=== PATIENT | male | born 1980 | race American Indian/Alaskan Native ===

== ENCOUNTER 2018-11-01 04:54 | Inpatient (IN) | payer OTHER ==
[2018-11-01] MEDS ORDERED: ZOFRAN IV ONE ×2 (05:09→06:48)
[2018-11-01] MEDS ORDERED: MORPHINE IV ONE (05:09)
[2018-11-01] MEDS ORDERED: APRESOLINE IV ONE (05:09)
--- NOTE | 2018-11-01 05:15 | Emergency Department Report ---
Blank Doc - Documentation Documentation: 38 yo M w/ hx HTN, off BP meds x 2 months since moving to [place], presents to ED with 3 day history of diffuse headache, blurred vision, substernal chest pain that is nonradiating and feels like gas, and hematuria. Pt reports all symptoms have been intermittent. Denies abdominal pain. Reports vomiting. Pt states he was taking lisinopril and amlodipine. Reports tobacco use, denies drug use. BP currently 250/189. Pressures are essentially the same in both arms. No neuro deficits noted on exam, speech is clear, no facial droop, strength in equal and normal bilaterally. Abdomen is soft and nontender. Will give hydralazine for the blood pressure, morphine for pain. Pt was taken to CT on arrival with EMS. CT Head has been done, results are pending. No obvious hemorrhage noted. Will place further orders for work-up for oncoming ER physician.
--- NOTE | 2018-11-01 05:17 | Cat Scan Report ---
CT head without contrast INDICATION : hypertension with blurry vision. TECHNIQUE: Axial imaging performed from the skull apex through the skull base without the use of con trast. All CT scans at this location are performed using CT dose reduction for ALARA by means of aut omated exposure control. COMPARISON: None FINDINGS: Parenchyma: No acute intracranial hemorrhage or parenchymal abnormality. Ventricles: Ventricles are normal in size and appear symmetric. Soft tissues: Soft tissues including the orbits appear normal. Bones: No acute osseous abnormality. Sinuses: Sinuses and mastoid air cells are clear. IMPRESSION: No acute abnormality. Signer Name: Kun Watson MD Signed: 11/01/2018 5:12 AM Workstation Name: [id number]
[2018-11-01] MEDS ORDERED: NITROSTAT SL PRN (05:33)
[2018-11-01 05:42] LABS: Basophils # (Auto) 0.1 K/mm3 (0.0-0.1); Eosinophils # (Auto) 0.3 K/mm3 (0.0-0.4); Eosinophils % (Auto) 3.3 % (0.0-4.3); Hematocrit 35.7 % (35.5-45.6); Hemoglobin 12.3 gm/dl (11.8-15.2); Lymphocytes # (Auto) 0.9 K/mm3 (1.2-5.4); Lymphocytes % (Auto) 10.1 % (13.4-35.0); Mean Corpuscular HGB Conc 35 % (32-34); Mean Corpuscular Volume 86 fl (84-94); Monocytes # (Auto) 0.9 K/mm3 (0.0-0.8); Monocytes % (Auto) 9.6 % (0.0-7.3); Platelet Count 148 K/mm3 (140-440); Red Blood Count 4.15 M/mm3 (3.65-5.03); Red Cell Distribution Width 17.9 % (13.2-15.2)
--- NOTE | 2018-11-01 05:44 | XRay Report ---
CHEST 1 VIEW INDICATION: chest pain. Middle to left-sided chest pain for 3 days with shortness of breath COMPARISON: None FINDINGS: Support devices: None. Heart: Within normal limits. Lungs/Pleura: No acute air space or interstitial disease. Additional findings: None. IMPRESSION: 1. No acute findings. Signer Name: Kun Watson MD Signed: 11/01/2018 5:40 AM Workstation Name: [id number]
[2018-11-01 05:55] LABS: INR 1.09 (0.87-1.13); Partial Thromboplastin Time 30.8 Sec. (24.2-36.6)
[2018-11-01 06:09] LABS: Albumin 3.8 g/dL (3.9-5); Calcium 9.3 mg/dL (8.4-10.2)
[2018-11-01] MEDS ORDERED: NORMODYNE IV ONE (06:15)
[2018-11-01] MEDS ORDERED: K-DUR PO ONE (06:23)
[2018-11-01 06:37] LABS: Chol/HDL Ratio 4.57 %
[2018-11-01] MEDS: CARDENE 50 MG in NACL 0.9% 250ML 230 ML IV SCH ×2 (06:44→20:49)
--- NOTE | 2018-11-01 06:50 | Emergency Department Report ---
ED General Adult HPI - General Chief complaint: High BP Stated complaint: CP, HIGH BP Time Seen by Provider: 11/01/18 06:12 Source: EMS Mode of arrival: Ambulatory Limitations: No Limitations - History of Present Illness Initial comments: This is a 38-year-old male gives various rationalization as for his noncompliance with his blood pressure medication. Quite remarkably he tells me that his father recently had to be placed on dialysis secondary to hypertension. He states the last 3-4 days he's been having chest pain which is in the left pectoral area and does not radiate is nonpleuritic. He has also had some headaches. He was previously treated by the previous emergency physician for pain and is relatively comfortable thereof. He still has some persistent nausea. CT of the head and chest x-ray prior to my arrival showed no acute process. -: Gradual, days(s) Location: head, chest Radiation: non-radiation Severity scale (0 -10): 0 Quality: aching (/pressure) Consistency: now resolved Improves with: none Worsens with: none Associated Symptoms: denies other symptoms Treatments Prior to Arrival: none - Related Data Allergies Allergy/AdvReac Type Severity Reaction Status Date / Time No Known Allergies Allergy Unverified 11/01/18 04:56 ED Review of Systems ROS: Stated complaint: CP, HIGH BP Other details as noted in HPI Constitutional: denies: chills, fever Eyes: denies: eye pain, eye discharge, vision change ENT: denies: ear pain, throat pain Respiratory: denies: cough, shortness of breath, wheezing Cardiovascular: chest pain. denies: palpitations Endocrine: no symptoms reported Gastrointestinal: nausea, vomiting. denies: abdominal pain, diarrhea Genitourinary: denies: urgency, dysuria Musculoskeletal: denies: back pain, joint swelling, arthralgia Skin: denies: rash, lesions Neurological: headache. denies: weakness, paresthesias Psychiatric: denies: anxiety, depression Hematological/Lymphatic: denies: easy bleeding, easy bruising ED Past Medical Hx - Past Medical History Previous Medical History?: Yes - Family History Family history: renal disease - Social History Smoking Status: Never Smoker ED Physical Exam - General Limitations: No Limitations General appearance: alert, in no apparent distress - Head Head exam: Present: atraumatic, normocephalic - Eye Eye exam: Present: normal appearance. Absent: scleral icterus - ENT ENT exam: Present: mucous membranes moist - Neck Neck exam: Present: normal inspection - Respiratory Respiratory exam: Present: normal lung sounds bilaterally. Absent: respiratory distress - Cardiovascular Cardiovascular Exam: Present: regular rate, normal rhythm. Absent: systolic murmur, diastolic murmur, rubs, gallop - GI/Abdominal GI/Abdominal exam: Present: soft, normal bowel sounds. Absent: distended, t enderness, guarding, rebound, rigid - Rectal Rectal exam: Present: deferred - Extremities Exam Extremities exam: Present: normal inspection - Back Exam Back exam: Present: normal inspection - Neurological Exam Neurological exam: Present: alert, oriented X3, CN II-XII intact. Absent: motor sensory deficit - Psychiatric Psychiatric exam: Present: normal affect, normal mood - Skin Skin exam: Present: warm, dry, intact, normal color. Absent: rash ED Course Vital Signs 11/01/18 11/01/18 11/01/18 05:02 05:15 05:30 Temperature 97.9 F Pulse Rate 104 H 93 H 92 H Respiratory 18 10 L 29 H Rate Blood Pressure 252/189 241/180 235/163 O2 Sat by Pulse 99 96 Oximetry 11/01/18 11/01/18 11/01/18 05:45 06:01 06:15 Temperature Pulse Rate 90 90 69 Respiratory 28 H 26 H 27 H Rate Blood Pressure 223/155 223/155 223/155 O2 Sat by Pulse 96 98 99 Oximetry 11/01/18 11/01/18 11/01/18 06:30 06:45 07:00 Temperature Pulse Rate 92 H 78 Respiratory 19 22 Rate Blood Pressure 208/151 215/149 192/136 O2 Sat by Pulse 96 93 98 Oximetry 11/01/18 11/01/18 11/01/18 07:15 07:30 07:45 Temperature Pulse Rate 83 74 71 Respiratory 16 17 21 Rate Blood Pressure 192/136 139/93 128/83 O2 Sat by Pulse 100 96 98 Oximetry 11/01/18 11/01/18 11/01/18 08:00 08:12 08:15 Temperature Pulse Rate 78 80 Respiratory 25 H 25 H Rate Blood Pressure 171/115 164/110 O2 Sat by Pulse 96 98 97 Oximetry - Reevaluation(s) Reevaluation #1: I took a blood pressure on my arrival. It was extremely elevated. The patient was ordered labetalol IV and nicardipine drip. His potassium was also found to be 2.5. Supplemental potassium was ordered. He will be admitted to the int ensive care unit for his hypertensive crisis. Additional blood work is pending. 11/01/18 06:49 Reevaluation #2: The patient was hypotensive unresponsive to Cardene per the nurse. She stopped the drip which was appropriate. We discussed the need for close ongoing monitor ing. She stated that she would check the blood pressure 5 minutes. I spoke to the hospitalist staff. The patient will be admitted. He does have a d-dimer of 1700. I will discuss this with the production operator regarding the choice of imaging protocol with this creatinine and how to proceed. 11/01/18 07:50 Reevaluation #3: I spoke with Dr. Restrepo. We discussed the case in detail artery the need for imaging to rule out dissection particularly. I do not think this patient has a pulmonary embolism. His chest x-ray shows normal mediastinum so that certainly leads away from the diagnosis of aortic dissection. However this is still a concern. He has a d-dimer of over 1700. I think ultimately this may be explainable by endorgan injury. Dr. Restrepo suggested that the best course may be to do a ANAMARIA. I will speak with cardiology regarding this. Dr. Maria Teresa hurt. 11/01/18 08:15 Reevaluation #4: Patient produced a urine specimen. It was consistent with gross hematuria. 11/01/18 08:20 Reevaluation #5: Discussed with Dr. Collins. He did not recommend a ANAMARIA at this time. He agreed with me ordering a transthoracic echo. Further recommendations per consultants. Patient admitted to the hospitalist staff. 11/01/18 08:53 ED Medical Decision Making - Lab Data Result diagrams: 11/01/18 05:26 11/01/18 05:26 Laboratory Results - last 24 hr 11/01/18 11/01/18 11/01/18 05:26 05:26 05:26 WBC 9.0 RBC 4.15 Hgb 12.3 Hct 35.7 MCV 86 MCH 30 MCHC 35 H RDW 17.9 H Plt Count 148 Lymph % (Auto) 10.1 L [place] % (Auto) 9.6 H Eos % (Auto) 3.3 Baso % (Auto) 1.0 Lymph # 0.9 L [place] # 0.9 H Eos # 0.3 Baso # 0.1 Seg Neutrophils % 76.0 H Seg Neutrophils # 6.9 PT 13.8 INR 1.09 APTT 30.8 Sodium Potassium Chloride Carbon Dioxide Anion Gap BUN Creatinine Estimated GFR BUN/Creatinine Ratio Glucose Calcium Total Bilirubin AST ALT Alkaline Phosphatase Troponin T 0.168 H* Total Protein Albumin Albumin/Globulin Ratio Triglycerides 158 H Cholesterol 206 H LDL Cholesterol Direct 158 H HDL Cholesterol 45 Cholesterol/HDL Ratio 4.57 11/01/18 05:26 WBC RBC Hgb Hct MCV MCH MCHC RDW Plt Count Lymph % (Auto) [place] % (Auto) Eos % (Auto) Baso % (Auto) Lymph # [place] # Eos # Baso # Seg Neutrophils % Seg Neutrophils # PT INR APTT Sodium 137 Potassium 2.5 L* Chloride 91.1 L Carbon Dioxide 29 Anion Gap 19 BUN 53 H Creatinine 7.0 H Estimated GFR 11 BUN/Creatinine Ratio 8 Glucose 131 H Calcium 9.3 Total Bilirubin 0.80 AST 25 ALT 11 Alkaline Phosphatase 70 Troponin T Total Protein 6.4 Albumin 3.8 L Albumin/Globulin Ratio 1.5 Triglycerides Cholesterol LDL Cholesterol Direct HDL Cholesterol Cholesterol/HDL Ratio - EKG Data -: EKG Interpreted by Me EKG shows normal: sinus rhythm - EKG Data Interpretation: LVH (quite consistent with LVH and associated repolarization abnormalities) - Radiology Data Radiology results: report reviewed, image reviewed interpreted by me: Chest x-ray a CT of the head showed no acute findings Critical Care Time: Yes Critical care time in (mins) excluding proc time.: 90 Critical care attestation.: If time is entered above; I have spent that time in minutes in the direct care of this critically ill patient, excluding procedure time. ED Disposition Clinical Impression: Hypertensive crisis, Acute kidney injury, Hypokalemia Chest pain Qualifiers: Chest pain type: unspecified Qualified Code(s): R07.9 - Chest pain, unspecified Headache Qualifiers: Headache type: unspecified Headache chronicity pattern: acute headache Intractability: not intractable Qualified Code(s): R51 - Headache Disposition: OP ADMIT IP TO THIS HOSP Is pt being admited?: Yes Does the pt Need Aspirin: Yes Condition: Stable Instructions: Chest Pain (ED), Hypertension (ED) Referrals: [facility] MD HUGO [Primary Care Provider] - 3-5 Days Time of Disposition: 06:52
[2018-11-01] MEDS ORDERED: BABY ASPIRIN PO ONE (06:53)
[2018-11-01 06:58] LABS: Creatine Kinase MB 4.2 ng/mL (0.0-4.0); INR 1.08 (0.87-1.13)
[2018-11-01 06:59] LABS: Partial Thromboplastin Time 30.3 Sec. (24.2-36.6)
[2018-11-01 07:01] LABS: Alanine Aminotransferase 11 units/L (7-56); Albumin 3.7 g/dL (3.9-5)
[2018-11-01 07:22] LABS: Bilirubin,Direct < 0.2 mg/dL (0-0.2)
[2018-11-01 08:38] LABS: Bilirubin,Urine NEG (Negative); Blood,Urine LG (Negative); Color,Urine Red (Yellow); Mucus,Urine FEW /HPF; Urobilinogen,Urine < 2.0 mg/dL (<2.0)
[2018-11-01 08:49] LABS: Protein,Urine >500 mg/dL (Negative)
[2018-11-01 08:50] LABS: RBC,Urine > 182.0 /HPF (0.0-6.0)
[2018-11-01 08:55] LABS: Amphetamine Screen,Urine PRESUMPTIVE NEGATIVE; Benzodiazepines Screen,Urine PRESUMPTIVE NEGATIVE; Cocaine Screen,Urine PRESUMPTIVE NEGATIVE; Methadone Screen,Urine PRESUMPTIVE NEGATIVE; Opiate Screen,Urine PRESUMPTIVE NEGATIVE
[2018-11-01 09:09] LABS: Cannabinoid Screen,Urine PRESUMPTIVE POSITIVE
--- NOTE | 2018-11-01 09:40 | History and Physical Report ---
History of Present Illness Date of examination: 11/01/18 Date of admission: 11/01/18 Chief complaint: CP, History of present illness: 38 yo M w/ hx HTN, off BP meds x 2 months since moving to [place], presents to ED with 3 day history of diffuse headache, blurred vision, substernal chest pain that is nonradiating and hematuria. Pt reports all symptoms have been in termittent. Denies abdominal pain. Reports vomiting. Pt states he was taking lisinopril and amlodipine. Reports tobacco use, denies drug use. On arrival to the emergency room the patient's BP was 250/189. The patient denies any fever or chills. No cough or cold symptoms. Past History Past Medical History: hypertension Past Surgical History: No surgical history Social history: no significant social history Family history: hypertension Medications and Allergies Allergies Allergy/AdvReac Type Severity Reaction Status Date / Time No Known Allergies Allergy Unverified 11/01/18 04:56 Active Meds: Active Medications Nicardipine HCl 50 mg/ Sodium (Chloride) 250 mls @ 25 mls/hr IV TITR ZUNILDA; Protocol Last Titration: 11/01/18 09:02 Dose: 2.5 mg/hr, 12.5 mls/hr Documented by: Nitroglycerin (Nitrostat) 0.4 mg SL .Q5MIN PRN PRN Reason: Chest Pain Last Admin: 11/01/18 06:20 Dose: 0.4 mg Documented by: Review of Systems All systems: negative Exam - Constitutional Vitals: Temp Pulse Resp BP Pulse Ox 97.9 F 81 9 L 142/88 83 L 11/01/18 05:02 11/01/18 09:00 11/01/18 09:00 11/01/18 09:00 11/01/18 09:00 General appearance: Present: no acute distress, well-nourished - EENT Eyes: Present: PERRL ENT: hearing intact, clear oral mucosa - Neck Neck: Present: supple, normal ROM - Respiratory Respiratory effort: normal Respiratory: bilateral: CTA - Cardiovascular Heart Sounds: Present: S1 & S2. Absent: rub, click - Extremities Extremities: pulses symmetrical, No edema Peripheral Pulses: within normal limits - Abdominal General gastrointestinal: Present: soft, non-tender, non-distended, normal bowel sounds Male genitourinary: Present: normal - Integumentary Integumentary: Present: clear, warm, dry - Musculoskeletal Musculoskeletal: gait normal, strength equal bilaterally - Psychiatric Psychiatric: appropriate mood/affect, intact judgment & insight - Neurologic Neurologic: CNII-XII intact, moves all extremities Results - Labs CBC & Chem 7: 11/01/18 05:26 11/01/18 05:26 Labs: Laboratory Last Values WBC 9.0 K/mm3 (4.5-11.0) 11/01/18 05:26 RBC 4.15 M/mm3 (3.65-5.03) 11/01/18 05:26 Hgb 12.3 gm/dl (11.8-15.2) 11/01/18 05:26 Hct 35.7 % (35.5-45.6) 11/01/18 05:26 MCV 86 fl (84-94) 11/01/18 05:26 MCH 30 pg (28-32) 11/01/18 05:26 MCHC 35 % (32-34) H 11/01/18 05:26 RDW 17.9 % (13.2-15.2) H 11/01/18 05:26 Plt Count 148 K/mm3 (140-440) 11/01/18 05:26 Lymph % (Auto) 10.1 % (13.4-35.0) L 11/01/18 05:26 [place] % (Auto) 9.6 % (0.0-7.3) H 11/01/18 05:26 Eos % (Auto) 3.3 % (0.0-4.3) 11/01/18 05:26 Baso % (Auto) 1.0 % (0.0-1.8) 11/01/18 05:26 Lymph # 0.9 K/mm3 (1.2-5.4) L 11/01/18 05:26 [place] # 0.9 K/mm3 (0.0-0.8) H 11/01/18 05:26 Eos # 0.3 K/mm3 (0.0-0.4) 11/01/18 05:26 Baso # 0.1 K/mm3 (0.0-0.1) 11/01/18 05:26 Seg Neutrophils % 76.0 % (40.0-70.0) H 11/01/18 05:26 Seg Neutrophils # 6.9 K/mm3 (1.8-7.7) 11/01/18 05:26 PT 13.7 Sec. (12.2-14.9) 11/01/18 06:29 INR 1.08 (0.87-1.13) 11/01/18 06:29 APTT 30.3 Sec. (24.2-36.6) 11/01/18 06:29 1703.12 ng/mlDDU (0-234) H 11/01/18 06:29 Sodium 137 mmol/L (137-145) 11/01/18 05:26 Potassium 2.5 mmol/L (3.6-5.0) L* 11/01/18 05:26 Chloride 91.1 mmol/L (98-107) L 11/01/18 05:26 Carbon Dioxide 29 mmol/L (22-30) 11/01/18 05:26 19 mmol/L 11/01/18 05:26 BUN 53 mg/dL (9-20) H 11/01/18 05:26 7.0 mg/dL (0.8-1.5) H 11/01/18 05:26 Estimated GFR 11 ml/min 11/01/18 05:26 8 % 11/01/18 05:26 Glucose 131 mg/dL (75-100) H 11/01/18 05:26 Calcium 9.3 mg/dL (8.4-10.2) 11/01/18 05:26 Magnesium 2.30 mg/dL (1.7-2.3) 11/01/18 06:29 0.80 mg/dL (0.1-1.2) 11/01/18 06:29 < 0.2 mg/dL (0-0.2) 11/01/18 06:29 0.6 mg/dL 11/01/18 06:29 AST 26 units/L (5-40) 11/01/18 06:29 ALT 11 units/L (7-56) 11/01/18 06:29 70 units/L (35-129) 11/01/18 06:29 133 units/L (55-170) 11/01/18 06:29 CK-MB (CK-2) 4.2 ng/mL (0.0-4.0) H 11/01/18 06:29 CK-MB (CK-2) Rel Index 3.1 (0-4) 11/01/18 06:29 0.173 ng/mL (0.00-0.029) H* 11/01/18 06:29 NT-Pro-B Natriuret Pep 81758 pg/mL (0-450) H 11/01/18 06:29 7.4 g/dL (6.3-8.2) 11/01/18 06:29 3.7 g/dL (3.9-5) L 11/01/18 06:29 1.0 % 11/01/18 06:29 Triglycerides 158 mg/dL (2-149) H 11/01/18 05:26 Cholesterol 206 mg/dL (50-199) H 11/01/18 05:26 158 mg/dL (50-130) H 11/01/18 05:26 45 mg/dL (40-59) 11/01/18 05:26 4.57 % 11/01/18 05:26 Red (Yellow) 11/01/18 08:11 Slightly-cloudy (Clear) 11/01/18 08:11 6.0 (5.0-7.0) 11/01/18 08:11 Ur Specific [place] 1.013 (1.003-1.030) 11/01/18 08:11 >500 mg/dL (Negative) 11/01/18 08:11 150 mg/dL (Negative) 11/01/18 08:11 Neg mg/dL (Negative) 11/01/18 08:11 Lg (Negative) 11/01/18 08:11 Neg (Negative) 11/01/18 08:11 Neg (Negative) 11/01/18 08:11 < 2.0 mg/dL (<2.0) 11/01/18 08:11 Ur Leukocyte Esterase Neg (Negative) 11/01/18 08:11 3.0 /HPF (0.0-6.0) 11/01/18 08:11 > 182.0 /HPF (0.0-6.0) 11/01/18 08:11 U Epithel Cells (Auto) < 1.0 /HPF (0-13.0) 11/01/18 08:11 Few /HPF 11/01/18 08:11 Presumptive negative 11/01/18 08:11 Presumptive negative 11/01/18 08:11 Ur Barbiturates Screen Presumptive negative 11/01/18 08:11 Ur Phencyclidine Scrn Presumptive negative 11/01/18 08:11 Ur Amphetamines Screen Presumptive negative 11/01/18 08:11 U Benzodiazepines Scrn Presumptive negative 11/01/18 08:11 Presumptive negative 11/01/18 08:11 U Marijuana (THC) Screen Presumptive positive 11/01/18 08:11 Disclamer 11/01/18 08:11 Assessment and Plan Assessment and plan: Acute on CKD. We do not have a baseline creatinine to compare. However patient likely has pronounced kidney disease secondary to hypertension. GFR is 11. Nephrology consult. ER physician has discussed with vascular for Vas-Cath placement. Follow-up urinalysis. Accelerated hypertension/malignant. Continue IV antihypertensive medications. Patient will be transitioned to by mouth medications once blood pressure has stabilized. Elevated troponin. Etiology likely secondary to renal insufficiency. Chest pain. Patient will have ischemic evaluation likely when renal issues have been stabilized. CTA of the chest to rule out dissection. Hypokalemia. Replete potassium. Hyperlipidemia.
--- NOTE | 2018-11-01 10:14 | Consultation ---
History of Present Illness Consult date: 11/01/18 Consult reason: hypertension History of present illness: 38 year old -[place] male with a history of hypertension and noncompli ance of medication presenting with elevated blood pressure shortness of breath and chest pain chest CT scan showed no acute cardiopulmonary process. I did time of my evaluation patient is chest pain-free. On arrival to the emergency room patient's blood pressure was 250/189 Past History Past Medical History: hypertension Past Surgical History: No surgical history Social history: no significant social history Family history: hypertension Medications and Allergies Allergies Allergy/AdvReac Type Severity Reaction Status Date / Time No Known Allergies Allergy Unverified 11/01/18 04:56 Active Meds: Active Medications Nicardipine HCl 50 mg/ Sodium (Chloride) 250 mls @ 25 mls/hr IV TITR ZUNILDA; Protocol Last Titration: 11/01/18 09:02 Dose: 2.5 mg/hr, 12.5 mls/hr Documented by: Nitroglycerin (Nitrostat) 0.4 mg SL .Q5MIN PRN PRN Reason: Chest Pain Last Admin: 11/01/18 06:20 Dose: 0.4 mg Documented by: Review of Systems All systems: negative Cardiovascular: chest pain, shortness of breath Physical Examination Vital Signs Temp Pulse Resp BP Pulse Ox 97.9 F 104 H 18 252/189 99 11/01/18 05:02 11/01/18 05:02 11/01/18 05:02 11/01/18 05:02 11/01/18 05:02 General appearance: no acute distress, well-nourished HEENT: Positive: PERRL, Mucus Membranes Moist Neck: Positive: neck supple, trachea midline Cardiac: Positive: Reg Rate and Rhythm, S1/S2. Negative: Audible Murmur Lungs: Positive: clear to auscultation, Normal Breath Sounds Neuro: Positive: Grossly Intact Abdomen: Positive: Soft, Active Bowel Sounds. Negative: Tender, Distended Male genitourinary: Positive: normal Skin: Positive: Clear Incision: Cardiac Cath Site Musculoskeletal: No Pain, Normal Range of Motion Extremities: Present: normal. Absent: edema Results 11/01/18 05:26 11/01/18 05:26 Cardiac Enzymes 11/01/18 11/01/18 11/01/18 Range/Units 05:26 06:29 06:29 AST 25 26 (5-40) units/L CK-MB (CK-2) 4.2 H (0.0-4.0) ng/mL Coagulation 11/01/18 11/01/18 Range/Units 05:26 06:29 PT 13.8 13.7 (12.2-14.9) Sec. INR 1.09 1.08 (0.87-1.13) APTT 30.8 30.3 (24.2-36.6) Sec. Lipids 11/01/18 Range/Units 05:26 Triglycerides 158 H (2-149) mg/dL Cholesterol 206 H (50-199) mg/dL HDL Cholesterol 45 (40-59) mg/dL Cholesterol/HDL Ratio 4.57 % CBC 11/01/18 Range/Units 05:26 WBC 9.0 (4.5-11.0) K/mm3 RBC 4.15 (3.65-5.03) M/mm3 Hgb 12.3 (11.8-15.2) gm/dl Hct 35.7 (35.5-45.6) % Plt Count 148 (140-440) K/mm3 Lymph # 0.9 L (1.2-5.4) K/mm3 Bent # 0.9 H (0.0-0.8) K/mm3 Eos # 0.3 (0.0-0.4) K/mm3 Baso # 0.1 (0.0-0.1) K/mm3 Comprehensive Metabolic Panel 11/01/18 11/01/18 Range/Units 05:26 06:29 Sodium 137 (137-145) mmol/L Potassium 2.5 L* (3.6-5.0) mmol/L Chloride 91.1 L (98-107) mmol/L Carbon Dioxide 29 (22-30) mmol/L BUN 53 H (9-20) mg/dL Creatinine 7.0 H (0.8-1.5) mg/dL Glucose 131 H (75-100) mg/dL Calcium 9.3 (8.4-10.2) mg/dL Direct Bilirubin < 0.2 (0-0.2) mg/dL Indirect Bilirubin 0.6 mg/dL AST 25 26 (5-40) units/L ALT 11 11 (7-56) units/L Alkaline Phosphatase 70 70 (35-129) units/L Total Protein 6.4 7.4 (6.3-8.2) g/dL Albumin 3.8 L 3.7 L (3.9-5) g/dL EKG interpretations - Telemetry EKG Rhythm: Sinus Rhythm Assessment and Plan 1. Hypertensive emergency 2. Severe acuteRenal failure 3. Hypokalemia 4. Hyperlipidemia 5. Equivocal troponin elevation secondary to renal failure Plan Patient is to be started on dialysis this will control on correct electrolyte abnormalities she will have a CTA of the aorta and chest. Echocardiogram to assess global and regional function
--- NOTE | 2018-11-01 10:52 | Consultation ---
History of Present Illness - Reason for Consult Consult date: 11/01/18 acute renal failure - History of Present Illness Patient with a history of hypertension and noncompliance presents with chest pain and a serum creatinine of 7.0. Past History Past Medical History: hypertension Past Surgical History: No surgical history Social history: no significant social history Family history: hypertension Medications and Allergies Allergies Allergy/AdvReac Type Severity Reaction Status Date / Time No Known Allergies Allergy Unverified 11/01/18 04:56 Active Meds: Active Medications Nicardipine HCl 50 mg/ Sodium (Chloride) 250 mls @ 25 mls/hr IV TITR ZUNILDA; Protocol Last Titration: 11/01/18 09:02 Dose: 2.5 mg/hr, 12.5 mls/hr Documented by: Nitroglycerin (Nitrostat) 0.4 mg SL .Q5MIN PRN PRN Reason: Chest Pain Last Admin: 11/01/18 06:20 Dose: 0.4 mg Documented by: Review of Systems All systems: negative Exam - Constitutional Vitals: Temp Pulse Resp BP Pulse Ox 97.9 F 87 24 160/103 94 11/01/18 05:02 11/01/18 10:45 11/01/18 10:45 11/01/18 10:45 11/01/18 09:15 General appearance: Present: no acute distress - EENT Eyes: Present: PERRL, EOM intact ENT: hearing intact - Neck Neck: Present: supple, normal ROM - Respiratory Respiratory effort: normal - Cardiovascular Rhythm: regular - Extremities Extremities: no ischemia, No edema, Full ROM - Abdominal General gastrointestinal: Present: deferred Male genitourinary: Present: deferred - Rectal Rectal Exam: deferred - Musculoskeletal Musculoskeletal: strength equal bilaterally - Psychiatric Psychiatric: appropriate mood/affect, cooperative - Neurologic Neurologic: no focal deficits Results - Labs CBC & Chem 7: 11/01/18 05:26 11/01/18 05:26 Labs: Abnormal lab results 11/01/18 11/01/18 11/01/18 Range/Units 05:26 05:26 05:26 MCHC 35 H (32-34) % RDW 17.9 H (13.2-15.2) % Lymph % (Auto) 10.1 L (13.4-35.0) % [place] % (Auto) 9.6 H (0.0-7.3) % Lymph # 0.9 L (1.2-5.4) K/mm3 [place] # 0.9 H (0.0-0.8) K/mm3 Seg Neutrophils % 76.0 H (40.0-70.0) % D-Dimer (0-234) ng/mlDDU Potassium 2.5 L* (3.6-5.0) mmol/L Chloride 91.1 L (98-107) mmol/L BUN 53 H (9-20) mg/dL Creatinine 7.0 H (0.8-1.5) mg/dL Glucose 131 H (75-100) mg/dL CK-MB (CK-2) (0.0-4.0) ng/mL Troponin T 0.168 H* (0.00-0.029) ng/mL NT-Pro-B Natriuret Pep (0-450) pg/mL Albumin 3.8 L (3.9-5) g/dL Triglycerides 158 H (2-149) mg/dL Cholesterol 206 H (50-199) mg/dL LDL Cholesterol Direct 158 H (50-130) mg/dL 11/01/18 11/01/18 11/01/18 Range/Units 06:29 06:29 06:29 MCHC (32-34) % RDW (13.2-15.2) % Lymph % (Auto) (13.4-35.0) % [place] % (Auto) (0.0-7.3) % Lymph # (1.2-5.4) K/mm3 [place] # (0.0-0.8) K/mm3 Seg Neutrophils % (40.0-70.0) % D-Dimer 1703.12 H (0-234) ng/mlDDU Potassium (3.6-5.0) mmol/L Chloride (98-107) mmol/L BUN (9-20) mg/dL Creatinine (0.8-1.5) mg/dL Glucose (75-100) mg/dL CK-MB (CK-2) 4.2 H (0.0-4.0) ng/mL Troponin T 0.173 H* (0.00-0.029) ng/mL NT-Pro-B Natriuret Pep 66261 H (0-450) pg/mL Albumin 3.7 L (3.9-5) g/dL Triglycerides (2-149) mg/dL Cholesterol (50-199) mg/dL LDL Cholesterol Direct (50-130) mg/dL Assessment and Plan Patient with a history of acute renal failure. A Vas-cath will be placed in the ER.
--- NOTE | 2018-11-01 10:59 | Operative Report ---
Operative Report Operative Report: Exam: Ultrasound guided placement of Vas-cath Clinical indication: Patient with acute renal failure requiring access Date: 11/01/2018 Procedure: Following an explanation of the risks, benefits and alternatives; written informed consent was obtained. The procedure was performed at bedside in the ER. Initial ultrasound guided evaluation of the patient's right neck demonstrated a patent right internal jugular vein. The patient's right neck and chest wall were prepped and draped in the usual sterile fashion. 1% lidocaine was used for anesthesia. Under ultrasound guidance, the right internal jugular vein was cannulated with a 7 cm 18-gauge needle. A 0.035 guidewire was advanced centrally. The needle was removed and following serial dilation over the guidewire, a 15 cm dialysis catheter was advanced up the guidewire centrally. The guidewire was removed. Nonpulsatile blood returned from all 3 ports. The catheter was securely flushed and locked with sterile saline. The catheter was fastened at the skin surface using 2-0 nylon suture and a sterile dressing applied. A post procedure chest x-ray was ordered. The patient tolerated the procedure well. There were no immediate postprocedure complications. Impression: Ultrasonic guided placement of Vascath via the right internal jugular vein.
--- NOTE | 2018-11-01 11:19 | XRay Report ---
CHEST 1 VIEW 11/01/2018 10:51 AM INDICATION / CLINICAL INFORMATION: Right IJ Trialysis Vas-Cath placement. COMPARISON: 5:12 AM FINDINGS: SUPPORT DEVICES: Interval placement of right jugular Vas-Cath the tip projecting over the superior ve na cava in expected position. HEART / MEDIASTINUM: Enlarged but stable. LUNGS / PLEURA: No significant pulmonary or pleural abnormality. No pneumothorax. ADDITIONAL FINDINGS: No significant additional findings. IMPRESSION: 1. Right Vas-Cath in expected position. Signer Name: Yo Flores MD Signed: 11/01/2018 11:15 AM Workstation Name: [id number]
--- NOTE | 2018-11-01 11:27 | Cat Scan Report ---
CTA CHEST, ABDOMEN, AND PELVIS WITH CONTRAST INDICATION / CLINICAL INFORMATION: chest pain and elevated d-dimer, htn r/o AD. TECHNIQUE: Axial CT images were obtained through the chest, abdomen, and pelvis after IV contrast. 3 plane MIP a nd/or 3D reconstructions were produced. All CT scans at this location are performed using CT dose red uction for ALARA by means of automated exposure control. COMPARISON: None available. FINDINGS: HEART: Heart is enlarged. No pericardial effusion. THORACIC AORTA: No acute abnormality. Specifically no aortic dissection. No aneurysmal dilation. GREAT VESSELS: No significant abnormality. PULMONARY ARTERIES: No significant abnormality. ADDITIONAL CHEST FINDINGS: No acute air space or interstitial disease. No pleural effusion. ABDOMINAL AORTA: No acute abnormality. Specifically no aortic dissection or aneurysmal dilation. RENAL ARTERIES: No significant abnormality. CELIAC ARTERY: No significant abnormality. SUPERIOR MESENTERIC ARTERY: No significant abnormality. INFERIOR MESENTERIC ARTERY: No significant abnormality. RIGHT ILIAC ARTERIES: No significant abnormality.. LEFT ILIAC ARTERIES: No significant abnormality.. ADDITIONAL ABDOMINOPELVIC FINDINGS: No inflammatory process or bowel obstruction. Kidneys have a hete rogeneous appearance. SKELETAL STRUCTURES: No significant abnormality. IMPRESSION: 1. No acute abnormality of the thoracoabdominal aorta. No aortic dissection or other acute abnormalit y. 2. No acute findings in the chest, abdomen, or pelvis. 3. Heterogeneous appearance of the kidneys. Correlation with renal function labs is recommended. Signer Name: Yo Flores MD Signed: 11/01/2018 11:22 AM Workstation Name: [id number]
--- NOTE | 2018-11-01 11:45 | Consultation ---
History of Present Illness - History of Present Illness Thank you for the consultation ! Patient was evaluated today My assessment and plan are as follows; Renal failure patient is 38-year-old being admitted here with uncontrolled hyper tension, patient was without medication for 2 months, history of long-standing hypertension, was told to have renal failure given in [place] Likely may have some degree of chronic kidney disease? End-stage renal disease presenting with uncontrolled hypertension he is an immediate need of renal replacement therapy due to severity of renal failure as well as exposure to radiocontrast We'll look for reversible causes for renal failure but given the patient has uncontrolled hypertension, has received radiocontrast and has severe renal failure will start him on hemodialysis treatment today and tomorrow Hypokalemia with uncontrolled hypertension very likely he may have secondary hypertension we'll check for renal artery stenosis check aldosterone and plasma renin as well as plasma metanephrine Goal systolic blood pressure between 140-160 today's Patient has been adequately counseled regarding all his renal related issues All questions have been answered he is not opposed to hemodialysis Abnormal troponin with significantly elevated proBNP/needs cardiology evaluation due to renal failure as well as abnormal troponin Proteinuria more than 500 mg a random specimen with many red blood cells need to rule out a possibility of vasculitis and lupus etc. we'll order further workup Recommend replacing potassium initiating renal replacement therapy using Vas- Cath case has also been discussed with emergency room physician Renal prognosis guarded to poor dialysis for now continue to follow, depending on the results of renal ultrasonogram we may consider a kidney biopsy Patient was adequately counseled and educated regarding multiple renal related issues. Renal prognosis remains guarded at this time All renal related questions were answered and simple Indonesian pertinent lab studies as well as imaging results were also discussed with patient We will continue to follow and make recommendations from renal standpoint. Thank you for the consultation Author: Andrew Restrepo M.D. [facility] (Former[facility]) Nephrology, [address] [place] [address] Tel; [phone] Source of information: From patient History of present illness Patient is a 38 ,-year-old -[place] male with #30 with uncontrolled hypertension hyperkalemia and renal failure. Patient does have long-standing history of hypertension for last several years but has not been followed by physician. He was told to have advancing renal failure even when he was in [place], he came to ER after he started having some blood in the urine and was noted to have some clots. Patient does not remember having any bloody nose any cough cold congestion, he does use [id number] nonsteroidal drugs off and on. He does use weed on occasions but does not use any form of IV drug or substance. No history of any toxin ingestion any form confirmed with the patient he seems to be a reliable historian. Due to uncontrolled hypertension and chest pain issue patient had to undergo a CAT scan in the ER, to rule out any possibility of dissection after he was explained about the consequences in cluding renal failure contrast-induced nephropathy by ER physician, a Vas-Cath was placed, Patient is currently not taking his blood pressure medication for last 2 months off and on and has been complaining of headache, he'll also experiencing some chest pain and heartburn-like symptoms, in the outpatient setting he was taking lisinopril and amlodipine renal consultation was placed for management of renal failure uncontrolled hypertension and hypokalemia. CT scan obtained in the ER showed no evidence of any dissection, heterogenous appearance of the kidney Past medical history significant for hypertension long-standing duration poorly controlled Current allergies: Reviewed Social history: Reviewed from the current chart Family history: Reviewed from the current chart Review of system: Positive for blood in the urine, long-standing history of hypertension, chest pain Has been told to have chronic kidney disease even in [place] Taking nonsteroidal drugs off and on All other review of systems negative Physical examination Vitals: Reviewed General: No acute distress HEENT: Oral mucosa moist no pallor or icterus Neck: Supple without any JVD thyromegaly or nodular mass Chest: Clear to auscultation Heart: Regular rate and rhythm S1-S2 heard no S3-S4 Abdomen: Soft nontender, bowel sounds present no renal bruit no suprapubic masses no CVA tenderness noted Extremity: Minimal edema dry skin no peripheral cyanosis Endocrine: Thyroid not enlarged Psychiatric: No agitation and aggression noted Musculoskeletal: No joint effusion noted Labs and x-rays: Reviewed from this admission Past History Past Medical History: hypertension Past Surgical History: No surgical history Social history: no significant social history Family history: hypertension Medications and Allergies Allergies Allergy/AdvReac Type Severity Reaction Status Date / Time No Known Allergies Allergy Unverified 11/01/18 04:56 Home Medications Medication Instructions Recorded Confirmed Last Taken Type Clonidine HCl 0.1 mg PO DAILY 11/01/18 11/01/18 3 Months Ago History ~05/11/19 amLODIPine 5 mg PO BID 11/01/18 11/01/18 3 Months Ago History ~08/01/18 Active Meds: Active Medications Nicardipine HCl 50 mg/ Sodium (Chloride) 250 mls @ 25 mls/hr IV TITR ZUNILDA; Protocol Last Titration: 11/01/18 09:02 Dose: 2.5 mg/hr, 12.5 mls/hr Documented by: Nitroglycerin (Nitrostat) 0.4 mg SL .Q5MIN PRN PRN Reason: Chest Pain Last Admin: 11/01/18 06:20 Dose: 0.4 mg Documented by: Exam - Vital Signs Vital signs: Vital Signs Temp Pulse Resp BP Pulse Ox 97.9 F 104 H 18 252/189 99 11/01/18 05:02 11/01/18 05:02 11/01/18 05:02 11/01/18 05:02 11/01/18 05:02 Results - Lab Results 11/01/18 05:26 11/01/18 05:26 Most recent lab results Calcium 9.3 mg/dL (8.4-10.2) 11/01/18 05:26 Magnesium 2.30 mg/dL (1.7-2.3) 11/01/18 06:29
[2018-11-01] MEDS ORDERED: NACL 0.9% 100 ML IV PRN (11:47)
[2018-11-01 13:10] LABS: Hepatitis B Surface Antigen Non-Reactive (Negative); Hepatitis C Virus Antibody Non-Reactive (NonReactive)
[2018-11-01 15:43] LABS: Creatinine,Urine 119.6 mg/dL (0.1-20.0)
[2018-11-01] MEDS: MORPHINE IV PRN (22:13)
[2018-11-01] MEDS ORDERED: NACL 0.9 (PRIMING MACHINE ONLY DIALYSIS) MC ONE (22:44)
[2018-11-02] MEDS: CARDENE 50 MG in NACL 0.9% 250ML 230 ML IV SCH (06:38)
--- NOTE | 2018-11-02 12:01 | Progress Note ---
Assessment and Plan Assessment and plan: Acute on CKD. We do not have a baseline creatinine to compare. However patient likely has pronounced kidney disease secondary to hypertension. GFR is 11. Nephrology following. ER physician has discussed with vascular for Vas-Cath placement. Patient has significant proteinuria and many RBCs. Nephrology to workup vasculitis/lupus. Accelerated hypertension/malignant. Attempt to wean Cardene drip off. Start labetalol and Norvasc Elevated troponin. Etiology likely secondary to renal insufficiency. Chest pain. Patient will have ischemic evaluation likely when renal issues have been stabilized. CTA revealed no evidence of aortic dissection. Cardiology following Hypokalemia. Replete potassium as needed. Hyperlipidemia. History Interval history: He states he feels much better today. Hospitalist Physical - Constitutional Vitals: Temp Pulse Resp BP Pulse Ox 98.2 F 97 H 25 H 160/97 96 11/02/18 08:00 11/02/18 10:30 11/02/18 10:30 11/02/18 10:30 11/02/18 10:30 General appearance: Present: no acute distress, well-nourished - EENT Eyes: Present: PERRL, EOM intact ENT: hearing intact, clear oral mucosa, dentition normal - Neck Neck: Present: supple, normal ROM - Respiratory Respiratory effort: normal Respiratory: bilateral: CTA - Cardiovascular Rhythm: regular Heart Sounds: Present: S1 & S2. Absent: gallop, rub - Extremities Extremities: no ischemia, No edema, Full ROM - Abdominal General gastrointestinal: soft, non-tender, non-distended, normal bowel sounds - Integumentary Integumentary: Present: clear, warm, dry - Neurologic Neurologic: CNII-XII intact, moves all extremities Results - Labs CBC & Chem 7: 11/01/18 05:26 11/01/18 05:26 Labs: Laboratory Last Values WBC 9.0 K/mm3 (4.5-11.0) 11/01/18 05:26 RBC 4.15 M/mm3 (3.65-5.03) 11/01/18 05:26 Hgb 12.3 gm/dl (11.8-15.2) 11/01/18 05:26 Hct 35.7 % (35.5-45.6) 11/01/18 05:26 MCV 86 fl (84-94) 11/01/18 05:26 MCH 30 pg (28-32) 11/01/18 05:26 MCHC 35 % (32-34) H 11/01/18 05:26 RDW 17.9 % (13.2-15.2) H 11/01/18 05:26 Plt Count 148 K/mm3 (140-440) 11/01/18 05:26 Lymph % (Auto) 10.1 % (13.4-35.0) L 11/01/18 05:26 Iron % (Auto) 9.6 % (0.0-7.3) H 11/01/18 05:26 Eos % (Auto) 3.3 % (0.0-4.3) 11/01/18 05:26 Baso % (Auto) 1.0 % (0.0-1.8) 11/01/18 05:26 Lymph # 0.9 K/mm3 (1.2-5.4) L 11/01/18 05:26 Iron # 0.9 K/mm3 (0.0-0.8) H 11/01/18 05:26 Eos # 0.3 K/mm3 (0.0-0.4) 11/01/18 05:26 Baso # 0.1 K/mm3 (0.0-0.1) 11/01/18 05:26 Seg Neutrophils % 76.0 % (40.0-70.0) H 11/01/18 05:26 Seg Neutrophils # 6.9 K/mm3 (1.8-7.7) 11/01/18 05:26 PT 13.7 Sec. (12.2-14.9) 11/01/18 06:29 INR 1.08 (0.87-1.13) 11/01/18 06:29 APTT 30.3 Sec. (24.2-36.6) 11/01/18 06:29 1703.12 ng/mlDDU (0-234) H 11/01/18 06:29 Sodium 137 mmol/L (137-145) 11/01/18 05:26 Potassium 2.5 mmol/L (3.6-5.0) L* 11/01/18 05:26 Chloride 91.1 mmol/L (98-107) L 11/01/18 05:26 Carbon Dioxide 29 mmol/L (22-30) 11/01/18 05:26 19 mmol/L 11/01/18 05:26 BUN 53 mg/dL (9-20) H 11/01/18 05:26 7.0 mg/dL (0.8-1.5) H 11/01/18 05:26 Estimated GFR 11 ml/min 11/01/18 05:26 8 % 11/01/18 05:26 Glucose 131 mg/dL (75-100) H 11/01/18 05:26 Calcium 9.3 mg/dL (8.4-10.2) 11/01/18 05:26 Magnesium 2.30 mg/dL (1.7-2.3) 11/01/18 06:29 0.80 mg/dL (0.1-1.2) 11/01/18 06:29 < 0.2 mg/dL (0-0.2) 11/01/18 06:29 0.6 mg/dL 11/01/18 06:29 AST 26 units/L (5-40) 11/01/18 06:29 ALT 11 units/L (7-56) 11/01/18 06:29 70 units/L (35-129) 11/01/18 06:29 133 units/L (55-170) 11/01/18 06:29 CK-MB (CK-2) 4.2 ng/mL (0.0-4.0) H 11/01/18 06:29 CK-MB (CK-2) Rel Index 3.1 (0-4) 11/01/18 06:29 0.173 ng/mL (0.00-0.029) H* 11/01/18 06:29 NT-Pro-B Natriuret Pep 44439 pg/mL (0-450) H 11/01/18 06:29 7.4 g/dL (6.3-8.2) 11/01/18 06:29 3.7 g/dL (3.9-5) L 11/01/18 06:29 1.0 % 11/01/18 06:29 Triglycerides 158 mg/dL (2-149) H 11/01/18 05:26 Cholesterol 206 mg/dL (50-199) H 11/01/18 05:26 158 mg/dL (50-130) H 11/01/18 05:26 45 mg/dL (40-59) 11/01/18 05:26 4.57 % 11/01/18 05:26 Red (Yellow) 11/01/18 08:11 Slightly-cloudy (Clear) 11/01/18 08:11 6.0 (5.0-7.0) 11/01/18 08:11 Ur Specific [place] 1.013 (1.003-1.030) 11/01/18 08:11 >500 mg/dL (Negative) 11/01/18 08:11 150 mg/dL (Negative) 11/01/18 08:11 Neg mg/dL (Negative) 11/01/18 08:11 Lg (Negative) 11/01/18 08:11 Neg (Negative) 11/01/18 08:11 Neg (Negative) 11/01/18 08:11 < 2.0 mg/dL (<2.0) 11/01/18 08:11 Ur Leukocyte Esterase Neg (Negative) 11/01/18 08:11 3.0 /HPF (0.0-6.0) 11/01/18 08:11 > 182.0 /HPF (0.0-6.0) 11/01/18 08:11 U Epithel Cells (Auto) < 1.0 /HPF (0-13.0) 11/01/18 08:11 Few /HPF 11/01/18 08:11 119.6 mg/dL (0.1-20.0) H 11/01/18 11:45 53 mmol/L 11/01/18 11:45 105 mg/dL (5-11.8) H 11/01/18 11:45 Presumptive negative 11/01/18 08:11 Presumptive negative 11/01/18 08:11 Ur Barbiturates Screen Presumptive negative 11/01/18 08:11 Ur Phencyclidine Scrn Presumptive negative 11/01/18 08:11 Ur Amphetamines Screen Presumptive negative 11/01/18 08:11 U Benzodiazepines Scrn Presumptive negative 11/01/18 08:11 Presumptive negative 11/01/18 08:11 U Marijuana (THC) Screen Presumptive positive 11/01/18 08:11 Disclamer 11/01/18 08:11 Hepatitis A IgM Ab Non-reactive (NonReactive) 11/01/18 Unknown Hep Bs Antigen Non-reactive (Negative) 11/01/18 Unknown Hep B Core IgM Ab Non-reactive (NonReactive) 11/01/18 Unknown Non-reactive (NonReactive) 11/01/18 Unknown Active Medications - Current Medications Current Medications: Generic Name Dose Route Start Last Admin Trade Name Freq PRN Reason Stop Dose Admin Nicardipine HCl 50 mg/ Sodium 250 mls @ 25 mls/hr 11/01/18 07:00 11/02/18 06:38 Chloride IV 3.5 mg/hr TITR ZUNILDA 17.5 mls/hr Administration Protocol 5 MG/HR Sodium Chloride 100 mls @ 999 mls/hr 11/01/18 11:47 Nacl 0.9% IV JOSÉ MANUEL PRN Hypotension Morphine Sulfate 2 mg 11/01/18 21:51 11/01/18 22:13 Morphine IV 2 mg Q4H PRN Administration Pain, Moderate (4-6) Nitroglycerin 0.4 mg 11/01/18 05:33 11/01/18 06:20 Nitrostat SL 0.4 mg .Q5MIN PRN Administration Chest Pain
[2018-11-02 13:27] LABS: Calcium 9.2 mg/dL (8.4-10.2)
[2018-11-02] MEDS: NORMODYNE PO SCH ×2 (14:18→20:58)
[2018-11-02] MEDS: ALDACTONE PO SCH (14:19)
[2018-11-02] MEDS ORDERED: NACL 0.9% 100 ML IV PRN (14:56)
--- NOTE | 2018-11-02 15:25 | Progress Note ---
Assessment and Plan Hypertensive emergency Chronic renal failure with progression to dialysis Hypokalemia Hyperlipidemia Equivocal troponin elevation secondary to renal failure We will obtain an echocardiogram for LVEF assessment. Subjective Date of service: 11/02/18 Interval history: Patient has no cardiac complaints. Objective Vital Signs Temp Pulse Pulse Resp BP Pulse Ox 11/02/18 14:19 104 H 161/86 11/02/18 14:18 107 H 161/86 11/02/18 13:00 96 H 16 148/91 98 11/02/18 12:50 100 H 20 149/92 98 11/02/18 12:40 94 H 22 149/92 98 11/02/18 12:30 93 H 25 H 149/92 99 11/02/18 12:20 94 H 22 149/92 98 11/02/18 12:10 92 H 25 H 149/92 98 11/02/18 12:00 97.1 F L 96 H 91 H 18 149/92 99 11/02/18 11:50 98 H 13 148/91 98 11/02/18 11:40 91 H 21 148/91 97 11/02/18 11:30 94 H 26 H 148/91 96 11/02/18 11:20 88 25 H 148/91 94 11/02/18 11:10 101 H 27 H 148/91 97 11/02/18 11:00 93 H 19 148/91 97 11/02/18 10:50 94 H 22 160/97 97 11/02/18 10:40 94 H 21 160/97 97 11/02/18 10:30 97 H 25 H 160/97 96 11/02/18 10:20 96 H 22 160/97 96 11/02/18 10:10 94 H 22 160/97 97 11/02/18 10:00 95 H 23 160/97 97 11/02/18 09:50 99 H 23 157/97 97 11/02/18 09:40 96 H 26 H 157/97 99 11/02/18 09:30 93 H 26 H 157/97 97 11/02/18 09:20 91 H 25 H 157/97 99 11/02/18 09:10 92 H 24 157/97 97 11/02/18 09:00 91 H 21 157/97 99 11/02/18 08:50 91 H 18 174/118 99 11/02/18 08:40 103 H 17 174/118 98 08/12/19 08:30 99 H 18 174/118 97 11/02/18 08:20 93 H 24 174/118 99 11/02/18 08:10 92 H 16 174/118 98 11/02/18 08:00 98.2 F 92 H 92 H 17 174/118 97 11/02/18 07:50 163/104 97 11/02/18 07:40 163/104 97 11/02/18 07:30 163/104 98 11/02/18 07:20 163/104 97 11/02/18 07:10 93 H 14 163/104 98 11/02/18 07:00 95 H 23 163/104 96 11/02/18 06:50 97 H 14 153/98 98 11/02/18 06:40 95 H 24 153/98 98 11/02/18 06:30 99 H 17 153/98 97 11/02/18 06:20 91 H 19 153/98 97 11/02/18 06:10 90 21 153/98 97 11/02/18 06:00 90 15 153/98 96 11/02/18 05:50 90 21 159/99 98 11/02/18 05:40 97 H 23 159/99 97 11/02/18 05:30 93 H 21 159/99 96 11/02/18 05:20 92 H 20 159/99 97 11/02/18 05:10 91 H 21 159/99 97 11/02/18 05:00 94 H 8 L 159/99 11/02/18 04:50 90 8 L 159/108 96 11/02/18 04:40 90 15 159/108 97 11/02/18 04:30 90 17 159/108 96 11/02/18 04:20 88 14 159/108 96 11/02/18 04:10 89 21 159/108 96 11/02/18 04:00 98.5 F 94 H 89 21 159/108 96 11/02/18 03:50 90 21 135/89 97 11/02/18 03:40 89 23 135/89 98 11/02/18 03:30 99 H 22 135/89 99 11/02/18 03:20 89 18 135/89 96 11/02/18 03:10 88 17 135/89 95 11/02/18 03:00 88 15 135/89 96 11/02/18 02:50 89 21 155/105 96 11/02/18 02:40 88 19 155/105 97 11/02/18 02:30 90 22 155/105 98 11/02/18 02:20 91 H 21 155/105 97 11/02/18 02:10 91 H 21 155/105 97 11/02/18 02:00 90 16 155/105 11/02/18 01:50 91 H 21 163/103 97 11/02/18 01:40 100 H 22 163/103 98 11/02/18 01:30 89 21 163/103 97 11/02/18 01:20 90 35 H 163/103 97 11/02/18 01:10 94 H 17 163/103 98 11/02/18 01:00 98 H 13 163/103 96 11/02/18 00:50 99 H 19 151/96 98 11/02/18 00:40 92 H 12 151/96 98 11/02/18 00:30 93 H 22 151/96 97 11/02/18 00:20 99 H 20 151/96 98 11/02/18 00:10 99 H 19 151/96 97 11/02/18 00:00 97.8 F 94 H 71 17 151/96 95 11/01/18 23:50 90 9 L 155/98 98 11/01/18 23:40 96 H 23 155/98 99 11/01/18 23:30 91 H 21 155/98 97 11/01/18 23:20 90 23 155/98 98 11/01/18 23:10 89 23 155/98 98 11/01/18 23:00 89 22 155/98 98 11/01/18 22:50 88 20 148/86 96 11/01/18 22:40 87 18 148/86 96 11/01/18 22:30 89 20 148/86 96 11/01/18 22:24 86 20 148/86 99 11/01/18 22:20 94 H 24 148/86 98 11/01/18 22:13 24 11/01/18 22:10 90 24 162/106 98 11/01/18 22:00 88 21 162/106 98 11/01/18 21:50 88 22 162/106 98 11/01/18 21:40 88 23 162/106 98 11/01/18 21:30 87 25 H 162/106 98 11/01/18 21:20 97 H 22 159/100 98 11/01/18 21:15 97.7 F 95 H 18 150/100 11/01/18 21:10 89 19 163/102 98 11/01/18 21:00 93 H 22 163/102 11/01/18 20:50 87 21 171/120 100 11/01/18 20:45 87 171/120 11/01/18 20:40 86 19 168/116 100 11/01/18 20:30 86 19 168/116 11/01/18 20:20 81 19 164/110 99 11/01/18 20:15 82 164/110 11/01/18 20:10 82 20 152/98 100 11/01/18 20:00 97.7 F 89 84 24 152/98 99 11/01/18 19:50 88 21 157/93 98 11/01/18 19:45 89 157/93 11/01/18 19:40 96 H 26 H 152/97 95 11/01/18 19:30 93 H 25 H 152/97 95 11/01/18 19:20 92 H 27 H 158/92 100 11/01/18 19:15 86 158/92 11/01/18 19:10 96 H 23 157/93 98 11/01/18 19:00 95 H 20 158/106 94 11/01/18 18:50 89 18 153/91 99 11/01/18 18:45 85 153/91 11/01/18 18:40 96 H 25 H 149/91 97 11/01/18 18:30 97.8 F 93 H 19 149/91 11/01/18 18:20 89 24 155/92 97 11/01/18 18:10 90 27 H 151/93 95 11/01/18 18:00 97 H 14 150/90 98 11/01/18 17:50 90 20 149/95 97 11/01/18 17:40 101 H 22 149/95 97 11/01/18 17:30 87 25 H 149/95 93 11/01/18 17:20 89 23 151/94 96 11/01/18 17:10 91 H 23 151/94 95 11/01/18 17:00 89 22 151/94 11/01/18 16:50 89 21 151/92 96 11/01/18 16:40 88 21 151/92 96 11/01/18 16:30 88 22 151/92 94 11/01/18 16:20 87 21 162/100 97 11/01/18 16:10 87 21 162/100 97 11/01/18 16:00 95 H 19 162/100 96 11/01/18 15:50 92 H 23 155/94 97 11/01/18 15:40 90 23 155/94 97 11/01/18 15:30 87 26 H 155/94 94 - Physical Examination General: No Apparent Distress HEENT: Positive: PERRL Neck: Positive: trachea midline Cardiac: Positive: Reg Rate and Rhythm Lungs: Positive: Decreased Breath Sounds Neuro: Positive: Grossly Intact Abdomen: Positive: Soft, Active Bowel Sounds Extremities: Absent: edema - Labs and Meds Comprehensive Metabolic Panel 11/02/18 Range/Units 12:59 Sodium 134 L (137-145) mmol/L Potassium 3.1 L D (3.6-5.0) mmol/L Chloride 92.9 L (98-107) mmol/L Carbon Dioxide 27 (22-30) mmol/L BUN 28 H (9-20) mg/dL Creatinine 5.1 H (0.8-1.5) mg/dL Glucose 124 H (75-100) mg/dL Calcium 9.2 (8.4-10.2) mg/dL
[2018-11-02] MEDS: MORPHINE IV PRN (16:44)
[2018-11-02] MEDS ORDERED: NORMODYNE PO SCH ×2 (22:00)
--- NOTE | 2018-11-02 23:13 | Progress Note ---
Subjective Interval history: Patient was seen today for follow-up of multiple renal related issues, around 11:00 in the morning Has had one dialysis treatment he is feeling better No complaints of any headache nausea vomiting No complaints of any chest pain pressure or shortness of breath blood pressure is better controlled on Cardene drip Labs currently pending has been ordered Interdisciplinary notes that also reviewed Events of 24 hours vitals labs intake output medications were reviewed Past medical history: Reviewed Family history: Reviewed Social history: Reviewed Allergies: Reviewed Physical examination: Vitals: Reviewed HEENT: No pallor or icterus oral mucosa moist Neck: Supple no JVD no thyromegaly Chest: Bilateral clear to auscultation anteriorly Heart: Regular rate and rhythm S1-S2 heard no S3-S4 Abdomen: Soft nontender no voluntary guarding rigidity rebound Extremity: Dry skin less than 1+ peripheral edema Psychiatric: No evidence of agitation and aggression noted Dermatology: No petechial rashes Labs and x-rays: Reviewed from today Assessment and plan severe renal failure patient who has history of long-standing hypertension and chronic kidney disease that he was diagnosed in [place], Patient was not taking his medication for nearly 2 months and has been admitted with uncontrolled hypertension and hypokalemia High suspicion of hyperaldosteronism, we'll start the patient on empiric Aldactone Pending labs today depending on that B may consider adjusting his dialysis potassium bath Follow up on the pending serologies I will order for renal ultrasonogram, follow-up on aldosterone, plasma creatinine, plasma metanephrine it is post CT contrast, rule out aortic dissection Needs potassium replacement, follow-up on electrolytes status post cardiology evaluation Patient was adequately counseled and educated regarding all the renal related issues Laboratory studies, pertinent for discussed with patient All questions were answered and simple [place] We'll continue to follow and make recommendation for renal standpoint Objective - Vital Signs Vital signs: Vital Signs - 12hr 11/02/18 11/02/18 11/02/18 11:20 11:30 11:40 Temperature Pulse Rate 88 94 H 91 H Pulse Rate [ From Monitor] Respiratory 25 H 26 H 21 Rate Blood Pressure 148/91 148/91 148/91 O2 Sat by Pulse 94 96 97 Oximetry 11/02/18 11/02/18 11/02/18 11:50 12:00 12:10 Temperature 97.1 F L Pulse Rate 98 H 96 H 92 H Pulse Rate [ 91 H From Monitor] Respiratory 13 18 25 H Rate Blood Pressure 148/91 149/92 149/92 O2 Sat by Pulse 98 99 98 Oximetry 11/02/18 11/02/18 11/02/18 12:20 12:30 12:40 Temperature Pulse Rate 94 H 93 H 94 H Pulse Rate [ From Monitor] Respiratory 22 25 H 22 Rate Blood Pressure 149/92 149/92 149/92 O2 Sat by Pulse 98 99 98 Oximetry 11/02/18 11/02/18 11/02/18 12:50 13:00 13:10 Temperature Pulse Rate 100 H 96 H 100 H Pulse Rate [ From Monitor] Respiratory 20 16 20 Rate Blood Pressure 149/92 148/91 148/91 O2 Sat by Pulse 98 98 98 Oximetry 11/02/18 11/02/18 11/02/18 13:20 13:30 13:40 Temperature Pulse Rate 96 H 97 H 97 H Pulse Rate [ From Monitor] Respiratory 17 15 26 H Rate Blood Pressure 148/91 148/91 148/91 O2 Sat by Pulse 98 98 97 Oximetry 11/02/18 11/02/18 11/02/18 13:50 14:00 14:10 Temperature Pulse Rate 100 H 98 H 101 H Pulse Rate [ From Monitor] Respiratory 25 H 26 H 21 Rate Blood Pressure 148/91 161/86 161/86 O2 Sat by Pulse 98 99 98 Oximetry 11/02/18 11/02/18 11/02/18 14:18 14:19 14:20 Temperature Pulse Rate 107 H 104 H Pulse Rate [ From Monitor] Respiratory Rate Blood Pressure 161/86 161/86 161/86 O2 Sat by Pulse 98 Oximetry 11/02/18 11/02/18 11/02/18 14:30 14:40 14:50 Temperature Pulse Rate 106 H Pulse Rate [ From Monitor] Respiratory 19 Rate Blood Pressure 161/86 161/86 O2 Sat by Pulse 97 98 97 Oximetry 11/02/18 11/02/18 11/02/18 15:00 15:10 15:20 Temperature Pulse Rate 93 H 88 85 Pulse Rate [ From Monitor] Respiratory 26 H 22 20 Rate Blood Pressure 153/63 153/63 153/63 O2 Sat by Pulse 96 98 98 Oximetry 11/02/18 11/02/18 11/02/18 15:30 15:40 15:50 Temperature Pulse Rate 82 80 79 Pulse Rate [ From Monitor] Respiratory 18 22 26 H Rate Blood Pressure 153/63 153/63 153/63 O2 Sat by Pulse 97 97 97 Oximetry 11/02/18 11/02/18 11/02/18 16:00 16:10 16:20 Temperature 97.6 F Pulse Rate 81 81 76 Pulse Rate [ 81 From Monitor] Respiratory 28 H 18 21 Rate Blood Pressure 125/47 130/79 130/79 O2 Sat by Pulse 96 94 97 Oximetry 11/02/18 11/02/18 11/02/18 16:30 16:40 16:50 Temperature Pulse Rate 75 77 74 Pulse Rate [ From Monitor] Respiratory 20 25 H 23 Rate Blood Pressure 130/79 139/94 139/94 O2 Sat by Pulse 98 95 96 Oximetry 11/02/18 11/02/18 11/02/18 17:00 17:10 17:20 Temperature Pulse Rate 74 76 76 Pulse Rate [ From Monitor] Respiratory 22 21 21 Rate Blood Pressure 141/97 141/97 141/97 O2 Sat by Pulse 96 98 97 Oximetry 11/02/18 11/02/18 11/02/18 17:30 17:35 17:40 Temperature 97.6 F Pulse Rate 75 73 80 Pulse Rate [ From Monitor] Respiratory 25 H 21 Rate Blood Pressure 141/97 141/97 141/97 O2 Sat by Pulse 98 95 Oximetry 11/02/18 11/02/18 11/02/18 17:45 17:50 18:00 Temperature Pulse Rate 69 72 69 Pulse Rate [ From Monitor] Respiratory 17 20 Rate Blood Pressure 150/107 141/97 150/107 O2 Sat by Pulse 99 100 Oximetry 11/02/18 11/02/18 11/02/18 18:10 18:15 18:20 Temperature Pulse Rate 74 74 73 Pulse Rate [ From Monitor] Respiratory 20 22 Rate Blood Pressure 147/107 156/104 156/104 O2 Sat by Pulse 100 100 Oximetry 11/02/18 11/02/18 11/02/18 18:30 18:40 18:45 Temperature Pulse Rate 76 79 78 Pulse Rate [ From Monitor] Respiratory 16 20 Rate Blood Pressure 156/104 160/104 143/98 O2 Sat by Pulse 100 100 Oximetry 11/02/18 11/02/18 11/02/18 18:50 19:00 19:10 Temperature Pulse Rate 77 83 86 Pulse Rate [ From Monitor] Respiratory 18 17 13 Rate Blood Pressure 143/98 136/87 151/103 O2 Sat by Pulse 100 100 100 Oximetry 11/02/18 11/02/18 11/02/18 19:15 19:20 19:30 Temperature Pulse Rate 86 84 86 Pulse Rate [ From Monitor] Respiratory 15 Rate Blood Pressure 151/103 143/98 143/98 O2 Sat by Pulse 100 Oximetry 11/02/18 11/02/18 20:00 20:58 Temperature 97.7 F Pulse Rate 81 Pulse Rate [ From Monitor] Respiratory Rate Blood Pressure 164/113 O2 Sat by Pulse Oximetry - Lab 11/01/18 05:26 11/02/18 12:59 Most recent lab results Calcium 9.2 mg/dL (8.4-10.2) 11/02/18 12:59 Magnesium 1.90 mg/dL (1.7-2.3) 11/02/18 12:59 119.6 mg/dL (0.1-20.0) H 11/01/18 11:45 53 mmol/L 11/01/18 11:45 105 mg/dL (5-11.8) H 11/01/18 11:45 Medications & Allergies - Medications Allergies/Adverse Reactions: Allergies No Known Allergies Allergy (Unverified 11/01/18 04:56) Home Medications: Home Medications Medication Instructions Recorded Confirmed Last Taken Type Clonidine HCl 0.1 mg PO DAILY 11/01/18 11/01/18 3 Months Ago History ~08/01/18 amLODIPine 5 mg PO BID 11/01/18 11/01/18 3 Months Ago History ~08/01/18 Active Medications: Generic Name Dose Route Start Last Admin Trade Name Derekq PRN Reason Stop Dose Admin Nicardipine HCl 50 mg/ Sodium 250 mls @ 25 mls/hr 11/01/18 07:00 11/02/18 16:03 Chloride IV 0 mg/hr TITR ZUNILDA 0 mls/hr Titration Protocol 5 MG/HR Sodium Chloride 100 mls @ 999 mls/hr 11/01/18 11:47 Nacl 0.9% IV JOSÉ MANUEL PRN Hypotension Labetalol HCl 400 mg 11/02/18 14:00 11/02/18 20:58 Normodyne PO 400 mg TID ZUNILDA Administration Morphine Sulfate 2 mg 11/01/18 21:51 11/02/18 16:44 Morphine IV 2 mg Q4H PRN Administration Pain, Moderate (4-6) Nitroglycerin 0.4 mg 11/01/18 05:33 11/01/18 06:20 Nitrostat SL 0.4 mg .Q5MIN PRN Administration Chest Pain Spironolactone 50 mg 11/02/18 13:00 11/02/18 14:19 Aldactone PO 50 mg QDAY ZUNILDA Administration
[2018-11-02] MEDS ORDERED: NORVASC PO SCH (23:20)
[2018-11-03] MEDS: LONITEN PO SCH ×2 (00:11→09:28)
[2018-11-03] MEDS: MORPHINE IV PRN ×3 (00:12→22:08)
[2018-11-03] MEDS: PROCARDIA XL PO SCH ×2 (04:02→10:28)
[2018-11-03] MEDS: APRESOLINE IV PRN (06:07)
[2018-11-03] MEDS: NORMODYNE PO SCH ×3 (08:04→22:21)
[2018-11-03] MEDS ORDERED: NACL 0.9% 100 ML IV PRN (09:00)
--- NOTE | 2018-11-03 09:01 | Progress Note ---
Assessment and Plan Assesment: * Acute kidney injury vs end stage renal disease --Hemodialysis initiation Nov 01 2018 * Accelerated hypertension * Hypokalemia * Dyspnea --CXR: unremarkable --CTA chest: no PE Plan: * Patient is s/p hemodialysis on Fri and Fri * Continue TTS schedule * Adjust K bath with dialysis - currently 4K bath * Await pending serologies * Continue current antiHTN medications * Secondary HTN work up pending - Tunde:Renin, metanephrine * Dose medications for renal function * Avoid potential nephrotoxic agents Subjective Date of service: 11/03/18 Interval history: Patient has no complaints today Objective - Vital Signs Vital signs: Vital Signs - 12hr 11/02/18 11/02/18 11/02/18 20:58 21:00 21:10 Temperature Pulse Rate 81 87 80 Pulse Rate [ From Monitor] Pulse Rate [ None] Respiratory 19 14 Rate Blood Pressure 164/113 168/115 166/120 O2 Sat by Pulse 97 99 Oximetry 11/02/18 11/03/18 11/03/18 22:00 00:00 00:12 Temperature 97.5 F L Pulse Rate 82 Pulse Rate [ 85 From Monitor] Pulse Rate [ None] Respiratory 13 17 Rate Blood Pressure O2 Sat by Pulse 99 Oximetry 11/03/18 11/03/18 11/03/18 04:00 06:07 06:14 Temperature 97.9 F Pulse Rate 79 Pulse Rate [ 79 From Monitor] Pulse Rate [ None] Respiratory 13 20 Rate Blood Pressure 181/120 O2 Sat by Pulse 100 Oximetry 11/03/18 11/03/18 08:00 08:04 Temperature 97.4 F L Pulse Rate 88 Pulse Rate [ 88 From Monitor] Pulse Rate [ 88 None] Respiratory 16 Rate Blood Pressure 150/89 150/89 O2 Sat by Pulse 95 Oximetry - General Appearance General appearance: well-developed, well-nourished EENT: ATNC Respiratory: Present: Clear to Ascultation Cardiology: regular, S1S2 Gastrointestinal: normal, no tenderness, no distended Integumentary: no rash, warm and dry Musculoskeletal: other (no edema) Psychiatric: cooperative - Lab 11/04/18 04:40 11/04/18 04:40 Most recent lab results Calcium 9.2 mg/dL (8.4-10.2) 11/02/18 12:59 Magnesium 1.90 mg/dL (1.7-2.3) 11/02/18 12:59 119.6 mg/dL (0.1-20.0) H 11/01/18 11:45 53 mmol/L 11/01/18 11:45 105 mg/dL (5-11.8) H 11/01/18 11:45 Medications & Allergies - Medications Allergies/Adverse Reactions: Allergies No Known Allergies Allergy (Unverified 11/01/18 04:56) Home Medications: Home Medications Medication Instructions Recorded Confirmed Last Taken Type Clonidine HCl 0.1 mg PO DAILY 11/01/18 11/01/18 3 Months Ago History ~08/01/18 amLODIPine 5 mg PO BID 11/01/18 11/01/18 3 Months Ago History ~08/01/18 Active Medications: Generic Name Dose Route Start Last Admin Trade Name Freq PRN Reason Stop Dose Admin Hydralazine HCl 10 mg 11/03/18 02:54 11/03/18 06:07 Apresoline IV 10 mg Q6H PRN Administration Blood Pressure Sodium Chloride 100 mls @ 999 mls/hr 11/01/18 11:47 Nacl 0.9% IV JOSÉ MANUEL PRN Hypotension Labetalol HCl 400 mg 11/02/18 14:00 11/03/18 08:04 Normodyne PO 400 mg TID ZUNILDA Administration Minoxidil 2.5 mg 11/02/18 23:45 11/03/18 00:11 Loniten PO 2.5 mg BID ZUNILDA Administration Morphine Sulfate 2 mg 11/01/18 21:51 11/03/18 06:14 Morphine IV 2 mg Q4H PRN Administration Pain, Moderate (4-6) Nifedipine 60 mg 11/03/18 04:00 11/03/18 04:02 Procardia Xl PO 60 mg QDAY ZUNILDA Administration Nitroglycerin 0.4 mg 11/01/18 05:33 11/01/18 06:20 Nitrostat SL 0.4 mg .Q5MIN PRN Administration Chest Pain Spironolactone 50 mg 11/02/18 13:00 11/02/18 14:19 Aldactone PO 50 mg QDAY ZUNILDA Administration
[2018-11-03] MEDS ORDERED: PROCARDIA XL PO ONE (09:20)
[2018-11-03] MEDS: ALDACTONE PO SCH (09:28)
[2018-11-03] MEDS ORDERED: NORVASC PO SCH (10:00)
[2018-11-03] MEDS ORDERED: PROCARDIA XL PO SCH (10:00)
--- NOTE | 2018-11-03 12:39 | Progress Note ---
Assessment and Plan Assessment and plan: Acute on CKD. We do not have a baseline creatinine to compare. However patient likely has pronounced kidney disease secondary to hypertension, and enal US shows chronic kidney disease. Nephrology following.y to workup vasculitis/lupus. Accelerated hypertension/malignant. On labetalol, Cozaar, Doxazosin scheduled and Hydralaizine prn. Elevated troponin. Etiology likely secondary to renal insufficiency. Chest pain. Patient will have ischemic evaluation likely when renal issues have been stabilized. CTA revealed no evidence of aortic dissection. Cardiology following Hypokalemia. Replete potassium as needed. Hyperlipidemia. Full code status. History Interval history: headache Hospitalist Physical - Physical exam Narrative exam: Gen: Not in acute distress, lying in bed HEENT: Normocephalic, atraumatic Neck: supple, no JVD Heart: S1 and S2 reg, no murmurs, rubs or gallop Lungs: Clear, no crackles, no rhonchi Abd: soft, non tender, non distended, normal BS, Ext: No edema, no clubbing, no cyanosis Neuro: Awake,alert, Oriented X 3. No focal neuro signs Psych: normal mood - Constitutional Vitals: Temp Pulse Resp BP Pulse Ox 98 F 77 16 127/74 95 11/03/18 12:00 11/03/18 12:00 11/03/18 12:00 11/03/18 12:00 11/03/18 12:00 General appearance: Present: no acute distress Results - Labs CBC & Chem 7: 11/01/18 05:26 11/02/18 12:59 Labs: Laboratory Last Values WBC 9.0 K/mm3 (4.5-11.0) 11/01/18 05:26 RBC 4.15 M/mm3 (3.65-5.03) 11/01/18 05:26 Hgb 12.3 gm/dl (11.8-15.2) 11/01/18 05:26 Hct 35.7 % (35.5-45.6) 11/01/18 05:26 MCV 86 fl (84-94) 11/01/18 05:26 MCH 30 pg (28-32) 11/01/18 05:26 MCHC 35 % (32-34) H 11/01/18 05:26 RDW 17.9 % (13.2-15.2) H 11/01/18 05:26 Plt Count 148 K/mm3 (140-440) 11/01/18 05:26 Lymph % (Auto) 10.1 % (13.4-35.0) L 11/01/18 05:26 Fisher % (Auto) 9.6 % (0.0-7.3) H 11/01/18 05:26 Eos % (Auto) 3.3 % (0.0-4.3) 11/01/18 05:26 Baso % (Auto) 1.0 % (0.0-1.8) 11/01/18 05:26 Lymph # 0.9 K/mm3 (1.2-5.4) L 11/01/18 05:26 Fisher # 0.9 K/mm3 (0.0-0.8) H 11/01/18 05:26 Eos # 0.3 K/mm3 (0.0-0.4) 11/01/18 05:26 Baso # 0.1 K/mm3 (0.0-0.1) 11/01/18 05:26 Seg Neutrophils % 76.0 % (40.0-70.0) H 11/01/18 05:26 Seg Neutrophils # 6.9 K/mm3 (1.8-7.7) 11/01/18 05:26 PT 13.7 Sec. (12.2-14.9) 11/01/18 06:29 INR 1.08 (0.87-1.13) 11/01/18 06:29 APTT 30.3 Sec. (24.2-36.6) 11/01/18 06:29 1703.12 ng/mlDDU (0-234) H 11/01/18 06:29 Sodium 134 mmol/L (137-145) L 11/02/18 12:59 Potassium 3.1 mmol/L (3.6-5.0) L D 11/02/18 12:59 Chloride 92.9 mmol/L (98-107) L 11/02/18 12:59 Carbon Dioxide 27 mmol/L (22-30) 11/02/18 12:59 17 mmol/L 11/02/18 12:59 BUN 28 mg/dL (9-20) H 11/02/18 12:59 5.1 mg/dL (0.8-1.5) H 11/02/18 12:59 Estimated GFR 16 ml/min 11/02/18 12:59 5 % 11/02/18 12:59 Glucose 124 mg/dL (75-100) H 11/02/18 12:59 Calcium 9.2 mg/dL (8.4-10.2) 11/02/18 12:59 Magnesium 1.90 mg/dL (1.7-2.3) 11/02/18 12:59 0.80 mg/dL (0.1-1.2) 11/01/18 06:29 < 0.2 mg/dL (0-0.2) 11/01/18 06:29 0.6 mg/dL 11/01/18 06:29 AST 26 units/L (5-40) 11/01/18 06:29 ALT 11 units/L (7-56) 11/01/18 06:29 70 units/L (35-129) 11/01/18 06:29 133 units/L (55-170) 11/01/18 06:29 CK-MB (CK-2) 4.2 ng/mL (0.0-4.0) H 11/01/18 06:29 CK-MB (CK-2) Rel Index 3.1 (0-4) 11/01/18 06:29 0.173 ng/mL (0.00-0.029) H* 11/01/18 06:29 NT-Pro-B Natriuret Pep 28785 pg/mL (0-450) H 11/01/18 06:29 7.4 g/dL (6.3-8.2) 11/01/18 06:29 3.7 g/dL (3.9-5) L 11/01/18 06:29 1.0 % 11/01/18 06:29 Triglycerides 158 mg/dL (2-149) H 11/01/18 05:26 Cholesterol 206 mg/dL (50-199) H 11/01/18 05:26 158 mg/dL (50-130) H 11/01/18 05:26 45 mg/dL (40-59) 11/01/18 05:26 4.57 % 11/01/18 05:26 Red (Yellow) 11/01/18 08:11 Slightly-cloudy (Clear) 11/01/18 08:11 6.0 (5.0-7.0) 11/01/18 08:11 Ur Specific [place] 1.013 (1.003-1.030) 11/01/18 08:11 >500 mg/dL (Negative) 11/01/18 08:11 150 mg/dL (Negative) 11/01/18 08:11 Neg mg/dL (Negative) 11/01/18 08:11 Lg (Negative) 11/01/18 08:11 Neg (Negative) 11/01/18 08:11 Neg (Negative) 11/01/18 08:11 < 2.0 mg/dL (<2.0) 11/01/18 08:11 Ur Leukocyte Esterase Neg (Negative) 11/01/18 08:11 3.0 /HPF (0.0-6.0) 11/01/18 08:11 > 182.0 /HPF (0.0-6.0) 11/01/18 08:11 U Epithel Cells (Auto) < 1.0 /HPF (0-13.0) 11/01/18 08:11 Few /HPF 11/01/18 08:11 119.6 mg/dL (0.1-20.0) H 11/01/18 11:45 53 mmol/L 11/01/18 11:45 105 mg/dL (5-11.8) H 11/01/18 11:45 Presumptive negative 11/01/18 08:11 Presumptive negative 11/01/18 08:11 Ur Barbiturates Screen Presumptive negative 11/01/18 08:11 Ur Phencyclidine Scrn Presumptive negative 11/01/18 08:11 Ur Amphetamines Screen Presumptive negative 11/01/18 08:11 U Benzodiazepines Scrn Presumptive negative 11/01/18 08:11 Presumptive negative 11/01/18 08:11 U Marijuana (THC) Screen Presumptive positive 11/01/18 08:11 Disclamer 11/01/18 08:11 Hepatitis A IgM Ab Non-reactive (NonReactive) 11/01/18 Unknown Hep Bs Antigen Non-reactive (Negative) 11/01/18 Unknown Hep B Core IgM Ab Non-reactive (NonReactive) 11/01/18 Unknown Non-reactive (NonReactive) 11/01/18 Unknown Active Medications - Current Medications Current Medications: Generic Name Dose Route Start Last Admin Trade Name Freq PRN Reason Stop Dose Admin Hydralazine HCl 10 mg 11/03/18 02:54 11/03/18 06:07 Apresoline IV 10 mg Q6H PRN Administration Blood Pressure Sodium Chloride 100 mls @ 999 mls/hr 11/03/18 09:00 Nacl 0.9% IV JOSÉ MANUEL PRN Hypotension Labetalol HCl 400 mg 11/02/18 14:00 11/03/18 08:04 Normodyne PO 400 mg TID ZUNILDA Administration Minoxidil 2.5 mg 11/02/18 23:45 11/03/18 09:28 Loniten PO 2.5 mg BID ZUNILDA Administration Morphine Sulfate 2 mg 11/01/18 21:51 11/03/18 06:14 Morphine IV 2 mg Q4H PRN Administration Pain, Moderate (4-6) Nifedipine 60 mg 11/03/18 04:00 11/03/18 10:28 Procardia Xl PO Not Given QDAY [facility] Nitroglycerin 0.4 mg 11/01/18 05:33 11/01/18 06:20 Nitrostat SL 0.4 mg .Q5MIN PRN Administration Chest Pain Spironolactone 50 mg 11/02/18 13:00 11/03/18 09:28 Aldactone PO 50 mg QDAY ZUNILDA Administration
--- NOTE | 2018-11-03 14:27 | Progress Note ---
Assessment and Plan Hypertensive emergency, now controlled secondary to noncompliance with medications Chronic renal failure with progression to dialysis Hypokalemia Hyperlipidemia Equivocal troponin elevation secondary to renal failure An echocardiogram will be done for LVEF assessment. Further cardiac evaluation will depend on clinical course. Subjective Date of service: 11/03/18 Interval history: Patient has no cardiac complaints. Blood pressure is better. Objective Vital Signs Temp Pulse Pulse Pulse Resp BP Pulse Ox 11/03/18 12:00 98 F 77 77 16 127/74 95 11/03/18 09:28 74 124/83 11/03/18 08:04 88 150/89 11/03/18 08:00 97.4 F L 88 88 16 150/89 95 11/03/18 06:14 20 11/03/18 06:07 79 181/120 11/03/18 04:00 97.9 F 79 13 100 11/03/18 00:12 17 11/03/18 00:00 97.5 F L 85 13 99 11/02/18 22:00 82 11/02/18 21:10 80 14 166/120 99 11/02/18 21:00 87 19 168/115 97 11/02/18 20:58 81 164/113 11/02/18 20:50 76 20 159/114 99 11/02/18 20:40 81 20 167/114 99 11/02/18 20:30 83 28 H 160/112 96 11/02/18 20:20 82 18 152/104 100 11/02/18 20:15 97.6 F 84 22 149/97 11/02/18 20:10 82 23 153/103 100 11/02/18 20:00 97.7 F 80 82 24 145/98 100 11/02/18 19:50 87 22 141/94 100 11/02/18 19:45 85 142/99 11/02/18 19:40 86 22 141/92 100 11/02/18 19:30 87 19 153/103 100 11/02/18 19:24 86 13 143/98 100 11/02/18 19:20 84 15 143/98 100 11/02/18 19:15 86 151/103 11/02/18 19:10 86 13 151/103 100 11/02/18 19:00 83 17 136/87 100 11/02/18 18:50 77 18 143/98 100 11/02/18 18:45 78 143/98 11/02/18 18:40 79 20 160/104 100 11/02/18 18:30 76 16 156/104 100 11/02/18 18:20 73 22 156/104 100 11/02/18 18:15 74 156/104 11/02/18 18:10 74 20 147/107 100 11/02/18 18:00 69 20 150/107 100 11/02/18 17:50 72 17 141/97 99 11/02/18 17:45 69 150/107 11/02/18 17:40 80 21 141/97 95 11/02/18 17:35 73 141/97 11/02/18 17:30 97.6 F 75 25 H 141/97 98 11/02/18 17:20 76 21 141/97 97 11/02/18 17:10 76 21 141/97 98 11/02/18 17:00 74 22 141/97 96 11/02/18 16:50 74 23 139/94 96 11/02/18 16:40 77 25 H 139/94 95 11/02/18 16:30 75 20 130/79 98 11/02/18 16:20 76 21 130/79 97 11/02/18 16:10 81 18 130/79 94 11/02/18 16:00 97.6 F 81 81 28 H 125/47 96 11/02/18 15:50 79 26 H 153/63 97 11/02/18 15:40 80 22 153/63 97 11/02/18 15:30 82 18 153/63 97 11/02/18 15:20 85 20 153/63 98 11/02/18 15:10 88 22 153/63 98 11/02/18 15:00 93 H 26 H 153/63 96 11/02/18 14:50 97 11/02/18 14:40 161/86 98 11/02/18 14:30 106 H 19 161/86 97 - Physical Examination General: No Apparent Distress HEENT: Positive: PERRL Neck: Positive: trachea midline Cardiac: Positive: Reg Rate and Rhythm Lungs: Positive: Decreased Breath Sounds Neuro: Positive: Grossly Intact Abdomen: Positive: Soft Extremities: Absent: edema
[2018-11-03] MEDS: COZAAR PO SCH (17:57)
--- NOTE | 2018-11-03 18:00 | Ultrasound Report ---
Renal ultrasound. 11/03/2018. HISTORY: Renal failure. FINDINGS: Right kidney measures 10.5 cm. Left kidney measures 10.4 cm. Cortical thickness is normal b ilaterally. There is prominent increased cortical echogenicity. A nonobstructing right renal stone me asures 5 mm. The bladder is decompressed. IMPRESSION: 1. Increased cortical echogenicity bilaterally compatible with chronic medical renal disease. 2. Nonobstructing right renal stone. Signer Name: Devon Vickers MD Signed: 11/03/2018 5:56 PM Workstation Name: [id number]
[2018-11-03] MEDS ORDERED: NACL 0.9 (PRIMING MACHINE ONLY DIALYSIS) MC ONE (19:10)
[2018-11-03] MEDS: CARDURA PO SCH (22:09)
[2018-11-03] MEDS ORDERED: ZOFRAN IV PRN (23:07)
[2018-11-04 05:09] LABS: Hematocrit 32.2 % (35.5-45.6); Hemoglobin 10.7 gm/dl (11.8-15.2); Mean Corpuscular HGB Conc 33 % (32-34); Mean Corpuscular Volume 89 fl (84-94); Platelet Count 190 K/mm3 (140-440); Red Blood Count 3.63 M/mm3 (3.65-5.03); Red Cell Distribution Width 18.2 % (13.2-15.2)
[2018-11-04 05:21] LABS: Calcium 9.1 mg/dL (8.4-10.2)
[2018-11-04] MEDS ORDERED: CARDURA PO SCH (10:00)
--- NOTE | 2018-11-04 10:01 | Progress Note ---
Assessment and Plan Assessment and plan: Acute on CKD. We do not have a baseline creatinine to compare. However patient likely has pronounced kidney disease secondary to hypertension, and enal US shows chronic kidney disease. Cr 3.6, improving Nephrology following. Accelerated hypertension/malignant. On labetalol, Cozaar, Doxazosin scheduled and Hydralaizine prn. Elevated troponin. Etiology likely secondary to renal insufficiency. Chest pain. Patient will have ischemic evaluation likely when renal issues have been stabilized. CTA revealed no evidence of aortic dissection. Cardiology following Hypokalemia. Replaced. Hyperlipidemia. Full code status. History Interval history: Feels better, No chest pain No SOB Hospitalist Physical - Physical exam Narrative exam: Gen: Not in acute distress, lying in bed HEENT: Normocephalic, atraumatic Neck: supple, no JVD Heart: S1 and S2 reg, no murmurs, rubs or gallop Lungs: Clear, no crackles, no rhonchi Abd: soft, non tender, non distended, normal BS, Ext: No edema, no clubbing, no cyanosis Neuro: Awake,alert, Oriented X 3. No focal neuro signs Psych: normal mood - Constitutional Vitals: Temp Pulse Resp BP Pulse Ox 97.7 F 77 19 122/77 100 11/04/18 08:00 11/04/18 06:41 11/04/18 06:41 11/04/18 07:11 11/04/18 07:11 General appearance: Present: no acute distress Results - Labs CBC & Chem 7: 11/04/18 04:40 11/04/18 04:40 Labs: Laboratory Last Values WBC 6.2 K/mm3 (4.5-11.0) 11/04/18 04:40 RBC 3.63 M/mm3 (3.65-5.03) L 11/04/18 04:40 Hgb 10.7 gm/dl (11.8-15.2) L 11/04/18 04:40 Hct 32.2 % (35.5-45.6) L 11/04/18 04:40 MCV 89 fl (84-94) 11/04/18 04:40 MCH 30 pg (28-32) 11/04/18 04:40 MCHC 33 % (32-34) 11/04/18 04:40 RDW 18.2 % (13.2-15.2) H 11/04/18 04:40 Plt Count 190 K/mm3 (140-440) 11/04/18 04:40 Lymph % (Auto) 10.1 % (13.4-35.0) L 11/01/18 05:26 [place] % (Auto) 9.6 % (0.0-7.3) H 11/01/18 05:26 Eos % (Auto) 3.3 % (0.0-4.3) 11/01/18 05:26 Baso % (Auto) 1.0 % (0.0-1.8) 11/01/18 05:26 Lymph # 0.9 K/mm3 (1.2-5.4) L 11/01/18 05:26 [place] # 0.9 K/mm3 (0.0-0.8) H 11/01/18 05:26 Eos # 0.3 K/mm3 (0.0-0.4) 11/01/18 05:26 Baso # 0.1 K/mm3 (0.0-0.1) 11/01/18 05:26 Seg Neutrophils % 76.0 % (40.0-70.0) H 11/01/18 05:26 Seg Neutrophils # 6.9 K/mm3 (1.8-7.7) 11/01/18 05:26 PT 13.7 Sec. (12.2-14.9) 11/01/18 06:29 INR 1.08 (0.87-1.13) 11/01/18 06:29 APTT 30.3 Sec. (24.2-36.6) 11/01/18 06:29 1703.12 ng/mlDDU (0-234) H 11/01/18 06:29 Sodium 140 mmol/L (137-145) 11/04/18 04:40 Potassium 3.6 mmol/L (3.6-5.0) 11/04/18 04:40 Chloride 98.6 mmol/L (98-107) 11/04/18 04:40 Carbon Dioxide 30 mmol/L (22-30) 11/04/18 04:40 15 mmol/L 11/04/18 04:40 BUN 12 mg/dL (9-20) 11/04/18 04:40 3.6 mg/dL (0.8-1.5) H 11/04/18 04:40 Estimated GFR 23 ml/min 11/04/18 04:40 3 % 11/04/18 04:40 Glucose 141 mg/dL (75-100) H 11/04/18 04:40 Calcium 9.1 mg/dL (8.4-10.2) 11/04/18 04:40 Magnesium 1.90 mg/dL (1.7-2.3) 11/02/18 12:59 0.80 mg/dL (0.1-1.2) 11/01/18 06:29 < 0.2 mg/dL (0-0.2) 11/01/18 06:29 0.6 mg/dL 11/01/18 06:29 AST 26 units/L (5-40) 11/01/18 06:29 ALT 11 units/L (7-56) 11/01/18 06:29 70 units/L (35-129) 11/01/18 06:29 133 units/L (55-170) 11/01/18 06:29 CK-MB (CK-2) 4.2 ng/mL (0.0-4.0) H 11/01/18 06:29 CK-MB (CK-2) Rel Index 3.1 (0-4) 11/01/18 06:29 0.173 ng/mL (0.00-0.029) H* 11/01/18 06:29 NT-Pro-B Natriuret Pep 30173 pg/mL (0-450) H 11/01/18 06:29 7.4 g/dL (6.3-8.2) 11/01/18 06:29 3.7 g/dL (3.9-5) L 11/01/18 06:29 1.0 % 11/01/18 06:29 Triglycerides 158 mg/dL (2-149) H 11/01/18 05:26 Cholesterol 206 mg/dL (50-199) H 11/01/18 05:26 158 mg/dL (50-130) H 11/01/18 05:26 45 mg/dL (40-59) 11/01/18 05:26 4.57 % 11/01/18 05:26 Red (Yellow) 08/11/19 08:11 Slightly-cloudy (Clear) 11/01/18 08:11 6.0 (5.0-7.0) 11/01/18 08:11 Ur Specific [place] 1.013 (1.003-1.030) 11/01/18 08:11 >500 mg/dL (Negative) 11/01/18 08:11 150 mg/dL (Negative) 11/01/18 08:11 Neg mg/dL (Negative) 11/01/18 08:11 Lg (Negative) 11/01/18 08:11 Neg (Negative) 11/01/18 08:11 Neg (Negative) 11/01/18 08:11 < 2.0 mg/dL (<2.0) 11/01/18 08:11 Ur Leukocyte Esterase Neg (Negative) 11/01/18 08:11 3.0 /HPF (0.0-6.0) 11/01/18 08:11 > 182.0 /HPF (0.0-6.0) 11/01/18 08:11 U Epithel Cells (Auto) < 1.0 /HPF (0-13.0) 11/01/18 08:11 Few /HPF 11/01/18 08:11 119.6 mg/dL (0.1-20.0) H 11/01/18 11:45 53 mmol/L 11/01/18 11:45 105 mg/dL (5-11.8) H 11/01/18 11:45 Presumptive negative 11/01/18 08:11 Presumptive negative 11/01/18 08:11 Ur Barbiturates Screen Presumptive negative 11/01/18 08:11 Ur Phencyclidine Scrn Presumptive negative 11/01/18 08:11 Ur Amphetamines Screen Presumptive negative 11/01/18 08:11 U Benzodiazepines Scrn Presumptive negative 11/01/18 08:11 Presumptive negative 11/01/18 08:11 U Marijuana (THC) Screen Presumptive positive 11/01/18 08:11 Disclamer 11/01/18 08:11 Hepatitis A IgM Ab Non-reactive (NonReactive) 11/01/18 Unknown Hep Bs Antigen Non-reactive (Negative) 11/01/18 Unknown Hep B Core IgM Ab Non-reactive (NonReactive) 11/01/18 Unknown Non-reactive (NonReactive) 11/01/18 Unknown Active Medications - Current Medications Current Medications: Generic Name Dose Route Start Last Admin Trade Name Freq PRN Reason Stop Dose Admin Doxazosin Mesylate 2 mg 11/03/18 22:00 11/03/18 22:09 Cardura PO Not Given QHS [facility] Hydralazine HCl 10 mg 11/03/18 02:54 11/03/18 06:07 Apresoline IV 10 mg Q6H PRN Administration Blood Pressure Sodium Chloride 100 mls @ 999 mls/hr 11/03/18 09:00 Nacl 0.9% IV JOSÉ MANUEL PRN Hypotension Labetalol HCl 300 mg 11/03/18 22:00 11/03/18 22:21 Normodyne PO 300 mg BID ZUNILDA Administration Losartan Potassium 50 mg 11/03/18 18:00 11/03/18 17:57 Cozaar PO 50 mg QDAY [facility] Administration Morphine Sulfate 2 mg 11/01/18 21:51 11/03/18 22:08 Morphine IV 2 mg Q4H PRN Administration Pain, Moderate (4-6) Nifedipine 60 mg 11/03/18 04:00 11/03/18 10:28 Procardia Xl PO Not Given QDAY [facility] Nitroglycerin 0.4 mg 11/01/18 05:33 11/01/18 06:20 Nitrostat SL 0.4 mg .Q5MIN PRN Administration Chest Pain Ondansetron HCl 4 mg 11/03/18 23:07 11/03/18 23:48 Zofran IV 4 mg Q6H PRN Administration Nausea And Vomiting Spironolactone 50 mg 11/02/18 13:00 11/03/18 09:28 Aldactone PO 50 mg QDAY ZUNILDA Administration
[2018-11-04] MEDS: PROCARDIA XL PO SCH (10:47)
[2018-11-04] MEDS: ALDACTONE PO SCH (10:47)
[2018-11-04] MEDS: COZAAR PO SCH (10:47)
[2018-11-04] MEDS: NORMODYNE PO SCH ×2 (10:48→22:33)
--- NOTE | 2018-11-04 11:36 | Progress Note ---
<BE REYES - Last Filed: 11/04/18 11:37> Assessment and Plan Hypertensive emergency, now controlled secondary to noncompliance with medications Chronic renal failure with progression to dialysis Hypokalemia Hyperlipidemia Equivocal troponin elevation secondary to renal failure An echocardiogram done reveals severe LVH with an LVEF 45-50%. Recommend: A stress thallium test before discharge. Continue optimal medical management of hypertension. Subjective Date of service: 11/04/18 Interval history: Patient has no cardiac complaints. Blood pressure is stable. Objective Vital Signs Temp Pulse Pulse Pulse Resp BP Pulse Ox 11/04/18 11:21 76 15 119/75 97 11/04/18 11:11 74 19 133/79 100 11/04/18 11:00 81 21 133/79 97 11/04/18 10:51 83 16 139/81 11/04/18 10:48 92 H 139/81 11/04/18 10:47 139/81 11/04/18 10:41 132/86 97 11/04/18 10:30 132/86 96 11/04/18 10:21 144/90 95 11/04/18 10:11 136/88 94 11/04/18 10:00 136/88 11/04/18 09:45 128/80 11/04/18 09:30 131/84 11/04/18 09:21 81 15 130/81 11/04/18 09:11 77 12 139/87 11/04/18 09:00 87 10 L 139/87 11/04/18 08:50 142/93 90 11/04/18 08:41 141/93 89 11/04/18 08:30 141/93 99 11/04/18 08:21 140/86 99 11/04/18 08:11 133/83 97 11/04/18 08:00 97.7 F 92 H 18 133/83 94 11/04/18 07:51 132/81 97 11/04/18 07:41 140/72 97 11/04/18 07:30 140/72 93 11/04/18 07:21 150/89 100 11/04/18 07:11 122/77 100 11/04/18 07:00 122/77 97 11/04/18 06:51 143/95 99 11/04/18 06:41 77 19 136/86 100 11/04/18 06:30 67 20 136/86 96 11/04/18 06:21 74 20 138/91 96 11/04/18 06:11 78 14 144/106 97 11/04/18 06:00 77 10 L 144/106 99 11/04/18 05:51 144/94 99 11/04/18 05:41 130/84 100 11/04/18 05:30 130/84 95 11/04/18 05:21 141/87 99 11/04/18 05:11 130/93 98 11/04/18 05:00 130/93 96 11/04/18 04:51 135/89 98 11/04/18 04:41 114/64 99 11/04/18 04:30 114/64 97 11/04/18 04:21 133/81 99 11/04/18 04:11 83 17 138/82 99 11/04/18 04:01 78 19 138/82 100 11/04/18 04:00 97.7 F 86 16 98 11/04/18 03:51 77 12 123/75 98 11/04/18 03:45 123/75 92 11/04/18 03:30 129/78 11/04/18 03:15 123/70 11/04/18 03:00 114/67 11/04/18 02:45 128/75 11/04/18 02:30 130/84 11/04/18 02:15 129/82 11/04/18 02:00 127/80 11/04/18 01:45 127/80 11/04/18 01:30 134/83 11/04/18 00:51 77 12 142/89 11/04/18 00:41 76 22 139/90 11/04/18 00:30 75 12 139/90 11/04/18 00:21 76 25 H 11/04/18 00:10 82 15 147/100 11/04/18 00:00 97 F L 83 86 12 147/100 96 11/03/18 23:50 84 18 147/100 11/03/18 23:40 81 25 H 148/102 11/03/18 23:30 80 24 148/102 11/03/18 23:20 82 22 145/108 11/03/18 23:10 87 21 142/96 11/03/18 23:00 100.9 F H 74 23 124/78 08/13/19 22:50 76 25 H 124/78 11/03/18 22:40 75 22 123/80 11/03/18 22:30 73 21 123/80 11/03/18 22:21 78 153/96 11/03/18 22:20 85 30 H 151/93 11/03/18 22:10 76 22 152/96 11/03/18 22:09 70 152/96 11/03/18 22:00 75 22 152/96 11/03/18 21:50 78 15 152/111 11/03/18 21:40 78 20 135/84 11/03/18 21:30 73 20 135/84 11/03/18 21:20 84 15 144/97 100 11/03/18 21:10 77 22 144/97 99 11/03/18 21:00 81 27 H 128/81 98 11/03/18 20:50 89 15 128/81 11/03/18 20:40 79 23 136/86 97 11/03/18 20:30 19 136/86 98 11/03/18 20:20 86 16 130/57 11/03/18 20:10 83 26 H 134/92 11/03/18 20:00 98.3 F 81 90 90 22 132/90 95 11/03/18 19:50 80 23 132/90 11/03/18 19:40 81 22 131/88 11/03/18 19:30 79 22 131/88 11/03/18 19:20 82 21 140/103 11/03/18 19:10 81 24 131/86 11/03/18 19:00 98.3 F 76 22 131/86 11/03/18 18:50 79 23 132/83 11/03/18 18:40 78 26 H 121/84 11/03/18 18:30 79 14 121/84 11/03/18 18:20 78 27 H 115/65 11/03/18 18:10 81 19 119/67 11/03/18 18:00 81 18 119/67 11/03/18 17:57 83 117/76 11/03/18 17:50 79 23 117/76 98 11/03/18 17:40 78 22 121/80 97 11/03/18 17:30 77 21 141/78 98 11/03/18 17:20 83 24 141/78 96 11/03/18 17:10 78 26 H 141/74 96 11/03/18 16:31 88 145/100 11/03/18 16:25 98.2 F 86 18 145/100 11/03/18 16:15 86 150/96 11/03/18 16:00 98.2 F 84 83 83 16 152/100 97 11/03/18 15:45 84 153/90 11/03/18 15:30 84 147/93 11/03/18 15:15 80 147/93 11/03/18 15:00 84 143/93 11/03/18 14:45 85 152/92 11/03/18 14:30 80 148/93 11/03/18 14:15 82 148/99 11/03/18 14:00 82 134/88 11/03/18 13:45 82 134/87 11/03/18 13:30 80 137/89 11/03/18 13:15 98.0 F 81 18 146/100 11/03/18 12:00 98 F 77 77 16 127/74 95 - Physical Examination General: No Apparent Distress HEENT: Positive: PERRL Neck: Positive: trachea midline Cardiac: Positive: Reg Rate and Rhythm Lungs: Positive: Decreased Breath Sounds Neuro: Positive: Grossly Intact Abdomen: Positive: Soft Extremities: Absent: edema - Labs and Meds CBC 11/04/18 Range/Units 04:40 WBC 6.2 (4.5-11.0) K/mm3 RBC 3.63 L (3.65-5.03) M/mm3 Hgb 10.7 L (11.8-15.2) gm/dl Hct 32.2 L (35.5-45.6) % Plt Count 190 (140-440) K/mm3 Comprehensive Metabolic Panel 11/04/18 Range/Units 04:40 Sodium 140 (137-145) mmol/L Potassium 3.6 (3.6-5.0) mmol/L Chloride 98.6 (98-107) mmol/L Carbon Dioxide 30 (22-30) mmol/L BUN 12 (9-20) mg/dL Creatinine 3.6 H (0.8-1.5) mg/dL Glucose 141 H (75-100) mg/dL Calcium 9.1 (8.4-10.2) mg/dL <JASS,DARLING - Last Filed: 11/04/18 20:21> Assessment and Plan I have seen and evaluated the patient and agree with the assessment and plan. Continue current medical therapy and maximize medications for blood pressure. Plan for stress test prior to discharge. Objective Vital Signs Temp Pulse Pulse Resp BP Pulse Ox 11/04/18 16:00 98.0 F 81 81 22 109/63 97 11/04/18 15:51 85 15 113/63 11/04/18 15:41 76 21 110/67 11/04/18 15:30 76 19 110/67 11/04/18 15:21 74 22 132/83 11/04/18 15:11 83 13 132/99 11/04/18 15:01 77 20 132/99 11/04/18 14:51 74 20 120/85 11/04/18 14:41 76 14 96/69 11/04/18 14:31 82 24 96/69 11/04/18 14:21 73 16 106/70 98 11/04/18 14:11 71 17 114/83 11/04/18 14:00 74 19 114/83 11/04/18 13:51 78 21 86/63 96 11/04/18 13:41 76 20 86/63 98 11/04/18 13:31 70 10 L 86/63 95 11/04/18 13:21 74 12 86/63 95 11/04/18 13:11 82 17 118/70 11/04/18 13:00 71 16 118/70 96 11/04/18 12:51 71 13 121/70 96 11/04/18 12:41 73 22 119/71 96 11/04/18 12:30 81 21 119/71 93 11/04/18 12:21 77 25 H 127/79 96 11/04/18 12:11 77 20 126/72 97 11/04/18 12:00 97.7 F 75 75 12 126/72 95 11/04/18 11:51 74 16 111/61 98 11/04/18 11:41 72 20 128/71 98 11/04/18 11:30 76 22 128/71 98 11/04/18 11:21 76 15 119/75 97 11/04/18 11:11 74 19 133/79 100 11/04/18 11:00 81 21 133/79 97 11/04/18 10:51 83 16 139/81 11/04/18 10:48 92 H 139/81 11/04/18 10:47 139/81 11/04/18 10:41 132/86 97 11/04/18 10:30 132/86 96 11/04/18 10:21 144/90 95 11/04/18 10:11 136/88 94 11/04/18 10:00 136/88 11/04/18 09:45 128/80 11/04/18 09:30 131/84 11/04/18 09:21 81 15 130/81 11/04/18 09:11 77 12 139/87 11/04/18 09:00 87 10 L 139/87 11/04/18 08:50 142/93 90 11/04/18 08:41 141/93 89 11/04/18 08:30 141/93 99 11/04/18 08:21 140/86 99 11/04/18 08:11 133/83 97 11/04/18 08:00 97.7 F 70 92 H 18 133/83 94 11/04/18 07:51 132/81 97 11/04/18 07:41 140/72 97 11/04/18 07:30 140/72 93 11/04/18 07:21 150/89 100 11/04/18 07:11 122/77 100 11/04/18 07:00 122/77 97 11/04/18 06:51 143/95 99 11/04/18 06:41 77 19 136/86 100 11/04/18 06:30 67 20 136/86 96 11/04/18 06:21 74 20 138/91 96 11/04/18 06:11 78 14 144/106 97 11/04/18 06:00 77 10 L 144/106 99 11/04/18 05:51 144/94 99 11/04/18 05:41 130/84 100 11/04/18 05:30 130/84 95 11/04/18 05:21 141/87 99 11/04/18 05:11 130/93 98 11/04/18 05:00 130/93 96 11/04/18 04:51 135/89 98 11/04/18 04:41 114/64 99 08/14/19 04:30 114/64 97 08/14/19 04:21 133/81 99 11/04/18 04:11 83 17 138/82 99 11/04/18 04:01 78 19 138/82 100 11/04/18 04:00 97.7 F 86 16 98 11/04/18 03:51 77 12 123/75 98 11/04/18 03:45 123/75 92 11/04/18 03:30 129/78 11/04/18 03:15 123/70 11/04/18 03:00 114/67 11/04/18 02:45 128/75 11/04/18 02:30 130/84 11/04/18 02:15 129/82 11/04/18 02:00 127/80 11/04/18 01:45 127/80 11/04/18 01:30 134/83 11/04/18 00:51 77 12 142/89 11/04/18 00:41 76 22 139/90 11/04/18 00:30 75 12 139/90 11/04/18 00:21 76 25 H 11/04/18 00:10 82 15 147/100 11/04/18 00:00 97 F L 83 86 12 147/100 96 11/03/18 23:50 84 18 147/100 11/03/18 23:40 81 25 H 148/102 11/03/18 23:30 80 24 148/102 11/03/18 23:20 82 22 145/108 11/03/18 23:10 87 21 142/96 11/03/18 23:00 100.9 F H 74 23 124/78 11/03/18 22:50 76 25 H 124/78 11/03/18 22:40 75 22 123/80 11/03/18 22:30 73 21 123/80 11/03/18 22:21 78 153/96 11/03/18 22:20 85 30 H 151/93 11/03/18 22:10 76 22 152/96 11/03/18 22:09 70 152/96 11/03/18 22:00 75 22 152/96 11/03/18 21:50 78 15 152/111 11/03/18 21:40 78 20 135/84 11/03/18 21:30 73 20 135/84 08/13/19 21:20 84 15 144/97 100 11/03/18 21:10 77 22 144/97 99 11/03/18 21:00 81 27 H 128/81 98 11/03/18 20:50 89 15 128/81 11/03/18 20:40 79 23 136/86 97 11/03/18 20:30 19 136/86 98 - Labs and Meds CBC 11/04/18 Range/Units 04:40 WBC 6.2 (4.5-11.0) K/mm3 RBC 3.63 L (3.65-5.03) M/mm3 Hgb 10.7 L (11.8-15.2) gm/dl Hct 32.2 L (35.5-45.6) % Plt Count 190 (140-440) K/mm3 Comprehensive Metabolic Panel 11/04/18 Range/Units 04:40 Sodium 140 (137-145) mmol/L Potassium 3.6 (3.6-5.0) mmol/L Chloride 98.6 (98-107) mmol/L Carbon Dioxide 30 (22-30) mmol/L BUN 12 (9-20) mg/dL Creatinine 3.6 H (0.8-1.5) mg/dL Glucose 141 H (75-100) mg/dL Calcium 9.1 (8.4-10.2) mg/dL
--- NOTE | 2018-11-04 15:18 | Progress Note ---
Assessment and Plan Assesment: * Acute kidney injury secondary to unclear etiology vs underlying chronic kidney disease --Hemodialysis initiation Nov 01 2018 * Accelerated hypertension * Hypokalemia * Dyspnea --CXR: unremarkable --CTA chest: no PE Plan: * Continue TTS schedule * Adjust K bath with dialysis - currently 4K bath * Case discussed with Dr. Alicea, will need permcath * Awaiting OSH records to determine chronicity of disease; consider renal biopsy if unable to obtain records * Await pending serologies * Continue current antiHTN medications * Secondary HTN work up pending - Tunde:Renin, metanephrine * Dose medications for renal function * Avoid potential nephrotoxic agents Subjective Date of service: 11/04/18 Interval history: Patient has no complaints. Objective - Vital Signs Vital signs: Vital Signs - 12hr 11/04/18 11/04/18 11/04/18 03:30 03:45 03:51 Temperature Pulse Rate 77 Pulse Rate [ From Monitor] Respiratory 12 Rate Blood Pressure 129/78 123/75 123/75 O2 Sat by Pulse 92 98 Oximetry 11/04/18 11/04/18 11/04/18 04:00 04:01 04:11 Temperature 97.7 F Pulse Rate 78 83 Pulse Rate [ 86 From Monitor] Respiratory 16 19 17 Rate Blood Pressure 138/82 138/82 O2 Sat by Pulse 98 100 99 Oximetry 11/04/18 11/04/18 11/04/18 04:21 04:30 04:41 Temperature Pulse Rate Pulse Rate [ From Monitor] Respiratory Rate Blood Pressure 133/81 114/64 114/64 O2 Sat by Pulse 99 97 99 Oximetry 11/04/18 11/04/18 11/04/18 04:51 05:00 05:11 Temperature Pulse Rate Pulse Rate [ From Monitor] Respiratory Rate Blood Pressure 135/89 130/93 130/93 O2 Sat by Pulse 98 96 98 Oximetry 11/04/18 11/04/18 11/04/18 05:21 05:30 05:41 Temperature Pulse Rate Pulse Rate [ From Monitor] Respiratory Rate Blood Pressure 141/87 130/84 130/84 O2 Sat by Pulse 99 95 100 Oximetry 11/04/18 11/04/18 11/04/18 05:51 06:00 06:11 Temperature Pulse Rate 77 78 Pulse Rate [ From Monitor] Respiratory 10 L 14 Rate Blood Pressure 144/94 144/106 144/106 O2 Sat by Pulse 99 99 97 Oximetry 11/04/18 11/04/18 11/04/18 06:21 06:30 06:41 Temperature Pulse Rate 74 67 77 Pulse Rate [ From Monitor] Respiratory 20 20 19 Rate Blood Pressure 138/91 136/86 136/86 O2 Sat by Pulse 96 96 100 Oximetry 11/04/18 11/04/18 11/04/18 06:51 07:00 07:11 Temperature Pulse Rate Pulse Rate [ From Monitor] Respiratory Rate Blood Pressure 143/95 122/77 122/77 O2 Sat by Pulse 99 97 100 Oximetry 11/04/18 11/04/18 11/04/18 07:21 07:30 07:41 Temperature Pulse Rate Pulse Rate [ From Monitor] Respiratory Rate Blood Pressure 150/89 140/72 140/72 O2 Sat by Pulse 100 93 97 Oximetry 11/04/18 11/04/18 11/04/18 07:51 08:00 08:11 Temperature 97.7 F Pulse Rate 70 Pulse Rate [ 92 H From Monitor] Respiratory 18 Rate Blood Pressure 132/81 133/83 133/83 O2 Sat by Pulse 97 94 97 Oximetry 11/04/18 11/04/18 11/04/18 08:21 08:30 08:41 Temperature Pulse Rate Pulse Rate [ From Monitor] Respiratory Rate Blood Pressure 140/86 141/93 141/93 O2 Sat by Pulse 99 99 89 Oximetry 11/04/18 11/04/18 11/04/18 08:50 09:00 09:11 Temperature Pulse Rate 87 77 Pulse Rate [ From Monitor] Respiratory 10 L 12 Rate Blood Pressure 142/93 139/87 139/87 O2 Sat by Pulse 90 Oximetry 11/04/18 11/04/18 11/04/18 09:21 09:30 09:45 Temperature Pulse Rate 81 Pulse Rate [ From Monitor] Respiratory 15 Rate Blood Pressure 130/81 131/84 128/80 O2 Sat by Pulse Oximetry 11/04/18 11/04/18 11/04/18 10:00 10:11 10:21 Temperature Pulse Rate Pulse Rate [ From Monitor] Respiratory Rate Blood Pressure 136/88 136/88 144/90 O2 Sat by Pulse 94 95 Oximetry 11/04/18 11/04/18 11/04/18 10:30 10:41 10:47 Temperature Pulse Rate Pulse Rate [ From Monitor] Respiratory Rate Blood Pressure 132/86 132/86 139/81 O2 Sat by Pulse 96 97 Oximetry 11/04/18 11/04/18 11/04/18 10:48 10:51 11:00 Temperature Pulse Rate 92 H 83 81 Pulse Rate [ From Monitor] Respiratory 16 21 Rate Blood Pressure 139/81 139/81 133/79 O2 Sat by Pulse 97 Oximetry 11/04/18 11/04/18 11/04/18 11:11 11:21 11:30 Temperature Pulse Rate 74 76 76 Pulse Rate [ From Monitor] Respiratory 19 15 22 Rate Blood Pressure 133/79 119/75 128/71 O2 Sat by Pulse 100 97 98 Oximetry 11/04/18 11/04/18 11/04/18 11:41 11:51 12:00 Temperature 97.7 F Pulse Rate 72 74 75 Pulse Rate [ 75 From Monitor] Respiratory 20 16 12 Rate Blood Pressure 128/71 111/61 126/72 O2 Sat by Pulse 98 98 95 Oximetry 11/04/18 11/04/18 11/04/18 12:11 12:21 12:30 Temperature Pulse Rate 77 77 81 Pulse Rate [ From Monitor] Respiratory 20 25 H 21 Rate Blood Pressure 126/72 127/79 119/71 O2 Sat by Pulse 97 96 93 Oximetry - General Appearance General appearance: well-developed, well-nourished EENT: ATNC Respiratory: Present: Clear to Ascultation Cardiology: regular, S1S2 Gastrointestinal: normal, no tenderness, no distended Integumentary: no rash, warm and dry Neurologic: no focal deficit, alert and oriented x3 Psychiatric: cooperative - Lab 11/04/18 04:40 11/04/18 04:40 Most recent lab results Calcium 9.1 mg/dL (8.4-10.2) 11/04/18 04:40 Magnesium 1.90 mg/dL (1.7-2.3) 11/02/18 12:59 119.6 mg/dL (0.1-20.0) H 11/01/18 11:45 53 mmol/L 11/01/18 11:45 105 mg/dL (5-11.8) H 11/01/18 11:45 Medications & Allergies - Medications Allergies/Adverse Reactions: Allergies No Known Allergies Allergy (Unverified 11/01/18 04:56) Home Medications: Home Medications Medication Instructions Recorded Confirmed Last Taken Type Clonidine HCl 0.1 mg PO DAILY 11/01/18 11/01/18 3 Months Ago History ~08/01/18 amLODIPine 5 mg PO BID 11/01/18 11/01/18 3 Months Ago History ~08/01/18 Active Medications: Generic Name Dose Route Start Last Admin Trade Name Freq PRN Reason Stop Dose Admin Doxazosin Mesylate 2 mg 11/03/18 22:00 11/03/18 22:09 Cardura PO Not Given QHS [facility] Hydralazine HCl 10 mg 11/03/18 02:54 11/03/18 06:07 Apresoline IV 10 mg Q6H PRN Administration Blood Pressure Sodium Chloride 100 mls @ 999 mls/hr 11/03/18 09:00 Nacl 0.9% IV JOSÉ MANUEL PRN Hypotension Labetalol HCl 300 mg 11/03/18 22:00 11/04/18 10:48 Normodyne PO 300 mg BID ZUNILDA Administration Losartan Potassium 50 mg 11/03/18 18:00 11/04/18 10:47 Cozaar PO 50 mg QDAY [facility] Administration Morphine Sulfate 2 mg 11/01/18 21:51 11/03/18 22:08 Morphine IV 2 mg Q4H PRN Administration Pain, Moderate (4-6) Nifedipine 60 mg 11/03/18 04:00 11/04/18 10:47 Procardia Xl PO 60 mg QDAY ZUNILDA Administration Nitroglycerin 0.4 mg 11/01/18 05:33 11/01/18 06:20 Nitrostat SL 0.4 mg .Q5MIN PRN Administration Chest Pain Ondansetron HCl 4 mg 11/03/18 23:07 11/03/18 23:48 Zofran IV 4 mg Q6H PRN Administration Nausea And Vomiting Spironolactone 50 mg 11/02/18 13:00 11/04/18 10:47 Aldactone PO 50 mg QDAY ZUNILDA Administration
[2018-11-04] MEDS: CARDURA PO SCH (22:36)
[2018-11-05] MEDS: APRESOLINE IV PRN ×2 (00:18→17:55)
[2018-11-05 05:03] LABS: Hematocrit 30.9 % (35.5-45.6); Hemoglobin 10.5 gm/dl (11.8-15.2); Mean Corpuscular HGB Conc 34 % (32-34); Mean Corpuscular Volume 88 fl (84-94); Platelet Count 214 K/mm3 (140-440); Red Cell Distribution Width 17.9 % (13.2-15.2)
[2018-11-05 05:23] LABS: Calcium 9.1 mg/dL (8.4-10.2)
--- NOTE | 2018-11-05 08:54 | Progress Note ---
Assessment and Plan Assessment and plan: Acute on CKD. We do not have a baseline creatinine to compare. However patient likely has pronounced kidney disease secondary to hypertension, and enal US Kidneys shows chronic kidney disease. Nephrology following. Accelerated hypertension/malignant. On labetalol, Cozaar, Doxazosin scheduled and Hydralaizine prn. Elevated troponin. Etiology likely secondary to renal insufficiency. Chest pain. Patient will have ischemic evaluation likely when renal issues have been stabilized. CTA revealed no evidence of aortic dissection. Cardiology following. For stress test today Hypokalemia. Replaced. Hyperlipidemia. Full code status. Will transfer out of [facility] if stress test neg History Interval history: Feels better, No chest pain No SOB Hospitalist Physical - Physical exam Narrative exam: Gen: Not in acute distress, lying in bed HEENT: Normocephalic, atraumatic Neck: supple, no JVD Heart: S1 and S2 reg, no murmurs, rubs or gallop Lungs: Clear, no crackles, no rhonchi Abd: soft, non tender, non distended, normal BS, Ext: No edema, no clubbing, no cyanosis Neuro: Awake,alert, Oriented X 3. No focal neuro signs Psych: normal mood - Constitutional Vitals: Temp Pulse Resp BP Pulse Ox 98.4 F 80 16 151/105 97 11/05/18 08:00 11/05/18 08:00 11/05/18 08:00 11/05/18 06:00 11/05/18 08:00 General appearance: Present: no acute distress Results - Labs CBC & Chem 7: 11/05/18 04:31 11/05/18 04:31 Labs: Laboratory Last Values WBC 6.8 K/mm3 (4.5-11.0) 11/05/18 04:31 RBC 3.50 M/mm3 (3.65-5.03) L 11/05/18 04:31 Hgb 10.5 gm/dl (11.8-15.2) L 11/05/18 04:31 Hct 30.9 % (35.5-45.6) L 11/05/18 04:31 MCV 88 fl (84-94) 11/05/18 04:31 MCH 30 pg (28-32) 11/05/18 04:31 MCHC 34 % (32-34) 11/05/18 04:31 RDW 17.9 % (13.2-15.2) H 11/05/18 04:31 Plt Count 214 K/mm3 (140-440) 11/05/18 04:31 Lymph % (Auto) 10.1 % (13.4-35.0) L 11/01/18 05:26 [place] % (Auto) 9.6 % (0.0-7.3) H 11/01/18 05:26 Eos % (Auto) 3.3 % (0.0-4.3) 11/01/18 05:26 Baso % (Auto) 1.0 % (0.0-1.8) 11/01/18 05:26 Lymph # 0.9 K/mm3 (1.2-5.4) L 11/01/18 05:26 [place] # 0.9 K/mm3 (0.0-0.8) H 11/01/18 05:26 Eos # 0.3 K/mm3 (0.0-0.4) 11/01/18 05:26 Baso # 0.1 K/mm3 (0.0-0.1) 11/01/18 05:26 Seg Neutrophils % 76.0 % (40.0-70.0) H 11/01/18 05:26 Seg Neutrophils # 6.9 K/mm3 (1.8-7.7) 11/01/18 05:26 PT 13.7 Sec. (12.2-14.9) 11/01/18 06:29 INR 1.08 (0.87-1.13) 11/01/18 06:29 APTT 30.3 Sec. (24.2-36.6) 11/01/18 06:29 1703.12 ng/mlDDU (0-234) H 11/01/18 06:29 Sodium 137 mmol/L (137-145) 11/05/18 04:31 Potassium 3.8 mmol/L (3.6-5.0) 11/05/18 04:31 Chloride 98.9 mmol/L (98-107) 11/05/18 04:31 Carbon Dioxide 29 mmol/L (22-30) 11/05/18 04:31 13 mmol/L 11/05/18 04:31 BUN 23 mg/dL (9-20) H 11/05/18 04:31 4.9 mg/dL (0.8-1.5) H 11/05/18 04:31 Estimated GFR 16 ml/min 11/05/18 04:31 5 % 11/05/18 04:31 Glucose 111 mg/dL (75-100) H 11/05/18 04:31 Calcium 9.1 mg/dL (8.4-10.2) 11/05/18 04:31 Magnesium 1.90 mg/dL (1.7-2.3) 11/02/18 12:59 0.80 mg/dL (0.1-1.2) 11/01/18 06:29 < 0.2 mg/dL (0-0.2) 11/01/18 06:29 0.6 mg/dL 11/01/18 06:29 AST 26 units/L (5-40) 11/01/18 06:29 ALT 11 units/L (7-56) 11/01/18 06:29 70 units/L (35-129) 11/01/18 06:29 133 units/L (55-170) 11/01/18 06:29 CK-MB (CK-2) 4.2 ng/mL (0.0-4.0) H 11/01/18 06:29 CK-MB (CK-2) Rel Index 3.1 (0-4) 11/01/18 06:29 0.173 ng/mL (0.00-0.029) H* 11/01/18 06:29 NT-Pro-B Natriuret Pep 26649 pg/mL (0-450) H 11/01/18 06:29 7.4 g/dL (6.3-8.2) 11/01/18 06:29 3.7 g/dL (3.9-5) L 11/01/18 06:29 1.0 % 11/01/18 06:29 Triglycerides 158 mg/dL (2-149) H 11/01/18 05:26 Cholesterol 206 mg/dL (50-199) H 11/01/18 05:26 158 mg/dL (50-130) H 11/01/18 05:26 45 mg/dL (40-59) 11/01/18 05:26 4.57 % 11/01/18 05:26 Red (Yellow) 11/01/18 08:11 Slightly-cloudy (Clear) 11/01/18 08:11 6.0 (5.0-7.0) 11/01/18 08:11 Ur Specific [place] 1.013 (1.003-1.030) 11/01/18 08:11 >500 mg/dL (Negative) 11/01/18 08:11 150 mg/dL (Negative) 11/01/18 08:11 Neg mg/dL (Negative) 11/01/18 08:11 Lg (Negative) 11/01/18 08:11 Neg (Negative) 11/01/18 08:11 Neg (Negative) 11/01/18 08:11 < 2.0 mg/dL (<2.0) 11/01/18 08:11 Ur Leukocyte Esterase Neg (Negative) 11/01/18 08:11 3.0 /HPF (0.0-6.0) 11/01/18 08:11 > 182.0 /HPF (0.0-6.0) 11/01/18 08:11 U Epithel Cells (Auto) < 1.0 /HPF (0-13.0) 11/01/18 08:11 Few /HPF 11/01/18 08:11 119.6 mg/dL (0.1-20.0) H 11/01/18 11:45 53 mmol/L 11/01/18 11:45 105 mg/dL (5-11.8) H 11/01/18 11:45 Presumptive negative 11/01/18 08:11 Presumptive negative 11/01/18 08:11 Ur Barbiturates Screen Presumptive negative 11/01/18 08:11 Ur Phencyclidine Scrn Presumptive negative 11/01/18 08:11 Ur Amphetamines Screen Presumptive negative 11/01/18 08:11 U Benzodiazepines Scrn Presumptive negative 11/01/18 08:11 Presumptive negative 11/01/18 08:11 U Marijuana (THC) Screen Presumptive positive 11/01/18 08:11 Disclamer 11/01/18 08:11 Hepatitis A IgM Ab Non-reactive (NonReactive) 11/01/18 Unknown Hep Bs Antigen Non-reactive (Negative) 11/01/18 Unknown Hep B Core IgM Ab Non-reactive (NonReactive) 11/01/18 Unknown Non-reactive (NonReactive) 11/01/18 Unknown Active Medications - Current Medications Current Medications: Generic Name Dose Route Start Last Admin Trade Name Freq PRN Reason Stop Dose Admin Doxazosin Mesylate 2 mg 11/03/18 22:00 11/04/18 22:36 Cardura PO 2 mg QHS ZUNILDA Administration Hydralazine HCl 10 mg 11/03/18 02:54 11/05/18 00:18 Apresoline IV 10 mg Q6H PRN Administration Blood Pressure Sodium Chloride 100 mls @ 999 mls/hr 11/03/18 09:00 Nacl 0.9% IV JOSÉ MANUEL PRN Hypotension Labetalol HCl 300 mg 11/03/18 22:00 11/04/18 22:33 Normodyne PO 300 mg BID ZUNILDA Administration Losartan Potassium 50 mg 11/03/18 18:00 11/04/18 10:47 Cozaar PO 50 mg QDAY ZUNILDA Administration Morphine Sulfate 2 mg 11/01/18 21:51 11/03/18 22:08 Morphine IV 2 mg Q4H PRN Administration Pain, Moderate (4-6) Nifedipine 60 mg 11/03/18 04:00 11/04/18 10:47 Procardia Xl PO 60 mg QDAY ZUNILDA Administration Nitroglycerin 0.4 mg 11/01/18 05:33 11/01/18 06:20 Nitrostat SL 0.4 mg .Q5MIN PRN Administration Chest Pain Ondansetron HCl 4 mg 11/03/18 23:07 11/03/18 23:48 Zofran IV 4 mg Q6H PRN Administration Nausea And Vomiting Spironolactone 50 mg 11/02/18 13:00 11/04/18 10:47 Aldactone PO 50 mg QDAY ZUNILDA Administration
--- NOTE | 2018-11-05 09:20 | Progress Note ---
Assessment and Plan Assesment: * Acute kidney injury secondary to unclear etiology vs underlying chronic kidney disease --Hemodialysis initiation Nov 01 2018 * Accelerated hypertension * Hypokalemia * Dyspnea --CXR: unremarkable --CTA chest: no PE Plan: * Continue TTS schedule - will need permcath * Adjust K bath with dialysis - currently 4K bath * Awaiting OSH records to determine chronicity of disease; consider renal biopsy if unable to obtain records * Note plans for stress test today * Await pending serologies * Continue current antiHTN medications * Secondary HTN work up pending - Tunde:Renin, metanephrine * Dose medications for renal function * Avoid potential nephrotoxic agents Subjective Date of service: 11/05/18 Objective - Vital Signs Vital signs: Vital Signs - 12hr 11/04/18 11/04/18 11/04/18 21:21 21:30 21:41 Temperature Pulse Rate 78 89 76 Pulse Rate [ From Monitor] Respiratory 13 20 25 H Rate Blood Pressure 144/96 147/103 147/103 O2 Sat by Pulse 98 92 98 Oximetry 11/04/18 11/04/18 11/04/18 21:51 22:00 22:11 Temperature Pulse Rate 78 79 73 Pulse Rate [ From Monitor] Respiratory 18 24 16 Rate Blood Pressure 148/96 153/93 153/93 O2 Sat by Pulse 97 96 98 Oximetry 11/04/18 11/04/18 11/04/18 22:21 22:30 22:33 Temperature Pulse Rate 79 82 95 H Pulse Rate [ From Monitor] Respiratory 20 12 Rate Blood Pressure 125/76 139/95 139/95 O2 Sat by Pulse 99 96 Oximetry 11/04/18 11/04/18 11/04/18 22:36 22:41 22:51 Temperature Pulse Rate 95 H 85 83 Pulse Rate [ From Monitor] Respiratory 28 H 17 Rate Blood Pressure 139/95 139/95 169/112 O2 Sat by Pulse 99 97 Oximetry 11/04/18 11/04/18 11/04/18 23:00 23:11 23:21 Temperature Pulse Rate 83 82 79 Pulse Rate [ From Monitor] Respiratory 22 17 17 Rate Blood Pressure 171/113 171/113 161/109 O2 Sat by Pulse 99 97 Oximetry 11/04/18 11/04/18 11/04/18 23:30 23:41 23:44 Temperature 98.7 F Pulse Rate 82 83 Pulse Rate [ From Monitor] Respiratory 17 23 Rate Blood Pressure 162/109 162/109 O2 Sat by Pulse 98 98 Oximetry 11/04/18 11/05/18 11/05/18 23:51 00:00 00:11 Temperature 98.7 F Pulse Rate 99 H 80 83 Pulse Rate [ 84 From Monitor] Respiratory 23 22 13 Rate Blood Pressure 161/100 161/100 163/115 O2 Sat by Pulse 92 100 99 Oximetry 11/05/18 11/05/18 11/05/18 00:18 00:21 00:30 Temperature Pulse Rate 83 79 89 Pulse Rate [ From Monitor] Respiratory 16 20 Rate Blood Pressure 169/119 169/119 162/118 O2 Sat by Pulse 100 95 Oximetry 11/05/18 11/05/18 11/05/18 00:41 00:51 01:00 Temperature Pulse Rate 95 H 89 77 Pulse Rate [ From Monitor] Respiratory 26 H 15 16 Rate Blood Pressure 162/118 129/78 137/83 O2 Sat by Pulse 99 98 96 Oximetry 11/05/18 11/05/18 11/05/18 01:11 01:21 01:30 Temperature Pulse Rate 82 78 77 Pulse Rate [ From Monitor] Respiratory 22 15 16 Rate Blood Pressure 137/83 140/84 147/90 O2 Sat by Pulse 99 98 91 Oximetry 11/05/18 11/05/18 11/05/18 01:41 01:51 02:01 Temperature Pulse Rate 74 72 70 Pulse Rate [ From Monitor] Respiratory 19 22 17 Rate Blood Pressure 147/90 134/88 147/93 O2 Sat by Pulse 98 99 96 Oximetry 11/05/18 11/05/18 11/05/18 02:11 02:21 02:30 Temperature Pulse Rate 80 78 76 Pulse Rate [ From Monitor] Respiratory 21 19 23 Rate Blood Pressure 147/93 147/97 147/97 O2 Sat by Pulse 98 98 94 Oximetry 11/05/18 11/05/18 11/05/18 02:41 02:51 03:00 Temperature Pulse Rate 79 78 79 Pulse Rate [ From Monitor] Respiratory 21 10 L 19 Rate Blood Pressure 147/97 160/105 170/116 O2 Sat by Pulse 98 98 92 Oximetry 11/05/18 11/05/18 11/05/18 03:11 03:21 03:30 Temperature Pulse Rate 84 81 81 Pulse Rate [ From Monitor] Respiratory 17 18 19 Rate Blood Pressure 170/116 153/110 157/106 O2 Sat by Pulse 97 96 92 Oximetry 11/05/18 11/05/18 11/05/18 03:41 03:51 04:00 Temperature 98.2 F Pulse Rate 84 84 84 Pulse Rate [ 81 From Monitor] Respiratory 20 19 19 Rate Blood Pressure 157/106 147/102 155/107 O2 Sat by Pulse 96 96 92 Oximetry 11/05/18 11/05/18 11/05/18 04:11 04:21 04:31 Temperature Pulse Rate 80 79 83 Pulse Rate [ From Monitor] Respiratory 20 14 Rate Blood Pressure 155/107 149/102 156/98 O2 Sat by Pulse 97 97 96 Oximetry 11/05/18 11/05/18 11/05/18 04:41 04:51 05:00 Temperature 98.2 F Pulse Rate 79 78 76 Pulse Rate [ From Monitor] Respiratory 16 20 24 Rate Blood Pressure 156/98 149/102 154/99 O2 Sat by Pulse 97 96 94 Oximetry 11/05/18 11/05/18 11/05/18 05:11 05:21 05:30 Temperature Pulse Rate 77 78 84 Pulse Rate [ From Monitor] Respiratory 17 Rate Blood Pressure 154/99 151/103 165/124 O2 Sat by Pulse 97 98 96 Oximetry 11/05/18 11/05/18 11/05/18 05:41 05:51 06:00 Temperature Pulse Rate 76 79 80 Pulse Rate [ From Monitor] Respiratory 19 Rate Blood Pressure 165/124 154/98 151/105 O2 Sat by Pulse 98 98 94 Oximetry 11/05/18 08:00 Temperature 98.4 F Pulse Rate Pulse Rate [ 80 From Monitor] Respiratory 16 Rate Blood Pressure O2 Sat by Pulse 97 Oximetry - Lab 11/05/18 04:31 11/05/18 04:31 Most recent lab results Calcium 9.1 mg/dL (8.4-10.2) 11/05/18 04:31 Magnesium 1.90 mg/dL (1.7-2.3) 11/02/18 12:59 119.6 mg/dL (0.1-20.0) H 11/01/18 11:45 53 mmol/L 11/01/18 11:45 105 mg/dL (5-11.8) H 11/01/18 11:45 Medications & Allergies - Medications Allergies/Adverse Reactions: Allergies No Known Allergies Allergy (Unverified 11/01/18 04:56) Home Medications: Home Medications Medication Instructions Recorded Confirmed Last Taken Type Clonidine HCl 0.1 mg PO DAILY 11/01/18 11/01/18 3 Months Ago History ~08/01/18 amLODIPine 5 mg PO BID 11/01/18 11/01/18 3 Months Ago History ~08/01/18 Active Medications: Generic Name Dose Route Start Last Admin Trade Name [place] PRN Reason Stop Dose Admin Doxazosin Mesylate 2 mg 11/03/18 22:00 11/04/18 22:36 Cardura PO 2 mg QHS ZUNILDA Administration Hydralazine HCl 10 mg 11/03/18 02:54 11/05/18 00:18 Apresoline IV 10 mg Q6H PRN Administration Blood Pressure Sodium Chloride 100 mls @ 999 mls/hr 11/03/18 09:00 Nacl 0.9% IV JOSÉ MANUEL PRN Hypotension Labetalol HCl 300 mg 11/03/18 22:00 11/04/18 22:33 Normodyne PO 300 mg BID ZUNILDA Administration Losartan Potassium 50 mg 11/03/18 18:00 11/04/18 10:47 Cozaar PO 50 mg QDAY [facility] Administration Morphine Sulfate 2 mg 11/01/18 21:51 11/03/18 22:08 Morphine IV 2 mg Q4H PRN Administration Pain, Moderate (4-6) Nifedipine 60 mg 11/05/18 10:00 Procardia Xl PO Q12HR [facility] Nitroglycerin 0.4 mg 11/01/18 05:33 11/01/18 06:20 Nitrostat SL 0.4 mg .Q5MIN PRN Administration Chest Pain Ondansetron HCl 4 mg 11/03/18 23:07 11/03/18 23:48 Zofran IV 4 mg Q6H PRN Administration Nausea And Vomiting Spironolactone 50 mg 11/02/18 13:00 11/04/18 10:47 Aldactone PO 50 mg QDAY ZUNILDA Administration
[2018-11-05] MEDS: NORMODYNE PO SCH ×2 (09:24→21:52)
[2018-11-05] MEDS: COZAAR PO SCH (09:25)
[2018-11-05] MEDS: ALDACTONE PO SCH (09:26)
[2018-11-05] MEDS: PROCARDIA XL PO SCH ×2 (09:54→21:54)
--- NOTE | 2018-11-05 14:06 | Progress Note ---
Assessment and Plan Hypertensive emergency, now controlled secondary to noncompliance with medications Chronic renal failure with progression to dialysis Hypokalemia Hyperlipidemia Equivocal troponin elevation secondary to renal failure An echocardiogram done reveals severe LVH with an LVEF 45-50%. Recommend: Continue optimal medical management of hypertension. Subjective Date of service: 11/05/18 Interval history: Patient has no cardiac complaints. Objective Vital Signs Temp Pulse Pulse Resp BP Pulse Ox 11/05/18 12:11 87 22 133/85 11/05/18 12:00 97.9 F 84 79 20 133/85 94 11/05/18 11:51 82 24 150/104 97 11/05/18 11:41 82 20 150/104 97 11/05/18 11:31 77 20 150/104 98 11/05/18 11:21 78 21 150/104 98 11/05/18 11:11 76 21 150/104 98 11/05/18 11:01 77 22 150/104 98 11/05/18 10:51 74 19 150/104 98 11/05/18 10:41 77 9 L 150/104 99 11/05/18 10:31 79 13 150/104 99 11/05/18 10:21 165/111 96 11/05/18 10:11 165/111 99 11/05/18 10:00 78 165/111 98 11/05/18 09:51 74 12 172/108 97 11/05/18 09:41 79 16 172/108 99 11/05/18 09:30 77 17 172/108 98 11/05/18 09:26 76 178/123 11/05/18 09:25 76 178/123 11/05/18 09:24 76 178/123 11/05/18 09:21 90 20 178/123 99 11/05/18 09:11 82 25 H 156/103 98 11/05/18 09:00 82 20 156/103 97 11/05/18 08:51 82 16 171/119 100 11/05/18 08:41 80 18 173/110 99 11/05/18 08:30 73 14 173/110 97 11/05/18 08:21 74 19 169/113 100 11/05/18 08:11 74 12 175/117 98 11/05/18 08:00 98.4 F 80 16 157/106 99 11/05/18 07:41 157/106 86 11/05/18 07:31 157/106 11/05/18 07:21 82 22 157/106 98 11/05/18 07:11 79 23 161/100 97 11/05/18 07:00 78 19 161/100 94 11/05/18 06:51 82 19 158/101 97 11/05/18 06:41 85 20 160/102 97 11/05/18 06:30 79 21 160/102 94 11/05/18 06:21 80 20 150/103 98 11/05/18 06:11 79 21 151/105 97 11/05/18 06:00 80 19 151/105 94 11/05/18 05:51 79 19 154/98 98 11/05/18 05:41 76 19 165/124 98 11/05/18 05:30 84 19 165/124 96 11/05/18 05:21 78 20 151/103 98 11/05/18 05:11 77 17 154/99 97 11/05/18 05:00 98.2 F 76 24 154/99 94 11/05/18 04:51 78 20 149/102 96 11/05/18 04:41 79 16 156/98 97 11/05/18 04:31 83 14 156/98 96 11/05/18 04:21 79 21 149/102 97 11/05/18 04:11 80 20 155/107 97 11/05/18 04:00 98.2 F 84 81 19 155/107 92 11/05/18 03:51 84 19 147/102 96 11/05/18 03:41 84 20 157/106 96 11/05/18 03:30 81 19 157/106 92 11/05/18 03:21 81 18 153/110 96 11/05/18 03:11 84 17 170/116 97 11/05/18 03:00 79 19 170/116 92 11/05/18 02:51 78 10 L 160/105 98 11/05/18 02:41 79 21 147/97 98 11/05/18 02:30 76 23 147/97 94 11/05/18 02:21 78 19 147/97 98 11/05/18 02:11 80 21 147/93 98 11/05/18 02:01 70 17 147/93 96 11/05/18 01:51 72 22 134/88 99 11/05/18 01:41 74 19 147/90 98 11/05/18 01:30 77 16 147/90 91 11/05/18 01:21 78 15 140/84 98 11/05/18 01:11 82 22 137/83 99 11/05/18 01:00 77 16 137/83 96 11/05/18 00:51 89 15 129/78 98 11/05/18 00:41 95 H 26 H 162/118 99 11/05/18 00:30 89 20 162/118 95 11/05/18 00:21 79 16 169/119 100 11/05/18 00:18 83 169/119 11/05/18 00:11 83 13 163/115 99 11/05/18 00:00 98.7 F 80 84 22 161/100 100 11/04/18 23:51 99 H 23 161/100 92 11/04/18 23:44 98.7 F 11/04/18 23:41 83 23 162/109 98 11/04/18 23:30 82 17 162/109 98 11/04/18 23:21 79 17 161/109 97 11/04/18 23:11 82 17 171/113 99 11/04/18 23:00 83 22 171/113 11/04/18 22:51 83 17 169/112 97 11/04/18 22:41 85 28 H 139/95 99 11/04/18 22:36 95 H 139/95 11/04/18 22:33 95 H 139/95 11/04/18 22:30 82 12 139/95 96 11/04/18 22:21 79 20 125/76 99 11/04/18 22:11 73 16 153/93 98 11/04/18 22:00 79 24 153/93 96 11/04/18 21:51 78 18 148/96 97 11/04/18 21:41 76 25 H 147/103 98 11/04/18 21:30 89 20 147/103 92 11/04/18 21:21 78 13 144/96 98 11/04/18 21:11 79 17 141/95 96 11/04/18 21:07 76 22 141/95 97 11/04/18 21:00 73 19 141/95 89 11/04/18 20:51 79 22 142/99 98 11/04/18 20:41 82 11 L 145/103 98 08/14/19 20:30 79 15 145/103 97 11/04/18 20:21 80 27 H 141/94 99 11/04/18 20:11 79 27 H 135/88 99 11/04/18 20:01 80 135/88 11/04/18 20:00 98.2 F 79 22 96 11/04/18 19:51 81 12 143/94 11/04/18 19:41 80 18 150/100 11/04/18 19:30 80 13 150/100 11/04/18 19:21 86 15 144/96 11/04/18 19:11 83 12 134/87 11/04/18 19:00 79 12 134/87 11/04/18 18:51 86 12 145/86 11/04/18 18:41 81 15 145/94 11/04/18 18:30 80 16 145/94 11/04/18 18:21 83 14 149/90 11/04/18 18:11 77 24 141/95 11/04/18 18:00 80 14 141/95 11/04/18 17:51 78 14 139/92 11/04/18 17:41 85 17 155/102 11/04/18 17:31 77 23 155/102 11/04/18 17:21 71 21 132/78 11/04/18 17:11 78 15 119/64 11/04/18 17:00 73 20 119/64 11/04/18 16:51 75 22 109/66 11/04/18 16:41 75 16 133/78 11/04/18 16:31 81 14 133/78 11/04/18 16:21 76 19 104/57 11/04/18 16:11 78 22 109/63 11/04/18 16:00 98.0 F 81 81 22 109/63 97 11/04/18 15:51 85 15 113/63 11/04/18 15:41 76 21 110/67 11/04/18 15:30 76 19 110/67 11/04/18 15:21 74 22 132/83 11/04/18 15:11 83 13 132/99 11/04/18 15:01 77 20 132/99 11/04/18 14:51 74 20 120/85 11/04/18 14:41 76 14 96/69 11/04/18 14:31 82 24 11/04/18 14:21 73 16 106/70 98 11/04/18 14:11 71 17 114/83 - Physical Examination General: No Apparent Distress HEENT: Positive: PERRL Neck: Positive: trachea midline Cardiac: Positive: Reg Rate and Rhythm Lungs: Positive: Decreased Breath Sounds Neuro: Positive: Grossly Intact Abdomen: Positive: Soft Extremities: Absent: edema - Labs and Meds CBC 11/05/18 Range/Units 04:31 WBC 6.8 (4.5-11.0) K/mm3 RBC 3.50 L (3.65-5.03) M/mm3 Hgb 10.5 L (11.8-15.2) gm/dl Hct 30.9 L (35.5-45.6) % Plt Count 214 (140-440) K/mm3 Comprehensive Metabolic Panel 11/05/18 Range/Units 04:31 Sodium 137 (137-145) mmol/L Potassium 3.8 (3.6-5.0) mmol/L Chloride 98.9 (98-107) mmol/L Carbon Dioxide 29 (22-30) mmol/L BUN 23 H (9-20) mg/dL Creatinine 4.9 H (0.8-1.5) mg/dL Glucose 111 H (75-100) mg/dL Calcium 9.1 (8.4-10.2) mg/dL
[2018-11-05] MEDS: CARDURA PO SCH (21:54)
[2018-11-06] MEDS: TYLENOL PO PRN (02:40)
--- NOTE | 2018-11-06 09:21 | Progress Note ---
Assessment and Plan Assessment and plan: Acute on CKD. We do not have a baseline creatinine to compare. However patient likely has pronounced kidney disease secondary to hypertension, and enal US Kidneys shows chronic kidney disease. Nephrology following. Will need outpatient hemodialysis Accelerated hypertension/malignant. On labetalol, Cozaar, Doxazosin scheduled and Hydralaizine prn. Elevated Troponin. Etiology likely secondary to renal insufficiency. Chest pain. CTA revealed no evidence of aortic dissection. Cardiology following. Stress test cancelled yesteradya Hypokalemia. Replaced. Hyperlipidemia. Full code status. History Interval history: Feels better, No chest pain No SOB Hospitalist Physical - Physical exam Narrative exam: Gen: Not in acute distress, lying in bed HEENT: Normocephalic, atraumatic Neck: supple, no JVD Heart: S1 and S2 reg, no murmurs, rubs or gallop Lungs: Clear, no crackles, no rhonchi Abd: soft, non tender, non distended, normal BS, Ext: No edema, no clubbing, no cyanosis Neuro: Awake,alert, Oriented X 3. No focal neuro signs Psych: normal mood - Constitutional Vitals: Temp Pulse Resp BP Pulse Ox 98.4 F 80 17 164/110 99 11/06/18 08:10 11/06/18 08:10 11/06/18 08:14 11/06/18 08:10 11/06/18 08:14 General appearance: Present: no acute distress Results - Labs CBC & Chem 7: 11/05/18 04:31 11/06/18 05:46 Labs: Laboratory Last Values WBC 6.8 K/mm3 (4.5-11.0) 11/05/18 04:31 RBC 3.50 M/mm3 (3.65-5.03) L 11/05/18 04:31 Hgb 10.5 gm/dl (11.8-15.2) L 11/05/18 04:31 Hct 30.9 % (35.5-45.6) L 11/05/18 04:31 MCV 88 fl (84-94) 11/05/18 04:31 MCH 30 pg (28-32) 11/05/18 04:31 MCHC 34 % (32-34) 11/05/18 04:31 RDW 17.9 % (13.2-15.2) H 11/05/18 04:31 Plt Count 214 K/mm3 (140-440) 11/05/18 04:31 Lymph % (Auto) 10.1 % (13.4-35.0) L 11/01/18 05:26 Benson % (Auto) 9.6 % (0.0-7.3) H 11/01/18 05:26 Eos % (Auto) 3.3 % (0.0-4.3) 11/01/18 05:26 Baso % (Auto) 1.0 % (0.0-1.8) 11/01/18 05:26 Lymph # 0.9 K/mm3 (1.2-5.4) L 11/01/18 05:26 Benson # 0.9 K/mm3 (0.0-0.8) H 11/01/18 05:26 Eos # 0.3 K/mm3 (0.0-0.4) 11/01/18 05:26 Baso # 0.1 K/mm3 (0.0-0.1) 11/01/18 05:26 Seg Neutrophils % 76.0 % (40.0-70.0) H 11/01/18 05:26 Seg Neutrophils # 6.9 K/mm3 (1.8-7.7) 11/01/18 05:26 PT 13.7 Sec. (12.2-14.9) 11/01/18 06:29 INR 1.08 (0.87-1.13) 11/01/18 06:29 APTT 30.3 Sec. (24.2-36.6) 11/01/18 06:29 1703.12 ng/mlDDU (0-234) H 11/01/18 06:29 Sodium 134 mmol/L (137-145) L 11/06/18 05:46 Potassium 4.0 mmol/L (3.6-5.0) 11/06/18 05:46 Chloride 96.0 mmol/L (98-107) L 11/06/18 05:46 Carbon Dioxide 28 mmol/L (22-30) 11/06/18 05:46 14 mmol/L 11/06/18 05:46 BUN 15 mg/dL (9-20) 11/06/18 05:46 3.8 mg/dL (0.8-1.5) H 11/06/18 05:46 Estimated GFR 22 ml/min 11/06/18 05:46 4 % 11/06/18 05:46 Glucose 114 mg/dL (75-100) H 11/06/18 05:46 Calcium 9.0 mg/dL (8.4-10.2) 11/06/18 05:46 Magnesium 1.90 mg/dL (1.7-2.3) 11/02/18 12:59 0.80 mg/dL (0.1-1.2) 11/01/18 06:29 < 0.2 mg/dL (0-0.2) 11/01/18 06:29 0.6 mg/dL 11/01/18 06:29 AST 26 units/L (5-40) 11/01/18 06:29 ALT 11 units/L (7-56) 11/01/18 06:29 70 units/L (35-129) 11/01/18 06:29 133 units/L (55-170) 11/01/18 06:29 CK-MB (CK-2) 4.2 ng/mL (0.0-4.0) H 11/01/18 06:29 CK-MB (CK-2) Rel Index 3.1 (0-4) 11/01/18 06:29 0.173 ng/mL (0.00-0.029) H* 11/01/18 06:29 NT-Pro-B Natriuret Pep 78167 pg/mL (0-450) H 11/01/18 06:29 7.4 g/dL (6.3-8.2) 11/01/18 06:29 3.7 g/dL (3.9-5) L 11/01/18 06:29 1.0 % 11/01/18 06:29 Triglycerides 158 mg/dL (2-149) H 11/01/18 05:26 Cholesterol 206 mg/dL (50-199) H 11/01/18 05:26 158 mg/dL (50-130) H 11/01/18 05:26 45 mg/dL (40-59) 11/01/18 05:26 4.57 % 11/01/18 05:26 Red (Yellow) 11/01/18 08:11 Slightly-cloudy (Clear) 11/01/18 08:11 6.0 (5.0-7.0) 11/01/18 08:11 Ur Specific [place] 1.013 (1.003-1.030) 11/01/18 08:11 >500 mg/dL (Negative) 11/01/18 08:11 150 mg/dL (Negative) 11/01/18 08:11 Neg mg/dL (Negative) 11/01/18 08:11 Lg (Negative) 11/01/18 08:11 Neg (Negative) 11/01/18 08:11 Neg (Negative) 11/01/18 08:11 < 2.0 mg/dL (<2.0) 11/01/18 08:11 Ur Leukocyte Esterase Neg (Negative) 11/01/18 08:11 3.0 /HPF (0.0-6.0) 11/01/18 08:11 > 182.0 /HPF (0.0-6.0) 11/01/18 08:11 U Epithel Cells (Auto) < 1.0 /HPF (0-13.0) 11/01/18 08:11 Few /HPF 11/01/18 08:11 119.6 mg/dL (0.1-20.0) H 11/01/18 11:45 53 mmol/L 11/01/18 11:45 105 mg/dL (5-11.8) H 11/01/18 11:45 Presumptive negative 11/01/18 08:11 Presumptive negative 11/01/18 08:11 Ur Barbiturates Screen Presumptive negative 11/01/18 08:11 Ur Phencyclidine Scrn Presumptive negative 11/01/18 08:11 Ur Amphetamines Screen Presumptive negative 11/01/18 08:11 U Benzodiazepines Scrn Presumptive negative 11/01/18 08:11 Presumptive negative 11/01/18 08:11 U Marijuana (THC) Screen Presumptive positive 11/01/18 08:11 Disclamer 11/01/18 08:11 Hepatitis A IgM Ab Non-reactive (NonReactive) 11/01/18 Unknown Hep Bs Antigen Non-reactive (Negative) 11/01/18 Unknown Hep B Core IgM Ab Non-reactive (NonReactive) 11/01/18 Unknown Non-reactive (NonReactive) 11/01/18 Unknown Flexitest 1 H 08/12/19 12:19 Active Medications - Current Medications Current Medications: Generic Name Dose Route Start Last Admin Trade Name Freq PRN Reason Stop Dose Admin Acetaminophen 650 mg 11/06/18 02:32 11/06/18 02:40 Tylenol PO 650 mg Q4H PRN Administration Pain, Mild (1-3) Doxazosin Mesylate 2 mg 11/05/18 22:00 11/05/18 21:54 Cardura PO 2 mg BID ZUNILDA Administration Hydralazine HCl 10 mg 11/03/18 02:54 11/05/18 17:55 Apresoline IV 10 mg Q6H PRN Administration Blood Pressure Sodium Chloride 100 mls @ 999 mls/hr 11/03/18 09:00 Nacl 0.9% IV JOSÉ MANUEL PRN Hypotension Labetalol HCl 300 mg 11/03/18 22:00 11/05/18 21:52 Normodyne PO 300 mg BID ZUNILDA Administration Losartan Potassium 100 mg 11/05/18 17:42 Cozaar PO QDAY ZUNILDA Morphine Sulfate 2 mg 11/01/18 21:51 11/03/18 22:08 Morphine IV 2 mg Q4H PRN Administration Pain, Moderate (4-6) Nifedipine 60 mg 11/05/18 10:00 11/05/18 21:54 Procardia Xl PO 60 mg Q12HR ZUNILDA Administration Nitroglycerin 0.4 mg 11/01/18 05:33 11/01/18 06:20 Nitrostat SL 0.4 mg .Q5MIN PRN Administration Chest Pain Ondansetron HCl 4 mg 11/03/18 23:07 11/03/18 23:48 Zofran IV 4 mg Q6H PRN Administration Nausea And Vomiting Spironolactone 50 mg 11/02/18 13:00 11/05/18 09:26 Aldactone PO 50 mg QDAY ZUNILDA Administration
[2018-11-06] MEDS: CARDURA PO SCH ×2 (09:30→21:25)
[2018-11-06] MEDS: COZAAR PO SCH (09:30)
[2018-11-06] MEDS: NORMODYNE PO SCH ×2 (09:31→21:25)
[2018-11-06] MEDS: ALDACTONE PO SCH (09:32)
[2018-11-06] MEDS: PROCARDIA XL PO SCH ×2 (09:32→21:25)
--- NOTE | 2018-11-06 09:59 | Progress Note ---
Assessment and Plan Hypertensive emergency, now controlled secondary to noncompliance with medications Chronic renal failure with progression to dialysis Hypokalemia Hyperlipidemia Equivocal troponin elevation secondary to renal failure An echocardiogram done reveals severe LVH with an LVEF 45-50%. Recommend: Continue optimal medical management of hypertension. Subjective Date of service: 11/06/18 Principal diagnosis: HTN Interval history: Patient denies chest pain or shortness of breath No events on tele Objective Vital Signs Temp Pulse Pulse Resp BP BP Pulse Ox 11/06/18 09:32 80 164/110 11/06/18 09:31 80 164/110 11/06/18 09:30 80 164/110 11/06/18 08:14 17 99 11/06/18 08:10 98.4 F 80 18 164/110 99 11/06/18 04:28 98.1 F 80 16 142/90 94 11/06/18 03:40 18 11/06/18 02:40 18 11/05/18 23:59 97.8 F 83 16 148/95 98 11/05/18 23:37 99.0 F 83 16 148/95 98 11/05/18 21:54 77 139/78 11/05/18 21:52 77 139/78 11/05/18 20:26 16 99 11/05/18 19:43 97.5 F L 79 16 138/73 97 11/05/18 19:35 79 11/05/18 19:05 139/78 98 11/05/18 18:51 97.5 F L 18 123/77 11/05/18 18:32 139/78 11/05/18 18:25 83 12 150/102 11/05/18 18:00 72 22 150/102 11/05/18 17:55 77 167/113 11/05/18 17:51 81 15 167/113 11/05/18 17:40 78 15 168/112 11/05/18 17:33 97.8 F 79 16 165/119 11/05/18 17:30 79 14 165/119 99 11/05/18 17:21 74 12 163/108 100 11/05/18 17:11 71 21 161/108 100 11/05/18 17:00 69 19 161/108 100 11/05/18 16:51 70 22 161/109 100 11/05/18 16:49 70 161/109 11/05/18 16:41 80 13 165/119 100 11/05/18 16:30 76 16 165/119 99 11/05/18 16:15 77 12 154/97 100 11/05/18 16:00 97.8 F 79 82 17 154/97 100 11/05/18 15:45 78 16 144/106 100 11/05/18 15:30 65 17 145/99 100 11/05/18 15:15 73 20 144/99 100 11/05/18 15:00 74 23 137/93 100 11/05/18 14:45 83 15 146/101 99 11/05/18 14:30 83 13 145/107 99 11/05/18 14:15 79 14 129/76 100 11/05/18 14:01 81 13 129/76 100 11/05/18 14:00 97.9 F 79 13 133/85 11/05/18 13:53 79 10 L 133/85 98 11/05/18 13:40 79 22 133/85 11/05/18 13:31 82 21 133/85 11/05/18 13:21 92 H 23 133/85 11/05/18 13:11 81 20 133/85 11/05/18 13:01 80 20 133/85 11/05/18 12:51 78 22 133/85 11/05/18 12:41 79 24 133/85 11/05/18 12:31 80 21 133/85 11/05/18 12:21 78 14 133/85 11/05/18 12:11 87 22 133/85 11/05/18 12:00 97.9 F 84 79 20 133/85 94 11/05/18 11:51 82 24 150/104 97 11/05/18 11:41 82 20 150/104 97 11/05/18 11:31 77 20 150/104 98 11/05/18 11:21 78 21 150/104 98 11/05/18 11:11 76 21 150/104 98 11/05/18 11:01 77 22 150/104 98 11/05/18 10:51 74 19 150/104 98 11/05/18 10:41 77 9 L 150/104 99 11/05/18 10:31 79 13 150/104 99 11/05/18 10:21 165/111 96 11/05/18 10:11 165/111 99 11/05/18 10:00 78 165/111 98 Pulse Ox 11/06/18 09:32 11/06/18 09:31 11/06/18 09:30 11/06/18 08:14 11/06/18 08:10 11/06/18 04:28 11/06/18 03:40 11/06/18 02:40 11/05/18 23:59 11/05/18 23:37 11/05/18 21:54 11/05/18 21:52 11/05/18 20:26 11/05/18 19:43 11/05/18 19:35 11/05/18 19:05 11/05/18 18:51 11/05/18 18:32 11/05/18 18:25 11/05/18 18:00 11/05/18 17:55 11/05/18 17:51 11/05/18 17:40 11/05/18 17:33 99 11/05/18 17:30 11/05/18 17:21 11/05/18 17:11 11/05/18 17:00 11/05/18 16:51 11/05/18 16:49 11/05/18 16:41 11/05/18 16:30 11/05/18 16:15 11/05/18 16:00 11/05/18 15:45 11/05/18 15:30 11/05/18 15:15 11/05/18 15:00 11/05/18 14:45 11/05/18 14:30 11/05/18 14:15 11/05/18 14:01 11/05/18 14:00 100 11/05/18 13:53 11/05/18 13:40 11/05/18 13:31 11/05/18 13:21 11/05/18 13:11 11/05/18 13:01 11/05/18 12:51 11/05/18 12:41 11/05/18 12:31 11/05/18 12:21 11/05/18 12:11 11/05/18 12:00 11/05/18 11:51 11/05/18 11:41 11/05/18 11:31 11/05/18 11:21 11/05/18 11:11 11/05/18 11:01 11/05/18 10:51 11/05/18 10:41 11/05/18 10:31 11/05/18 10:21 11/05/18 10:11 11/05/18 10:00 - Physical Examination General: No Apparent Distress HEENT: Positive: PERRL Neck: Positive: trachea midline Cardiac: Positive: Reg Rate and Rhythm Lungs: Positive: Normal Exam Neuro: Positive: Grossly Intact Abdomen: Positive: Soft Skin: Positive: Clear Incision: Cardiac Cath Site Musculoskeletal: No Pain, Normal Range of Motion Extremities: Absent: edema - Labs and Meds Comprehensive Metabolic Panel 11/06/18 Range/Units 05:46 Sodium 134 L (137-145) mmol/L Potassium 4.0 (3.6-5.0) mmol/L Chloride 96.0 L (98-107) mmol/L Carbon Dioxide 28 (22-30) mmol/L BUN 15 (9-20) mg/dL Creatinine 3.8 H (0.8-1.5) mg/dL Glucose 114 H (75-100) mg/dL Calcium 9.0 (8.4-10.2) mg/dL
--- NOTE | 2018-11-06 10:15 | Progress Note ---
Assessment and Plan Patient will be scheduled for conversion of Vas-Cath the PermCath on Friday. Subjective Date of service: 11/06/18 Principal diagnosis: HTN Interval history: A patient with a history of chronic renal failure secondary to uncontrolled hypertension status post Vas-Cath placed in his right internal cerebral vein. Patient has tolerated dialysis well. Objective - Constitutional Vitals: Vital Signs - 12hr 11/05/18 11/05/18 11/06/18 23:37 23:59 02:40 Temperature 99.0 F 97.8 F Pulse Rate 83 83 Respiratory 16 16 18 Rate Blood Pressure 148/95 Blood Pressure 148/95 [Right] O2 Sat by Pulse 98 98 Oximetry 11/06/18 11/06/18 11/06/18 03:40 04:28 08:10 Temperature 98.1 F 98.4 F Pulse Rate 80 80 Respiratory 18 16 18 Rate Blood Pressure 142/90 164/110 Blood Pressure [Right] O2 Sat by Pulse 94 99 Oximetry 11/06/18 11/06/18 11/06/18 08:14 09:30 09:31 Temperature Pulse Rate 80 80 Respiratory 17 Rate Blood Pressure 164/110 164/110 Blood Pressure [Right] O2 Sat by Pulse 99 Oximetry 11/06/18 09:32 Temperature Pulse Rate 80 Respiratory Rate Blood Pressure 164/110 Blood Pressure [Right] O2 Sat by Pulse Oximetry General appearance: Present: no acute distress - EENT Eyes: PERRL, EOM intact ENT: hearing intact - Neck Neck: supple, normal ROM - Respiratory Respiratory effort: normal - Breasts Breasts: deferred Extremities: no ischemia - Gastrointestinal General gastrointestinal: Present: deferred Rectal Exam: deferred - Genitourinary Male genitourinary: deferred - Psychiatric Psychiatric: appropriate mood/affect, cooperative - Labs CBC & Chem 7: 11/05/18 04:31 11/06/18 05:46 Labs: Abnormal lab results 11/06/18 Range/Units 05:46 Sodium 134 L (137-145) mmol/L Chloride 96.0 L (98-107) mmol/L Creatinine 3.8 H (0.8-1.5) mg/dL Glucose 114 H (75-100) mg/dL Medications & Allergies - Medications Allergies/Adverse Reactions: Allergies No Known Allergies Allergy (Unverified 11/01/18 04:56) Home Medications: Home Medications Medication Instructions Recorded Confirmed Last Taken Type Clonidine HCl 0.1 mg PO DAILY 11/01/18 11/01/18 3 Months Ago History ~08/01/18 amLODIPine 5 mg PO BID 11/01/18 11/01/18 3 Months Ago History ~08/01/18 Active Medications: Generic Name Dose Route Start Last Admin Trade Name Freq PRN Reason Stop Dose Admin Acetaminophen 650 mg 11/06/18 02:32 11/06/18 02:40 Tylenol PO 650 mg Q4H PRN Administration Pain, Mild (1-3) Doxazosin Mesylate 2 mg 11/05/18 22:00 11/06/18 09:30 Cardura PO 2 mg BID ZUNILDA Administration Hydralazine HCl 10 mg 11/03/18 02:54 11/05/18 17:55 Apresoline IV 10 mg Q6H PRN Administration Blood Pressure Sodium Chloride 100 mls @ 999 mls/hr 11/03/18 09:00 Nacl 0.9% IV JOSÉ MANUEL PRN Hypotension Labetalol HCl 300 mg 11/03/18 22:00 11/06/18 09:31 Normodyne PO 300 mg BID ZUNILDA Administration Losartan Potassium 100 mg 11/05/18 17:42 11/06/18 09:30 Cozaar PO 100 mg QDAY ZUNILDA Administration Morphine Sulfate 2 mg 11/01/18 21:51 11/03/18 22:08 Morphine IV 2 mg Q4H PRN Administration Pain, Moderate (4-6) Nifedipine 60 mg 11/05/18 10:00 11/06/18 09:32 Procardia Xl PO 60 mg Q12HR ZUNILDA Administration Nitroglycerin 0.4 mg 11/01/18 05:33 11/01/18 06:20 Nitrostat SL 0.4 mg .Q5MIN PRN Administration Chest Pain Ondansetron HCl 4 mg 11/03/18 23:07 11/03/18 23:48 Zofran IV 4 mg Q6H PRN Administration Nausea And Vomiting Spironolactone 50 mg 11/02/18 13:00 11/06/18 09:32 Aldactone PO 50 mg QDAY ZUNILDA Administration
--- NOTE | 2018-11-06 14:06 | Progress Note ---
Assessment and Plan Assesment: * Acute kidney injury secondary to unclear etiology vs underlying chronic kidney disease --Hemodialysis initiation Nov 01 2018 * Accelerated hypertension * Hypokalemia * Dyspnea --CXR: unremarkable --CTA chest: no PE Plan: * Continue TTS schedule - will need permcath * Adjust K bath with dialysis - currently 4K bath * Awaiting OSH records to determine chronicity of disease; consider renal biopsy to establish chronicity/dx if unable to obtain records; discussed with patient * Cardiology recommendations reviewed * Await pending serologies * Continue current antiHTN medications * Dose medications for renal function * Avoid potential nephrotoxic agents * CM for outpatient hemodialysis placement Subjective Date of service: 11/06/18 Principal diagnosis: HTN Interval history: Patient has no complaints today Objective - Vital Signs Vital signs: Vital Signs - 12hr 11/06/18 11/06/18 11/06/18 02:40 03:40 04:28 Temperature 98.1 F Pulse Rate 80 Respiratory 18 18 16 Rate Blood Pressure 142/90 O2 Sat by Pulse 94 Oximetry 11/06/18 11/06/18 11/06/18 08:10 08:14 09:30 Temperature 98.4 F Pulse Rate 80 80 Respiratory 18 17 Rate Blood Pressure 164/110 164/110 O2 Sat by Pulse 99 99 Oximetry 11/06/18 11/06/18 11/06/18 09:31 09:32 10:00 Temperature Pulse Rate 80 80 90 Respiratory Rate Blood Pressure 164/110 164/110 O2 Sat by Pulse Oximetry 11/06/18 11:41 Temperature 98.0 F Pulse Rate 85 Respiratory 18 Rate Blood Pressure 140/87 O2 Sat by Pulse 96 Oximetry - General Appearance General appearance: well-developed, well-nourished EENT: ATNC Respiratory: Present: Clear to Ascultation Cardiology: regular, S1S2 Gastrointestinal: normal, no tenderness, no distended Integumentary: no rash, warm and dry Neurologic: no focal deficit, alert and oriented x3 Psychiatric: cooperative - Lab 11/05/18 04:31 11/07/18 05:02 Most recent lab results Calcium 9.0 mg/dL (8.4-10.2) 11/06/18 05:46 Magnesium 1.90 mg/dL (1.7-2.3) 11/02/18 12:59 119.6 mg/dL (0.1-20.0) H 11/01/18 11:45 53 mmol/L 11/01/18 11:45 105 mg/dL (5-11.8) H 11/01/18 11:45 Medications & Allergies - Medications Allergies/Adverse Reactions: Allergies No Known Allergies Allergy (Unverified 11/01/18 04:56) Home Medications: Home Medications Medication Instructions Recorded Confirmed Last Taken Type Clonidine HCl 0.1 mg PO DAILY 11/01/18 11/01/18 3 Months Ago History ~08/01/18 amLODIPine 5 mg PO BID 11/01/18 11/01/18 3 Months Ago History ~08/01/18 Active Medications: Generic Name Dose Route Start Last Admin Trade Name Freq PRN Reason Stop Dose Admin Acetaminophen 650 mg 11/06/18 02:32 11/06/18 02:40 Tylenol PO 650 mg Q4H PRN Administration Pain, Mild (1-3) Doxazosin Mesylate 2 mg 11/05/18 22:00 11/06/18 09:30 Cardura PO 2 mg BID ZUNILDA Administration Hydralazine HCl 10 mg 11/03/18 02:54 11/05/18 17:55 Apresoline IV 10 mg Q6H PRN Administration Blood Pressure Sodium Chloride 100 mls @ 999 mls/hr 11/03/18 09:00 Nacl 0.9% IV JOSÉ MANUEL PRN Hypotension Labetalol HCl 300 mg 11/03/18 22:00 11/06/18 09:31 Normodyne PO 300 mg BID ZUNILDA Administration Losartan Potassium 100 mg 11/05/18 17:42 11/06/18 09:30 Cozaar PO 100 mg QDAY ZUNILDA Administration Morphine Sulfate 2 mg 11/01/18 21:51 11/03/18 22:08 Morphine IV 2 mg Q4H PRN Administration Pain, Moderate (4-6) Nifedipine 60 mg 11/05/18 10:00 11/06/18 09:32 Procardia Xl PO 60 mg Q12HR ZUNILDA Administration Nitroglycerin 0.4 mg 11/01/18 05:33 11/01/18 06:20 Nitrostat SL 0.4 mg .Q5MIN PRN Administration Chest Pain Ondansetron HCl 4 mg 11/03/18 23:07 11/03/18 23:48 Zofran IV 4 mg Q6H PRN Administration Nausea And Vomiting Spironolactone 50 mg 11/02/18 13:00 11/06/18 09:32 Aldactone PO 50 mg QDAY ZUNILDA Administration
[2018-11-06] MEDS: HEPARIN SUB-Q SCH (21:24)
[2018-11-07 00:59] LABS: Myeloperoxidase Antibody <1.0 AI (<1.0)
--- NOTE | 2018-11-07 09:54 | Progress Note ---
Assessment and Plan Assessment and plan: Acute on CKD. We do not have a baseline creatinine to compare. However patient likely has pronounced kidney disease secondary to hypertension, and enal US Kidneys shows chronic kidney disease. Nephrology following. Will need outpatient hemodialysis. discussed with vocational case manager few days ago Accelerated hypertension/malignant. On labetalol, Cozaar, Doxazosin scheduled and Hydralaizine prn. Elevated Troponin. Etiology likely secondary to renal insufficiency. Chest pain. CTA revealed no evidence of aortic dissection. Cardiology following. Stress test cancelled Hypokalemia. Replaced. Hyperlipidemia. Full code status. History Interval history: Feels better, No chest pain No SOB Hospitalist Physical - Physical exam Narrative exam: Gen: Not in acute distress, lying in bed HEENT: Normocephalic, atraumatic Neck: supple, no JVD Heart: S1 and S2 reg, no murmurs, rubs or gallop Lungs: Clear, no crackles, no rhonchi Abd: soft, non tender, non distended, normal BS, Ext: No edema, no clubbing, no cyanosis Neuro: Awake,alert, Oriented X 3. No focal neurological signs Psych: normal mood - Constitutional Vitals: Temp Pulse Resp BP Pulse Ox 98.4 F 84 18 174/110 98 11/07/18 08:38 11/07/18 08:47 11/07/18 08:38 11/07/18 08:38 11/07/18 08:38 General appearance: Present: no acute distress Results - Labs CBC & Chem 7: 11/05/18 04:31 11/08/18 07:39 Labs: Laboratory Last Values WBC 6.8 K/mm3 (4.5-11.0) 11/05/18 04:31 RBC 3.50 M/mm3 (3.65-5.03) L 11/05/18 04:31 Hgb 10.5 gm/dl (11.8-15.2) L 11/05/18 04:31 Hct 30.9 % (35.5-45.6) L 11/05/18 04:31 MCV 88 fl (84-94) 11/05/18 04:31 MCH 30 pg (28-32) 11/05/18 04:31 MCHC 34 % (32-34) 11/05/18 04:31 RDW 17.9 % (13.2-15.2) H 11/05/18 04:31 Plt Count 214 K/mm3 (140-440) 11/05/18 04:31 Lymph % (Auto) 10.1 % (13.4-35.0) L 11/01/18 05:26 [place] % (Auto) 9.6 % (0.0-7.3) H 11/01/18 05:26 Eos % (Auto) 3.3 % (0.0-4.3) 11/01/18 05:26 Baso % (Auto) 1.0 % (0.0-1.8) 11/01/18 05:26 Lymph # 0.9 K/mm3 (1.2-5.4) L 11/01/18 05:26 [place] # 0.9 K/mm3 (0.0-0.8) H 11/01/18 05:26 Eos # 0.3 K/mm3 (0.0-0.4) 11/01/18 05:26 Baso # 0.1 K/mm3 (0.0-0.1) 11/01/18 05:26 Seg Neutrophils % 76.0 % (40.0-70.0) H 11/01/18 05:26 Seg Neutrophils # 6.9 K/mm3 (1.8-7.7) 11/01/18 05:26 PT 13.7 Sec. (12.2-14.9) 11/01/18 06:29 INR 1.08 (0.87-1.13) 11/01/18 06:29 APTT 30.3 Sec. (24.2-36.6) 11/01/18 06:29 1703.12 ng/mlDDU (0-234) H 11/01/18 06:29 Sodium 138 mmol/L (137-145) 11/07/18 05:02 Potassium 3.6 mmol/L (3.6-5.0) 11/07/18 05:02 Chloride 99.8 mmol/L (98-107) 11/07/18 05:02 Carbon Dioxide 26 mmol/L (22-30) 11/07/18 05:02 16 mmol/L 11/07/18 05:02 BUN 21 mg/dL (9-20) H 11/07/18 05:02 4.7 mg/dL (0.8-1.5) H 11/07/18 05:02 Estimated GFR 17 ml/min 11/07/18 05:02 4 % 11/07/18 05:02 Glucose 95 mg/dL (75-100) 11/07/18 05:02 Calcium 9.0 mg/dL (8.4-10.2) 11/07/18 05:02 Magnesium 1.90 mg/dL (1.7-2.3) 11/02/18 12:59 0.80 mg/dL (0.1-1.2) 11/01/18 06:29 < 0.2 mg/dL (0-0.2) 11/01/18 06:29 0.6 mg/dL 11/01/18 06:29 AST 26 units/L (5-40) 11/01/18 06:29 ALT 11 units/L (7-56) 11/01/18 06:29 70 units/L (35-129) 11/01/18 06:29 133 units/L (55-170) 11/01/18 06:29 CK-MB (CK-2) 4.2 ng/mL (0.0-4.0) H 11/01/18 06:29 CK-MB (CK-2) Rel Index 3.1 (0-4) 11/01/18 06:29 0.173 ng/mL (0.00-0.029) H* 11/01/18 06:29 NT-Pro-B Natriuret Pep 20821 pg/mL (0-450) H 11/01/18 06:29 7.4 g/dL (6.3-8.2) 11/01/18 06:29 3.7 g/dL (3.9-5) L 11/01/18 06:29 1.0 % 11/01/18 06:29 Triglycerides 158 mg/dL (2-149) H 11/01/18 05:26 Cholesterol 206 mg/dL (50-199) H 11/01/18 05:26 158 mg/dL (50-130) H 11/01/18 05:26 45 mg/dL (40-59) 11/01/18 05:26 4.57 % 11/01/18 05:26 Red (Yellow) 11/01/18 08:11 Slightly-cloudy (Clear) 11/01/18 08:11 6.0 (5.0-7.0) 11/01/18 08:11 Ur Specific [place] 1.013 (1.003-1.030) 11/01/18 08:11 >500 mg/dL (Negative) 11/01/18 08:11 150 mg/dL (Negative) 11/01/18 08:11 Neg mg/dL (Negative) 11/01/18 08:11 Lg (Negative) 11/01/18 08:11 Neg (Negative) 11/01/18 08:11 Neg (Negative) 11/01/18 08:11 < 2.0 mg/dL (<2.0) 11/01/18 08:11 Ur Leukocyte Esterase Neg (Negative) 11/01/18 08:11 3.0 /HPF (0.0-6.0) 11/01/18 08:11 > 182.0 /HPF (0.0-6.0) 11/01/18 08:11 U Epithel Cells (Auto) < 1.0 /HPF (0-13.0) 11/01/18 08:11 Few /HPF 11/01/18 08:11 119.6 mg/dL (0.1-20.0) H 11/01/18 11:45 53 mmol/L 11/01/18 11:45 105 mg/dL (5-11.8) H 11/01/18 11:45 Presumptive negative 11/01/18 08:11 Presumptive negative 11/01/18 08:11 Ur Barbiturates Screen Presumptive negative 11/01/18 08:11 Ur Phencyclidine Scrn Presumptive negative 11/01/18 08:11 Ur Amphetamines Screen Presumptive negative 11/01/18 08:11 U Benzodiazepines Scrn Presumptive negative 11/01/18 08:11 Presumptive negative 11/01/18 08:11 U Marijuana (THC) Screen Presumptive positive 11/01/18 08:11 Disclamer 11/01/18 08:11 Immunofix Electrophor see below 11/01/18 13:47 Proteinase 3 (PR3) Ab <1.0 AI (<1.0) 11/01/18 13:47 Myeloperoxidase Ab <1.0 AI (<1.0) 11/01/18 13:47 Hepatitis A IgM Ab Non-reactive (NonReactive) 11/01/18 Unknown Hep Bs Antigen Non-reactive (Negative) 11/01/18 Unknown Hep B Core IgM Ab Non-reactive (NonReactive) 11/01/18 Unknown Non-reactive (NonReactive) 11/01/18 Unknown Flexitest 1 H 11/02/18 12:19 Active Medications - Current Medications Current Medications: Generic Name Dose Route Start Last Admin Trade Name Freq PRN Reason Stop Dose Admin Acetaminophen 650 mg 11/06/18 02:32 11/06/18 02:40 Tylenol PO 650 mg Q4H PRN Administration Pain, Mild (1-3) Doxazosin Mesylate 2 mg 11/05/18 22:00 11/06/18 21:25 Cardura PO 2 mg BID ZUNILDA Administration Heparin Sodium (Porcine) 5,000 unit 11/06/18 22:00 11/06/18 21:24 Heparin SUB-Q 5,000 unit Q12HR ZUNILDA Administration Hydralazine HCl 10 mg 11/03/18 02:54 11/05/18 17:55 Apresoline IV 10 mg Q6H PRN Administration Blood Pressure Sodium Chloride 100 mls @ 999 mls/hr 11/03/18 09:00 Nacl 0.9% IV JOSÉ MANUEL PRN Hypotension Labetalol HCl 300 mg 11/03/18 22:00 11/06/18 21:25 Normodyne PO 300 mg BID ZUNILDA Administration Losartan Potassium 100 mg 11/05/18 17:42 11/06/18 09:30 Cozaar PO 100 mg QDAY ZUNILDA Administration Morphine Sulfate 2 mg 11/01/18 21:51 11/03/18 22:08 Morphine IV 2 mg Q4H PRN Administration Pain, Moderate (4-6) Nifedipine 60 mg 11/05/18 10:00 11/06/18 21:25 Procardia Xl PO 60 mg Q12HR ZUNILDA Administration Nitroglycerin 0.4 mg 11/01/18 05:33 11/01/18 06:20 Nitrostat SL 0.4 mg .Q5MIN PRN Administration Chest Pain Ondansetron HCl 4 mg 11/03/18 23:07 11/03/18 23:48 Zofran IV 4 mg Q6H PRN Administration Nausea And Vomiting Spironolactone 50 mg 11/02/18 13:11/06/18 09:32 Aldactone PO 50 mg QDAY ZUNILDA Administration
[2018-11-07] MEDS ORDERED: NACL 0.9 (PRIMING MACHINE ONLY DIALYSIS) MC ONE (12:21)
[2018-11-07 13:08] LABS: ANA Screen, IFA Negative (Negative)
--- NOTE | 2018-11-07 13:54 | Progress Note ---
Assessment and Plan Assesment: * Acute kidney injury secondary to unclear etiology vs underlying chronic kidney disease --Hemodialysis initiation Nov 01 2018 * Accelerated hypertension * Hypokalemia * Dyspnea --CXR: unremarkable --CTA chest: no PE Plan: * Continue TTS schedule - will need permcath * Adjust K bath with dialysis - currently 4K bath * Cardiology recommendations reviewed * Await pending serologies * Continue current antiHTN medications * Dose medications for renal function * Avoid potential nephrotoxic agents * CM for outpatient hemodialysis placement * Awaiting OSH records to determine chronicity of disease; consider renal biopsy to establish chronicity/dx if unable to obtain records; discussed with patient Subjective Date of service: 11/07/18 Principal diagnosis: HTN Interval history: Patient reports decline in vision - chronic, worsening. Otherwise, he has no complaints Objective - Vital Signs Vital signs: Vital Signs - 12hr 11/07/18 11/07/18 11/07/18 04:56 08:38 08:47 Temperature 98.4 F 98.4 F Pulse Rate 84 84 Respiratory 18 18 Rate Blood Pressure 141/89 174/110 O2 Sat by Pulse 98 Oximetry 11/07/18 11/07/18 11/07/18 09:55 10:09 10:15 Temperature 98.6 F Pulse Rate 83 82 80 Respiratory 18 Rate Blood Pressure 172/110 169/107 163/105 O2 Sat by Pulse Oximetry 11/07/18 11/07/18 11/07/18 10:30 10:45 11:00 Temperature Pulse Rate 81 83 84 Respiratory Rate Blood Pressure 173/107 170/114 174/113 O2 Sat by Pulse Oximetry 11/07/18 11/07/18 11:15 11:30 Temperature Pulse Rate 84 84 Respiratory Rate Blood Pressure 178/119 170/113 O2 Sat by Pulse Oximetry - General Appearance General appearance: well-developed, well-nourished EENT: ATNC Respiratory: Present: Clear to Ascultation Cardiology: regular, S1S2 Gastrointestinal: normal, no tenderness, no distended Integumentary: no rash, warm and dry Musculoskeletal: other (no edema) Psychiatric: mood/affect appropriate, cooperative - Lab 11/05/18 04:31 11/07/18 05:02 Most recent lab results Calcium 9.0 mg/dL (8.4-10.2) 11/07/18 05:02 Magnesium 1.90 mg/dL (1.7-2.3) 11/02/18 12:59 119.6 mg/dL (0.1-20.0) H 11/01/18 11:45 53 mmol/L 11/01/18 11:45 105 mg/dL (5-11.8) H 11/01/18 11:45 Medications & Allergies - Medications Allergies/Adverse Reactions: Allergies No Known Allergies Allergy (Unverified 11/01/18 04:56) Home Medications: Home Medications Medication Instructions Recorded Confirmed Last Taken Type Clonidine HCl 0.1 mg PO DAILY 11/01/18 11/01/18 3 Months Ago History ~08/01/18 amLODIPine 5 mg PO BID 11/01/18 11/01/18 3 Months Ago History ~08/01/18 Active Medications: Generic Name Dose Route Start Last Admin Trade Name Freq PRN Reason Stop Dose Admin Acetaminophen 650 mg 11/06/18 02:32 11/06/18 02:40 Tylenol PO 650 mg Q4H PRN Administration Pain, Mild (1-3) Doxazosin Mesylate 2 mg 11/05/18 22:00 11/06/18 21:25 Cardura PO 2 mg BID ZUNILDA Administration Heparin Sodium (Porcine) 5,000 unit 11/06/18 22:00 11/06/18 21:24 Heparin SUB-Q 5,000 unit Q12HR ZUNILDA Administration Hydralazine HCl 10 mg 11/03/18 02:54 11/05/18 17:55 Apresoline IV 10 mg Q6H PRN Administration Blood Pressure Sodium Chloride 100 mls @ 999 mls/hr 11/03/18 09:00 Nacl 0.9% IV JOSÉ MANUEL PRN Hypotension Labetalol HCl 300 mg 11/03/18 22:00 11/06/18 21:25 Normodyne PO 300 mg BID ZNUILDA Administration Losartan Potassium 100 mg 11/05/18 17:42 11/06/18 09:30 Cozaar PO 100 mg QDAY ZUNILDA Administration Morphine Sulfate 2 mg 11/01/18 21:51 11/03/18 22:08 Morphine IV 2 mg Q4H PRN Administration Pain, Moderate (4-6) Nifedipine 60 mg 11/05/18 10:00 11/06/18 21:25 Procardia Xl PO 60 mg Q12HR ZUNILDA Administration Nitroglycerin 0.4 mg 11/01/18 05:33 11/01/18 06:20 Nitrostat SL 0.4 mg .Q5MIN PRN Administration Chest Pain Ondansetron HCl 4 mg 11/03/18 23:07 11/03/18 23:48 Zofran IV 4 mg Q6H PRN Administration Nausea And Vomiting Spironolactone 50 mg 11/02/18 13:00 11/06/18 09:32 Aldactone PO 50 mg QDAY ZUNILDA Administration
[2018-11-07] MEDS: NORMODYNE PO SCH ×2 (14:48→21:29)
[2018-11-07] MEDS: CARDURA PO SCH ×2 (14:50→21:29)
[2018-11-07] MEDS: ALDACTONE PO SCH (14:50)
[2018-11-07] MEDS: COZAAR PO SCH (14:51)
[2018-11-07] MEDS: HEPARIN SUB-Q SCH ×2 (14:51→21:29)
[2018-11-07] MEDS: PROCARDIA XL PO SCH ×2 (14:51→21:30)
[2018-11-08 08:51] LABS: Calcium 8.9 mg/dL (8.4-10.2)
[2018-11-08] MEDS: NORMODYNE PO SCH ×2 (09:55→21:50)
[2018-11-08] MEDS: CARDURA PO SCH ×2 (09:55→21:50)
[2018-11-08] MEDS: ALDACTONE PO SCH (09:55)
[2018-11-08] MEDS: COZAAR PO SCH (09:55)
[2018-11-08] MEDS: PROCARDIA XL PO SCH ×2 (09:55→21:48)
[2018-11-08] MEDS: HEPARIN SUB-Q SCH ×3 (09:56→21:52)
--- NOTE | 2018-11-08 14:42 | Progress Note ---
Assessment and Plan Assesment: * Acute kidney injury secondary to unclear etiology vs underlying chronic kidney disease --Hemodialysis initiation Nov 01 2018 * Accelerated hypertension * Hypokalemia * Dyspnea --CXR: unremarkable --CTA chest: no PE Plan: * Continue TTS schedule - will need permcath * Adjust K bath with dialysis - currently 4K bath * Cardiology recommendations reviewed * Await pending serologies * Start hydralazine 50mg TID * Dose medications for renal function * Avoid potential nephrotoxic agents * for outpatient hemodialysis placement * Awaiting OSH records to determine chronicity of disease; consider renal biopsy to establish chronicity/dx if unable to obtain records; discussed with patient Subjective Date of service: 11/08/18 Principal diagnosis: HTN Interval history: Patient has no complaints today. Objective - Exam Narrative Exam: Deferred - patient remained on telephone during visit. - Vital Signs Vital signs: Vital Signs - 12hr 11/08/18 11/08/18 11/08/18 04:19 08:18 10:00 Temperature 99.1 F 98.4 F Pulse Rate 83 87 Pulse Rate [ 82 From Monitor] Respiratory 16 18 18 Rate Blood Pressure 138/89 158/114 O2 Sat by Pulse 98 Oximetry - Lab 11/05/18 04:31 11/08/18 07:39 Most recent lab results Calcium 8.9 mg/dL (8.4-10.2) 11/08/18 07:39 Magnesium 1.90 mg/dL (1.7-2.3) 11/02/18 12:59 119.6 mg/dL (0.1-20.0) H 11/01/18 11:45 53 mmol/L 11/01/18 11:45 105 mg/dL (5-11.8) H 11/01/18 11:45 Medications & Allergies - Medications Allergies/Adverse Reactions: Allergies No Known Allergies Allergy (Unverified 11/01/18 04:56) Home Medications: Home Medications Medication Instructions Recorded Confirmed Last Taken Type Clonidine HCl 0.1 mg PO DAILY 11/01/18 11/01/18 3 Months Ago History ~08/01/18 amLODIPine 5 mg PO BID 11/01/18 11/01/18 3 Months Ago History ~08/01/18 Active Medications: Generic Name Dose Route Start Last Admin Trade Name Freq PRN Reason Stop Dose Admin Acetaminophen 650 mg 11/06/18 02:32 11/06/18 02:40 Tylenol PO 650 mg Q4H PRN Administration Pain, Mild (1-3) Doxazosin Mesylate 2 mg 11/05/18 22:00 11/08/18 09:55 Cardura PO 2 mg BID ZUNILDA Administration Heparin Sodium (Porcine) 5,000 unit 11/06/18 22:00 11/08/18 09:56 Heparin SUB-Q 5,000 unit Q12HR ZUNILDA Administration Hydralazine HCl 10 mg 11/03/18 02:54 11/05/18 17:55 Apresoline IV 10 mg Q6H PRN Administration Blood Pressure Hydralazine HCl 50 mg 11/08/18 15:00 Apresoline PO Q8HR [facility] Sodium Chloride 100 mls @ 999 mls/hr 11/03/18 09:00 Nacl 0.9% IV JOSÉ MANUEL PRN Hypotension Labetalol HCl 300 mg 11/03/18 22:00 11/08/18 09:55 Normodyne PO 300 mg BID [facility] Administration Losartan Potassium 100 mg 11/05/18 17:42 11/08/18 09:55 Cozaar PO 100 mg QDAY [facility] Administration Morphine Sulfate 2 mg 11/01/18 21:51 11/03/18 22:08 Morphine IV 2 mg Q4H PRN Administration Pain, Moderate (4-6) Nifedipine 60 mg 11/05/18 10:00 11/08/18 09:55 Procardia Xl PO 60 mg Q12HR ZUNILDA Administration Nitroglycerin 0.4 mg 11/01/18 05:33 11/01/18 06:20 Nitrostat SL 0.4 mg .Q5MIN PRN Administration Chest Pain Ondansetron HCl 4 mg 11/03/18 23:07 11/03/18 23:48 Zofran IV 4 mg Q6H PRN Administration Nausea And Vomiting Spironolactone 50 mg 11/02/18 13:00 11/08/18 09:55 Aldactone PO 50 mg QDAY [facility] Administration
[2018-11-08] MEDS: APRESOLINE PO SCH ×2 (15:45→21:48)
--- NOTE | 2018-11-08 17:46 | Progress Note ---
Assessment and Plan Assessment and plan: Acute on CKD. We do not have a baseline creatinine to compare. However patient likely has pronounced kidney disease secondary to hypertension, and enal US Kidneys shows chronic kidney disease. Nephrology following. Will need outpatient hemodialysis. discussed with leather case finisher few days ago Accelerated hypertension/malignant. On labetalol, Cozaar, Doxazosin scheduled and Hydralaizine prn. Elevated Troponin. Etiology likely secondary to renal insufficiency. Chest pain. CTA revealed no evidence of aortic dissection. Cardiology following. Stress test cancelled Hypokalemia. Replaced. Hyperlipidemia. Full code status. medically stable to sc home when dialysis arranged. History Interval history: No new complaints, No chest pain Hospitalist Physical - Physical exam Narrative exam: Gen: Not in acute distress, lying in bed HEENT: Normocephalic, atraumatic Neck: supple, no JVD Heart: S1 and S2 reg, no murmurs, rubs or gallop Lungs: Clear, no crackles, no rhonchi Abd: soft, non tender, non distended, normal BS, Ext: No edema, no clubbing, no cyanosis Neuro: Awake,alert, Oriented X 3. No focal neurological signs Psych: normal mood - Constitutional Vitals: Temp Pulse Resp BP Pulse Ox 98.4 F 82 18 142/93 98 11/08/18 16:41 11/08/18 10:00 11/08/18 16:41 11/08/18 16:41 11/08/18 04:19 General appearance: Present: no acute distress Results - Labs CBC & Chem 7: 11/05/18 04:31 11/08/18 07:39 Labs: Laboratory Last Values WBC 6.8 K/mm3 (4.5-11.0) 11/05/18 04:31 RBC 3.50 M/mm3 (3.65-5.03) L 11/05/18 04:31 Hgb 10.5 gm/dl (11.8-15.2) L 11/05/18 04:31 Hct 30.9 % (35.5-45.6) L 11/05/18 04:31 MCV 88 fl (84-94) 11/05/18 04:31 MCH 30 pg (28-32) 11/05/18 04:31 MCHC 34 % (32-34) 11/05/18 04:31 RDW 17.9 % (13.2-15.2) H 11/05/18 04:31 Plt Count 214 K/mm3 (140-440) 11/05/18 04:31 Lymph % (Auto) 10.1 % (13.4-35.0) L 11/01/18 05:26 [place] % (Auto) 9.6 % (0.0-7.3) H 11/01/18 05:26 Eos % (Auto) 3.3 % (0.0-4.3) 11/01/18 05:26 Baso % (Auto) 1.0 % (0.0-1.8) 11/01/18 05:26 Lymph # 0.9 K/mm3 (1.2-5.4) L 11/01/18 05:26 [place] # 0.9 K/mm3 (0.0-0.8) H 11/01/18 05:26 Eos # 0.3 K/mm3 (0.0-0.4) 11/01/18 05:26 Baso # 0.1 K/mm3 (0.0-0.1) 11/01/18 05:26 Seg Neutrophils % 76.0 % (40.0-70.0) H 11/01/18 05:26 Seg Neutrophils # 6.9 K/mm3 (1.8-7.7) 11/01/18 05:26 PT 13.7 Sec. (12.2-14.9) 11/01/18 06:29 INR 1.08 (0.87-1.13) 11/01/18 06:29 APTT 30.3 Sec. (24.2-36.6) 11/01/18 06:29 1703.12 ng/mlDDU (0-234) H 11/01/18 06:29 Sodium 138 mmol/L (137-145) 11/08/18 07:39 Potassium 4.0 mmol/L (3.6-5.0) 11/08/18 07:39 Chloride 99.0 mmol/L (98-107) 11/08/18 07:39 Carbon Dioxide 29 mmol/L (22-30) 11/08/18 07:39 14 mmol/L 11/08/18 07:39 BUN 16 mg/dL (9-20) 11/08/18 07:39 3.8 mg/dL (0.8-1.5) H 11/08/18 07:39 Estimated GFR 22 ml/min 11/08/18 07:39 4 % 11/08/18 07:39 Glucose 95 mg/dL (75-100) 11/08/18 07:39 Calcium 8.9 mg/dL (8.4-10.2) 11/08/18 07:39 Magnesium 1.90 mg/dL (1.7-2.3) 11/02/18 12:59 0.80 mg/dL (0.1-1.2) 11/01/18 06:29 < 0.2 mg/dL (0-0.2) 11/01/18 06:29 0.6 mg/dL 11/01/18 06:29 AST 26 units/L (5-40) 11/01/18 06:29 ALT 11 units/L (7-56) 11/01/18 06:29 70 units/L (35-129) 11/01/18 06:29 133 units/L (55-170) 11/01/18 06:29 CK-MB (CK-2) 4.2 ng/mL (0.0-4.0) H 11/01/18 06:29 CK-MB (CK-2) Rel Index 3.1 (0-4) 11/01/18 06:29 0.173 ng/mL (0.00-0.029) H* 11/01/18 06:29 NT-Pro-B Natriuret Pep 90806 pg/mL (0-450) H 11/01/18 06:29 7.4 g/dL (6.3-8.2) 11/01/18 06:29 3.7 g/dL (3.9-5) L 11/01/18 06:29 1.0 % 11/01/18 06:29 Triglycerides 158 mg/dL (2-149) H 11/01/18 05:26 Cholesterol 206 mg/dL (50-199) H 11/01/18 05:26 158 mg/dL (50-130) H 11/01/18 05:26 45 mg/dL (40-59) 11/01/18 05:26 4.57 % 11/01/18 05:26 Red (Yellow) 11/01/18 08:11 Slightly-cloudy (Clear) 11/01/18 08:11 6.0 (5.0-7.0) 11/01/18 08:11 Ur Specific [place] 1.013 (1.003-1.030) 11/01/18 08:11 >500 mg/dL (Negative) 11/01/18 08:11 150 mg/dL (Negative) 11/01/18 08:11 Neg mg/dL (Negative) 11/01/18 08:11 Lg (Negative) 11/01/18 08:11 Neg (Negative) 11/01/18 08:11 Neg (Negative) 11/01/18 08:11 < 2.0 mg/dL (<2.0) 11/01/18 08:11 Ur Leukocyte Esterase Neg (Negative) 11/01/18 08:11 3.0 /HPF (0.0-6.0) 11/01/18 08:11 > 182.0 /HPF (0.0-6.0) 11/01/18 08:11 U Epithel Cells (Auto) < 1.0 /HPF (0-13.0) 11/01/18 08:11 Few /HPF 11/01/18 08:11 119.6 mg/dL (0.1-20.0) H 11/01/18 11:45 53 mmol/L 11/01/18 11:45 105 mg/dL (5-11.8) H 11/01/18 11:45 Presumptive negative 11/01/18 08:11 Presumptive negative 11/01/18 08:11 Ur Barbiturates Screen Presumptive negative 11/01/18 08:11 Ur Phencyclidine Scrn Presumptive negative 11/01/18 08:11 Ur Amphetamines Screen Presumptive negative 11/01/18 08:11 U Benzodiazepines Scrn Presumptive negative 11/01/18 08:11 Presumptive negative 11/01/18 08:11 U Marijuana (THC) Screen Presumptive positive 11/01/18 08:11 Disclamer 11/01/18 08:11 Immunofix Electrophor see below 11/01/18 13:47 JORDYN Screen Negative (Negative) 11/01/18 13:47 Proteinase 3 (PR3) Ab <1.0 AI (<1.0) 11/01/18 13:47 Myeloperoxidase Ab <1.0 AI (<1.0) 11/01/18 13:47 Hepatitis A IgM Ab Non-reactive (NonReactive) 11/01/18 Unknown Hep Bs Antigen Non-reactive (Negative) 11/01/18 Unknown Hep B Core IgM Ab Non-reactive (NonReactive) 11/01/18 Unknown Non-reactive (NonReactive) 11/01/18 Unknown Flexitest 1 H 11/02/18 12:19 Active Medications - Current Medications Current Medications: Generic Name Dose Route Start Last Admin Trade Name Freq PRN Reason Stop Dose Admin Acetaminophen 650 mg 11/06/18 02:32 11/06/18 02:40 Tylenol PO 650 mg Q4H PRN Administration Pain, Mild (1-3) Doxazosin Mesylate 2 mg 11/05/18 22:00 11/08/18 09:55 Cardura PO 2 mg BID ZUNILDA Administration Heparin Sodium (Porcine) 5,000 unit 11/06/18 22:00 11/08/18 09:56 Heparin SUB-Q 5,000 unit Q12HR ZUNILDA Administration Hydralazine HCl 10 mg 11/03/18 02:54 11/05/18 17:55 Apresoline IV 10 mg Q6H PRN Administration Blood Pressure Hydralazine HCl 50 mg 11/08/18 15:00 11/08/18 15:45 Apresoline PO 50 mg Q8HR ZUNILDA Administration Sodium Chloride 100 mls @ 999 mls/hr 11/03/18 09:00 Nacl 0.9% IV JOSÉ MANUEL PRN Hypotension Labetalol HCl 300 mg 11/03/18 22:00 11/08/18 09:55 Normodyne PO 300 mg BID ZUNILDA Administration Losartan Potassium 100 mg 11/05/18 17:42 11/08/18 09:55 Cozaar PO 100 mg QDAY ZUNILDA Administration Morphine Sulfate 2 mg 11/01/18 21:51 11/03/18 22:08 Morphine IV 2 mg Q4H PRN Administration Pain, Moderate (4-6) Nifedipine 60 mg 11/05/18 10:00 11/08/18 09:55 Procardia Xl PO 60 mg Q12HR ZUNILDA Administration Nitroglycerin 0.4 mg 11/01/18 05:33 11/01/18 06:20 Nitrostat SL 0.4 mg .Q5MIN PRN Administration Chest Pain Ondansetron HCl 4 mg 11/03/18 23:07 11/03/18 23:48 Zofran IV 4 mg Q6H PRN Administration Nausea And Vomiting Spironolactone 50 mg 11/02/18 13:00 11/08/18 09:55 Aldactone PO 50 mg QDAY ZUNILDA Administration
[2018-11-09] MEDS: APRESOLINE PO SCH ×3 (05:15→21:56)
[2018-11-09 06:38] LABS: Calcium 8.8 mg/dL (8.4-10.2)
[2018-11-09] MEDS ORDERED: HEPARIN 10,000 UNITS/10 ML ONE ×2 (09:34→10:22)
[2018-11-09] MEDS ORDERED: XYLOCAINE 1%/ EPI 1:100,000 INFILTRATI ONE (09:35)
[2018-11-09] MEDS ORDERED: NACL 0.9% 250ML 0 ML ONE (09:35)
[2018-11-09] MEDS ORDERED: HEPARIN/NS 5000 UNIT/500ML(CATH LAB) 500 ML IR ONE (10:22)
[2018-11-09] MEDS ORDERED: NACL 0.9% 500 ML 500 ML ONE (10:23)
[2018-11-09] MEDS ORDERED: ANCEF/STERILE WATER 2 GM/20 ML 2 GM/20 ML SYRINGE IV ONE (10:23)
[2018-11-09] MEDS: VERSED ONE ×2 (10:50→10:57)
[2018-11-09] MEDS: SUBLIMAZE ONE ×2 (10:50→10:57)
[2018-11-09] MEDS: XYLOCAINE 1%/ EPI 1:100,000 INFILTRATI ONE ×2 (10:58→11:11)
[2018-11-09] MEDS ORDERED: SUBLIMAZE ONE (11:08)
[2018-11-09] MEDS ORDERED: VERSED ONE (11:08)
--- NOTE | 2018-11-09 11:42 | Operative Report ---
Operative Report Operative Report: EXAM: 1. Fluoroscopic-guided conversion of a right internal jugular non-tunneled non- cuffed hemodialysis catheter to a tunneled cuffed hemodialysis catheter. 2. SVC venography DATE: 11/09/18 INDICATION: End-stage renal disease requiring hemodialysis access. MEDICATIONS: Please see nursing report for full details. DEVICES: 23 cm tip to cuff dual lumen hemodialysis catheter UNIT ASSISTANT: CHANG HARMON MD CONTRAST: 10 ml of nonionic contrast PROCEDURE: The risks, benefits, and alternatives were discussed and informed consent was obtained. The patient was transported to the angiography suite in satisfactory/stable condition and was transported onto the angiography table. The patient was prepped and draped in a sterile fashion. The existing vascath was prepped and draped in a sterile fashion. Suture was cut. 0.035 inch wire was advanced through the Vas-Cath, it would not pass into the IVC despite attempts with a standard Pham wire and a stiff Glidewire. Contrast was injected demonstrating the SVC was patent and confirming venous placement of the catheter. Vas-Cath was removed over a wire and exchanged for an 11 [place] sheath. MPA catheter was ultimately used to select the IVC. Wire was passed to the catheter and the catheter and sheath were removed. The wire was cleaned with ChloraPrep. Over the 0.035 inch wire, serial dilatation was performed with ultimate placement of a peel-away sheath. Reverse tunneled PermCath was inserted to the peel-away sheath and positioned in the right atrium. Peel-away sheath removed. A suitable exit site was identified on the patient's chest inferior and lateral to the venotomy. The site was anesthetized with local anesthetic and the track was anesthetized. Dermatotomy was made. Reverse tunneler was then tunneled from dermatotomy to the venotomy site/catheter. The PermCath was attached to the tunneling device and reverse tunneled between the dermatotomy to the venotomy. The catheter was reassembled. 4-0 Vicryl suture was used to close the venotomy and Dermabond was then applied. 2-0 Ethilon suture was used to secure the catheter at the dermatotomy. The catheter was charged with heparin 1000 units/mL space. Sterile dressing and Biopatch were applied. The patient was transferred from the angiography suite back to the floor in stable condition. FINDINGS: 1. Excellent flow was obtained through the dialysis catheter with 20 mL syringes. 2. The catheter tip is in the right atrium. IMPRESSION: 1. Fluoroscopic-guided conversion of a right internal jugular non-tunneled non- cuffed hemodialysis catheter to a tunneled cuffed hemodialysis catheter.
--- NOTE | 2018-11-09 13:27 | Progress Note ---
Assessment and Plan Assesment: * Acute kidney injury secondary to unclear etiology vs underlying chronic kidney disease --Hemodialysis initiation Nov 01, 2018 * Accelerated hypertension * Hypokalemia * Dyspnea --CXR: unremarkable --CTA chest: no PE Plan: * Continue TTS schedule; now s/p permacath * Adjust K bath with dialysis - currently 4K bath * Cardiology recommendations reviewed * Serologies largely negative- ANCA, JORDYN, immunofixation negative * Continue hydralazine 50mg TID, losartan, spironolactone, doxazosin for HTN * Dose medications for renal function * Avoid potential nephrotoxic agents * CM for outpatient hemodialysis placement * Still awaiting OSH records to determine chronicity of disease; consider renal biopsy to establish chronicity/dx if unable to obtain records; discussed with patient. Can be done on outpatient basis Subjective Date of service: 11/09/18 Principal diagnosis: HTN Interval history: No acute concerns today; received permacath exchange earlier today. Objective - Exam Narrative Exam: General appearance: well-developed, well-nourished EENT: ATNC Respiratory: Clear to Auscultation Cardiology: regular, S1S2 Gastrointestinal: normal, no tenderness, no distended Integumentary: no rash, warm and dry Musculoskeletal: no edema. RIJ CVC noted Psychiatric: mood/affect appropriate, cooperative - Vital Signs Vital signs: Vital Signs - 12hr 11/09/18 11/09/18 11/09/18 03:40 05:15 07:54 Temperature 97.4 F L 98.3 F Pulse Rate 82 82 76 Respiratory 16 18 Rate Blood Pressure 128/85 128/85 Blood Pressure 141/98 [Right] O2 Sat by Pulse 95 95 Oximetry 11/09/18 08:23 Temperature 98.1 F Pulse Rate Respiratory 18 Rate Blood Pressure 142/102 Blood Pressure [Right] O2 Sat by Pulse Oximetry - Lab 11/05/18 04:31 11/09/18 06:02 Most recent lab results Calcium 8.8 mg/dL (8.4-10.2) 11/09/18 06:02 Magnesium 1.90 mg/dL (1.7-2.3) 11/02/18 12:59 119.6 mg/dL (0.1-20.0) H 11/01/18 11:45 53 mmol/L 11/01/18 11:45 105 mg/dL (5-11.8) H 11/01/18 11:45 Medications & Allergies - Medications Allergies/Adverse Reactions: Allergies No Known Allergies Allergy (Unverified 11/01/18 04:56) Home Medications: Home Medications Medication Instructions Recorded Confirmed Last Taken Type Clonidine HCl 0.1 mg PO DAILY 11/01/18 11/01/18 3 Months Ago History ~08/01/18 amLODIPine 5 mg PO BID 11/01/18 11/01/18 3 Months Ago History ~08/01/18 Active Medications: Generic Name Dose Route Start Last Admin Trade Name Freq PRN Reason Stop Dose Admin Acetaminophen 650 mg 11/06/18 02:32 11/06/18 02:40 Tylenol PO 650 mg Q4H PRN Administration Pain, Mild (1-3) Doxazosin Mesylate 2 mg 11/05/18 22:00 11/08/18 21:50 Cardura PO 2 mg BID ZUNILDA Administration Heparin Sodium (Porcine) 5,000 unit 11/06/18 22:00 11/08/18 21:52 Heparin SUB-Q 5,000 unit Q12HR ZUNILDA Administration Hydralazine HCl 10 mg 11/03/18 02:54 11/05/18 17:55 Apresoline IV 10 mg Q6H PRN Administration Blood Pressure Hydralazine HCl 50 mg 11/08/18 15:00 11/09/18 05:15 Apresoline PO 50 mg Q8HR ZUNILDA Administration Sodium Chloride 100 mls @ 999 mls/hr 11/03/18 09:00 Nacl 0.9% IV JOSÉ MANUEL PRN Hypotension Labetalol HCl 300 mg 11/03/18 22:00 11/08/18 21:50 Normodyne PO 300 mg BID ZUNILDA Administration Losartan Potassium 100 mg 11/05/18 17:42 11/08/18 09:55 Cozaar PO 100 mg QDAY ZUNILDA Administration Morphine Sulfate 2 mg 11/01/18 21:51 11/03/18 22:08 Morphine IV 2 mg Q4H PRN Administration Pain, Moderate (4-6) Nifedipine 60 mg 11/05/18 10:00 11/08/18 21:48 Procardia Xl PO 60 mg Q12HR ZUNILDA Administration Nitroglycerin 0.4 mg 11/01/18 05:33 11/01/18 06:20 Nitrostat SL 0.4 mg .Q5MIN PRN Administration Chest Pain Ondansetron HCl 4 mg 11/03/18 23:07 11/03/18 23:48 Zofran IV 4 mg Q6H PRN Administration Nausea And Vomiting Spironolactone 50 mg 11/02/18 13:00 11/08/18 09:55 Aldactone PO 50 mg QDAY ZUNILDA Administration
[2018-11-09] MEDS: PROCARDIA XL PO SCH ×2 (14:48→21:56)
[2018-11-09] MEDS: NORMODYNE PO SCH ×2 (14:48→21:56)
[2018-11-09] MEDS: CARDURA PO SCH ×2 (14:48→21:56)
[2018-11-09] MEDS: ALDACTONE PO SCH (14:48)
[2018-11-09] MEDS: COZAAR PO SCH (14:49)
[2018-11-09] MEDS: HEPARIN SUB-Q SCH ×2 (14:49→21:57)
[2018-11-09] MEDS: MORPHINE IV PRN ×2 (14:53→20:12)
[2018-11-10] MEDS: APRESOLINE IV PRN (04:16)
[2018-11-10] MEDS: APRESOLINE PO SCH ×3 (05:58→23:00)
--- NOTE | 2018-11-10 06:36 | Progress Note ---
Assessment and Plan Assessment and plan: Acute on CKD. However patient likely has pronounced kidney disease secondary to hypertension, and renal US Kidneys shows chronic kidney disease. Nephrology following. Will need outpatient hemodialysis. discussed with case worker few days ago For Permcath today Accelerated hypertension/malignant. On labetalol, Cozaar, Doxazosin scheduled and Hydralaizine prn. Elevated Troponin. Etiology likely secondary to renal insufficiency. Chest pain. CTA revealed no evidence of aortic dissection. Cardiology following. Stress test cancelled Hypokalemia. Replaced. Hyperlipidemia. Full code status. Medically stable to tx home when dialysis arranged. History Interval history: No new complaints, No chest pain Hospitalist Physical - Physical exam Narrative exam: Gen: Not in acute distress, lying in bed HEENT: Normocephalic, atraumatic Neck: supple, no JVD, dialysis catheter Heart: S1 and S2 reg, no murmurs, rubs or gallop Lungs: Clear, no crackles, no rhonchi Abd: soft, non tender, non distended, normal BS, Ext: No edema, no clubbing, no cyanosis Neuro: Awake,alert, Oriented X 3. No focal neurological signs Psych: normal mood - Constitutional Vitals: Temp Pulse Resp BP Pulse Ox 98.4 F 80 18 172/122 96 11/10/18 03:48 11/10/18 04:12 11/10/18 03:48 11/10/18 04:12 11/10/18 04:12 General appearance: Present: no acute distress Results - Labs CBC & Chem 7: 11/05/18 04:31 11/09/18 06:02 Labs: Laboratory Last Values WBC 6.8 K/mm3 (4.5-11.0) 11/05/18 04:31 RBC 3.50 M/mm3 (3.65-5.03) L 11/05/18 04:31 Hgb 10.5 gm/dl (11.8-15.2) L 11/05/18 04:31 Hct 30.9 % (35.5-45.6) L 11/05/18 04:31 MCV 88 fl (84-94) 11/05/18 04:31 MCH 30 pg (28-32) 11/05/18 04:31 MCHC 34 % (32-34) 11/05/18 04:31 RDW 17.9 % (13.2-15.2) H 11/05/18 04:31 Plt Count 214 K/mm3 (140-440) 11/05/18 04:31 Lymph % (Auto) 10.1 % (13.4-35.0) L 11/01/18 05:26 [place] % (Auto) 9.6 % (0.0-7.3) H 11/01/18 05:26 Eos % (Auto) 3.3 % (0.0-4.3) 11/01/18 05:26 Baso % (Auto) 1.0 % (0.0-1.8) 11/01/18 05:26 Lymph # 0.9 K/mm3 (1.2-5.4) L 11/01/18 05:26 [place] # 0.9 K/mm3 (0.0-0.8) H 11/01/18 05:26 Eos # 0.3 K/mm3 (0.0-0.4) 11/01/18 05:26 Baso # 0.1 K/mm3 (0.0-0.1) 11/01/18 05:26 Seg Neutrophils % 76.0 % (40.0-70.0) H 11/01/18 05:26 Seg Neutrophils # 6.9 K/mm3 (1.8-7.7) 11/01/18 05:26 PT 13.7 Sec. (12.2-14.9) 11/01/18 06:29 INR 1.08 (0.87-1.13) 11/01/18 06:29 APTT 30.3 Sec. (24.2-36.6) 11/01/18 06:29 1703.12 ng/mlDDU (0-234) H 11/01/18 06:29 Sodium 137 mmol/L (137-145) 11/09/18 06:02 Potassium 4.5 mmol/L (3.6-5.0) 11/09/18 06:02 Chloride 99.1 mmol/L (98-107) 11/09/18 06:02 Carbon Dioxide 28 mmol/L (22-30) 11/09/18 06:02 14 mmol/L 11/09/18 06:02 BUN 25 mg/dL (9-20) H 11/09/18 06:02 4.7 mg/dL (0.8-1.5) H 11/09/18 06:02 Estimated GFR 17 ml/min 11/09/18 06:02 5 % 11/09/18 06:02 Glucose 90 mg/dL (75-100) 11/09/18 06:02 Calcium 8.8 mg/dL (8.4-10.2) 11/09/18 06:02 Magnesium 1.90 mg/dL (1.7-2.3) 11/02/18 12:59 0.80 mg/dL (0.1-1.2) 11/01/18 06:29 < 0.2 mg/dL (0-0.2) 11/01/18 06:29 0.6 mg/dL 11/01/18 06:29 AST 26 units/L (5-40) 11/01/18 06:29 ALT 11 units/L (7-56) 11/01/18 06:29 70 units/L (35-129) 11/01/18 06:29 133 units/L (55-170) 11/01/18 06:29 CK-MB (CK-2) 4.2 ng/mL (0.0-4.0) H 11/01/18 06:29 CK-MB (CK-2) Rel Index 3.1 (0-4) 11/01/18 06:29 0.173 ng/mL (0.00-0.029) H* 11/01/18 06:29 NT-Pro-B Natriuret Pep 05981 pg/mL (0-450) H 11/01/18 06:29 7.4 g/dL (6.3-8.2) 11/01/18 06:29 3.7 g/dL (3.9-5) L 11/01/18 06:29 1.0 % 11/01/18 06:29 Triglycerides 158 mg/dL (2-149) H 11/01/18 05:26 Cholesterol 206 mg/dL (50-199) H 11/01/18 05:26 158 mg/dL (50-130) H 11/01/18 05:26 45 mg/dL (40-59) 11/01/18 05:26 4.57 % 11/01/18 05:26 Red (Yellow) 11/01/18 08:11 Slightly-cloudy (Clear) 11/01/18 08:11 6.0 (5.0-7.0) 11/01/18 08:11 Ur Specific [place] 1.013 (1.003-1.030) 11/01/18 08:11 >500 mg/dL (Negative) 11/01/18 08:11 150 mg/dL (Negative) 11/01/18 08:11 Neg mg/dL (Negative) 11/01/18 08:11 Lg (Negative) 11/01/18 08:11 Neg (Negative) 11/01/18 08:11 Neg (Negative) 11/01/18 08:11 < 2.0 mg/dL (<2.0) 11/01/18 08:11 Ur Leukocyte Esterase Neg (Negative) 11/01/18 08:11 3.0 /HPF (0.0-6.0) 11/01/18 08:11 > 182.0 /HPF (0.0-6.0) 11/01/18 08:11 U Epithel Cells (Auto) < 1.0 /HPF (0-13.0) 11/01/18 08:11 Few /HPF 11/01/18 08:11 119.6 mg/dL (0.1-20.0) H 11/01/18 11:45 53 mmol/L 11/01/18 11:45 105 mg/dL (5-11.8) H 11/01/18 11:45 Presumptive negative 11/01/18 08:11 Presumptive negative 11/01/18 08:11 Ur Barbiturates Screen Presumptive negative 11/01/18 08:11 Ur Phencyclidine Scrn Presumptive negative 11/01/18 08:11 Ur Amphetamines Screen Presumptive negative 11/01/18 08:11 U Benzodiazepines Scrn Presumptive negative 11/01/18 08:11 Presumptive negative 11/01/18 08:11 U Marijuana (THC) Screen Presumptive positive 11/01/18 08:11 Disclamer 11/01/18 08:11 Immunofix Electrophor see below 11/01/18 13:47 JORDYN Screen Negative (Negative) 11/01/18 13:47 Proteinase 3 (PR3) Ab <1.0 AI (<1.0) 11/01/18 13:47 Myeloperoxidase Ab <1.0 AI (<1.0) 11/01/18 13:47 Hepatitis A IgM Ab Non-reactive (NonReactive) 11/01/18 Unknown Hep Bs Antigen Non-reactive (Negative) 11/01/18 Unknown Hep B Core IgM Ab Non-reactive (NonReactive) 11/01/18 Unknown Non-reactive (NonReactive) 11/01/18 Unknown Flexitest 1 H 11/02/18 12:19 Active Medications - Current Medications Current Medications: Generic Name Dose Route Start Last Admin Trade Name Freq PRN Reason Stop Dose Admin Acetaminophen 650 mg 11/06/18 02:32 11/06/18 02:40 Tylenol PO 650 mg Q4H PRN Administration Pain, Mild (1-3) Doxazosin Mesylate 2 mg 11/05/18 22:00 11/09/18 21:56 Cardura PO 2 mg BID ZUNILDA Administration Heparin Sodium (Porcine) 5,000 unit 11/06/18 22:00 11/09/18 21:57 Heparin SUB-Q 5,000 unit Q12HR ZUNILDA Administration Hydralazine HCl 10 mg 11/03/18 02:54 11/10/18 04:16 Apresoline IV 10 mg Q6H PRN Administration Blood Pressure Hydralazine HCl 50 mg 11/08/18 15:00 11/10/18 05:58 Apresoline PO 50 mg Q8HR ZUNILDA Administration Sodium Chloride 100 mls @ 999 mls/hr 11/03/18 09:00 Nacl 0.9% IV JOSÉ MANUEL PRN Hypotension Labetalol HCl 300 mg 11/03/18 22:00 11/09/18 21:56 Normodyne PO 300 mg BID ZUNILDA Administration Losartan Potassium 100 mg 11/05/18 17:42 11/09/18 14:49 Cozaar PO 100 mg QDAY ZUNILDA Administration Morphine Sulfate 2 mg 11/01/18 21:51 11/09/18 20:12 Morphine IV 2 mg Q4H PRN Administration Pain, Moderate (4-6) Nifedipine 60 mg 11/05/18 10:00 11/09/18 21:56 Procardia Xl PO 60 mg Q12HR ZUNILDA Administration Nitroglycerin 0.4 mg 11/01/18 05:33 11/01/18 06:20 Nitrostat SL 0.4 mg .Q5MIN PRN Administration Chest Pain Ondansetron HCl 4 mg 11/03/18 23:07 11/03/18 23:48 Zofran IV 4 mg Q6H PRN Administration Nausea And Vomiting Spironolactone 50 mg 11/02/18 13:00 11/09/18 14:48 Aldactone PO 50 mg QDAY ZUNILDA Administration Nutrition/Malnutrition Assess - Dietary Evaluation Nutrition/Malnutrition Findings: Nutrition Notes Start: 11/09/18 16:11 Freq: Status: Active Protocol: Document 11/09/18 16:11 OH (Rec: 11/09/18 16:20 OH [id number]) Nutrition Notes Need for Assessment generated from: LOS Initial or Follow up Assessment Current Diagnosis CKD (stage V CKD),Hypertension Current Diet renal Labs/Tests BUN 25 Cr 4.7 Height 5 ft 4 in Weight 61.7 kg [place] Body Weight (kg) 59.09 BMI 23.3 Intake Prior to Admission Fair Weight Status Appropriate Subjective/Other Information LOS: Pt in bed. Pt. verbalized MD had discussed w/pt [facility] tx . Pt. requesting information about transportation to dialysis. Girlfriend/ in room with pt. Pt. wasn't eating pork [employer] WOMAN. Pt. was eating several meals/snacks daily [employer]. Percent of energy/protein needs met: <75/75% Burn Absent Trauma Absent GI Symptoms None Current % PO Fair (50-74%) #2 Nutrition Diagnosis Food and nutrition-related knowledge deficit Etiology no prior ESRD diet education As Evidenced by Signs and Symptoms questions raised regarding PRO /LOW P04/RENAL RESTRICTIONS Diagnosis Progress(for reassessment Continues documentation) #1 Nutrition Diagnosis Inadequate oral intake Etiology poor appetite As Evidenced by Signs and Symptoms <75% PRO/kcal requirements met via po intake Diagnosis Progress(for reassessment Continues documentation) Is patient on ventilator? No Is Patient Ambulatory and/or Out of Bed Yes REE-([place]. or-ambulatory/OOB) [ 1888.900 [id number]] Kcal/Kg value to use for calculation 30 Approximate Energy Requirements Using 1851 kcal/Kg Calculation Used for Recommendations Kcal/kg Additional Notes PROTEIN: 1-1.3 G/KG FLUID: 1-1.2 L OR PER MD RECOMMENDATION Nutrition Intervention Change Diet Order: CONT RENAL DIET Teaching Recipient Patient,Significant Other Learning Readiness Good Teaching Methods Discussion,Demonstration, Handout Response to Teaching Verbalize understanding Education Handouts Provided Provided pt w/stage 5 kidney disease handout. Educ pt about benefits to attending/ completing all [facility] txs as prescribed. Rev dietary recommendations for PRO/KCAL/ NA/FLUID/P04. Recommended pt ask questions and become educated regarding kidney disease. Reinforced family support and use of IDT at [facility]. Reviewed home options of dialysis with pt and encouraged pt to discuss w /SW upon d/c to [facility]. Barriers to Learning Motivation,Physical,Age related,Emotional,Cultural, Financial,Environmental,Social Goal #1 po intake to exceed 75% Follow-Up By: 11/11/18 Additional Comments f/u po intakes
[2018-11-10 07:39] LABS: Calcium 9.3 mg/dL (8.4-10.2)
--- NOTE | 2018-11-10 09:33 | Vascular Lab Report ---
Bilateral upper extremity vascular mapping Ultrasound HISTORY: ESRD vein mapping of the upper extremities. TECHNIQUE: Grayscale and color Doppler imaging performed. COMPARISON: None FINDINGS: Right: Arteries (cm, cm/s): Brachial artery: 0.49 cm, 47 cm/s Radial artery: 0.23, 54 Ulnar artery: 0.25, 52 Axillary artery: 0.44, 56 All arteries demonstrate normal multiphasic waveforms. Basilic vein (cm): Upper bicep: 0.42 cm MID bicep: 0.45 Lower bicep: 0.57 Antecubital fossa: 0.38, branch 0.26 Upper forearm: 0.28 Mid forearm: 0.29 Distal forearm: 0.27 Cephalic vein (cm): Upper bicep: 0.38 Mid bicep: 0.31 Lower bicep: 0.49 Decubital fossa: 0.44 Upper forearm: 0.36 Mid forearm: 0.3 Distal forearm: 0.3 Left: Arteries (cm, cm/s): Brachial artery: 0.42 cm, 38 cm/s Radial artery: 0.22, 39 Ulnar artery: 0.17, 48 Axillary artery: 0.39, 54 All arteries demonstrate normal multiphasic waveforms. Basilic vein (cm): Upper bicep: 0.49 cm MID bicep: 0.51 Lower bicep: 0.42, branch 0.43 Antecubital fossa: 0.47 Upper forearm: 0.16 Mid forearm: 0.14 Distal forearm: Not measured Cephalic vein (cm): Upper bicep: 0.33 Mid bicep: 0.3 Lower bicep: 0.27 Decubital fossa: 0.58, marginalized thrombus noted Upper forearm: 0.17 Mid forearm: 0.19 Distal forearm: 0.21 IMPRESSION: 1. Diameters and velocities as outlined above. 2. Marginalized thrombus in the left cephalic vein which is nonocclusive. Signer Name: Kun Watson MD Signed: 11/10/2018 9:29 AM Workstation Name: [id number]
--- NOTE | 2018-11-10 11:03 | Progress Note ---
Assessment and Plan Assesment: * Acute kidney injury secondary to unclear etiology vs underlying chronic kidney disease --Hemodialysis initiation Nov 01, 2018 * Accelerated hypertension * Dyspnea --CXR: unremarkable --CTA chest: no PE Plan: * Continue TTS schedule; now s/p permacath * Cardiology recommendations reviewed * Serologies largely negative- ANCA, JORDYN, immunofixation negative * Continue hydralazine 50mg TID, losartan, spironolactone, doxazosin for HTN * Dose medications for renal function * Avoid potential nephrotoxic agents * CM for outpatient hemodialysis placement * Still awaiting OSH records to determine chronicity of disease; consider renal biopsy to establish chronicity/dx if unable to obtain records; discussed with patient. Can be done on outpatient basis Subjective Date of service: 11/10/18 Principal diagnosis: HTN Interval history: No acute concerns today; received permacath exchange yesterday. Seen on HD- denies any issues with the treatment so far Objective - Exam Narrative Exam: General appearance: well-developed, well-nourished EENT: ATNC Respiratory: Clear to Auscultation Cardiology: regular, S1S2 Gastrointestinal: normal, no tenderness, no distended Integumentary: no rash, warm and dry Musculoskeletal: no edema. RIJ CVC noted Psychiatric: mood/affect appropriate, cooperative - Vital Signs Vital signs: Vital Signs - 12hr 11/09/18 11/10/18 11/10/18 23:40 03:48 04:12 Temperature 98.2 F 98.4 F Pulse Rate 85 87 80 Respiratory 16 18 Rate Blood Pressure 151/100 172/122 Blood Pressure 172/122 [Right] O2 Sat by Pulse 95 94 96 Oximetry 11/10/18 09:20 Temperature 98.3 F Pulse Rate 97 H Respiratory 16 Rate Blood Pressure Blood Pressure 138/87 [Right] O2 Sat by Pulse 97 Oximetry - Lab 11/05/18 04:31 11/10/18 07:00 Most recent lab results Calcium 9.3 mg/dL (8.4-10.2) 11/10/18 07:00 Magnesium 1.90 mg/dL (1.7-2.3) 11/02/18 12:59 119.6 mg/dL (0.1-20.0) H 11/01/18 11:45 53 mmol/L 11/01/18 11:45 105 mg/dL (5-11.8) H 11/01/18 11:45 Medications & Allergies - Medications Allergies/Adverse Reactions: Allergies No Known Allergies Allergy (Unverified 11/01/18 04:56) Home Medications: Home Medications Medication Instructions Recorded Confirmed Last Taken Type Clonidine HCl 0.1 mg PO DAILY 11/01/18 11/01/18 3 Months Ago History ~08/01/18 amLODIPine 5 mg PO BID 11/01/18 11/01/18 3 Months Ago History ~08/01/18 Active Medications: Generic Name Dose Route Start Last Admin Trade Name Freq PRN Reason Stop Dose Admin Acetaminophen 650 mg 11/06/18 02:32 11/06/18 02:40 Tylenol PO 650 mg Q4H PRN Administration Pain, Mild (1-3) Doxazosin Mesylate 2 mg 11/05/18 22:00 11/09/18 21:56 Cardura PO 2 mg BID ZUNILDA Administration Heparin Sodium (Porcine) 5,000 unit 11/06/18 22:00 11/09/18 21:57 Heparin SUB-Q 5,000 unit Q12HR ZUNILDA Administration Hydralazine HCl 10 mg 11/03/18 02:54 11/10/18 04:16 Apresoline IV 10 mg Q6H PRN Administration Blood Pressure Hydralazine HCl 50 mg 11/08/18 15:00 11/10/18 05:58 Apresoline PO 50 mg Q8HR ZUNILDA Administration Sodium Chloride 100 mls @ 999 mls/hr 11/03/18 09:00 Nacl 0.9% IV JOSÉ MANUEL PRN Hypotension Labetalol HCl 300 mg 11/03/18 22:00 11/09/18 21:56 Normodyne PO 300 mg BID ZUNILDA Administration Losartan Potassium 100 mg 11/05/18 17:42 11/09/18 14:49 Cozaar PO 100 mg QDAY ZUNILDA Administration Morphine Sulfate 2 mg 11/01/18 21:51 11/09/18 20:12 Morphine IV 2 mg Q4H PRN Administration Pain, Moderate (4-6) Nifedipine 60 mg 11/05/18 10:00 11/09/18 21:56 Procardia Xl PO 60 mg Q12HR ZUNILDA Administration Nitroglycerin 0.4 mg 11/01/18 05:33 11/01/18 06:20 Nitrostat SL 0.4 mg .Q5MIN PRN Administration Chest Pain Ondansetron HCl 4 mg 11/03/18 23:07 11/03/18 23:48 Zofran IV 4 mg Q6H PRN Administration Nausea And Vomiting Spironolactone 50 mg 11/02/18 13:00 11/09/18 14:48 Aldactone PO 50 mg QDAY ZUNILDA Administration
[2018-11-10] MEDS ORDERED: NACL 0.9 (PRIMING MACHINE ONLY DIALYSIS) MC ONE (12:36)
--- NOTE | 2018-11-10 13:28 | Progress Note ---
Assessment and Plan Assessment and plan: Acute on CKD. However patient likely has pronounced kidney disease secondary to hypertension, and renal US Kidneys shows chronic kidney disease. Nephrology following. Will need outpatient hemodialysis. discussed with piano case maker few days ago For Permcath today Accelerated hypertension/malignant. On labetalol, Cozaar, Doxazosin scheduled and Hydralaizine prn. Elevated Troponin. Etiology likely secondary to renal insufficiency. Chest pain. CTA revealed no evidence of aortic dissection. Cardiology following. Stress test cancelled Hypokalemia. Replaced. Hyperlipidemia. Full code status. Medically stable to [facility] home when dialysis arranged. History Interval history: No new issues overnight Hospitalist Physical - Constitutional Vitals: Temp Pulse Resp BP Pulse Ox 98.3 F 97 H 16 138/87 97 11/10/18 09:20 11/10/18 09:20 11/10/18 09:20 11/10/18 09:20 11/10/18 09:20 General appearance: Present: no acute distress - EENT Eyes: Present: PERRL, EOM intact ENT: hearing intact, clear oral mucosa, dentition normal - Neck Neck: Present: supple, normal ROM - Respiratory Respiratory effort: normal Respiratory: bilateral: CTA - Cardiovascular Rhythm: regular Heart Sounds: Present: S1 & S2. Absent: gallop, rub - Extremities Extremities: no ischemia, No edema, Full ROM - Abdominal General gastrointestinal: soft, non-tender, non-distended, normal bowel sounds - Integumentary Integumentary: Present: clear, warm, dry - Neurologic Neurologic: CNII-XII intact, moves all extremities Results - Labs CBC & Chem 7: 11/05/18 04:31 11/10/18 07:00 Labs: Laboratory Last Values WBC 6.8 K/mm3 (4.5-11.0) 11/05/18 04:31 RBC 3.50 M/mm3 (3.65-5.03) L 11/05/18 04:31 Hgb 10.5 gm/dl (11.8-15.2) L 11/05/18 04:31 Hct 30.9 % (35.5-45.6) L 11/05/18 04:31 MCV 88 fl (84-94) 11/05/18 04:31 MCH 30 pg (28-32) 11/05/18 04:31 MCHC 34 % (32-34) 11/05/18 04:31 RDW 17.9 % (13.2-15.2) H 11/05/18 04:31 Plt Count 214 K/mm3 (140-440) 11/05/18 04:31 Lymph % (Auto) 10.1 % (13.4-35.0) L 11/01/18 05:26 [place] % (Auto) 9.6 % (0.0-7.3) H 11/01/18 05:26 Eos % (Auto) 3.3 % (0.0-4.3) 11/01/18 05:26 Baso % (Auto) 1.0 % (0.0-1.8) 11/01/18 05:26 Lymph # 0.9 K/mm3 (1.2-5.4) L 11/01/18 05:26 [place] # 0.9 K/mm3 (0.0-0.8) H 11/01/18 05:26 Eos # 0.3 K/mm3 (0.0-0.4) 11/01/18 05:26 Baso # 0.1 K/mm3 (0.0-0.1) 11/01/18 05:26 Seg Neutrophils % 76.0 % (40.0-70.0) H 11/01/18 05:26 Seg Neutrophils # 6.9 K/mm3 (1.8-7.7) 11/01/18 05:26 PT 13.7 Sec. (12.2-14.9) 11/01/18 06:29 INR 1.08 (0.87-1.13) 11/01/18 06:29 APTT 30.3 Sec. (24.2-36.6) 11/01/18 06:29 1703.12 ng/mlDDU (0-234) H 11/01/18 06:29 Sodium 138 mmol/L (137-145) 11/10/18 07:00 Potassium 4.6 mmol/L (3.6-5.0) 11/10/18 07:00 Chloride 99.9 mmol/L (98-107) 11/10/18 07:00 Carbon Dioxide 24 mmol/L (22-30) 11/10/18 07:00 19 mmol/L 11/10/18 07:00 BUN 37 mg/dL (9-20) H 11/10/18 07:00 5.2 mg/dL (0.8-1.5) H 11/10/18 07:00 Estimated GFR 15 ml/min 11/10/18 07:00 7 % 11/10/18 07:00 Glucose 115 mg/dL (75-100) H 11/10/18 07:00 Calcium 9.3 mg/dL (8.4-10.2) 11/10/18 07:00 Magnesium 1.90 mg/dL (1.7-2.3) 11/02/18 12:59 0.80 mg/dL (0.1-1.2) 11/01/18 06:29 < 0.2 mg/dL (0-0.2) 11/01/18 06:29 0.6 mg/dL 11/01/18 06:29 AST 26 units/L (5-40) 11/01/18 06:29 ALT 11 units/L (7-56) 11/01/18 06:29 70 units/L (35-129) 11/01/18 06:29 133 units/L (55-170) 11/01/18 06:29 CK-MB (CK-2) 4.2 ng/mL (0.0-4.0) H 11/01/18 06:29 CK-MB (CK-2) Rel Index 3.1 (0-4) 11/01/18 06:29 0.173 ng/mL (0.00-0.029) H* 11/01/18 06:29 NT-Pro-B Natriuret Pep 84766 pg/mL (0-450) H 11/01/18 06:29 7.4 g/dL (6.3-8.2) 11/01/18 06:29 3.7 g/dL (3.9-5) L 11/01/18 06:29 1.0 % 11/01/18 06:29 Triglycerides 158 mg/dL (2-149) H 11/01/18 05:26 Cholesterol 206 mg/dL (50-199) H 11/01/18 05:26 158 mg/dL (50-130) H 11/01/18 05:26 45 mg/dL (40-59) 11/01/18 05:26 4.57 % 11/01/18 05:26 Red (Yellow) 11/01/18 08:11 Slightly-cloudy (Clear) 11/01/18 08:11 6.0 (5.0-7.0) 11/01/18 08:11 Ur Specific [place] 1.013 (1.003-1.030) 11/01/18 08:11 >500 mg/dL (Negative) 11/01/18 08:11 150 mg/dL (Negative) 11/01/18 08:11 Neg mg/dL (Negative) 11/01/18 08:11 Lg (Negative) 11/01/18 08:11 Neg (Negative) 11/01/18 08:11 Neg (Negative) 11/01/18 08:11 < 2.0 mg/dL (<2.0) 11/01/18 08:11 Ur Leukocyte Esterase Neg (Negative) 11/01/18 08:11 3.0 /HPF (0.0-6.0) 11/01/18 08:11 > 182.0 /HPF (0.0-6.0) 11/01/18 08:11 U Epithel Cells (Auto) < 1.0 /HPF (0-13.0) 11/01/18 08:11 Few /HPF 11/01/18 08:11 119.6 mg/dL (0.1-20.0) H 11/01/18 11:45 53 mmol/L 11/01/18 11:45 105 mg/dL (5-11.8) H 11/01/18 11:45 Presumptive negative 11/01/18 08:11 Presumptive negative 11/01/18 08:11 Ur Barbiturates Screen Presumptive negative 11/01/18 08:11 Ur Phencyclidine Scrn Presumptive negative 11/01/18 08:11 Ur Amphetamines Screen Presumptive negative 11/01/18 08:11 U Benzodiazepines Scrn Presumptive negative 11/01/18 08:11 Presumptive negative 11/01/18 08:11 U Marijuana (THC) Screen Presumptive positive 11/01/18 08:11 Disclamer 11/01/18 08:11 Immunofix Electrophor see below 11/01/18 13:47 JORDYN Screen Negative (Negative) 11/01/18 13:47 Proteinase 3 (PR3) Ab <1.0 AI (<1.0) 11/01/18 13:47 Myeloperoxidase Ab <1.0 AI (<1.0) 11/01/18 13:47 Hepatitis A IgM Ab Non-reactive (NonReactive) 11/01/18 Unknown Hep Bs Antigen Non-reactive (Negative) 11/01/18 Unknown Hep B Core IgM Ab Non-reactive (NonReactive) 11/01/18 Unknown Non-reactive (NonReactive) 11/01/18 Unknown Flexitest 1 H 11/02/18 12:19 Active Medications - Current Medications Current Medications: Generic Name Dose Route Start Last Admin Trade Name Freq PRN Reason Stop Dose Admin Acetaminophen 650 mg 11/06/18 02:32 11/06/18 02:40 Tylenol PO 650 mg Q4H PRN Administration Pain, Mild (1-3) Doxazosin Mesylate 2 mg 11/05/18 22:00 11/09/18 21:56 Cardura PO 2 mg BID ZUNILDA Administration Heparin Sodium (Porcine) 5,000 unit 11/06/18 22:00 11/09/18 21:57 Heparin SUB-Q 5,000 unit Q12HR ZUNILDA Administration Hydralazine HCl 10 mg 11/03/18 02:54 11/10/18 04:16 Apresoline IV 10 mg Q6H PRN Administration Blood Pressure Hydralazine HCl 50 mg 11/08/18 15:00 11/10/18 05:58 Apresoline PO 50 mg Q8HR ZUNILDA Administration Sodium Chloride 100 mls @ 999 mls/hr 11/03/18 09:00 Nacl 0.9% IV JOSÉ MANUEL PRN Hypotension Labetalol HCl 300 mg 11/03/18 22:00 11/09/18 21:56 Normodyne PO 300 mg BID ZUNILDA Administration Losartan Potassium 100 mg 11/05/18 17:42 11/09/18 14:49 Cozaar PO 100 mg QDAY ZUNILDA Administration Morphine Sulfate 2 mg 11/01/18 21:51 11/09/18 20:12 Morphine IV 2 mg Q4H PRN Administration Pain, Moderate (4-6) Nifedipine 60 mg 11/05/18 10:00 11/09/18 21:56 Procardia Xl PO 60 mg Q12HR ZUNILDA Administration Nitroglycerin 0.4 mg 11/01/18 05:33 11/01/18 06:20 Nitrostat SL 0.4 mg .Q5MIN PRN Administration Chest Pain Ondansetron HCl 4 mg 11/03/18 23:07 11/03/18 23:48 Zofran IV 4 mg Q6H PRN Administration Nausea And Vomiting Spironolactone 50 mg 11/02/18 13:00 11/09/18 14:48 Aldactone PO 50 mg QDAY ZUNILDA Administration Nutrition/Malnutrition Assess - Dietary Evaluation Nutrition/Malnutrition Findings: Nutrition Notes Start: 11/09/18 16:11 Freq: Status: Active Protocol: Document 11/09/18 16:11 OH (Rec: 11/09/18 16:20 OH [id number]) Nutrition Notes Need for Assessment generated from: LOS Initial or Follow up Assessment Current Diagnosis CKD (stage V CKD),Hypertension Current Diet renal Labs/Tests BUN 25 Cr 4.7 Height 5 ft 4 in Weight 61.7 kg [place] Body Weight (kg) 59.09 BMI 23.3 Intake Prior to Admission Fair Weight Status Appropriate Subjective/Other Information LOS: Pt in bed. Pt. verbalized MD had discussed w/pt ICHD tx . Pt. requesting information about transportation to dialysis. Girlfriend/ in room with pt. 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 Percent of energy/protein needs met: <75/75% Burn Absent Trauma Absent GI Symptoms None Current % PO Fair (50-74%) #2 Nutrition Diagnosis Food and nutrition-related knowledge deficit Etiology no prior ESRD diet education As Evidenced by Signs and Symptoms questions raised regarding PRO /LOW P04/RENAL RESTRICTIONS Diagnosis Progress(for reassessment Continues documentation) #1 Nutrition Diagnosis Inadequate oral intake Etiology poor appetite As Evidenced by Signs and Symptoms <75% PRO/kcal requirements met via po intake Diagnosis Progress(for reassessment Continues documentation) Is patient on ventilator? No Is Patient Ambulatory and/or Out of Bed Yes REE-([place]-St. Jeor-ambulatory/OOB) [ 1888.900 NUTR.MSJOOB] Kcal/Kg value to use for calculation 30 Approximate Energy Requirements Using 1851 kcal/Kg Calculation Used for Recommendations Kcal/kg Additional Notes PROTEIN: 1-1.3 G/KG FLUID: 1-1.2 L OR PER MD RECOMMENDATION Nutrition Intervention Change Diet Order: CONT RENAL DIET Teaching Recipient Patient,Significant Other Learning Readiness Good Teaching Methods Discussion,Demonstration, Handout Response to Teaching Verbalize understanding Education Handouts Provided Provided pt w/stage 5 kidney disease handout. Educ pt about benefits to attending/ completing all ICHD txs as prescribed. Rev dietary recommendations for PRO/KCAL/ NA/FLUID/P04. Recommended pt ask questions and become educated regarding kidney disease. Reinforced family support and use of IDT at [facility] F[facility]. Reviewed home options of dialysis with pt and encouraged pt to discuss w /SW upon d/c to ICHD. Barriers to Learning Motivation,Physical,Age related,Emotional,Cultural, Financial,Environmental,Social Goal #1 po intake to exceed 75% Follow-Up By: 11/11/18 Additional Comments f/u po intakes
[2018-11-10] MEDS: CARDURA PO SCH ×2 (14:00→23:08)
[2018-11-10] MEDS: NORMODYNE PO SCH ×2 (15:35→23:01)
[2018-11-10] MEDS: PROCARDIA XL PO SCH (15:38)
[2018-11-10] MEDS: COZAAR PO SCH (15:38)
[2018-11-10] MEDS: HEPARIN SUB-Q SCH ×2 (15:39→23:02)
[2018-11-10] MEDS: ALDACTONE PO SCH (17:51)
[2018-11-11] MEDS: PROCARDIA XL PO SCH ×3 (02:10→22:19)
[2018-11-11] MEDS: TYLENOL PO PRN (04:17)
[2018-11-11] MEDS: APRESOLINE PO SCH ×2 (06:36→18:15)
--- NOTE | 2018-11-11 10:02 | Progress Note ---
Assessment and Plan Assessment and plan: Acute on CKD. However patient likely has pronounced kidney disease secondary to hypertension, and renal US Kidneys shows chronic kidney disease. Nephrology following. Will need outpatient hemodialysis. discussed with custodian manager few days ago For Permcath today Accelerated hypertension/malignant. On labetalol, Cozaar, Doxazosin scheduled and Hydralaizine prn. Elevated Troponin. Etiology likely secondary to renal insufficiency. Chest pain. CTA revealed no evidence of aortic dissection. Cardiology following. Stress test cancelled Hypokalemia. Replaced. Hyperlipidemia. Full code status. Medically stable to [facility] home when dialysis arranged. History Interval history: No new issues overnight Hospitalist Physical - Constitutional Vitals: Temp Pulse Resp BP Pulse Ox 99.0 F 79 18 148/92 96 11/11/18 06:33 11/11/18 06:33 11/11/18 06:33 11/11/18 06:36 11/11/18 06:33 General appearance: Present: no acute distress - EENT Eyes: Present: PERRL, EOM intact ENT: hearing intact, clear oral mucosa, dentition normal - Neck Neck: Present: supple, normal ROM - Respiratory Respiratory effort: normal Respiratory: bilateral: CTA - Cardiovascular Rhythm: regular Heart Sounds: Present: S1 & S2. Absent: gallop, rub - Extremities Extremities: no ischemia, No edema, Full ROM - Abdominal General gastrointestinal: soft, non-tender, non-distended, normal bowel sounds - Integumentary Integumentary: Present: clear, warm, dry - Neurologic Neurologic: CNII-XII intact, moves all extremities Results - Labs CBC & Chem 7: 11/05/18 04:31 11/10/18 07:00 Labs: Laboratory Last Values WBC 6.8 K/mm3 (4.5-11.0) 11/05/18 04:31 RBC 3.50 M/mm3 (3.65-5.03) L 11/05/18 04:31 Hgb 10.5 gm/dl (11.8-15.2) L 11/05/18 04:31 Hct 30.9 % (35.5-45.6) L 11/05/18 04:31 MCV 88 fl (84-94) 11/05/18 04:31 MCH 30 pg (28-32) 11/05/18 04:31 MCHC 34 % (32-34) 11/05/18 04:31 RDW 17.9 % (13.2-15.2) H 11/05/18 04:31 Plt Count 214 K/mm3 (140-440) 11/05/18 04:31 Lymph % (Auto) 10.1 % (13.4-35.0) L 11/01/18 05:26 [place] % (Auto) 9.6 % (0.0-7.3) H 11/01/18 05:26 Eos % (Auto) 3.3 % (0.0-4.3) 11/01/18 05:26 Baso % (Auto) 1.0 % (0.0-1.8) 11/01/18 05:26 Lymph # 0.9 K/mm3 (1.2-5.4) L 11/01/18 05:26 [place] # 0.9 K/mm3 (0.0-0.8) H 11/01/18 05:26 Eos # 0.3 K/mm3 (0.0-0.4) 11/01/18 05:26 Baso # 0.1 K/mm3 (0.0-0.1) 11/01/18 05:26 Seg Neutrophils % 76.0 % (40.0-70.0) H 11/01/18 05:26 Seg Neutrophils # 6.9 K/mm3 (1.8-7.7) 11/01/18 05:26 PT 13.7 Sec. (12.2-14.9) 11/01/18 06:29 INR 1.08 (0.87-1.13) 11/01/18 06:29 APTT 30.3 Sec. (24.2-36.6) 11/01/18 06:29 1703.12 ng/mlDDU (0-234) H 11/01/18 06:29 Sodium 138 mmol/L (137-145) 11/10/18 07:00 Potassium 4.6 mmol/L (3.6-5.0) 11/10/18 07:00 Chloride 99.9 mmol/L (98-107) 11/10/18 07:00 Carbon Dioxide 24 mmol/L (22-30) 11/10/18 07:00 19 mmol/L 11/10/18 07:00 BUN 37 mg/dL (9-20) H 11/10/18 07:00 5.2 mg/dL (0.8-1.5) H 11/10/18 07:00 Estimated GFR 15 ml/min 11/10/18 07:00 7 % 11/10/18 07:00 Glucose 115 mg/dL (75-100) H 11/10/18 07:00 Calcium 9.3 mg/dL (8.4-10.2) 11/10/18 07:00 Magnesium 1.90 mg/dL (1.7-2.3) 11/02/18 12:59 0.80 mg/dL (0.1-1.2) 11/01/18 06:29 < 0.2 mg/dL (0-0.2) 11/01/18 06:29 0.6 mg/dL 11/01/18 06:29 AST 26 units/L (5-40) 11/01/18 06:29 ALT 11 units/L (7-56) 11/01/18 06:29 70 units/L (35-129) 11/01/18 06:29 133 units/L (55-170) 11/01/18 06:29 CK-MB (CK-2) 4.2 ng/mL (0.0-4.0) H 11/01/18 06:29 CK-MB (CK-2) Rel Index 3.1 (0-4) 11/01/18 06:29 0.173 ng/mL (0.00-0.029) H* 11/01/18 06:29 NT-Pro-B Natriuret Pep 56464 pg/mL (0-450) H 11/01/18 06:29 7.4 g/dL (6.3-8.2) 11/01/18 06:29 3.7 g/dL (3.9-5) L 11/01/18 06:29 1.0 % 11/01/18 06:29 Triglycerides 158 mg/dL (2-149) H 11/01/18 05:26 Cholesterol 206 mg/dL (50-199) H 11/01/18 05:26 158 mg/dL (50-130) H 11/01/18 05:26 45 mg/dL (40-59) 11/01/18 05:26 4.57 % 11/01/18 05:26 Red (Yellow) 11/01/18 08:11 Slightly-cloudy (Clear) 11/01/18 08:11 6.0 (5.0-7.0) 11/01/18 08:11 Ur Specific [place] 1.013 (1.003-1.030) 11/01/18 08:11 >500 mg/dL (Negative) 11/01/18 08:11 150 mg/dL (Negative) 11/01/18 08:11 Neg mg/dL (Negative) 11/01/18 08:11 Lg (Negative) 11/01/18 08:11 Neg (Negative) 11/01/18 08:11 Neg (Negative) 11/01/18 08:11 < 2.0 mg/dL (<2.0) 11/01/18 08:11 Ur Leukocyte Esterase Neg (Negative) 11/01/18 08:11 3.0 /HPF (0.0-6.0) 11/01/18 08:11 > 182.0 /HPF (0.0-6.0) 11/01/18 08:11 U Epithel Cells (Auto) < 1.0 /HPF (0-13.0) 11/01/18 08:11 Few /HPF 11/01/18 08:11 119.6 mg/dL (0.1-20.0) H 11/01/18 11:45 53 mmol/L 11/01/18 11:45 105 mg/dL (5-11.8) H 11/01/18 11:45 Presumptive negative 11/01/18 08:11 Presumptive negative 11/01/18 08:11 Ur Barbiturates Screen Presumptive negative 11/01/18 08:11 Ur Phencyclidine Scrn Presumptive negative 11/01/18 08:11 Ur Amphetamines Screen Presumptive negative 11/01/18 08:11 U Benzodiazepines Scrn Presumptive negative 11/01/18 08:11 Presumptive negative 11/01/18 08:11 U Marijuana (THC) Screen Presumptive positive 11/01/18 08:11 Disclamer 11/01/18 08:11 Immunofix Electrophor see below 11/01/18 13:47 JORDYN Screen Negative (Negative) 11/01/18 13:47 Proteinase 3 (PR3) Ab <1.0 AI (<1.0) 11/01/18 13:47 Myeloperoxidase Ab <1.0 AI (<1.0) 11/01/18 13:47 Hepatitis A IgM Ab Non-reactive (NonReactive) 11/01/18 Unknown Hep Bs Antigen Non-reactive (Negative) 11/01/18 Unknown Hep B Core IgM Ab Non-reactive (NonReactive) 11/01/18 Unknown Non-reactive (NonReactive) 11/01/18 Unknown Flexitest 1 H 11/02/18 12:19 Active Medications - Current Medications Current Medications: Generic Name Dose Route Start Last Admin Trade Name Freq PRN Reason Stop Dose Admin Acetaminophen 650 mg 11/06/18 02:32 11/11/18 04:17 Tylenol PO 650 mg Q4H PRN Administration Pain, Mild (1-3) Doxazosin Mesylate 2 mg 11/05/18 22:00 11/10/18 23:08 Cardura PO 2 mg BID ZUNILDA Administration Heparin Sodium (Porcine) 5,000 unit 11/06/18 22:00 11/10/18 23:02 Heparin SUB-Q Not Given Q12HR [facility] Hydralazine HCl 10 mg 11/03/18 02:54 11/10/18 04:16 Apresoline IV 10 mg Q6H PRN Administration Blood Pressure Hydralazine HCl 50 mg 11/08/18 15:00 11/11/18 06:36 Apresoline PO 50 mg Q8HR ZUNILDA Administration Sodium Chloride 100 mls @ 999 mls/hr 11/03/18 09:00 Nacl 0.9% IV JOSÉ MANUEL PRN Hypotension Labetalol HCl 300 mg 11/03/18 22:00 11/10/18 23:01 Normodyne PO 300 mg BID ZUNILDA Administration Losartan Potassium 100 mg 11/05/18 17:42 11/10/18 15:38 Cozaar PO 100 mg QDAY ZUNILDA Administration Morphine Sulfate 2 mg 11/01/18 21:51 11/09/18 20:12 Morphine IV 2 mg Q4H PRN Administration Pain, Moderate (4-6) Nifedipine 60 mg 11/05/18 10:00 11/11/18 02:10 Procardia Xl PO 60 mg Q12HR ZUNILDA Administration Nitroglycerin 0.4 mg 11/01/18 05:33 11/01/18 06:20 Nitrostat SL 0.4 mg .Q5MIN PRN Administration Chest Pain Ondansetron HCl 4 mg 11/03/18 23:07 11/03/18 23:48 Zofran IV 4 mg Q6H PRN Administration Nausea And Vomiting Spironolactone 50 mg 11/02/18 13:00 11/10/18 17:51 Aldactone PO Not Given QDAY ZUNILDA Nutrition/Malnutrition Assess - Dietary Evaluation Nutrition/Malnutrition Findings: Nutrition Notes Start: 11/09/18 16:11 Freq: Status: Active Protocol: Document 11/09/18 16:11 OH (Rec: 11/09/18 16:20 OH [id number]) Nutrition Notes Need for Assessment generated from: LOS Initial or Follow up Assessment Current Diagnosis CKD (stage V CKD),Hypertension Current Diet renal Labs/Tests BUN 25 Cr 4.7 Height 5 ft 4 in Weight 61.7 kg [place] Body Weight (kg) 59.09 BMI 23.3 Intake Prior to Admission Fair Weight Status Appropriate Subjective/Other Information LOS: Pt in bed. Pt. verbalized MD had discussed w/pt ICHD tx . Pt. requesting information about transportation to dialysis. Girlfriend/ in room with pt. Pt. wasn't eating pork PHYSICIAN CODING SPECIALIST. Pt. was eating several meals/snacks daily PHYSICIAN CODING SPECIALIST. Percent of energy/protein needs met: <75/75% Burn Absent Trauma Absent GI Symptoms None Current % PO Fair (50-74%) #2 Nutrition Diagnosis Food and nutrition-related knowledge deficit Etiology no prior ESRD diet education As Evidenced by Signs and Symptoms questions raised regarding PRO /LOW P04/RENAL RESTRICTIONS Diagnosis Progress(for reassessment Continues documentation) #1 Nutrition Diagnosis Inadequate oral intake Etiology poor appetite As Evidenced by Signs and Symptoms <75% PRO/kcal requirements met via po intake Diagnosis Progress(for reassessment Continues documentation) Is patient on ventilator? No Is Patient Ambulatory and/or Out of Bed Yes REE-([place]-St. Jeor-ambulatory/OOB) [ 1888.900 NUTR.MSJOOB] Kcal/Kg value to use for calculation 30 Approximate Energy Requirements Using 1851 kcal/Kg Calculation Used for Recommendations Kcal/kg Additional Notes PROTEIN: 1-1.3 G/KG FLUID: 1-1.2 L OR PER MD RECOMMENDATION Nutrition Intervention Change Diet Order: CONT RENAL DIET Teaching Recipient Patient,Significant Other Learning Readiness Good Teaching Methods Discussion,Demonstration, Handout Response to Teaching Verbalize understanding Education Handouts Provided Provided pt w/stage 5 kidney disease handout. Educ pt about benefits to attending/ completing all ICHD txs as prescribed. Rev dietary recommendations for PRO/KCAL/ NA/FLUID/P04. Recommended pt ask questions and become educated regarding kidney disease. Reinforced family support and use of IDT at ICH FACILITY. Reviewed home options of dialysis with pt and encouraged pt to discuss w /SW upon d/c to ICHD. Barriers to Learning Motivation,Physical,Age related,Emotional,Cultural, Financial,Environmental,Social Goal #1 po intake to exceed 75% Follow-Up By: 11/11/18 Additional Comments f/u po intakes
[2018-11-11] MEDS: COZAAR PO SCH (11:53)
[2018-11-11] MEDS: NORMODYNE PO SCH ×2 (11:55→22:18)
[2018-11-11] MEDS: ALDACTONE PO SCH (11:56)
[2018-11-11] MEDS: HEPARIN SUB-Q SCH ×2 (11:57→22:28)
--- NOTE | 2018-11-11 15:56 | Progress Note ---
Assessment and Plan Assesment: * Acute kidney injury secondary to unclear etiology vs underlying chronic kidney disease- reviewed records from [facility]- creatinine in June 2018 was 2.6, with known history of uncontrolled hypertension (was not on medications regularly) for almost 10 years. Father on dialysis (home modality); given chronicity of uncontrolled hypertension, baseline creatinine elevated several months ago, and strong family history of kidney disease requiring dialysis, patient's presentation consistent with ESRD --Hemodialysis initiation Nov 01, 2018 * Accelerated hypertension * Dyspnea- improved --CXR: unremarkable --CTA chest: no PE Plan: * Continue TTS schedule; now s/p permacath * Cardiology recommendations reviewed * Serologies negative- ANCA, JORDYN, immunofixation negative. Unlikely that biopsy would provide further clarity or benefit given chronicity of hypertension and CKD * Discussed at length with patient regarding renal prognosis- patient has residual renal function but cannot be discharged from hospital without dialysis plan, given lab numbers and assessment as above. Patient aware that he will need dialysis outpatient, and ultimately would benefit from transplant evaluation once stable * Continue hydralazine 50mg TID, losartan, spironolactone, doxazosin for HTN * Dose medications for renal function * Avoid potential nephrotoxic agents * CM for outpatient hemodialysis placement Thank you for this consult; we will continue to follow closely with you. Please do not hesitate to call us with questions or concerns. Subjective Date of service: 11/11/18 Principal diagnosis: HTN Interval history: No acute concerns today; tolerated HD well for first two hours but then stated he became agitated with trouble tolerating. ultimately had 2.5 hours of HD Objective - Exam Narrative Exam: General appearance: well-developed, well-nourished EENT: ATNC Respiratory: Clear to Auscultation Cardiology: regular, S1S2 Gastrointestinal: normal, no tenderness, no distended Integumentary: no rash, warm and dry Musculoskeletal: no edema. RIJ CVC noted Psychiatric: mood/affect appropriate, cooperative - Vital Signs Vital signs: Vital Signs - 12hr 11/11/18 11/11/18 11/11/18 04:15 06:33 06:36 Temperature 99.0 F Pulse Rate 80 79 Respiratory 18 18 Rate Blood Pressure 138/92 148/92 148/92 O2 Sat by Pulse 93 96 Oximetry 11/11/18 11/11/18 11/11/18 11:51 11:53 11:55 Temperature 98.6 F Pulse Rate 76 74 74 Respiratory 15 Rate Blood Pressure 146/96 146/96 146/96 O2 Sat by Pulse 99 Oximetry 11/11/18 11:56 Temperature Pulse Rate 74 Respiratory Rate Blood Pressure 146/96 O2 Sat by Pulse Oximetry - Lab 11/05/18 04:31 11/10/18 07:00 Most recent lab results Calcium 9.3 mg/dL (8.4-10.2) 11/10/18 07:00 Magnesium 1.90 mg/dL (1.7-2.3) 11/02/18 12:59 119.6 mg/dL (0.1-20.0) H 11/01/18 11:45 53 mmol/L 11/01/18 11:45 105 mg/dL (5-11.8) H 11/01/18 11:45 Medications & Allergies - Medications Allergies/Adverse Reactions: Allergies No Known Allergies Allergy (Unverified 11/01/18 04:56) Home Medications: Home Medications Medication Instructions Recorded Confirmed Last Taken Type Clonidine HCl 0.1 mg PO DAILY 11/01/18 11/01/18 3 Months Ago History ~08/01/18 amLODIPine 5 mg PO BID 11/01/18 11/01/18 3 Months Ago History ~08/01/18 Active Medications: Generic Name Dose Route Start Last Admin Trade Name Freq PRN Reason Stop Dose Admin Acetaminophen 650 mg 11/06/18 02:32 11/11/18 04:17 Tylenol PO 650 mg Q4H PRN Administration Pain, Mild (1-3) Doxazosin Mesylate 2 mg 11/05/18 22:00 11/10/18 23:08 Cardura PO 2 mg BID ZUNILDA Administration Heparin Sodium (Porcine) 5,000 unit 11/06/18 22:00 11/11/18 11:57 Heparin SUB-Q Not Given Q12HR ZUNILDA Hydralazine HCl 10 mg 11/03/18 02:54 11/10/18 04:16 Apresoline IV 10 mg Q6H PRN Administration Blood Pressure Hydralazine HCl 50 mg 11/08/18 15:00 11/11/18 06:36 Apresoline PO 50 mg Q8HR ZUNILDA Administration Sodium Chloride 100 mls @ 999 mls/hr 11/03/18 09:00 Nacl 0.9% IV JOSÉ MANUEL PRN Hypotension Labetalol HCl 300 mg 11/03/18 22:00 11/11/18 11:55 Normodyne PO 300 mg BID ZUNILDA Administration Losartan Potassium 100 mg 11/05/18 17:42 11/11/18 11:53 Cozaar PO 100 mg QDAY ZUNILDA Administration Morphine Sulfate 2 mg 11/01/18 21:51 11/09/18 20:12 Morphine IV 2 mg Q4H PRN Administration Pain, Moderate (4-6) Nifedipine 60 mg 11/05/18 10:00 11/11/18 11:56 Procardia Xl PO 60 mg Q12HR ZUNILDA Administration Nitroglycerin 0.4 mg 11/01/18 05:33 11/01/18 06:20 Nitrostat SL 0.4 mg .Q5MIN PRN Administration Chest Pain Ondansetron HCl 4 mg 11/03/18 23:07 11/03/18 23:48 Zofran IV 4 mg Q6H PRN Administration Nausea And Vomiting Spironolactone 50 mg 11/02/18 13:00 11/11/18 11:56 Aldactone PO 50 mg QDAY ZUNILDA Administration
[2018-11-11] MEDS: CARDURA PO SCH (18:16)
[2018-11-12] MEDS: TYLENOL PO PRN ×2 (00:57→21:06)
[2018-11-12] MEDS: APRESOLINE PO SCH ×4 (02:21→21:06)
[2018-11-12] MEDS: CARDURA PO SCH ×3 (02:21→21:07)
--- NOTE | 2018-11-12 10:07 | Progress Note ---
Assessment and Plan Assessment and plan: Acute on CKD. However patient likely has pronounced kidney disease secondary to hypertension, and renal US Kidneys shows chronic kidney disease. Nephrology following. Will need outpatient hemodialysis. discussed with caser few days ago For Permcath today Accelerated hypertension/malignant. On labetalol, Cozaar, Doxazosin scheduled and Hydralaizine prn. Elevated Troponin. Etiology likely secondary to renal insufficiency. Chest pain. CTA revealed no evidence of aortic dissection. Cardiology following. Stress test cancelled Hypokalemia. Replaced. Hyperlipidemia. Full code status. Medically stable to nd home when dialysis arranged. History Interval history: No new issues overnight Hospitalist Physical - Constitutional Vitals: Temp Pulse Resp BP Pulse Ox 98.5 F 107 H 17 140/91 94 11/12/18 05:40 11/12/18 06:41 11/12/18 05:40 11/12/18 06:41 11/12/18 05:40 General appearance: Present: no acute distress - EENT Eyes: Present: PERRL, EOM intact ENT: hearing intact, clear oral mucosa, dentition normal - Neck Neck: Present: supple, normal ROM - Respiratory Respiratory effort: normal Respiratory: bilateral: CTA - Cardiovascular Rhythm: regular Heart Sounds: Present: S1 & S2. Absent: gallop, rub - Extremities Extremities: no ischemia, No edema, Full ROM - Abdominal General gastrointestinal: soft, non-tender, non-distended, normal bowel sounds - Integumentary Integumentary: Present: clear, warm, dry - Neurologic Neurologic: CNII-XII intact, moves all extremities Results - Labs CBC & Chem 7: 11/05/18 04:31 11/10/18 07:00 Labs: Laboratory Last Values WBC 6.8 K/mm3 (4.5-11.0) 11/05/18 04:31 RBC 3.50 M/mm3 (3.65-5.03) L 11/05/18 04:31 Hgb 10.5 gm/dl (11.8-15.2) L 11/05/18 04:31 Hct 30.9 % (35.5-45.6) L 11/05/18 04:31 MCV 88 fl (84-94) 11/05/18 04:31 MCH 30 pg (28-32) 11/05/18 04:31 MCHC 34 % (32-34) 11/05/18 04:31 RDW 17.9 % (13.2-15.2) H 11/05/18 04:31 Plt Count 214 K/mm3 (140-440) 11/05/18 04:31 Lymph % (Auto) 10.1 % (13.4-35.0) L 11/01/18 05:26 [place] % (Auto) 9.6 % (0.0-7.3) H 11/01/18 05:26 Eos % (Auto) 3.3 % (0.0-4.3) 11/01/18 05:26 Baso % (Auto) 1.0 % (0.0-1.8) 11/01/18 05:26 Lymph # 0.9 K/mm3 (1.2-5.4) L 11/01/18 05:26 [place] # 0.9 K/mm3 (0.0-0.8) H 11/01/18 05:26 Eos # 0.3 K/mm3 (0.0-0.4) 11/01/18 05:26 Baso # 0.1 K/mm3 (0.0-0.1) 11/01/18 05:26 Seg Neutrophils % 76.0 % (40.0-70.0) H 11/01/18 05:26 Seg Neutrophils # 6.9 K/mm3 (1.8-7.7) 11/01/18 05:26 PT 13.7 Sec. (12.2-14.9) 11/01/18 06:29 INR 1.08 (0.87-1.13) 11/01/18 06:29 APTT 30.3 Sec. (24.2-36.6) 11/01/18 06:29 1703.12 ng/mlDDU (0-234) H 11/01/18 06:29 Sodium 138 mmol/L (137-145) 11/10/18 07:00 Potassium 4.6 mmol/L (3.6-5.0) 11/10/18 07:00 Chloride 99.9 mmol/L (98-107) 11/10/18 07:00 Carbon Dioxide 24 mmol/L (22-30) 11/10/18 07:00 19 mmol/L 11/10/18 07:00 BUN 37 mg/dL (9-20) H 11/10/18 07:00 5.2 mg/dL (0.8-1.5) H 11/10/18 07:00 Estimated GFR 15 ml/min 11/10/18 07:00 7 % 11/10/18 07:00 Glucose 115 mg/dL (75-100) H 11/10/18 07:00 Calcium 9.3 mg/dL (8.4-10.2) 11/10/18 07:00 Magnesium 1.90 mg/dL (1.7-2.3) 11/02/18 12:59 0.80 mg/dL (0.1-1.2) 11/01/18 06:29 < 0.2 mg/dL (0-0.2) 11/01/18 06:29 0.6 mg/dL 11/01/18 06:29 AST 26 units/L (5-40) 11/01/18 06:29 ALT 11 units/L (7-56) 11/01/18 06:29 70 units/L (35-129) 11/01/18 06:29 133 units/L (55-170) 11/01/18 06:29 CK-MB (CK-2) 4.2 ng/mL (0.0-4.0) H 11/01/18 06:29 CK-MB (CK-2) Rel Index 3.1 (0-4) 11/01/18 06:29 0.173 ng/mL (0.00-0.029) H* 11/01/18 06:29 NT-Pro-B Natriuret Pep 94030 pg/mL (0-450) H 11/01/18 06:29 7.4 g/dL (6.3-8.2) 11/01/18 06:29 3.7 g/dL (3.9-5) L 11/01/18 06:29 1.0 % 11/01/18 06:29 Triglycerides 158 mg/dL (2-149) H 11/01/18 05:26 Cholesterol 206 mg/dL (50-199) H 11/01/18 05:26 158 mg/dL (50-130) H 11/01/18 05:26 45 mg/dL (40-59) 11/01/18 05:26 4.57 % 11/01/18 05:26 Red (Yellow) 11/01/18 08:11 Slightly-cloudy (Clear) 11/01/18 08:11 6.0 (5.0-7.0) 11/01/18 08:11 Ur Specific [place] 1.013 (1.003-1.030) 11/01/18 08:11 >500 mg/dL (Negative) 11/01/18 08:11 150 mg/dL (Negative) 11/01/18 08:11 Neg mg/dL (Negative) 11/01/18 08:11 Lg (Negative) 11/01/18 08:11 Neg (Negative) 11/01/18 08:11 Neg (Negative) 11/01/18 08:11 < 2.0 mg/dL (<2.0) 11/01/18 08:11 Ur Leukocyte Esterase Neg (Negative) 11/01/18 08:11 3.0 /HPF (0.0-6.0) 11/01/18 08:11 > 182.0 /HPF (0.0-6.0) 11/01/18 08:11 U Epithel Cells (Auto) < 1.0 /HPF (0-13.0) 11/01/18 08:11 Few /HPF 11/01/18 08:11 119.6 mg/dL (0.1-20.0) H 11/01/18 11:45 53 mmol/L 11/01/18 11:45 105 mg/dL (5-11.8) H 11/01/18 11:45 Presumptive negative 11/01/18 08:11 Presumptive negative 11/01/18 08:11 Ur Barbiturates Screen Presumptive negative 11/01/18 08:11 Ur Phencyclidine Scrn Presumptive negative 11/01/18 08:11 Ur Amphetamines Screen Presumptive negative 11/01/18 08:11 U Benzodiazepines Scrn Presumptive negative 11/01/18 08:11 Presumptive negative 11/01/18 08:11 U Marijuana (THC) Screen Presumptive positive 11/01/18 08:11 Disclamer 11/01/18 08:11 Immunofix Electrophor see below 11/01/18 13:47 JORDYN Screen Negative (Negative) 11/01/18 13:47 Proteinase 3 (PR3) Ab <1.0 AI (<1.0) 11/01/18 13:47 Myeloperoxidase Ab <1.0 AI (<1.0) 11/01/18 13:47 Hepatitis A IgM Ab Non-reactive (NonReactive) 11/01/18 Unknown Hep Bs Antigen Non-reactive (Negative) 11/01/18 Unknown Hep B Core IgM Ab Non-reactive (NonReactive) 11/01/18 Unknown Non-reactive (NonReactive) 11/01/18 Unknown Flexitest 1 H 11/02/18 12:19 Active Medications - Current Medications Current Medications: Generic Name Dose Route Start Last Admin Trade Name Freq PRN Reason Stop Dose Admin Acetaminophen 650 mg 11/06/18 02:32 11/12/18 00:57 Tylenol PO 650 mg Q4H PRN Administration Pain, Mild (1-3) Doxazosin Mesylate 2 mg 11/05/18 22:00 11/12/18 02:21 Cardura PO 2 mg BID ZUNILDA Administration Heparin Sodium (Porcine) 5,000 unit 11/06/18 22:00 11/11/18 22:28 Heparin SUB-Q Not Given Q12HR [facility] Hydralazine HCl 10 mg 11/03/18 02:54 11/10/18 04:16 Apresoline IV 10 mg Q6H PRN Administration Blood Pressure Hydralazine HCl 50 mg 11/08/18 15:00 11/12/18 06:41 Apresoline PO 50 mg Q8HR ZUNILDA Administration Sodium Chloride 100 mls @ 999 mls/hr 11/03/18 09:00 Nacl 0.9% IV JOSÉ MANUEL PRN Hypotension Labetalol HCl 300 mg 11/03/18 22:00 11/11/18 22:18 Normodyne PO 300 mg BID ZUNILDA Administration Losartan Potassium 100 mg 11/05/18 17:42 11/11/18 11:53 Cozaar PO 100 mg QDAY ZUNILDA Administration Morphine Sulfate 2 mg 11/01/18 21:51 11/09/18 20:12 Morphine IV 2 mg Q4H PRN Administration Pain, Moderate (4-6) Nifedipine 60 mg 11/05/18 10:00 11/11/18 22:19 Procardia Xl PO 60 mg Q12HR ZUNILDA Administration Nitroglycerin 0.4 mg 11/01/18 05:33 11/01/18 06:20 Nitrostat SL 0.4 mg .Q5MIN PRN Administration Chest Pain Ondansetron HCl 4 mg 11/03/18 23:07 11/03/18 23:48 Zofran IV 4 mg Q6H PRN Administration Nausea And Vomiting Spironolactone 50 mg 11/02/18 13:00 11/11/18 11:56 Aldactone PO 50 mg QDAY ZUNILDA Administration Nutrition/Malnutrition Assess - Dietary Evaluation Nutrition/Malnutrition Findings: Nutrition Notes Start: 11/09/18 16:11 Freq: Status: Active Protocol: Document 11/11/18 15:40 RM (Rec: 11/11/18 15:53 RM [id number]) Nutrition Notes Initial or Follow up Reassessment Current Diagnosis Acute Kidney Injury,CKD (stage V CKD),Hypertension Current Diet renal Labs/Tests BUN 37 Cr 5.2 Height 5 ft 4 in Weight 62.2 kg [place] Body Weight (kg) 59.09 BMI 23.5 Subjective/Other Information Pt stated that his appetite is good and that he eats all of his meals. Percent of energy/protein needs met: 100%/100% Burn Absent Trauma Absent #2 Nutrition Diagnosis Food and nutrition-related knowledge deficit As Evidenced by Signs and Symptoms pt received diet education Diagnosis Progress(for reassessment Resolved documentation) #1 Nutrition Diagnosis Inadequate oral intake As Evidenced by Signs and Symptoms pt meeting 100% of calorie and protein needs Diagnosis Progress(for reassessment Resolved documentation) Is patient on ventilator? No Is Patient Ambulatory and/or Out of Bed Yes REE-([facility]-ambulatory/OOB) [ 1895.400 NUTR.MSJOOB] Calculation Used for Recommendations [facility] Additional Notes Protein: 37-50g (0.6-0.8g/kg) Fluid needs: 1-1.2 L OR PER MD RECOMMENDATION Nutrition Intervention Change Diet Order: Continue current Goal #1 Continue to meet at least 75% of calorie and protein needs via PO intakes Revisit per MD consult or patient Sign Off request:
[2018-11-12] MEDS: ALDACTONE PO SCH ×2 (12:23→15:27)
[2018-11-12] MEDS: COZAAR PO SCH ×2 (12:24→15:26)
[2018-11-12] MEDS: PROCARDIA XL PO SCH ×2 (12:24→21:06)
[2018-11-12] MEDS: HEPARIN SUB-Q SCH ×2 (12:24→22:31)
[2018-11-12] MEDS: NORMODYNE PO SCH ×2 (12:24→21:06)
--- NOTE | 2018-11-12 14:53 | Progress Note ---
Assessment and Plan Assesment: * Acute kidney injury secondary to unclear etiology vs underlying chronic kidney disease- reviewed records from [facility]- creatinine in June 2018 was 2.6, with known history of uncontrolled hypertension (was not on medications regularly) for almost 10 years. Father on dialysis (home modality); given chronicity of uncontrolled hypertension, baseline creatinine elevated several months ago, and strong family history of kidney disease requiring dialysis, patient's presentation consistent with ESRD --Hemodialysis initiation Nov 01, 2018 * Accelerated hypertension * Dyspnea- improved --CXR: unremarkable --CTA chest: no PE Plan: * Continue TTS schedule; now s/p permacath * Cardiology recommendations reviewed * Serologies negative- ANCA, JORDYN, immunofixation negative. Unlikely that biopsy would provide further clarity or benefit given chronicity of hypertension and CKD * Discussed at length with patient regarding renal prognosis- patient has residual renal function but cannot be discharged from hospital without dialysis plan, given lab numbers and assessment as above. Patient aware that he will need dialysis outpatient, and ultimately would benefit from transplant evaluation once stable. Patient understands that leaving AMA would complicate dialysis planning * Continue hydralazine 50mg TID, losartan, spironolactone, doxazosin for HTN * Dose medications for renal function * Avoid potential nephrotoxic agents * CM for outpatient hemodialysis placement, appreciate assistance Thank you for this consult; we will continue to follow closely with you. Please do not hesitate to call us with questions or concerns. Subjective Date of service: 11/12/18 Principal diagnosis: HTN Interval history: No acute concerns today; seen on HD and denies any issues with shortened treatment. wants to go home Objective - Exam Narrative Exam: General appearance: well-developed, well-nourished EENT: ATNC Respiratory: Clear to Auscultation Cardiology: regular, S1S2 Gastrointestinal: normal, no tenderness, no distended Integumentary: no rash, warm and dry Musculoskeletal: no edema. RIJ CVC noted Psychiatric: mood/affect appropriate, cooperative - Vital Signs Vital signs: Vital Signs - 12hr 11/12/18 11/12/18 11/12/18 05:40 06:41 11:45 Temperature 98.5 F 98.6 F Pulse Rate 82 107 H 74 Respiratory 17 16 Rate Blood Pressure 140/91 140/91 162/93 O2 Sat by Pulse 94 Oximetry 11/12/18 11/12/18 11/12/18 11:55 12:00 12:15 Temperature Pulse Rate 72 73 73 Respiratory Rate Blood Pressure 160/96 163/102 165/99 O2 Sat by Pulse Oximetry 11/12/18 11/12/18 11/12/18 12:30 12:45 14:00 Temperature 98.2 F Pulse Rate 74 73 71 Respiratory 16 Rate Blood Pressure 168/102 167/106 167/101 O2 Sat by Pulse Oximetry - Lab 11/05/18 04:31 11/10/18 07:00 Most recent lab results Calcium 9.3 mg/dL (8.4-10.2) 11/10/18 07:00 Magnesium 1.90 mg/dL (1.7-2.3) 11/02/18 12:59 119.6 mg/dL (0.1-20.0) H 11/01/18 11:45 53 mmol/L 11/01/18 11:45 105 mg/dL (5-11.8) H 11/01/18 11:45 Medications & Allergies - Medications Allergies/Adverse Reactions: Allergies No Known Allergies Allergy (Unverified 11/01/18 04:56) Home Medications: Home Medications Medication Instructions Recorded Confirmed Last Taken Type Clonidine HCl 0.1 mg PO DAILY 11/01/18 11/01/18 3 Months Ago History ~08/01/18 amLODIPine 5 mg PO BID 11/01/18 11/01/18 3 Months Ago History ~08/01/18 Active Medications: Generic Name Dose Route Start Last Admin Trade Name Freq PRN Reason Stop Dose Admin Acetaminophen 650 mg 11/06/18 02:32 11/12/18 00:57 Tylenol PO 650 mg Q4H PRN Administration Pain, Mild (1-3) Doxazosin Mesylate 2 mg 11/05/18 22:00 11/12/18 12:24 Cardura PO Not Given BID ZUNILDA Heparin Sodium (Porcine) 5,000 unit 11/06/18 22:00 11/12/18 12:24 Heparin SUB-Q Not Given Q12HR ZUNILDA Hydralazine HCl 10 mg 11/03/18 02:54 11/10/18 04:16 Apresoline IV 10 mg Q6H PRN Administration Blood Pressure Hydralazine HCl 50 mg 11/08/18 15:00 11/12/18 06:41 Apresoline PO 50 mg Q8HR [facility] Administration Sodium Chloride 100 mls @ 999 mls/hr 11/03/18 09:00 Nacl 0.9% IV JOSÉ MANUEL PRN Hypotension Labetalol HCl 300 mg 11/03/18 22:00 11/12/18 12:24 Normodyne PO Not Given BID [facility] Losartan Potassium 100 mg 11/05/18 17:42 11/12/18 12:24 Cozaar PO Not Given QDAY [facility] Morphine Sulfate 2 mg 11/01/18 21:51 11/09/18 20:12 Morphine IV 2 mg Q4H PRN Administration Pain, Moderate (4-6) Nifedipine 60 mg 11/05/18 10:00 11/12/18 12:24 Procardia Xl PO Not Given Q12HR [facility] Nitroglycerin 0.4 mg 11/01/18 05:33 11/01/18 06:20 Nitrostat SL 0.4 mg .Q5MIN PRN Administration Chest Pain Ondansetron HCl 4 mg 11/03/18 23:07 11/03/18 23:48 Zofran IV 4 mg Q6H PRN Administration Nausea And Vomiting Spironolactone 50 mg 11/02/18 13:00 11/12/18 12:23 Aldactone PO Not Given QDAY [facility]
[2018-11-12] MEDS: APRESOLINE IV PRN (23:55)
[2018-11-13] MEDS: APRESOLINE PO SCH ×3 (05:51→22:07)
[2018-11-13] MEDS: CARDURA PO SCH ×2 (09:41→22:06)
[2018-11-13] MEDS: NORMODYNE PO SCH ×2 (09:42→22:07)
[2018-11-13] MEDS: ALDACTONE PO SCH (09:43)
[2018-11-13] MEDS: COZAAR PO SCH (09:43)
[2018-11-13] MEDS: HEPARIN SUB-Q SCH ×2 (09:44→22:10)
[2018-11-13] MEDS: PROCARDIA XL PO SCH ×2 (09:44→22:06)
--- NOTE | 2018-11-13 12:43 | Progress Note ---
Assessment and Plan Assessment and plan: Acute on CKD. However patient likely has pronounced kidney disease secondary to hypertension, and renal US Kidneys shows chronic kidney disease. Nephrology following. Will need outpatient hemodialysis. discussed with case folder few days ago For Permcath today Accelerated hypertension/malignant. On labetalol, Cozaar, Doxazosin scheduled and Hydralaizine prn. Elevated Troponin. Etiology likely secondary to renal insufficiency. Chest pain. CTA revealed no evidence of aortic dissection. Cardiology following. Stress test cancelled Hypokalemia. Replaced. Hyperlipidemia. Full code status. Medically stable to tn home when dialysis arranged. History Interval history: No new issues overnight Hospitalist Physical - Constitutional Vitals: Temp Pulse Resp BP Pulse Ox 98.6 F 90 18 146/91 98 11/13/18 05:32 11/13/18 05:32 11/13/18 05:32 11/13/18 09:43 11/13/18 05:32 General appearance: Present: no acute distress - EENT Eyes: Present: PERRL, EOM intact ENT: hearing intact, clear oral mucosa, dentition normal - Neck Neck: Present: supple, normal ROM - Respiratory Respiratory effort: normal Respiratory: bilateral: CTA - Cardiovascular Rhythm: regular Heart Sounds: Present: S1 & S2. Absent: gallop, rub - Extremities Extremities: no ischemia, No edema, Full ROM - Abdominal General gastrointestinal: soft, non-tender, non-distended, normal bowel sounds - Integumentary Integumentary: Present: clear, warm, dry - Neurologic Neurologic: CNII-XII intact, moves all extremities Results - Labs CBC & Chem 7: 11/05/18 04:31 11/10/18 07:00 Labs: Laboratory Last Values WBC 6.8 K/mm3 (4.5-11.0) 11/05/18 04:31 RBC 3.50 M/mm3 (3.65-5.03) L 11/05/18 04:31 Hgb 10.5 gm/dl (11.8-15.2) L 11/05/18 04:31 Hct 30.9 % (35.5-45.6) L 11/05/18 04:31 MCV 88 fl (84-94) 11/05/18 04:31 MCH 30 pg (28-32) 11/05/18 04:31 MCHC 34 % (32-34) 11/05/18 04:31 RDW 17.9 % (13.2-15.2) H 11/05/18 04:31 Plt Count 214 K/mm3 (140-440) 11/05/18 04:31 Lymph % (Auto) 10.1 % (13.4-35.0) L 11/01/18 05:26 [place] % (Auto) 9.6 % (0.0-7.3) H 11/01/18 05:26 Eos % (Auto) 3.3 % (0.0-4.3) 11/01/18 05:26 Baso % (Auto) 1.0 % (0.0-1.8) 11/01/18 05:26 Lymph # 0.9 K/mm3 (1.2-5.4) L 11/01/18 05:26 [place] # 0.9 K/mm3 (0.0-0.8) H 11/01/18 05:26 Eos # 0.3 K/mm3 (0.0-0.4) 11/01/18 05:26 Baso # 0.1 K/mm3 (0.0-0.1) 11/01/18 05:26 Seg Neutrophils % 76.0 % (40.0-70.0) H 11/01/18 05:26 Seg Neutrophils # 6.9 K/mm3 (1.8-7.7) 11/01/18 05:26 PT 13.7 Sec. (12.2-14.9) 11/01/18 06:29 INR 1.08 (0.87-1.13) 11/01/18 06:29 APTT 30.3 Sec. (24.2-36.6) 11/01/18 06:29 1703.12 ng/mlDDU (0-234) H 11/01/18 06:29 Sodium 138 mmol/L (137-145) 11/10/18 07:00 Potassium 4.6 mmol/L (3.6-5.0) 11/10/18 07:00 Chloride 99.9 mmol/L (98-107) 11/10/18 07:00 Carbon Dioxide 24 mmol/L (22-30) 11/10/18 07:00 19 mmol/L 11/10/18 07:00 BUN 37 mg/dL (9-20) H 11/10/18 07:00 5.2 mg/dL (0.8-1.5) H 11/10/18 07:00 Estimated GFR 15 ml/min 11/10/18 07:00 7 % 11/10/18 07:00 Glucose 115 mg/dL (75-100) H 11/10/18 07:00 Calcium 9.3 mg/dL (8.4-10.2) 11/10/18 07:00 Magnesium 1.90 mg/dL (1.7-2.3) 11/02/18 12:59 0.80 mg/dL (0.1-1.2) 11/01/18 06:29 < 0.2 mg/dL (0-0.2) 11/01/18 06:29 0.6 mg/dL 11/01/18 06:29 AST 26 units/L (5-40) 11/01/18 06:29 ALT 11 units/L (7-56) 11/01/18 06:29 70 units/L (35-129) 11/01/18 06:29 133 units/L (55-170) 11/01/18 06:29 CK-MB (CK-2) 4.2 ng/mL (0.0-4.0) H 11/01/18 06:29 CK-MB (CK-2) Rel Index 3.1 (0-4) 11/01/18 06:29 0.173 ng/mL (0.00-0.029) H* 11/01/18 06:29 NT-Pro-B Natriuret Pep 92806 pg/mL (0-450) H 11/01/18 06:29 7.4 g/dL (6.3-8.2) 11/01/18 06:29 3.7 g/dL (3.9-5) L 11/01/18 06:29 1.0 % 11/01/18 06:29 Triglycerides 158 mg/dL (2-149) H 11/01/18 05:26 Cholesterol 206 mg/dL (50-199) H 11/01/18 05:26 158 mg/dL (50-130) H 11/01/18 05:26 45 mg/dL (40-59) 11/01/18 05:26 4.57 % 11/01/18 05:26 Red (Yellow) 11/01/18 08:11 Slightly-cloudy (Clear) 11/01/18 08:11 6.0 (5.0-7.0) 11/01/18 08:11 Ur Specific [place] 1.013 (1.003-1.030) 11/01/18 08:11 >500 mg/dL (Negative) 11/01/18 08:11 150 mg/dL (Negative) 11/01/18 08:11 Neg mg/dL (Negative) 11/01/18 08:11 Lg (Negative) 11/01/18 08:11 Neg (Negative) 11/01/18 08:11 Neg (Negative) 11/01/18 08:11 < 2.0 mg/dL (<2.0) 11/01/18 08:11 Ur Leukocyte Esterase Neg (Negative) 11/01/18 08:11 3.0 /HPF (0.0-6.0) 11/01/18 08:11 > 182.0 /HPF (0.0-6.0) 11/01/18 08:11 U Epithel Cells (Auto) < 1.0 /HPF (0-13.0) 11/01/18 08:11 Few /HPF 11/01/18 08:11 119.6 mg/dL (0.1-20.0) H 11/01/18 11:45 53 mmol/L 11/01/18 11:45 105 mg/dL (5-11.8) H 11/01/18 11:45 Presumptive negative 11/01/18 08:11 Presumptive negative 11/01/18 08:11 Ur Barbiturates Screen Presumptive negative 11/01/18 08:11 Ur Phencyclidine Scrn Presumptive negative 11/01/18 08:11 Ur Amphetamines Screen Presumptive negative 11/01/18 08:11 U Benzodiazepines Scrn Presumptive negative 11/01/18 08:11 Presumptive negative 11/01/18 08:11 U Marijuana (THC) Screen Presumptive positive 11/01/18 08:11 Disclamer 11/01/18 08:11 Immunofix Electrophor see below 11/01/18 13:47 JORDYN Screen Negative (Negative) 11/01/18 13:47 Proteinase 3 (PR3) Ab <1.0 AI (<1.0) 11/01/18 13:47 Myeloperoxidase Ab <1.0 AI (<1.0) 11/01/18 13:47 Hepatitis A IgM Ab Non-reactive (NonReactive) 11/01/18 Unknown Hep Bs Antigen Non-reactive (Negative) 11/01/18 Unknown Hep B Core IgM Ab Non-reactive (NonReactive) 11/01/18 Unknown Non-reactive (NonReactive) 11/01/18 Unknown Flexitest 1 H 11/02/18 12:19 Active Medications - Current Medications Current Medications: Generic Name Dose Route Start Last Admin Trade Name Freq PRN Reason Stop Dose Admin Acetaminophen 650 mg 11/06/18 02:32 11/12/18 21:06 Tylenol PO 650 mg Q4H PRN Administration Pain, Mild (1-3) Doxazosin Mesylate 2 mg 11/05/18 22:00 11/13/18 09:41 Cardura PO 2 mg BID ZUNILDA Administration Heparin Sodium (Porcine) 5,000 unit 11/06/18 22:00 11/13/18 09:44 Heparin SUB-Q 5,000 unit Q12HR ZUNILDA Administration Hydralazine HCl 10 mg 11/03/18 02:54 11/12/18 23:55 Apresoline IV 10 mg Q6H PRN Administration Blood Pressure Hydralazine HCl 50 mg 11/08/18 15:00 11/13/18 05:51 Apresoline PO 50 mg Q8HR ZUNILDA Administration Sodium Chloride 100 mls @ 999 mls/hr 11/03/18 09:00 Nacl 0.9% IV JOSÉ MANUEL PRN Hypotension Labetalol HCl 300 mg 11/03/18 22:00 11/13/18 09:42 Normodyne PO 300 mg BID ZUNILDA Administration Losartan Potassium 100 mg 11/05/18 17:42 11/13/18 09:43 Cozaar PO 100 mg QDAY ZUNILDA Administration Morphine Sulfate 2 mg 11/01/18 21:51 11/09/18 20:12 Morphine IV 2 mg Q4H PRN Administration Pain, Moderate (4-6) Nifedipine 60 mg 11/05/18 10:00 11/13/18 09:44 Procardia Xl PO 60 mg Q12HR ZUNILDA Administration Nitroglycerin 0.4 mg 11/01/18 05:33 11/01/18 06:20 Nitrostat SL 0.4 mg .Q5MIN PRN Administration Chest Pain Ondansetron HCl 4 mg 11/03/18 23:07 11/03/18 23:48 Zofran IV 4 mg Q6H PRN Administration Nausea And Vomiting Spironolactone 50 mg 11/02/18 13:00 11/13/18 09:43 Aldactone PO 50 mg QDAY ZUNILDA Administration Nutrition/Malnutrition Assess - Dietary Evaluation Nutrition/Malnutrition Findings: Nutrition Notes Start: 11/09/18 16:11 Freq: Status: Active Protocol: Document 11/11/18 15:40 RM (Rec: 11/11/18 15:53 RM [id number]) Nutrition Notes Initial or Follow up Reassessment Current Diagnosis Acute Kidney Injury,CKD (stage V CKD),Hypertension Current Diet renal Labs/Tests BUN 37 Cr 5.2 Height 5 ft 4 in Weight 62.2 kg [place] Body Weight (kg) 59.09 BMI 23.5 Subjective/Other Information Pt stated that his appetite is good and that he eats all of his meals. Percent of energy/protein needs met: 100%/100% Burn Absent Trauma Absent #2 Nutrition Diagnosis Food and nutrition-related knowledge deficit As Evidenced by Signs and Symptoms pt received diet education Diagnosis Progress(for reassessment Resolved documentation) #1 Nutrition Diagnosis Inadequate oral intake As Evidenced by Signs and Symptoms pt meeting 100% of calorie and protein needs Diagnosis Progress(for reassessment Resolved documentation) Is patient on ventilator? No Is Patient Ambulatory and/or Out of Bed Yes REE-([facility]-ambulatory/OOB) [ 1895.400 NUTR.MSJOOB] Calculation Used for Recommendations [facility] Additional Notes Protein: 37-50g (0.6-0.8g/kg) Fluid needs: 1-1.2 L OR PER MD RECOMMENDATION Nutrition Intervention Change Diet Order: Continue current Goal #1 Continue to meet at least 75% of calorie and protein needs via PO intakes Revisit per MD consult or patient Sign Off request:
--- NOTE | 2018-11-13 13:53 | Progress Note ---
Assessment and Plan Assesment: * Acute kidney injury secondary to unclear etiology vs underlying chronic kidney disease- reviewed records from [facility]- creatinine in June 2018 was 2.6, with known history of uncontrolled hypertension (was not on medications regularly) for almost 10 years. Father on dialysis (home modality); given chronicity of uncontrolled hypertension, baseline creatinine elevated several months ago, and strong family history of kidney disease requiring dialysis, patient's presentation consistent with ESRD --Hemodialysis initiation Nov 01, 2018 * Accelerated hypertension * Dyspnea- improved --CXR: unremarkable --CTA chest: no PE Plan: * Continue TTS schedule; s/p permacath * Cardiology recommendations reviewed * Serologies negative- ANCA, JORDYN, immunofixation negative. Unlikely that biopsy would provide further clarity or benefit given chronicity of hypertension and CKD * Discussed at length with patient regarding renal prognosis- patient has residual renal function but cannot be discharged from hospital without josé manuel lysis plan, given lab numbers and assessment as above. Patient aware that he will need dialysis outpatient, and ultimately would benefit from transplant evaluation once stable. Patient understands that leaving AMA would complicate dialysis planning * Continue hydralazine 50mg TID, losartan, spironolactone, doxazosin for HTN * Dose medications for renal function * Avoid potential nephrotoxic agents * CM for outpatient hemodialysis placement, appreciate assistance Thank you for this consult; we will continue to follow closely with you. Please do not hesitate to call us with questions or concerns. Subjective Date of service: 11/13/18 Principal diagnosis: HTN Interval history: No acute concerns today; ready to go home but waiting on placement Objective - Exam Narrative Exam: General appearance: well-developed, well-nourished EENT: ATNC Respiratory: Clear to Auscultation Cardiology: regular, S1S2 Gastrointestinal: normal, no tenderness, no distended Integumentary: no rash, warm and dry Musculoskeletal: no edema. RIJ CVC noted Psychiatric: mood/affect appropriate, cooperative - Vital Signs Vital signs: Vital Signs - 12hr 11/13/18 11/13/18 11/13/18 05:32 09:41 09:42 Temperature 98.6 F Pulse Rate 90 88 Respiratory 18 18 Rate Blood Pressure 142/85 146/91 146/91 O2 Sat by Pulse 98 98 Oximetry 11/13/18 11/13/18 09:43 11:56 Temperature 98.5 F Pulse Rate 81 Respiratory 18 Rate Blood Pressure 146/91 130/86 O2 Sat by Pulse 95 Oximetry - Lab 11/05/18 04:31 11/10/18 07:00 Most recent lab results Calcium 9.3 mg/dL (8.4-10.2) 11/10/18 07:00 Magnesium 1.90 mg/dL (1.7-2.3) 11/02/18 12:59 119.6 mg/dL (0.1-20.0) H 11/01/18 11:45 53 mmol/L 11/01/18 11:45 105 mg/dL (5-11.8) H 11/01/18 11:45 Medications & Allergies - Medications Allergies/Adverse Reactions: Allergies No Known Allergies Allergy (Unverified 11/01/18 04:56) Home Medications: Home Medications Medication Instructions Recorded Confirmed Last Taken Type Clonidine HCl 0.1 mg PO DAILY 11/01/18 11/01/18 3 Months Ago History ~08/01/18 amLODIPine 5 mg PO BID 11/01/18 11/01/18 3 Months Ago History ~08/01/18 Active Medications: Generic Name Dose Route Start Last Admin Trade Name Freq PRN Reason Stop Dose Admin Acetaminophen 650 mg 11/06/18 02:32 11/12/18 21:06 Tylenol PO 650 mg Q4H PRN Administration Pain, Mild (1-3) Doxazosin Mesylate 2 mg 11/05/18 22:00 11/13/18 09:41 Cardura PO 2 mg BID ZUNILDA Administration Heparin Sodium (Porcine) 5,000 unit 11/06/18 22:00 11/13/18 09:44 Heparin SUB-Q 5,000 unit Q12HR ZUNILDA Administration Hydralazine HCl 10 mg 11/03/18 02:54 11/12/18 23:55 Apresoline IV 10 mg Q6H PRN Administration Blood Pressure Hydralazine HCl 50 mg 11/08/18 15:00 11/13/18 05:51 Apresoline PO 50 mg Q8HR ZUNILDA Administration Sodium Chloride 100 mls @ 999 mls/hr 11/03/18 09:00 Nacl 0.9% IV JOSÉ MANUEL PRN Hypotension Labetalol HCl 300 mg 11/03/18 22:00 11/13/18 09:42 Normodyne PO 300 mg BID ZUNILDA Administration Losartan Potassium 100 mg 11/05/18 17:42 11/13/18 09:43 Cozaar PO 100 mg QDAY ZUNILDA Administration Morphine Sulfate 2 mg 11/01/18 21:51 11/09/18 20:12 Morphine IV 2 mg Q4H PRN Administration Pain, Moderate (4-6) Nifedipine 60 mg 11/05/18 10:00 11/13/18 09:44 Procardia Xl PO 60 mg Q12HR ZUNILDA Administration Nitroglycerin 0.4 mg 11/01/18 05:33 11/01/18 06:20 Nitrostat SL 0.4 mg .Q5MIN PRN Administration Chest Pain Ondansetron HCl 4 mg 11/03/18 23:07 11/03/18 23:48 Zofran IV 4 mg Q6H PRN Administration Nausea And Vomiting Spironolactone 50 mg 11/02/18 13:00 11/13/18 09:43 Aldactone PO 50 mg QDAY ZUNILDA Administration
[2018-11-14] MEDS: APRESOLINE PO SCH ×3 (06:06→22:21)
--- NOTE | 2018-11-14 09:50 | Progress Note ---
Assessment and Plan Assessment and plan: Acute on CKD. However patient likely has pronounced kidney disease secondary to hypertension, and renal US Kidneys shows chronic kidney disease. Nephrology following. Will need outpatient hemodialysis. discussed with case briefer few days ago For Permcath today Accelerated hypertension/malignant. On labetalol, Cozaar, Doxazosin scheduled and Hydralaizine prn. Elevated Troponin. Etiology likely secondary to renal insufficiency. Chest pain. CTA revealed no evidence of aortic dissection. Cardiology following. Stress test cancelled Hypokalemia. Replaced. Hyperlipidemia. Full code status. Medically stable to ri home when dialysis arranged. History Interval history: No new issues overnight Hospitalist Physical - Constitutional Vitals: Temp Pulse Resp BP Pulse Ox 98.7 F 87 16 160/103 96 11/14/18 05:04 11/14/18 06:06 11/14/18 05:04 11/14/18 06:06 11/14/18 05:04 General appearance: Present: no acute distress - EENT Eyes: Present: PERRL, EOM intact ENT: hearing intact, clear oral mucosa, dentition normal - Neck Neck: Present: supple, normal ROM - Respiratory Respiratory effort: normal Respiratory: bilateral: CTA - Cardiovascular Rhythm: regular Heart Sounds: Present: S1 & S2. Absent: gallop, rub - Extremities Extremities: no ischemia, No edema, Full ROM - Abdominal General gastrointestinal: soft, non-tender, non-distended, normal bowel sounds - Integumentary Integumentary: Present: clear, warm, dry - Neurologic Neurologic: CNII-XII intact, moves all extremities Results - Labs CBC & Chem 7: 11/05/18 04:31 11/10/18 07:00 Labs: Laboratory Last Values WBC 6.8 K/mm3 (4.5-11.0) 11/05/18 04:31 RBC 3.50 M/mm3 (3.65-5.03) L 11/05/18 04:31 Hgb 10.5 gm/dl (11.8-15.2) L 11/05/18 04:31 Hct 30.9 % (35.5-45.6) L 11/05/18 04:31 MCV 88 fl (84-94) 11/05/18 04:31 MCH 30 pg (28-32) 11/05/18 04:31 MCHC 34 % (32-34) 11/05/18 04:31 RDW 17.9 % (13.2-15.2) H 11/05/18 04:31 Plt Count 214 K/mm3 (140-440) 11/05/18 04:31 Lymph % (Auto) 10.1 % (13.4-35.0) L 11/01/18 05:26 [place] % (Auto) 9.6 % (0.0-7.3) H 11/01/18 05:26 Eos % (Auto) 3.3 % (0.0-4.3) 11/01/18 05:26 Baso % (Auto) 1.0 % (0.0-1.8) 11/01/18 05:26 Lymph # 0.9 K/mm3 (1.2-5.4) L 11/01/18 05:26 [place] # 0.9 K/mm3 (0.0-0.8) H 11/01/18 05:26 Eos # 0.3 K/mm3 (0.0-0.4) 11/01/18 05:26 Baso # 0.1 K/mm3 (0.0-0.1) 11/01/18 05:26 Seg Neutrophils % 76.0 % (40.0-70.0) H 11/01/18 05:26 Seg Neutrophils # 6.9 K/mm3 (1.8-7.7) 11/01/18 05:26 PT 13.7 Sec. (12.2-14.9) 11/01/18 06:29 INR 1.08 (0.87-1.13) 11/01/18 06:29 APTT 30.3 Sec. (24.2-36.6) 11/01/18 06:29 1703.12 ng/mlDDU (0-234) H 11/01/18 06:29 Sodium 138 mmol/L (137-145) 11/10/18 07:00 Potassium 4.6 mmol/L (3.6-5.0) 11/10/18 07:00 Chloride 99.9 mmol/L (98-107) 11/10/18 07:00 Carbon Dioxide 24 mmol/L (22-30) 11/10/18 07:00 19 mmol/L 11/10/18 07:00 BUN 37 mg/dL (9-20) H 11/10/18 07:00 5.2 mg/dL (0.8-1.5) H 11/10/18 07:00 Estimated GFR 15 ml/min 11/10/18 07:00 7 % 11/10/18 07:00 Glucose 115 mg/dL (75-100) H 11/10/18 07:00 Calcium 9.3 mg/dL (8.4-10.2) 11/10/18 07:00 Magnesium 1.90 mg/dL (1.7-2.3) 11/02/18 12:59 0.80 mg/dL (0.1-1.2) 11/01/18 06:29 < 0.2 mg/dL (0-0.2) 11/01/18 06:29 0.6 mg/dL 11/01/18 06:29 AST 26 units/L (5-40) 11/01/18 06:29 ALT 11 units/L (7-56) 11/01/18 06:29 70 units/L (35-129) 11/01/18 06:29 133 units/L (55-170) 11/01/18 06:29 CK-MB (CK-2) 4.2 ng/mL (0.0-4.0) H 11/01/18 06:29 CK-MB (CK-2) Rel Index 3.1 (0-4) 11/01/18 06:29 0.173 ng/mL (0.00-0.029) H* 11/01/18 06:29 NT-Pro-B Natriuret Pep 57406 pg/mL (0-450) H 11/01/18 06:29 7.4 g/dL (6.3-8.2) 11/01/18 06:29 3.7 g/dL (3.9-5) L 11/01/18 06:29 1.0 % 11/01/18 06:29 Triglycerides 158 mg/dL (2-149) H 11/01/18 05:26 Cholesterol 206 mg/dL (50-199) H 11/01/18 05:26 158 mg/dL (50-130) H 11/01/18 05:26 45 mg/dL (40-59) 11/01/18 05:26 4.57 % 11/01/18 05:26 Red (Yellow) 11/01/18 08:11 Slightly-cloudy (Clear) 11/01/18 08:11 6.0 (5.0-7.0) 11/01/18 08:11 Ur Specific [place] 1.013 (1.003-1.030) 11/01/18 08:11 >500 mg/dL (Negative) 11/01/18 08:11 150 mg/dL (Negative) 11/01/18 08:11 Neg mg/dL (Negative) 11/01/18 08:11 Lg (Negative) 11/01/18 08:11 Neg (Negative) 11/01/18 08:11 Neg (Negative) 11/01/18 08:11 < 2.0 mg/dL (<2.0) 11/01/18 08:11 Ur Leukocyte Esterase Neg (Negative) 11/01/18 08:11 3.0 /HPF (0.0-6.0) 11/01/18 08:11 > 182.0 /HPF (0.0-6.0) 11/01/18 08:11 U Epithel Cells (Auto) < 1.0 /HPF (0-13.0) 11/01/18 08:11 Few /HPF 11/01/18 08:11 119.6 mg/dL (0.1-20.0) H 11/01/18 11:45 53 mmol/L 11/01/18 11:45 105 mg/dL (5-11.8) H 11/01/18 11:45 Presumptive negative 11/01/18 08:11 Presumptive negative 11/01/18 08:11 Ur Barbiturates Screen Presumptive negative 11/01/18 08:11 Ur Phencyclidine Scrn Presumptive negative 11/01/18 08:11 Ur Amphetamines Screen Presumptive negative 11/01/18 08:11 U Benzodiazepines Scrn Presumptive negative 11/01/18 08:11 Presumptive negative 11/01/18 08:11 U Marijuana (THC) Screen Presumptive positive 11/01/18 08:11 Disclamer 11/01/18 08:11 Immunofix Electrophor see below 11/01/18 13:47 JORDYN Screen Negative (Negative) 11/01/18 13:47 Proteinase 3 (PR3) Ab <1.0 AI (<1.0) 11/01/18 13:47 Myeloperoxidase Ab <1.0 AI (<1.0) 11/01/18 13:47 Hepatitis A IgM Ab Non-reactive (NonReactive) 11/01/18 Unknown Hep Bs Antigen Non-reactive (Negative) 11/01/18 Unknown Hep B Core IgM Ab Non-reactive (NonReactive) 11/01/18 Unknown Non-reactive (NonReactive) 11/01/18 Unknown Flexitest 1 H 11/02/18 12:19 Active Medications - Current Medications Current Medications: Generic Name Dose Route Start Last Admin Trade Name Freq PRN Reason Stop Dose Admin Acetaminophen 650 mg 11/06/18 02:32 11/12/18 21:06 Tylenol PO 650 mg Q4H PRN Administration Pain, Mild (1-3) Doxazosin Mesylate 2 mg 11/05/18 22:00 11/13/18 22:06 Cardura PO 2 mg BID ZUNILDA Administration Heparin Sodium (Porcine) 5,000 unit 11/06/18 22:00 11/13/18 22:10 Heparin SUB-Q 5,000 unit Q12HR ZUNILDA Administration Hydralazine HCl 10 mg 11/03/18 02:54 11/12/18 23:55 Apresoline IV 10 mg Q6H PRN Administration Blood Pressure Hydralazine HCl 50 mg 11/08/18 15:00 11/14/18 06:06 Apresoline PO 50 mg Q8HR ZUNILDA Administration Sodium Chloride 100 mls @ 999 mls/hr 11/03/18 09:00 Nacl 0.9% IV JOSÉ MANUEL PRN Hypotension Labetalol HCl 300 mg 11/03/18 22:00 11/13/18 22:07 Normodyne PO 300 mg BID ZUNILDA Administration Losartan Potassium 100 mg 11/05/18 17:42 11/13/18 09:43 Cozaar PO 100 mg QDAY ZUNILDA Administration Morphine Sulfate 2 mg 11/01/18 21:51 11/09/18 20:12 Morphine IV 2 mg Q4H PRN Administration Pain, Moderate (4-6) Nifedipine 60 mg 11/05/18 10:00 11/13/18 22:06 Procardia Xl PO 60 mg Q12HR ZUNILDA Administration Nitroglycerin 0.4 mg 11/01/18 05:33 11/01/18 06:20 Nitrostat SL 0.4 mg .Q5MIN PRN Administration Chest Pain Ondansetron HCl 4 mg 11/03/18 23:07 11/03/18 23:48 Zofran IV 4 mg Q6H PRN Administration Nausea And Vomiting Spironolactone 50 mg 11/02/18 13:00 11/13/18 09:43 Aldactone PO 50 mg QDAY ZUNILDA Administration Nutrition/Malnutrition Assess - Dietary Evaluation Nutrition/Malnutrition Findings: Nutrition Notes Start: 11/09/18 16:11 Freq: Status: Active Protocol: Document 11/11/18 15:40 RM (Rec: 11/11/18 15:53 RM [id number]) Nutrition Notes Initial or Follow up Reassessment Current Diagnosis Acute Kidney Injury,CKD (stage V CKD),Hypertension Current Diet renal Labs/Tests BUN 37 Cr 5.2 Height 5 ft 4 in Weight 62.2 kg [place] Body Weight (kg) 59.09 BMI 23.5 Subjective/Other Information Pt stated that his appetite is good and that he eats all of his meals. Percent of energy/protein needs met: 100%/100% Burn Absent Trauma Absent #2 Nutrition Diagnosis Food and nutrition-related knowledge deficit As Evidenced by Signs and Symptoms pt received diet education Diagnosis Progress(for reassessment Resolved documentation) #1 Nutrition Diagnosis Inadequate oral intake As Evidenced by Signs and Symptoms pt meeting 100% of calorie and protein needs Diagnosis Progress(for reassessment Resolved documentation) Is patient on ventilator? No Is Patient Ambulatory and/or Out of Bed Yes REE-([facility]-ambulatory/OOB) [ [id number] [id number]] Calculation Used for Recommendations [facility] Additional Notes Protein: 37-50g (0.6-0.8g/kg) Fluid needs: 1-1.2 L OR PER MD RECOMMENDATION Nutrition Intervention Change Diet Order: Continue current Goal #1 Continue to meet at least 75% of calorie and protein needs via PO intakes Revisit per MD consult or patient Sign Off request:
[2018-11-14] MEDS: HEPARIN SUB-Q SCH ×2 (10:00→22:24)
[2018-11-14] MEDS ORDERED: NACL 0.9 (PRIMING MACHINE ONLY DIALYSIS) MC ONE (12:38)
--- NOTE | 2018-11-14 13:05 | Progress Note ---
Assessment and Plan Assesment: * ESRD--new onset --Hemodialysis initiation Nov 01, 2018 * Accelerated hypertension * Dyspnea- improved --CXR: unremarkable --CTA chest: no PE Plan: * Continue TTS schedule; s/p permacath * Cardiology recommendations reviewed * Serologies negative- ANCA, JORDYN, immunofixation negative. Unlikely that biopsy would provide further clarity or benefit given chronicity of hypertension and CKD * Discussed at length with patient regarding renal prognosis- patient has residual renal function but cannot be discharged from hospital without dialysis plan, given lab numbers and assessment as above. Patient aware that he will need dialysis outpatient, and ultimately would benefit from transplant evaluation once stable. Patient understands that leaving AMA would complicate dialysis planning * Continue HTN meds * Dose medications for renal function * Avoid potential nephrotoxic agents * CM for outpatient hemodialysis placement, appreciate assistance * ok to dc once outpatient hd arranged Subjective Date of service: 11/21/18 Principal diagnosis: HTN Interval history: resting in bed today Objective - Exam Narrative Exam: General appearance: well-developed, well-nourished EENT: ATNC Respiratory: Clear to Auscultation Cardiology: regular, S1S2 Gastrointestinal: normal, no tenderness, no distended Integumentary: no rash, warm and dry Musculoskeletal: no edema. RIJ CVC noted Psychiatric: mood/affect appropriate, cooperative - Vital Signs Vital signs: Vital Signs - 12hr 11/14/18 11/14/18 11/14/18 05:04 06:06 10:25 Temperature 98.7 F Pulse Rate 87 87 88 Respiratory 16 Rate Blood Pressure 160/103 160/103 176/94 O2 Sat by Pulse 96 Oximetry 11/14/18 11/14/18 11/14/18 10:40 10:45 11:00 Temperature 98.5 F Pulse Rate 88 86 88 Respiratory 16 Rate Blood Pressure 176/94 171/93 170/96 O2 Sat by Pulse Oximetry 11/14/18 11/14/18 11/14/18 11:15 11:30 11:45 Temperature Pulse Rate 89 91 H 89 Respiratory Rate Blood Pressure 171/93 168/85 159/86 O2 Sat by Pulse Oximetry 11/14/18 11/14/18 11/14/18 12:00 12:15 12:30 Temperature Pulse Rate 89 89 89 Respiratory Rate Blood Pressure 158/87 152/82 159/87 O2 Sat by Pulse Oximetry - Lab 11/05/18 04:31 11/10/18 07:00 Most recent lab results Calcium 9.3 mg/dL (8.4-10.2) 11/10/18 07:00 Magnesium 1.90 mg/dL (1.7-2.3) 11/02/18 12:59 119.6 mg/dL (0.1-20.0) H 11/01/18 11:45 53 mmol/L 11/01/18 11:45 105 mg/dL (5-11.8) H 11/01/18 11:45 Medications & Allergies - Medications Allergies/Adverse Reactions: Allergies No Known Allergies Allergy (Unverified 11/01/18 04:56) Home Medications: Home Medications Medication Instructions Recorded Confirmed Last Taken Type Clonidine HCl 0.1 mg PO DAILY 11/01/18 11/01/18 3 Months Ago History ~08/01/18 amLODIPine 5 mg PO BID 11/01/18 11/01/18 3 Months Ago History ~08/01/18 Active Medications: Generic Name Dose Route Start Last Admin Trade Name [place] PRN Reason Stop Dose Admin Acetaminophen 650 mg 11/06/18 02:32 11/12/18 21:06 Tylenol PO 650 mg Q4H PRN Administration Pain, Mild (1-3) Doxazosin Mesylate 2 mg 11/05/18 22:00 11/13/18 22:06 Cardura PO 2 mg BID ZUNILDA Administration Heparin Sodium (Porcine) 5,000 unit 11/06/18 22:00 11/14/18 10:00 Heparin SUB-Q Not Given Q12HR ZUNILDA Hydralazine HCl 10 mg 11/03/18 02:54 11/12/18 23:55 Apresoline IV 10 mg Q6H PRN Administration Blood Pressure Hydralazine HCl 50 mg 11/08/18 15:00 11/14/18 06:06 Apresoline PO 50 mg Q8HR ZUNILDA Administration Sodium Chloride 100 mls @ 999 mls/hr 11/03/18 09:00 Nacl 0.9% IV JOSÉ MANUEL PRN Hypotension Labetalol HCl 300 mg 11/03/18 22:00 11/13/18 22:07 Normodyne PO 300 mg BID ZUNILDA Administration Losartan Potassium 100 mg 11/05/18 17:42 11/13/18 09:43 Cozaar PO 100 mg QDAY ZUNILDA Administration Morphine Sulfate 2 mg 11/01/18 21:51 11/09/18 20:12 Morphine IV 2 mg Q4H PRN Administration Pain, Moderate (4-6) Nifedipine 60 mg 11/05/18 10:00 11/13/18 22:06 Procardia Xl PO 60 mg Q12HR ZUNILDA Administration Nitroglycerin 0.4 mg 11/01/18 05:33 11/01/18 06:20 Nitrostat SL 0.4 mg .Q5MIN PRN Administration Chest Pain Ondansetron HCl 4 mg 11/03/18 23:07 11/03/18 23:48 Zofran IV 4 mg Q6H PRN Administration Nausea And Vomiting Spironolactone 50 mg 11/02/18 13:00 11/13/18 09:43 Aldactone PO 50 mg QDAY ZUNILDA Administration
[2018-11-14] MEDS: PROCARDIA XL PO SCH ×2 (14:58→22:23)
[2018-11-14] MEDS: NORMODYNE PO SCH ×2 (14:58→22:20)
[2018-11-14] MEDS: ALDACTONE PO SCH (15:01)
[2018-11-14] MEDS: CARDURA PO SCH ×2 (15:01→22:22)
[2018-11-14] MEDS: COZAAR PO SCH (15:01)
[2018-11-14] MEDS: TYLENOL PO PRN (19:54)
[2018-11-15] MEDS: APRESOLINE PO SCH ×3 (05:34→20:34)
--- NOTE | 2018-11-15 09:23 | Progress Note ---
Assessment and Plan Assessment and plan: Acute on CKD. However patient likely has pronounced kidney disease secondary to hypertension, and renal US Kidneys shows chronic kidney disease. Nephrology following. Will need outpatient hemodialysis. discussed with nurse case manager few days ago For Permcath today Accelerated hypertension/malignant. On labetalol, Cozaar, Doxazosin scheduled and Hydralaizine prn. Elevated Troponin. Etiology likely secondary to renal insufficiency. Chest pain. CTA revealed no evidence of aortic dissection. Cardiology following. Stress test cancelled Hypokalemia. Replaced. Hyperlipidemia. Full code status. Medically stable to [place] home when dialysis arranged. History Interval history: No new issues overnight Hospitalist Physical - Constitutional Vitals: Temp Pulse Resp BP Pulse Ox 98.0 F 87 18 132/78 96 11/15/18 05:52 11/15/18 05:52 11/15/18 05:52 11/15/18 05:52 11/15/18 05:52 General appearance: Present: no acute distress - EENT Eyes: Present: PERRL, EOM intact ENT: hearing intact, clear oral mucosa, dentition normal - Neck Neck: Present: supple, normal ROM - Respiratory Respiratory effort: normal Respiratory: bilateral: CTA - Cardiovascular Rhythm: regular Heart Sounds: Present: S1 & S2. Absent: gallop, rub - Extremities Extremities: no ischemia, No edema, Full ROM - Abdominal General gastrointestinal: soft, non-tender, non-distended, normal bowel sounds - Integumentary Integumentary: Present: clear, warm, dry - Neurologic Neurologic: CNII-XII intact, moves all extremities Results - Labs CBC & Chem 7: 11/05/18 04:31 11/10/18 07:00 Labs: Laboratory Last Values WBC 6.8 K/mm3 (4.5-11.0) 11/05/18 04:31 RBC 3.50 M/mm3 (3.65-5.03) L 11/05/18 04:31 Hgb 10.5 gm/dl (11.8-15.2) L 11/05/18 04:31 Hct 30.9 % (35.5-45.6) L 11/05/18 04:31 MCV 88 fl (84-94) 11/05/18 04:31 MCH 30 pg (28-32) 11/05/18 04:31 MCHC 34 % (32-34) 11/05/18 04:31 RDW 17.9 % (13.2-15.2) H 11/05/18 04:31 Plt Count 214 K/mm3 (140-440) 11/05/18 04:31 Lymph % (Auto) 10.1 % (13.4-35.0) L 11/01/18 05:26 [place] % (Auto) 9.6 % (0.0-7.3) H 11/01/18 05:26 Eos % (Auto) 3.3 % (0.0-4.3) 11/01/18 05:26 Baso % (Auto) 1.0 % (0.0-1.8) 11/01/18 05:26 Lymph # 0.9 K/mm3 (1.2-5.4) L 11/01/18 05:26 [place] # 0.9 K/mm3 (0.0-0.8) H 11/01/18 05:26 Eos # 0.3 K/mm3 (0.0-0.4) 11/01/18 05:26 Baso # 0.1 K/mm3 (0.0-0.1) 11/01/18 05:26 Seg Neutrophils % 76.0 % (40.0-70.0) H 11/01/18 05:26 Seg Neutrophils # 6.9 K/mm3 (1.8-7.7) 11/01/18 05:26 PT 13.7 Sec. (12.2-14.9) 11/01/18 06:29 INR 1.08 (0.87-1.13) 11/01/18 06:29 APTT 30.3 Sec. (24.2-36.6) 11/01/18 06:29 1703.12 ng/mlDDU (0-234) H 11/01/18 06:29 Sodium 138 mmol/L (137-145) 11/10/18 07:00 Potassium 4.6 mmol/L (3.6-5.0) 11/10/18 07:00 Chloride 99.9 mmol/L (98-107) 11/10/18 07:00 Carbon Dioxide 24 mmol/L (22-30) 11/10/18 07:00 19 mmol/L 11/10/18 07:00 BUN 37 mg/dL (9-20) H 11/10/18 07:00 5.2 mg/dL (0.8-1.5) H 11/10/18 07:00 Estimated GFR 15 ml/min 11/10/18 07:00 7 % 11/10/18 07:00 Glucose 115 mg/dL (75-100) H 11/10/18 07:00 Calcium 9.3 mg/dL (8.4-10.2) 11/10/18 07:00 Magnesium 1.90 mg/dL (1.7-2.3) 11/02/18 12:59 0.80 mg/dL (0.1-1.2) 11/01/18 06:29 < 0.2 mg/dL (0-0.2) 11/01/18 06:29 0.6 mg/dL 11/01/18 06:29 AST 26 units/L (5-40) 11/01/18 06:29 ALT 11 units/L (7-56) 11/01/18 06:29 70 units/L (35-129) 11/01/18 06:29 133 units/L (55-170) 11/01/18 06:29 CK-MB (CK-2) 4.2 ng/mL (0.0-4.0) H 11/01/18 06:29 CK-MB (CK-2) Rel Index 3.1 (0-4) 11/01/18 06:29 0.173 ng/mL (0.00-0.029) H* 11/01/18 06:29 NT-Pro-B Natriuret Pep 46916 pg/mL (0-450) H 11/01/18 06:29 7.4 g/dL (6.3-8.2) 11/01/18 06:29 3.7 g/dL (3.9-5) L 11/01/18 06:29 1.0 % 11/01/18 06:29 Triglycerides 158 mg/dL (2-149) H 11/01/18 05:26 Cholesterol 206 mg/dL (50-199) H 11/01/18 05:26 158 mg/dL (50-130) H 11/01/18 05:26 45 mg/dL (40-59) 11/01/18 05:26 4.57 % 11/01/18 05:26 Red (Yellow) 11/01/18 08:11 Slightly-cloudy (Clear) 11/01/18 08:11 6.0 (5.0-7.0) 11/01/18 08:11 Ur Specific [place] 1.013 (1.003-1.030) 11/01/18 08:11 >500 mg/dL (Negative) 11/01/18 08:11 150 mg/dL (Negative) 11/01/18 08:11 Neg mg/dL (Negative) 11/01/18 08:11 Lg (Negative) 11/01/18 08:11 Neg (Negative) 11/01/18 08:11 Neg (Negative) 11/01/18 08:11 < 2.0 mg/dL (<2.0) 11/01/18 08:11 Ur Leukocyte Esterase Neg (Negative) 11/01/18 08:11 3.0 /HPF (0.0-6.0) 11/01/18 08:11 > 182.0 /HPF (0.0-6.0) 11/01/18 08:11 U Epithel Cells (Auto) < 1.0 /HPF (0-13.0) 11/01/18 08:11 Few /HPF 11/01/18 08:11 119.6 mg/dL (0.1-20.0) H 11/01/18 11:45 53 mmol/L 11/01/18 11:45 105 mg/dL (5-11.8) H 11/01/18 11:45 Presumptive negative 11/01/18 08:11 Presumptive negative 11/01/18 08:11 Ur Barbiturates Screen Presumptive negative 11/01/18 08:11 Ur Phencyclidine Scrn Presumptive negative 11/01/18 08:11 Ur Amphetamines Screen Presumptive negative 11/01/18 08:11 U Benzodiazepines Scrn Presumptive negative 11/01/18 08:11 Presumptive negative 11/01/18 08:11 U Marijuana (THC) Screen Presumptive positive 11/01/18 08:11 Disclamer 11/01/18 08:11 Immunofix Electrophor see below 11/01/18 13:47 JORDYN Screen Negative (Negative) 11/01/18 13:47 Proteinase 3 (PR3) Ab <1.0 AI (<1.0) 11/01/18 13:47 Myeloperoxidase Ab <1.0 AI (<1.0) 11/01/18 13:47 Hepatitis A IgM Ab Non-reactive (NonReactive) 11/01/18 Unknown Hep Bs Antigen Non-reactive (Negative) 11/01/18 Unknown Hep B Core IgM Ab Non-reactive (NonReactive) 11/01/18 Unknown Non-reactive (NonReactive) 11/01/18 Unknown Flexitest 1 H 11/02/18 12:19 Active Medications - Current Medications Current Medications: Generic Name Dose Route Start Last Admin Trade Name Freq PRN Reason Stop Dose Admin Acetaminophen 650 mg 11/06/18 02:32 11/14/18 19:54 Tylenol PO 650 mg Q4H PRN Administration Pain, Mild (1-3) Doxazosin Mesylate 2 mg 11/05/18 22:00 11/14/18 22:22 Cardura PO 2 mg BID ZUNILDA Administration Heparin Sodium (Porcine) 5,000 unit 11/06/18 22:00 11/14/18 22:24 Heparin SUB-Q Not Given Q12HR [facility] Hydralazine HCl 10 mg 11/03/18 02:54 11/12/18 23:55 Apresoline IV 10 mg Q6H PRN Administration Blood Pressure Hydralazine HCl 50 mg 11/08/18 15:00 11/15/18 05:34 Apresoline PO 50 mg Q8HR ZUNILDA Administration Sodium Chloride 100 mls @ 999 mls/hr 11/03/18 09:00 Nacl 0.9% IV JOSÉ MANUEL PRN Hypotension Labetalol HCl 300 mg 11/03/18 22:00 11/14/18 22:20 Normodyne PO 300 mg BID ZUNILDA Administration Losartan Potassium 100 mg 11/05/18 17:42 11/14/18 15:01 Cozaar PO 100 mg QDAY ZUNILDA Administration Morphine Sulfate 2 mg 11/01/18 21:51 11/09/18 20:12 Morphine IV 2 mg Q4H PRN Administration Pain, Moderate (4-6) Nifedipine 60 mg 11/05/18 10:00 11/14/18 22:23 Procardia Xl PO 60 mg Q12HR ZUNILDA Administration Nitroglycerin 0.4 mg 11/01/18 05:33 11/01/18 06:20 Nitrostat SL 0.4 mg .Q5MIN PRN Administration Chest Pain Ondansetron HCl 4 mg 11/03/18 23:07 11/03/18 23:48 Zofran IV 4 mg Q6H PRN Administration Nausea And Vomiting Spironolactone 50 mg 11/02/18 13:00 11/14/18 15:01 Aldactone PO 50 mg QDAY ZUNILDA Administration Nutrition/Malnutrition Assess - Dietary Evaluation Nutrition/Malnutrition Findings: Nutrition Notes Start: 11/09/18 16:11 Freq: Status: Active Protocol: Document 11/11/18 15:40 RM (Rec: 11/11/18 15:53 RM [id number]) Nutrition Notes Initial or Follow up Reassessment Current Diagnosis Acute Kidney Injury,CKD (stage V CKD),Hypertension Current Diet renal Labs/Tests BUN 37 Cr 5.2 Height 5 ft 4 in Weight 62.2 kg [place] Body Weight (kg) 59.09 BMI 23.5 Subjective/Other Information Pt stated that his appetite is good and that he eats all of his meals. Percent of energy/protein needs met: 100%/100% Burn Absent Trauma Absent #2 Nutrition Diagnosis Food and nutrition-related knowledge deficit As Evidenced by Signs and Symptoms pt received diet education Diagnosis Progress(for reassessment Resolved documentation) #1 Nutrition Diagnosis Inadequate oral intake As Evidenced by Signs and Symptoms pt meeting 100% of calorie and protein needs Diagnosis Progress(for reassessment Resolved documentation) Is patient on ventilator? No Is Patient Ambulatory and/or Out of Bed Yes REE-([facility]-ambulatory/OOB) [ 1895.400 NUTR.MSJOOB] Calculation Used for Recommendations [facility] Additional Notes Protein: 37-50g (0.6-0.8g/kg) Fluid needs: 1-1.2 L OR PER MD RECOMMENDATION Nutrition Intervention Change Diet Order: Continue current Goal #1 Continue to meet at least 75% of calorie and protein needs via PO intakes Revisit per MD consult or patient Sign Off request:
[2018-11-15] MEDS: HEPARIN SUB-Q SCH ×2 (09:35→21:52)
[2018-11-15] MEDS: NORMODYNE PO SCH ×2 (09:39→21:50)
[2018-11-15] MEDS: PROCARDIA XL PO SCH ×2 (09:40→21:50)
[2018-11-15] MEDS: CARDURA PO SCH ×2 (09:41→21:49)
--- NOTE | 2018-11-15 13:45 | Progress Note ---
Assessment and Plan Assesment: * ESRD--new onset --Hemodialysis initiation Nov 01, 2018 * Accelerated hypertension * Dyspnea- improved --CXR: unremarkable --CTA chest: no PE Plan: * Continue TTS schedule; s/p permacath * Cardiology recommendations reviewed * Serologies negative- ANCA, JORDYN, immunofixation negative. Unlikely that biopsy would provide further clarity or benefit given chronicity of hypertension and CKD * Discussed at length with patient regarding renal prognosis- patient has residual renal function but cannot be discharged from hospital without dialysis plan, given lab numbers and assessment as above. Patient aware that he will need dialysis outpatient, and ultimately would benefit from transplant evaluation once stable. Patient understands that leaving AMA would complicate dialysis planning * Continue HTN meds * Dose medications for renal function * Avoid potential nephrotoxic agents * CM for outpatient hemodialysis placement, appreciate assistance * ok to dc once outpatient hd arranged Subjective Date of service: 11/15/18 Principal diagnosis: HTN Interval history: resting in bed today Objective - Exam Narrative Exam: General appearance: well-developed, well-nourished EENT: ATNC Respiratory: Clear to Auscultation Cardiology: regular, S1S2 Gastrointestinal: normal, no tenderness, no distended Integumentary: no rash, warm and dry Musculoskeletal: no edema. RIJ CVC noted Psychiatric: mood/affect appropriate, cooperative - Vital Signs Vital signs: Vital Signs - 12hr 11/15/18 11/15/18 11/15/18 05:34 05:52 09:41 Temperature 98.0 F Pulse Rate 84 87 89 Respiratory 18 Rate Blood Pressure 145/86 132/78 127/79 O2 Sat by Pulse 96 Oximetry 11/15/18 13:23 Temperature 97.1 F L Pulse Rate 79 Respiratory 16 Rate Blood Pressure 153/101 O2 Sat by Pulse 97 Oximetry - Lab 11/05/18 04:31 11/10/18 07:00 Most recent lab results Calcium 9.3 mg/dL (8.4-10.2) 11/10/18 07:00 Magnesium 1.90 mg/dL (1.7-2.3) 11/02/18 12:59 119.6 mg/dL (0.1-20.0) H 11/01/18 11:45 53 mmol/L 11/01/18 11:45 105 mg/dL (5-11.8) H 11/01/18 11:45 Medications & Allergies - Medications Allergies/Adverse Reactions: Allergies No Known Allergies Allergy (Unverified 11/01/18 04:56) Home Medications: Home Medications Medication Instructions Recorded Confirmed Last Taken Type Clonidine HCl 0.1 mg PO DAILY 11/01/18 11/01/18 3 Months Ago History ~08/01/18 amLODIPine 5 mg PO BID 11/01/18 11/01/18 3 Months Ago History ~08/01/18 Active Medications: Generic Name Dose Route Start Last Admin Trade Name Freq PRN Reason Stop Dose Admin Acetaminophen 650 mg 11/06/18 02:32 11/14/18 19:54 Tylenol PO 650 mg Q4H PRN Administration Pain, Mild (1-3) Doxazosin Mesylate 2 mg 11/05/18 22:00 11/15/18 09:41 Cardura PO 2 mg BID ZUNILDA Administration Heparin Sodium (Porcine) 5,000 unit 11/06/18 22:00 11/15/18 09:35 Heparin SUB-Q Not Given Q12HR [facility] Hydralazine HCl 10 mg 11/03/18 02:54 11/12/18 23:55 Apresoline IV 10 mg Q6H PRN Administration Blood Pressure Sodium Chloride 100 mls @ 999 mls/hr 11/03/18 09:00 Nacl 0.9% IV JOSÉ MANUEL PRN Hypotension Labetalol HCl 300 mg 11/03/18 22:00 11/15/18 09:39 Normodyne PO 300 mg BID ZUNILDA Administration Losartan Potassium 100 mg 11/05/18 17:42 11/14/18 15:01 Cozaar PO 100 mg QDAY ZUNILDA Administration Morphine Sulfate 2 mg 11/01/18 21:51 11/09/18 20:12 Morphine IV 2 mg Q4H PRN Administration Pain, Moderate (4-6) Nifedipine 60 mg 11/05/18 10:00 11/15/18 09:40 Procardia Xl PO 60 mg Q12HR ZUNILDA Administration Nitroglycerin 0.4 mg 11/01/18 05:33 11/01/18 06:20 Nitrostat SL 0.4 mg .Q5MIN PRN Administration Chest Pain Ondansetron HCl 4 mg 11/03/18 23:07 11/03/18 23:48 Zofran IV 4 mg Q6H PRN Administration Nausea And Vomiting Spironolactone 50 mg 11/02/18 13:00 11/14/18 15:01 Aldactone PO 50 mg QDAY ZUNILDA Administration
[2018-11-15] MEDS: COZAAR PO SCH (16:27)
[2018-11-15] MEDS: ALDACTONE PO SCH (16:28)
[2018-11-16] MEDS: APRESOLINE PO SCH ×3 (08:06→21:34)
[2018-11-16] MEDS: COZAAR PO SCH (09:59)
[2018-11-16] MEDS: NORMODYNE PO SCH ×2 (09:59→21:33)
[2018-11-16] MEDS: PROCARDIA XL PO SCH ×2 (10:00→21:34)
[2018-11-16] MEDS: ALDACTONE PO SCH (10:00)
[2018-11-16] MEDS: HEPARIN SUB-Q SCH ×3 (10:01→21:37)
[2018-11-16] MEDS: CARDURA PO SCH ×2 (10:01→21:33)
--- NOTE | 2018-11-16 10:46 | Progress Note ---
Assessment and Plan Assessment and plan: Acute on CKD. However patient likely has pronounced kidney disease secondary to hypertension, and renal US Kidneys shows chronic kidney disease. Nephrology following. Will need outpatient hemodialysis. discussed with case finisher few days ago For Permcath today Accelerated hypertension/malignant. On labetalol, Cozaar, Doxazosin scheduled and Hydralaizine prn. Elevated Troponin. Etiology likely secondary to renal insufficiency. Chest pain. CTA revealed no evidence of aortic dissection. Cardiology following. Stress test cancelled Hypokalemia. Replaced. Hyperlipidemia. Full code status. Medically stable to [place] home when dialysis arranged. History Interval history: No new issues overnight Hospitalist Physical - Constitutional Vitals: Temp Pulse Resp BP Pulse Ox 98.1 F 81 18 150/92 96 11/16/18 05:24 11/16/18 10:01 11/16/18 05:24 11/16/18 10:01 11/16/18 05:24 General appearance: Present: no acute distress - EENT Eyes: Present: PERRL, EOM intact ENT: hearing intact, clear oral mucosa, dentition normal - Neck Neck: Present: supple, normal ROM - Respiratory Respiratory effort: normal Respiratory: bilateral: CTA - Cardiovascular Rhythm: regular Heart Sounds: Present: S1 & S2. Absent: gallop, rub - Extremities Extremities: no ischemia, No edema, Full ROM - Abdominal General gastrointestinal: soft, non-tender, non-distended, normal bowel sounds - Integumentary Integumentary: Present: clear, warm, dry - Neurologic Neurologic: CNII-XII intact, moves all extremities Results - Labs CBC & Chem 7: 11/05/18 04:31 11/10/18 07:00 Labs: Laboratory Last Values WBC 6.8 K/mm3 (4.5-11.0) 11/05/18 04:31 RBC 3.50 M/mm3 (3.65-5.03) L 11/05/18 04:31 Hgb 10.5 gm/dl (11.8-15.2) L 11/05/18 04:31 Hct 30.9 % (35.5-45.6) L 11/05/18 04:31 MCV 88 fl (84-94) 11/05/18 04:31 MCH 30 pg (28-32) 11/05/18 04:31 MCHC 34 % (32-34) 11/05/18 04:31 RDW 17.9 % (13.2-15.2) H 11/05/18 04:31 Plt Count 214 K/mm3 (140-440) 11/05/18 04:31 Lymph % (Auto) 10.1 % (13.4-35.0) L 11/01/18 05:26 [place] % (Auto) 9.6 % (0.0-7.3) H 11/01/18 05:26 Eos % (Auto) 3.3 % (0.0-4.3) 11/01/18 05:26 Baso % (Auto) 1.0 % (0.0-1.8) 11/01/18 05:26 Lymph # 0.9 K/mm3 (1.2-5.4) L 11/01/18 05:26 [place] # 0.9 K/mm3 (0.0-0.8) H 11/01/18 05:26 Eos # 0.3 K/mm3 (0.0-0.4) 11/01/18 05:26 Baso # 0.1 K/mm3 (0.0-0.1) 11/01/18 05:26 Seg Neutrophils % 76.0 % (40.0-70.0) H 11/01/18 05:26 Seg Neutrophils # 6.9 K/mm3 (1.8-7.7) 11/01/18 05:26 PT 13.7 Sec. (12.2-14.9) 11/01/18 06:29 INR 1.08 (0.87-1.13) 11/01/18 06:29 APTT 30.3 Sec. (24.2-36.6) 11/01/18 06:29 1703.12 ng/mlDDU (0-234) H 11/01/18 06:29 Sodium 138 mmol/L (137-145) 11/10/18 07:00 Potassium 4.6 mmol/L (3.6-5.0) 11/10/18 07:00 Chloride 99.9 mmol/L (98-107) 11/10/18 07:00 Carbon Dioxide 24 mmol/L (22-30) 11/10/18 07:00 19 mmol/L 11/10/18 07:00 BUN 37 mg/dL (9-20) H 11/10/18 07:00 5.2 mg/dL (0.8-1.5) H 11/10/18 07:00 Estimated GFR 15 ml/min 11/10/18 07:00 7 % 11/10/18 07:00 Glucose 115 mg/dL (75-100) H 11/10/18 07:00 Calcium 9.3 mg/dL (8.4-10.2) 11/10/18 07:00 Magnesium 1.90 mg/dL (1.7-2.3) 11/02/18 12:59 0.80 mg/dL (0.1-1.2) 11/01/18 06:29 < 0.2 mg/dL (0-0.2) 11/01/18 06:29 0.6 mg/dL 11/01/18 06:29 AST 26 units/L (5-40) 11/01/18 06:29 ALT 11 units/L (7-56) 11/01/18 06:29 70 units/L (35-129) 11/01/18 06:29 133 units/L (55-170) 11/01/18 06:29 CK-MB (CK-2) 4.2 ng/mL (0.0-4.0) H 11/01/18 06:29 CK-MB (CK-2) Rel Index 3.1 (0-4) 11/01/18 06:29 0.173 ng/mL (0.00-0.029) H* 11/01/18 06:29 NT-Pro-B Natriuret Pep 45664 pg/mL (0-450) H 11/01/18 06:29 7.4 g/dL (6.3-8.2) 11/01/18 06:29 3.7 g/dL (3.9-5) L 11/01/18 06:29 1.0 % 11/01/18 06:29 Triglycerides 158 mg/dL (2-149) H 11/01/18 05:26 Cholesterol 206 mg/dL (50-199) H 11/01/18 05:26 158 mg/dL (50-130) H 11/01/18 05:26 45 mg/dL (40-59) 11/01/18 05:26 4.57 % 11/01/18 05:26 Red (Yellow) 11/01/18 08:11 Slightly-cloudy (Clear) 11/01/18 08:11 6.0 (5.0-7.0) 11/01/18 08:11 Ur Specific [place] 1.013 (1.003-1.030) 11/01/18 08:11 >500 mg/dL (Negative) 11/01/18 08:11 150 mg/dL (Negative) 11/01/18 08:11 Neg mg/dL (Negative) 11/01/18 08:11 Lg (Negative) 11/01/18 08:11 Neg (Negative) 11/01/18 08:11 Neg (Negative) 11/01/18 08:11 < 2.0 mg/dL (<2.0) 11/01/18 08:11 Ur Leukocyte Esterase Neg (Negative) 11/01/18 08:11 3.0 /HPF (0.0-6.0) 11/01/18 08:11 > 182.0 /HPF (0.0-6.0) 11/01/18 08:11 U Epithel Cells (Auto) < 1.0 /HPF (0-13.0) 11/01/18 08:11 Few /HPF 11/01/18 08:11 119.6 mg/dL (0.1-20.0) H 11/01/18 11:45 53 mmol/L 11/01/18 11:45 105 mg/dL (5-11.8) H 11/01/18 11:45 Presumptive negative 11/01/18 08:11 Presumptive negative 11/01/18 08:11 Ur Barbiturates Screen Presumptive negative 11/01/18 08:11 Ur Phencyclidine Scrn Presumptive negative 11/01/18 08:11 Ur Amphetamines Screen Presumptive negative 11/01/18 08:11 U Benzodiazepines Scrn Presumptive negative 11/01/18 08:11 Presumptive negative 11/01/18 08:11 U Marijuana (THC) Screen Presumptive positive 11/01/18 08:11 Disclamer 11/01/18 08:11 Immunofix Electrophor see below 11/01/18 13:47 JORDYN Screen Negative (Negative) 11/01/18 13:47 Proteinase 3 (PR3) Ab <1.0 AI (<1.0) 11/01/18 13:47 Myeloperoxidase Ab <1.0 AI (<1.0) 11/01/18 13:47 Hepatitis A IgM Ab Non-reactive (NonReactive) 11/01/18 Unknown Hep Bs Antigen Non-reactive (Negative) 11/01/18 Unknown Hep B Core IgM Ab Non-reactive (NonReactive) 11/01/18 Unknown Non-reactive (NonReactive) 11/01/18 Unknown Flexitest 1 H 11/02/18 12:19 Active Medications - Current Medications Current Medications: Generic Name Dose Route Start Last Admin Trade Name Freq PRN Reason Stop Dose Admin Acetaminophen 650 mg 11/06/18 02:32 11/14/18 19:54 Tylenol PO 650 mg Q4H PRN Administration Pain, Mild (1-3) Doxazosin Mesylate 2 mg 11/05/18 22:00 11/16/18 10:01 Cardura PO 2 mg BID ZUNILDA Administration Heparin Sodium (Porcine) 5,000 unit 11/06/18 22:00 11/16/18 10:01 Heparin SUB-Q Not Given Q12HR [facility] Hydralazine HCl 10 mg 11/03/18 02:54 11/12/18 23:55 Apresoline IV 10 mg Q6H PRN Administration Blood Pressure Hydralazine HCl 100 mg 11/15/18 14:00 11/16/18 08:06 Apresoline PO 100 mg TID ZUNILDA Administration Sodium Chloride 100 mls @ 999 mls/hr 11/03/18 09:00 Nacl 0.9% IV JOSÉ MANUEL PRN Hypotension Labetalol HCl 300 mg 11/03/18 22:00 11/16/18 09:59 Normodyne PO 300 mg BID ZUNILDA Administration Losartan Potassium 100 mg 11/05/18 17:42 11/16/18 09:59 Cozaar PO 100 mg QDAY ZUNILDA Administration Morphine Sulfate 2 mg 11/01/18 21:51 11/09/18 20:12 Morphine IV 2 mg Q4H PRN Administration Pain, Moderate (4-6) Nifedipine 60 mg 11/05/18 10:00 11/16/18 10:00 Procardia Xl PO 60 mg Q12HR ZUNILDA Administration Nitroglycerin 0.4 mg 11/01/18 05:33 11/01/18 06:20 Nitrostat SL 0.4 mg .Q5MIN PRN Administration Chest Pain Ondansetron HCl 4 mg 11/03/18 23:07 11/03/18 23:48 Zofran IV 4 mg Q6H PRN Administration Nausea And Vomiting Spironolactone 50 mg 11/02/18 13:00 11/16/18 10:00 Aldactone PO 50 mg QDAY ZUNILDA Administration Nutrition/Malnutrition Assess - Dietary Evaluation Nutrition/Malnutrition Findings: Nutrition Notes Start: 11/09/18 16:11 Freq: Status: Active Protocol: Document 11/11/18 15:40 RM (Rec: 11/11/18 15:53 RM [id number]) Nutrition Notes Initial or Follow up Reassessment Current Diagnosis Acute Kidney Injury,CKD (stage V CKD),Hypertension Current Diet renal Labs/Tests BUN 37 Cr 5.2 Height 5 ft 4 in Weight 62.2 kg [place] Body Weight (kg) 59.09 BMI 23.5 Subjective/Other Information Pt stated that his appetite is good and that he eats all of his meals. Percent of energy/protein needs met: 100%/100% Burn Absent Trauma Absent #2 Nutrition Diagnosis Food and nutrition-related knowledge deficit As Evidenced by Signs and Symptoms pt received diet education Diagnosis Progress(for reassessment Resolved documentation) #1 Nutrition Diagnosis Inadequate oral intake As Evidenced by Signs and Symptoms pt meeting 100% of calorie and protein needs Diagnosis Progress(for reassessment Resolved documentation) Is patient on ventilator? No Is Patient Ambulatory and/or Out of Bed Yes REE-([facility]-ambulatory/OOB) [ 1895.400 [id number]] Calculation Used for Recommendations [facility] Additional Notes Protein: 37-50g (0.6-0.8g/kg) Fluid needs: 1-1.2 L OR PER MD RECOMMENDATION Nutrition Intervention Change Diet Order: Continue current Goal #1 Continue to meet at least 75% of calorie and protein needs via PO intakes Revisit per MD consult or patient Sign Off request:
--- NOTE | 2018-11-16 11:11 | Progress Note ---
Assessment and Plan - Patient Problems (1) End stage kidney disease Current Visit: Yes Status: Acute Plan to address problem: We'll initiate dialysis Continue dialysis Friday access right IJ PermCath (2) Hypertensive crisis Current Visit: Yes Status: Acute Plan to address problem: Uncontrolled hypertension Continue medications (3) Anemia in chronic kidney disease Current Visit: Yes Status: Acute Plan to address problem: Moderate anemia hemoglobin 10 g/DL 2/2 CKD. (4) Chest pain Current Visit: Yes Status: Acute Qualifiers: Chest pain type: unspecified Qualified Code(s): R07.9 - Chest pain, unspecified Plan to address problem: Chest pain denies any active chest pain Monitor telemetry Subjective Principal diagnosis: HTN Interval history: 38 year old with medical history significant for llongstanding HTN, presenting with worsening renal function initiated on dialysis he is awaiting dialysis Denies any orthopnea PND Denies any fevers or chills has right IJ dialysis catheter Objective - Vital Signs Vital signs: Vital Signs - 12hr 11/16/18 11/16/18 11/16/18 00:06 05:24 09:59 Temperature 98.2 F 98.1 F Pulse Rate 81 81 81 Respiratory 18 18 Rate Blood Pressure 131/87 147/98 150/92 O2 Sat by Pulse 95 96 Oximetry 11/16/18 11/16/18 10:00 10:01 Temperature Pulse Rate 81 81 Respiratory Rate Blood Pressure 150/92 150/92 O2 Sat by Pulse Oximetry - General Appearance General appearance: well-developed, well-nourished EENT: ATNC, PERRL, mucous membranes moist Neck: no JVD Respiratory: Present: Clear to Ascultation Cardiology: regular, S1S2 Gastrointestinal: normal, normoactive bowel sounds Integumentary: no rash Neurologic: alert and oriented x3, CN 3-12 intact Psychiatric: mood/affect appropriate - Lab 11/05/18 04:31 11/10/18 07:00 Most recent lab results Calcium 9.3 mg/dL (8.4-10.2) 11/10/18 07:00 Magnesium 1.90 mg/dL (1.7-2.3) 11/02/18 12:59 119.6 mg/dL (0.1-20.0) H 11/01/18 11:45 53 mmol/L 11/01/18 11:45 105 mg/dL (5-11.8) H 11/01/18 11:45 Medications & Allergies - Medications Allergies/Adverse Reactions: Allergies No Known Allergies Allergy (Unverified 11/01/18 04:56) Home Medications: Home Medications Medication Instructions Recorded Confirmed Last Taken Type Clonidine HCl 0.1 mg PO DAILY 11/01/18 11/01/18 3 Months Ago History ~08/01/18 amLODIPine 5 mg PO BID 11/01/18 11/01/18 3 Months Ago History ~08/01/18 Active Medications: Generic Name Dose Route Start Last Admin Trade Name Freq PRN Reason Stop Dose Admin Acetaminophen 650 mg 11/06/18 02:32 11/14/18 19:54 Tylenol PO 650 mg Q4H PRN Administration Pain, Mild (1-3) Doxazosin Mesylate 2 mg 11/05/18 22:00 11/16/18 10:01 Cardura PO 2 mg BID ZUNILDA Administration Heparin Sodium (Porcine) 5,000 unit 11/06/18 22:00 11/16/18 10:01 Heparin SUB-Q Not Given Q12HR [facility] Hydralazine HCl 10 mg 11/03/18 02:54 11/12/18 23:55 Apresoline IV 10 mg Q6H PRN Administration Blood Pressure Hydralazine HCl 100 mg 11/15/18 14:00 11/16/18 08:06 Apresoline PO 100 mg TID ZUNILDA Administration Sodium Chloride 100 mls @ 999 mls/hr 11/03/18 09:00 Nacl 0.9% IV JOSÉ MANUEL PRN Hypotension Labetalol HCl 300 mg 11/03/18 22:00 11/16/18 09:59 Normodyne PO 300 mg BID ZUNILDA Administration Losartan Potassium 100 mg 11/05/18 17:42 11/16/18 09:59 Cozaar PO 100 mg QDAY ZUNILDA Administration Morphine Sulfate 2 mg 11/01/18 21:51 11/09/18 20:12 Morphine IV 2 mg Q4H PRN Administration Pain, Moderate (4-6) Nifedipine 60 mg 11/05/18 10:00 11/16/18 10:00 Procardia Xl PO 60 mg Q12HR ZUNILDA Administration Nitroglycerin 0.4 mg 11/01/18 05:33 11/01/18 06:20 Nitrostat SL 0.4 mg .Q5MIN PRN Administration Chest Pain Ondansetron HCl 4 mg 11/03/18 23:07 11/03/18 23:48 Zofran IV 4 mg Q6H PRN Administration Nausea And Vomiting Spironolactone 50 mg 11/02/18 13:00 11/16/18 10:00 Aldactone PO 50 mg QDAY ZUNILDA Administration
[2018-11-17] MEDS: COZAAR PO SCH (09:25)
[2018-11-17] MEDS: NORMODYNE PO SCH (09:26)
[2018-11-17] MEDS: PROCARDIA XL PO SCH (09:26)
[2018-11-17] MEDS: ALDACTONE PO SCH (09:27)
[2018-11-17] MEDS: APRESOLINE PO SCH ×2 (09:27→14:00)
[2018-11-17] MEDS: HEPARIN SUB-Q SCH (09:28)
--- NOTE | 2018-11-17 09:30 | Progress Note ---
Hospitalist Physical - Constitutional Vitals: Temp Pulse Resp BP Pulse Ox 98.8 F 85 20 145/91 97 11/17/18 04:52 11/17/18 09:27 11/17/18 08:13 11/17/18 09:26 11/16/18 23:21 General appearance: Present: no acute distress Results - Labs CBC & Chem 7: 11/05/18 04:31 11/10/18 07:00 Labs: Laboratory Last Values WBC 6.8 K/mm3 (4.5-11.0) 11/05/18 04:31 RBC 3.50 M/mm3 (3.65-5.03) L 11/05/18 04:31 Hgb 10.5 gm/dl (11.8-15.2) L 11/05/18 04:31 Hct 30.9 % (35.5-45.6) L 11/05/18 04:31 MCV 88 fl (84-94) 11/05/18 04:31 MCH 30 pg (28-32) 11/05/18 04:31 MCHC 34 % (32-34) 11/05/18 04:31 RDW 17.9 % (13.2-15.2) H 11/05/18 04:31 Plt Count 214 K/mm3 (140-440) 11/05/18 04:31 Lymph % (Auto) 10.1 % (13.4-35.0) L 11/01/18 05:26 [place] % (Auto) 9.6 % (0.0-7.3) H 11/01/18 05:26 Eos % (Auto) 3.3 % (0.0-4.3) 11/01/18 05:26 Baso % (Auto) 1.0 % (0.0-1.8) 11/01/18 05:26 Lymph # 0.9 K/mm3 (1.2-5.4) L 11/01/18 05:26 [place] # 0.9 K/mm3 (0.0-0.8) H 11/01/18 05:26 Eos # 0.3 K/mm3 (0.0-0.4) 11/01/18 05:26 Baso # 0.1 K/mm3 (0.0-0.1) 11/01/18 05:26 Seg Neutrophils % 76.0 % (40.0-70.0) H 11/01/18 05:26 Seg Neutrophils # 6.9 K/mm3 (1.8-7.7) 11/01/18 05:26 PT 13.7 Sec. (12.2-14.9) 11/01/18 06:29 INR 1.08 (0.87-1.13) 11/01/18 06:29 APTT 30.3 Sec. (24.2-36.6) 11/01/18 06:29 1703.12 ng/mlDDU (0-234) H 11/01/18 06:29 Sodium 138 mmol/L (137-145) 11/10/18 07:00 Potassium 4.6 mmol/L (3.6-5.0) 11/10/18 07:00 Chloride 99.9 mmol/L (98-107) 11/10/18 07:00 Carbon Dioxide 24 mmol/L (22-30) 11/10/18 07:00 19 mmol/L 11/10/18 07:00 BUN 37 mg/dL (9-20) H 11/10/18 07:00 5.2 mg/dL (0.8-1.5) H 11/10/18 07:00 Estimated GFR 15 ml/min 11/10/18 07:00 7 % 11/10/18 07:00 Glucose 115 mg/dL (75-100) H 11/10/18 07:00 Calcium 9.3 mg/dL (8.4-10.2) 11/10/18 07:00 Magnesium 1.90 mg/dL (1.7-2.3) 11/02/18 12:59 0.80 mg/dL (0.1-1.2) 11/01/18 06:29 < 0.2 mg/dL (0-0.2) 11/01/18 06:29 0.6 mg/dL 11/01/18 06:29 AST 26 units/L (5-40) 11/01/18 06:29 ALT 11 units/L (7-56) 11/01/18 06:29 70 units/L (35-129) 11/01/18 06:29 133 units/L (55-170) 11/01/18 06:29 CK-MB (CK-2) 4.2 ng/mL (0.0-4.0) H 11/01/18 06:29 CK-MB (CK-2) Rel Index 3.1 (0-4) 11/01/18 06:29 0.173 ng/mL (0.00-0.029) H* 11/01/18 06:29 NT-Pro-B Natriuret Pep 94169 pg/mL (0-450) H 11/01/18 06:29 7.4 g/dL (6.3-8.2) 11/01/18 06:29 3.7 g/dL (3.9-5) L 11/01/18 06:29 1.0 % 11/01/18 06:29 Triglycerides 158 mg/dL (2-149) H 11/01/18 05:26 Cholesterol 206 mg/dL (50-199) H 11/01/18 05:26 158 mg/dL (50-130) H 11/01/18 05:26 45 mg/dL (40-59) 11/01/18 05:26 4.57 % 11/01/18 05:26 Red (Yellow) 11/01/18 08:11 Slightly-cloudy (Clear) 11/01/18 08:11 6.0 (5.0-7.0) 11/01/18 08:11 Ur Specific [place] 1.013 (1.003-1.030) 11/01/18 08:11 >500 mg/dL (Negative) 11/01/18 08:11 150 mg/dL (Negative) 11/01/18 08:11 Neg mg/dL (Negative) 11/01/18 08:11 Lg (Negative) 11/01/18 08:11 Neg (Negative) 11/01/18 08:11 Neg (Negative) 11/01/18 08:11 < 2.0 mg/dL (<2.0) 11/01/18 08:11 Ur Leukocyte Esterase Neg (Negative) 11/01/18 08:11 3.0 /HPF (0.0-6.0) 11/01/18 08:11 > 182.0 /HPF (0.0-6.0) 11/01/18 08:11 U Epithel Cells (Auto) < 1.0 /HPF (0-13.0) 11/01/18 08:11 Few /HPF 11/01/18 08:11 119.6 mg/dL (0.1-20.0) H 11/01/18 11:45 53 mmol/L 11/01/18 11:45 105 mg/dL (5-11.8) H 11/01/18 11:45 Presumptive negative 11/01/18 08:11 Presumptive negative 11/01/18 08:11 Ur Barbiturates Screen Presumptive negative 11/01/18 08:11 Ur Phencyclidine Scrn Presumptive negative 11/01/18 08:11 Ur Amphetamines Screen Presumptive negative 11/01/18 08:11 U Benzodiazepines Scrn Presumptive negative 11/01/18 08:11 Presumptive negative 11/01/18 08:11 U Marijuana (THC) Screen Presumptive positive 11/01/18 08:11 Disclamer 11/01/18 08:11 Immunofix Electrophor see below 11/01/18 13:47 JORDYN Screen Negative (Negative) 11/01/18 13:47 Proteinase 3 (PR3) Ab <1.0 AI (<1.0) 11/01/18 13:47 Myeloperoxidase Ab <1.0 AI (<1.0) 11/01/18 13:47 Hepatitis A IgM Ab Non-reactive (NonReactive) 11/01/18 Unknown Hep Bs Antigen Non-reactive (Negative) 11/01/18 Unknown Hep B Core IgM Ab Non-reactive (NonReactive) 11/01/18 Unknown Non-reactive (NonReactive) 11/01/18 Unknown Flexitest 1 H 11/02/18 12:19 Active Medications - Current Medications Current Medications: Generic Name Dose Route Start Last Admin Trade Name Freq PRN Reason Stop Dose Admin Acetaminophen 650 mg 11/06/18 02:32 11/14/18 19:54 Tylenol PO 650 mg Q4H PRN Administration Pain, Mild (1-3) Doxazosin Mesylate 2 mg 11/05/18 22:00 11/16/18 21:33 Cardura PO 2 mg BID ZUNILDA Administration Heparin Sodium (Porcine) 5,000 unit 11/06/18 22:00 11/17/18 09:28 Heparin SUB-Q Not Given Q12HR ZUNILDA Hydralazine HCl 10 mg 11/03/18 02:54 11/12/18 23:55 Apresoline IV 10 mg Q6H PRN Administration Blood Pressure Hydralazine HCl 100 mg 11/15/18 14:00 11/17/18 09:27 Apresoline PO 100 mg TID ZUNILDA Administration Sodium Chloride 100 mls @ 999 mls/hr 11/03/18 09:00 Nacl 0.9% IV JOSÉ MANUEL PRN Hypotension Labetalol HCl 300 mg 11/03/18 22:00 11/17/18 09:26 Normodyne PO 300 mg BID ZUNILDA Administration Losartan Potassium 100 mg 11/05/18 17:42 11/17/18 09:25 Cozaar PO 100 mg QDAY ZUNILDA Administration Morphine Sulfate 2 mg 11/01/18 21:51 11/09/18 20:12 Morphine IV 2 mg Q4H PRN Administration Pain, Moderate (4-6) Nifedipine 60 mg 11/05/18 10:00 11/17/18 09:26 Procardia Xl PO 60 mg Q12HR ZUNILDA Administration Nitroglycerin 0.4 mg 11/01/18 05:33 11/01/18 06:20 Nitrostat SL 0.4 mg .Q5MIN PRN Administration Chest Pain Ondansetron HCl 4 mg 11/03/18 23:07 11/03/18 23:48 Zofran IV 4 mg Q6H PRN Administration Nausea And Vomiting Spironolactone 50 mg 11/02/18 13:00 11/17/18 09:27 Aldactone PO 50 mg QDAY ZUNILDA Administration Nutrition/Malnutrition Assess - Dietary Evaluation Nutrition/Malnutrition Findings: Nutrition Notes Start: 11/09/18 16:11 Freq: Status: Active Protocol: Document 11/11/18 15:40 RM (Rec: 11/11/18 15:53 RM [id number]) Nutrition Notes Initial or Follow up Reassessment Current Diagnosis Acute Kidney Injury,CKD (stage V CKD),Hypertension Current Diet renal Labs/Tests BUN 37 Cr 5.2 Height 5 ft 4 in Weight 62.2 kg [place] Body Weight (kg) 59.09 BMI 23.5 Subjective/Other Information Pt stated that his appetite is good and that he eats all of his meals. Percent of energy/protein needs met: 100%/100% Burn Absent Trauma Absent #2 Nutrition Diagnosis Food and nutrition-related knowledge deficit As Evidenced by Signs and Symptoms pt received diet education Diagnosis Progress(for reassessment Resolved documentation) #1 Nutrition Diagnosis Inadequate oral intake As Evidenced by Signs and Symptoms pt meeting 100% of calorie and protein needs Diagnosis Progress(for reassessment Resolved documentation) Is patient on ventilator? No Is Patient Ambulatory and/or Out of Bed Yes REE-([facility]-ambulatory/OOB) [ 1895.400 [id number]] Calculation Used for Recommendations [facility] Additional Notes Protein: 37-50g (0.6-0.8g/kg) Fluid needs: 1-1.2 L OR PER MD RECOMMENDATION Nutrition Intervention Change Diet Order: Continue current Goal #1 Continue to meet at least 75% of calorie and protein needs via PO intakes Revisit per MD consult or patient Sign Off request:
[2018-11-17] MEDS: CARDURA PO SCH (09:38)
[2018-11-17] MEDS ORDERED: NACL 0.9 (PRIMING MACHINE ONLY DIALYSIS) MC ONE (11:48)
--- NOTE | 2018-11-17 12:44 | Discharge Summary ---
Providers - Providers Date of Admission: 11/01/18 09:36 Date of discharge: 11/17/18 Attending physician: DARLING SANTOS 11/01/18 08:10 Consult to Physician [CONS] Stat Comment: Dr. Houser spoke with Dr. Restrepo @ 08 Consulting Provider: DEBORAH RESTREPO Physician Instructions: Reason For Exam: UMAIR Hypertensive Crisis, Etc 11/01/18 09:11 Consult to Physician [CONS] Stat Comment: Consulting Provider: CHANG DUNNE Physician Instructions: Reason For Exam: vascath 11/06/18 14:05 Consult to Case Management [CONS] Routine Services Needed at Discharge: Other Notified:: SARAH Comment:: OUTPATIENT HEMODIAYLSIS CLINIC PLACEMENT Primary care physician: [facility] MD SARA Hospitalization Condition: Fair Disposition: DC-01 TO HOME OR SELFCARE Exam - Constitutional Vitals: Temp Pulse Resp BP Pulse Ox 98.2 F 80 20 146/82 97 11/17/18 10:40 11/17/18 12:15 11/17/18 10:40 11/17/18 12:15 11/16/18 23:21 Plan Activity: no restrictions Diet: low fat, low cholesterol, low salt, renal Plan of Treatment: 1.Follow up with PCP or [facility] in 1 week. 2.Hemodialysis on Assessment: 1.ESRD on dialysis Follow up with: SARA WELLERLORAINE MD HUGO [Primary Care Provider] - 3-5 Days Prescriptions: Spironolactone [Aldactone] 50 mg PO QDAY 30 Days tablet hydrALAZINE [Apresoline TAB] 100 mg PO TID #90 tab Doxazosin [Cardura] 2 mg PO BID #60 tablet Labetalol [Labetalol 200mg TAB] 300 mg PO BID 30 Days tablet NIFEdipine XL [Procardia Xl] 60 mg PO Q12HR #30 tablet
[2018-11-17 13:58] VITALS: BP 137/82
== END 2018-11-17 14:39 | disposition home or self-care (01) | DRG 673 ==
LOC: EDBD → ED 04:54 → IMCU 09:36 → 4A 11-05 18:45 → 3A 11-10 14:56
PROVIDERS: ADMIT Hospitalist; ATTEND Internal Medicine
PROC: 02HV33Z Insertion of Infusion Device into Superior Vena Cava, Percutaneous Approach (ICD-10-PCS; 2018-11-01)
PROC: B548ZZA Ultrasonography of Superior Vena Cava, Guidance (ICD-10-PCS; 2018-11-01)
PROC: 5A1D70Z Performance of Urinary Filtration, Intermittent, Less than 6 Hours Per Day (ICD-10-PCS; 2018-11-01)
PROC: 5A1D70Z Performance of Urinary Filtration, Intermittent, Less than 6 Hours Per Day (ICD-10-PCS; 2018-11-02)
PROC: 5A1D70Z Performance of Urinary Filtration, Intermittent, Less than 6 Hours Per Day (ICD-10-PCS; 2018-11-03)
PROC: 5A1D70Z Performance of Urinary Filtration, Intermittent, Less than 6 Hours Per Day (ICD-10-PCS; 2018-11-05)
PROC: 5A1D70Z Performance of Urinary Filtration, Intermittent, Less than 6 Hours Per Day (ICD-10-PCS; 2018-11-07)
PROC: 0JH63XZ Insertion of Tunneled Vascular Access Device into Chest Subcutaneous Tissue and Fascia, Percutaneous Approach (ICD-10-PCS; principal; 2018-11-09)
PROC: B2141ZZ Fluoroscopy of Right Heart using Low Osmolar Contrast (ICD-10-PCS; 2018-11-09)
PROC: B5181ZZ Fluoroscopy of Superior Vena Cava using Low Osmolar Contrast (ICD-10-PCS; 2018-11-09)
PROC: 02H633Z Insertion of Infusion Device into Right Atrium, Percutaneous Approach (ICD-10-PCS; 2018-11-09)
PROC: 02PYX3Z Removal of Infusion Device from Great Vessel, External Approach (ICD-10-PCS; 2018-11-09)
PROC: 5A1D70Z Performance of Urinary Filtration, Intermittent, Less than 6 Hours Per Day (ICD-10-PCS; 2018-11-10)
PROC: 5A1D70Z Performance of Urinary Filtration, Intermittent, Less than 6 Hours Per Day (ICD-10-PCS; 2018-11-12)
PROC: 5A1D70Z Performance of Urinary Filtration, Intermittent, Less than 6 Hours Per Day (ICD-10-PCS; 2018-11-14)
PROC: 5A1D70Z Performance of Urinary Filtration, Intermittent, Less than 6 Hours Per Day (ICD-10-PCS; 2018-11-17)
DX: I12.0 Hypertensive chronic kidney disease with stage 5 chronic kidney disease or end stage renal disease (principal); N18.6 End stage renal disease; N17.9 Acute kidney failure, unspecified; J44.1 Chronic obstructive pulmonary disease with (acute) exacerbation; I16.1 Hypertensive emergency; E78.5 Hyperlipidemia, unspecified; D63.1 Anemia in chronic kidney disease; E87.6 Hypokalemia; Z91.14 Patient's other noncompliance with medication regimen; Z82.49 Family history of ischemic heart disease and other diseases of the circulatory system
CPT/HCPCS: 36415; 36558; 70450; 71045; 71275; 74174; 76770; 77001; 80048; 80053; 80061; 80074; 80076; 80307; 81001; 82550; 82553; 82570; 83735; 83880; 84156; 84300; 84484; 85025; 85027; 85379; 85610; 85730; 86021; 86038; 86334; 87086; 93005; 93010; 93306; 93970; 96374; 96375; 99292; G0378; C1750; C1769; C1894; J0360; J0690; J1644; J2250; J2270; J2405; J3010; J7030; J7040; J7050; Q9967

== ENCOUNTER 2018-12-03 18:53 | Emergency (ER) | payer OTHER ==
--- NOTE | 2018-12-03 19:03 | Emergency Department Report ---
Blank Doc - Documentation Documentation: 38-year-old male that presents with mixed dialysis. Denies any symptoms or pa in. This initial assessment/diagnostic orders/clinical plan/treatment(s) is/are subject to change based on patient's health status, clinical progression and re- assessment by fellow clinical providers in the ED. Further treatment and workup at subsequent clinical providers discretion. Patient/guardians urged not to elope from the ED as their condition may be serious if not clinically assessed and managed. Initial orders include: 1- Patient sent to MAIN for further evaluation and treatment 2- labs 3- UA
[2018-12-03 19:04] VITALS: BP 229/160
[2018-12-03 19:25] LABS: Basophils # (Auto) 0.1 K/mm3 (0.0-0.1); Basophils % (Auto) 1.5 % (0.0-1.8); Eosinophils # (Auto) 0.3 K/mm3 (0.0-0.4); Eosinophils % (Auto) 4.8 % (0.0-4.3); Hematocrit 33.6 % (35.5-45.6); Hemoglobin 11.5 gm/dl (11.8-15.2); Lymphocytes # (Auto) 0.9 K/mm3 (1.2-5.4); Lymphocytes % (Auto) 14.8 % (13.4-35.0); Mean Corpuscular HGB Conc 34 % (32-34); Mean Corpuscular Volume 89 fl (84-94); Monocytes # (Auto) 0.5 K/mm3 (0.0-0.8); Monocytes % (Auto) 7.9 % (0.0-7.3); Platelet Count 252 K/mm3 (140-440); Red Cell Distribution Width 17.2 % (13.2-15.2)
[2018-12-03 19:45] LABS: Albumin 3.8 g/dL (3.9-5); Calcium 9.1 mg/dL (8.4-10.2)
== END 2018-12-03 22:05 | disposition left against medical advice (07) ==
LOC: ED 18:53
DX: Z53.21 Procedure and treatment not carried out due to patient leaving prior to being seen by health care provider (principal)
CPT/HCPCS: 36415; 80053; 85025

== ENCOUNTER 2018-12-07 14:22 | Inpatient (IN) | payer OTHER ==
--- NOTE | 2018-12-07 15:09 | Emergency Department Report ---
ED General Adult HPI - General Chief complaint: Seizure Stated complaint: SEIZURE Time Seen by Provider: 12/07/18 15:08 Source: patient, EMS Mode of arrival: Stretcher Limitations: No Limitations - History of Present Illness Initial comments: 38-year-old male with history of end-stage renal disease and hypertension presents after having a seizure. Patient states he was conscious throughout the seizure but was shaking. Patient states he has a urinary incontinence. Patient states he has no prior history of seizures. Patient denies any head trauma s jacquelyn that he was in the bed the entire time this episode occurred. Patient states he is unable to quantify how long this episode occurred. Patient has had no subsequent seizures. Patient last had dialysis 2 weeks ago. Patient presented to the ER on December 03 states that he was unable to feel prescription secondary to insurance issues. Patient was told to go to dialysis on the but secondary to a family emergency was unable to do this. Patient currently denies any chest pain or shortness of breath. - Related Data Previous Rx's Medication Instructions Recorded Last Taken Type Doxazosin [Cardura] 2 mg PO BID #60 tablet 11/17/18 Unknown Rx Labetalol [Labetalol 200mg TAB] 300 mg PO BID 30 Days tablet 11/17/18 Unknown Rx Losartan [Cozaar] 100 mg PO QDAY #30 tablet 11/17/18 Unknown Rx NIFEdipine XL [Procardia Xl] 60 mg PO Q12HR #30 tablet 11/17/18 Unknown Rx Spironolactone [Aldactone] 50 mg PO QDAY 30 Days tablet 11/17/18 Unknown Rx hydrALAZINE [Apresoline TAB] 100 mg PO TID #90 tab 11/17/18 Unknown Rx Allergies Allergy/AdvReac Type Severity Reaction Status Date / Time No Known Allergies Allergy Unverified 11/01/18 04:56 ED Review of Systems ROS: Stated complaint: SEIZURE Other details as noted in HPI Constitutional: denies: chills, fever Eyes: denies: eye pain, eye discharge, vision change ENT: denies: ear pain, throat pain Respiratory: denies: cough, shortness of breath, wheezing Cardiovascular: denies: chest pain, palpitations Endocrine: no symptoms reported Gastrointestinal: denies: abdominal pain, nausea, diarrhea Genitourinary: denies: urgency, dysuria Musculoskeletal: denies: back pain, joint swelling, arthralgia Skin: denies: rash, lesions Neurological: headache, other (seizure) Psychiatric: denies: anxiety, depression Hematological/Lymphatic: denies: easy bleeding, easy bruising ED Past Medical Hx - Past Medical History Previous Medical History?: Yes Hx Hypertension: Yes Hx Congestive Heart Failure: No Hx Diabetes: No Hx Renal Disease: Yes (ESRD) Hx Asthma: No Hx COPD: No - Surgical History Past Surgical History?: Yes Additional Surgical History: hernia mesh. intestine untangle. dialysis - Social History Smoking Status: Current Every Day Smoker Substance Use Type: Marijuana - Medications Home Medications: Home Medications Medication Instructions Recorded Confirmed Last Taken Type Doxazosin [Cardura] 2 mg PO BID #60 tablet 11/17/18 Unknown Rx Labetalol [Labetalol 200mg TAB] 300 mg PO BID 30 Days tablet 11/17/18 Unknown Rx Losartan [Cozaar] 100 mg PO QDAY #30 tablet 11/17/18 Unknown Rx NIFEdipine XL [Procardia Xl] 60 mg PO Q12HR #30 tablet 11/17/18 Unknown Rx Spironolactone [Aldactone] 50 mg PO QDAY 30 Days tablet 11/17/18 Unknown Rx hydrALAZINE [Apresoline TAB] 100 mg PO TID #90 tab 11/17/18 Unknown Rx ED Physical Exam - General Limitations: No Limitations General appearance: alert, other (awake; mild distress) - Head Head exam: Present: atraumatic, normocephalic - Eye Eye exam: Present: normal appearance - ENT ENT exam: Present: mucous membranes moist - Neck Neck exam: Present: normal inspection - Respiratory Respiratory exam: Present: normal lung sounds bilaterally. Absent: respiratory distress - Cardiovascular Cardiovascular Exam: Present: regular rate, normal rhythm, other (right sided permacath noted with no erythema, exudate, or ecchymosis). Absent: systolic murmur, diastolic murmur, rubs, gallop - GI/Abdominal GI/Abdominal exam: Present: soft, normal bowel sounds - Rectal Rectal exam: Present: deferred - Extremities Exam Extremities exam: Present: normal inspection - Back Exam Back exam: Present: normal inspection - Neurological Exam Neurological exam: Present: alert, oriented X3 - Psychiatric Psychiatric exam: Present: normal affect, normal mood - Skin Skin exam: Present: warm, dry, intact, normal color. Absent: rash ED Course Vital Signs 0912/07/18 12/07/18 15:04 15:16 16:18 Temperature 98.4 F Pulse Rate 85 85 77 Respiratory 14 13 Rate Blood Pressure 233/167 233/167 Blood Pressure 211/158 [Right] O2 Sat by Pulse 100 99 Oximetry 12/07/18 12/07/18 17:38 17:48 Temperature Pulse Rate 73 68 Respiratory Rate Blood Pressure 207/111 Blood Pressure 195/137 [Right] O2 Sat by Pulse 96 Oximetry ED Medical Decision Making - Lab Data Result diagrams: 12/07/18 15:15 12/07/18 15:15 - EKG Data EKG shows normal: sinus rhythm Rate: normal - EKG Data When compared to previous EKG there are: changes noted (patient now has biphasic component to EKG in precordial leads ( compared to 11/01/18)) Interpretation: other (Biphasic t wave changes noted in V3 and V4; Flattening of t wave noted in leads AVL; ST depression in leads I) - Medical Decision Making Patient received clonidine 0.2 mg Po while in the ER. Patient also received IV labetalol with two doses while in the ER as well and BP remains elevated. Patient has had no subsequent seizure activity at the CT which shows no evidence any acute pathology. Patient's case was discussed with the sealing machine operator who will set up dialysis for the patient. We'll patient continue to have elevated blood pressure. Admitted to the hospitalist service as well for continued management and treatment. - Differential Diagnosis INtracranial Bleed; Dehydration; electrolyte abnormality; Anemia Critical care attestation.: If time is entered above; I have spent that time in minutes in the direct care of this critically ill patient, excluding procedure time. ED Disposition Clinical Impression: Seizure, Hypertensive crisis, ESRD (end stage renal disease) on dialysis Disposition: OP ADMIT IP TO THIS HOSP Is pt being admited?: Yes Condition: Stable Instructions: Hypertension (ED) Time of Disposition: 18:21
[2018-12-07] MEDS ORDERED: CATAPRES PO ONE (15:11)
[2018-12-07 15:33] LABS: Basophils # (Auto) 0.1 K/mm3 (0.0-0.1); Basophils % (Auto) 1.7 % (0.0-1.8); Eosinophils # (Auto) 0.3 K/mm3 (0.0-0.4); Eosinophils % (Auto) 4.8 % (0.0-4.3); Hematocrit 35.4 % (35.5-45.6); Hemoglobin 12.1 gm/dl (11.8-15.2); Lymphocytes # (Auto) 0.6 K/mm3 (1.2-5.4); Lymphocytes % (Auto) 11.2 % (13.4-35.0); Mean Corpuscular HGB Conc 34 % (32-34); Mean Corpuscular Volume 88 fl (84-94); Monocytes # (Auto) 0.5 K/mm3 (0.0-0.8); Monocytes % (Auto) 9.6 % (0.0-7.3); Platelet Count 168 K/mm3 (140-440); Red Blood Count 4.04 M/mm3 (3.65-5.03); Red Cell Distribution Width 16.3 % (13.2-15.2)
--- NOTE | 2018-12-07 15:42 | XRay Report ---
CHEST 1 VIEW INDICATION / CLINICAL INFORMATION: chest pain. COMPARISON: 11/01/2018 FINDINGS: SUPPORT DEVICES: Dialysis catheter is seen on the right with the tip in the region of the midportion of the right atrium. HEART / MEDIASTINUM: Moderately enlarged but stable. LUNGS / PLEURA: No significant pulmonary or pleural abnormality. No pneumothorax. ADDITIONAL FINDINGS: No significant additional findings. IMPRESSION: 1. No significant change Signer Name: Jesse Dominguez MD Signed: 12/07/2018 3:37 PM Workstation Name: [id number]
[2018-12-07 15:56] LABS: Calcium 9.1 mg/dL (8.4-10.2)
[2018-12-07 16:16] LABS: Chol/HDL Ratio 4.57 %
[2018-12-07] MEDS ORDERED: NORMODYNE IV ONE (16:21)
--- NOTE | 2018-12-07 16:41 | Cat Scan Report ---
CT BRAIN: 12/07/2018 INDICATION / CLINICAL INFORMATION: seizure/headache. COMPARISON: 11/01/2018 FINDINGS: BRAIN/INTRACRANIAL STRUCTURES: Unenhanced CT images of the brain demonstrate no evidence of acute int racranial abnormality. Ventricles and sulci are within normal limits of size and shape for a patient of this age. There is no CT evidence of acute ischemic injury, hemorrhage, or mass. There are no abnormal extra-ax ial fluid collections. There is been no change when compared to the prior exam. EXTRACRANIAL STRUCTURES: Unremarkable. IMPRESSION: No acute abnormality. All CT scans at this location are performed using dose reduction to ALARA by means of automated expos ure control. Signer Name: Cali Carrillo MD Signed: 12/07/2018 4:37 PM Workstation Name: [id number]
[2018-12-07] MEDS ORDERED: CARDENE 50 MG in NACL 0.9% 250ML 230 ML IV SCH (19:00)
[2018-12-07 21:07] LABS: Hepatitis B Surface Antigen Non-Reactive (Negative); Hepatitis C Virus Antibody Non-Reactive (NonReactive)
[2018-12-07] MEDS ORDERED: ZOFRAN IV PRN (22:48)
[2018-12-07] MEDS ORDERED: PERCOCET 5/325 PO PRN (22:48)
[2018-12-07] MEDS ORDERED: SODIUM CHLORIDE FLUSH SYRINGE 10 ML IV PRN (22:48)
[2018-12-07] MEDS ORDERED: DILAUDID IV PRN (22:48)
[2018-12-07] MEDS ORDERED: TYLENOL PO PRN (22:48)
[2018-12-07] MEDS ORDERED: HEPARIN SUB-Q SCH (23:00)
--- NOTE | 2018-12-07 23:54 | Event Note ---
Date: 12/07/18 PATIENT ADMISSION LOCATION CHANGED TO [facility] . CRITICAL ACRE CONSULT PUT IN FOR DR. LANZA
[2018-12-08] MEDS ORDERED: HEPARIN ONE (00:19)
[2018-12-08] MEDS ORDERED: APRESOLINE ONE ×2 (00:19→06:15)
[2018-12-08] MEDS ORDERED: COREG ONE (00:19)
[2018-12-08] MEDS ORDERED: COZAAR ONE (00:19)
[2018-12-08] MEDS: APRESOLINE PO SCH ×2 (00:30→06:19)
[2018-12-08] MEDS: COREG PO SCH ×2 (00:30→16:37)
[2018-12-08] MEDS: COZAAR PO SCH ×2 (00:30→16:38)
[2018-12-08] MEDS ORDERED: PERCOCET 5/325 ONE (03:37)
[2018-12-08 04:32] LABS: Basophils # (Auto) 0.1 K/mm3 (0.0-0.1); Basophils % (Auto) 1.3 % (0.0-1.8); Eosinophils # (Auto) 0.2 K/mm3 (0.0-0.4); Eosinophils % (Auto) 3.8 % (0.0-4.3); Hematocrit 34.2 % (35.5-45.6); Hemoglobin 11.6 gm/dl (11.8-15.2); Lymphocytes # (Auto) 0.9 K/mm3 (1.2-5.4); Lymphocytes % (Auto) 16.3 % (13.4-35.0); Mean Corpuscular HGB Conc 34 % (32-34); Mean Corpuscular Volume 87 fl (84-94); Monocytes # (Auto) 0.5 K/mm3 (0.0-0.8); Monocytes % (Auto) 9.3 % (0.0-7.3); Platelet Count 156 K/mm3 (140-440); Red Blood Count 3.91 M/mm3 (3.65-5.03); Red Cell Distribution Width 16.8 % (13.2-15.2)
[2018-12-08 04:55] LABS: Albumin 3.4 g/dL (3.9-5); Calcium 8.5 mg/dL (8.4-10.2)
[2018-12-08] MEDS ORDERED: K-DUR PO ONE ×2 (05:56→06:09)
--- NOTE | 2018-12-08 06:06 | Event Note ---
Date: 12/07/18 See H/p in reports Hypertensive emergency Esrd on HD Hypokalemia
[2018-12-08] MEDS ORDERED: KCL 10MEQ/100ML 10 MEQ/100 ML BAG IV ONE ×3 (06:10→08:49)
[2018-12-08] MEDS: KCL 10MEQ/100ML 10 MEQ/100 ML BAG IV SCH ×3 (06:20→08:56)
--- NOTE | 2018-12-08 07:24 | History and Physical Report ---
CHIEF COMPLAINT: Seizures x 1. HISTORY OF PRESENT ILLNESS: A 38-year-old male with history of end-stage renal disease and hypertension, noncompliant with medication. Apparently, had a seizure, but as per the patient, the patient was shaking and had urinary incontinence, but was conscious throughout the episode of seizures. No history of seizures in the past. Denies any head trauma. The patient was apparently in the bed when this happened. No tongue laceration. No tongue biting. The patient is unable to say how long and is started. The patient had dialysis 2 weeks ago. The patient states he is not able to take his blood pressure medicine because he could not fill the blood pressure medications. The patient stopped going to do hemodialysis for 2 weeks because of a family emergency and his blood pressure being high also. No chest pain. No shortness of breath. PAST MEDICAL HISTORY: Significant for, 1. End-stage renal disease, on dialysis. 2. Hypertension. CURRENT MEDICATIONS: Losartan, nifedipine 60 mg 12 hours, hydralazine 100 mg 3 times a day, Cozaar 100 mg once a day and Cardura 2 mg twice a day. PAST SURGICAL HISTORY: Hernia mesh and intestinal surgery for obstruction and AV graft. SOCIAL HISTORY: Smokes a pack every day. Marijuana intermittently. FAMILY HISTORY: Significant for hypertension. REVIEW OF SYSTEMS: Significant for seizure with shaking and questionable. No loss of consciousness, no postictal state. High blood pressure. Otherwise, review of systems negative. REVIEW OF SYSTEMS: A 14-point review of systems done. PHYSICAL EXAMINATION: GENERAL: Young male, cooperative during examination. Nonchalant. VITAL SIGNS: Blood pressure is 233/167, the initial one, which improved to 207/111, temperature 98.4, pulse is 85, respiratory rate is 14. HEENT: Unremarkable. Pupils equal and reactive. NECK: Supple, no lymphadenopathy, no thyromegaly. LUNGS: Clear to auscultation and percussion. Good air entry. CARDIOVASCULAR: S1, S2 heard. No gallop, no murmur, no rub. Apical impulse in left fifth intercostal space and midclavicular line. ABDOMEN: Soft and benign. No hepatosplenomegaly. No guarding, no rigidity. Hernial orifices are normal. EXTREMITIES: Good pedal pulses. No pedal edema. CENTRAL NERVOUS SYSTEM: Alert and oriented x 4, nonfocal exam. SKIN: Normal. LABORATORY DATA: Labs are significant for white count is 5700, hemoglobin is 12.1, hematocrit is 35.4, platelet count is 168,000. Sodium is 140, potassium is 3.2, BUN and creatinine is 44 and 6.0. Glucose is 114, triglycerides 155. Cholesterol is 215, LDL is 159. Hepatitis profile is negative; no A, B, or C. Head CT with no acute findings. Chest x-ray, no acute findings. EKG shows normal sinus rhythm, biphasic component and precordial leads. Biphasic T-wave changes in V3, V4, flattening of T-waves in aVL, ST depression in lead 1. ASSESSMENT AND PLAN: 1. Hypertensive emergency. The patient initiated on blood pressure medications, especially losartan and hydralazine 50 q. 8 hours and clonidine 0.2 once and Coreg 12.5 b.i.d. The patient also initiated on Cardene drip, hence admission to the ICU. 2. Hypokalemia, supplemented. 3. End-stage renal disease, on hemodialysis. Nephrology consulted. The patient to get hemodialysis today or tomorrow. 4. Hyperglycemia. Check hemoglobin A1c. 5. Elevated troponin secondary to end-stage renal disease. 6. Hyperlipidemia, the patient initiated on Lipitor 10 mg daily. Noncompliance. The patient counseled about compliance. 7. Nicotine dependence. Nicoderm patch initiated. 8. Deep venous thrombosis prophylaxis, heparin 5000 q. 12. JOB# [id number] G[facility]A/[facility]
[2018-12-08] MEDS ORDERED: DILAUDID ONE (08:01)
--- NOTE | 2018-12-08 09:10 | Consultation ---
History of Present Illness - Reason for Consult Consult date: 12/08/18 end stage renal disease - History of Present Illness Mr. Luna is a 38-year-old male with history of end-stage renal disease and hypertension presents after having a seizure activity. Per records, patient stated that he was conscious throughout the seizure but was shaking. He reported urinary incontinence. Denies prior history of seizures. Patient denies any head trauma since that he was in the bed the entire time this episode occurred. Patient states he is unable to quantify how long this episode occurred. Patient has had no subsequent seizures. Of note, patient's last dialysis treatment was 2 weeks ago. Of note, patient presented to the ER on December 03 states that he was unable to feel prescription secondary to insurance issues. Patient was told to go to dialysis on the but secondary to a family emergency was unable to do this. Past History Past Medical History: ESRD, hypertension Past Surgical History: No surgical history Social history: no significant social history Family history: no significant family history Medications and Allergies Allergies Allergy/AdvReac Type Severity Reaction Status Date / Time No Known Allergies Allergy Unverified 11/01/18 04:56 Home Medications Medication Instructions Recorded Confirmed Last Taken Type Doxazosin [Cardura] 2 mg PO BID #60 tablet 11/17/18 Unknown Rx Labetalol [Labetalol 200mg TAB] 300 mg PO BID 30 Days tablet 11/17/18 Unknown Rx Losartan [Cozaar] 100 mg PO QDAY #30 tablet 11/17/18 Unknown Rx NIFEdipine XL [Procardia Xl] 60 mg PO Q12HR #30 tablet 11/17/18 Unknown Rx Spironolactone [Aldactone] 50 mg PO QDAY 30 Days tablet 11/17/18 Unknown Rx hydrALAZINE [Apresoline TAB] 100 mg PO TID #90 tab 11/17/18 Unknown Rx Active Meds: Active Medications Acetaminophen (Tylenol) 650 mg PO Q4H PRN PRN Reason: Pain MILD(1-3)/Fever >100.5/RIDLEY Carvedilol (Coreg) 12.5 mg PO BID [facility] Last Admin: 12/08/18 00:30 Dose: 12.5 mg Documented by: Heparin Sodium (Porcine) (Heparin) 5,000 unit SUB-Q Q12HR [facility] Last Admin: 12/08/18 00:30 Dose: Not Given Documented by: Hydralazine HCl (Apresoline) 50 mg PO Q8HR [facility] Last Admin: 12/08/18 06:19 Dose: 50 mg Documented by: Hydromorphone HCl (Dilaudid) 0.5 mg IV Q3H PRN PRN Reason: Pain , Severe (7-10) Last Admin: 12/08/18 08:10 Dose: 0.5 mg Documented by: Nicardipine HCl 50 mg/ Sodium (Chloride) 250 mls @ 25 mls/hr IV TITR ZUNILDA; Protocol Last Titration: 12/08/18 00:30 Dose: 0 mg/hr, 0 mls/hr Documented by: Potassium Chloride (Kcl 10meq/100ml) 10 meq in 100 mls @ 100 mls/hr IV Q1H [facility] Stop: 12/08/18 09:59 Last Admin: 12/08/18 08:56 Dose: 100 mls/hr Documented by: Losartan Potassium (Cozaar) 100 mg PO QDAY [facility] Last Admin: 12/08/18 00:30 Dose: 100 mg Documented by: Nicotine (Habitrol) 14 mg TD QDAY [facility] Ondansetron HCl (Zofran) 4 mg IV Q8H PRN PRN Reason: Nausea And Vomiting Oxycodone/Acetaminophen (Percocet 5/325) 1 tab PO Q6H PRN PRN Reason: Pain, Moderate (4-6) Last Admin: 12/08/18 03:37 Dose: 1 tab Documented by: Sodium Chloride (Sodium Chloride Flush Syringe 10 Ml) 10 ml IV BID [facility] Sodium Chloride (Sodium Chloride Flush Syringe 10 Ml) 10 ml IV PRN PRN PRN Reason: LINE FLUSH Review of Systems All systems: negative Exam - Vital Signs Vital signs: Vital Signs Temp Pulse Resp BP Pulse Ox 98.4 F 85 14 233/167 100 12/07/18 15:04 12/07/18 15:04 12/07/18 15:04 12/07/18 15:04 12/07/18 15:04 - General Appearance General appearance: well-developed, well-nourished EENT: ATNC Respiratory: Clear to Ascultation Heart: regular, S1S2 Gastrointestinal: Present: normal Integumentary: no rash Neurologic: alert and oriented x3 Psychiatric: cooperative Results - Lab Results 12/08/18 03:53 09/17/19 03:53 Most recent lab results Calcium 8.5 mg/dL (8.4-10.2) 12/08/18 03:53 Assessment and Plan Assesment: * End stage renal disease --Hemodialysis initiation Nov 01 2018 * Hypertensive emergency * Hypokalemia * Medical noncompliance Plan: * Hemodialysis today and tomorrow * Adjust K bath with dialysis - currently 4K bath * Resume antiHTN medications * Dose medications for renal function * Avoid potential nephrotoxic agents * Need for compliance with dialysis addressed with patient
[2018-12-08] MEDS ORDERED: ALDACTONE PO SCH (10:00)
[2018-12-08] MEDS ORDERED: SODIUM CHLORIDE FLUSH SYRINGE 10 ML IV SCH (10:00)
[2018-12-08] MEDS ORDERED: HABITROL TD SCH (10:00)
[2018-12-08] MEDS ORDERED: NACL 0.9 (PRIMING MACHINE ONLY DIALYSIS) MC ONE ×2 (10:33→22:14)
--- NOTE | 2018-12-08 13:03 | Progress Note ---
Assessment and Plan Assessment and plan: Patient is a 38 year old male with hx of ESRD, missed 2 weeks of dialysis due to family emergency and also has not been takin his BP med. Admitted with seizure vs pseudo-seizure with urinary incontinence and shaking although was awake during the seizure. On admission patient was given nicardipin drip due to hypertensive urgency but was later weaned off. 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 Plan Continue supportive care Seizure precautions Extensive discussion >15 mins on need to be complaince with meds, treatment and avoid tobacco patient insist he will sign out AMA today since [place]. I strongly advised against living today considering seizures and BP issues that are unresolved also electrolyte abnormality Recheck K following dialysis Restart home BP meds DVT/GI prophy History Interval history: Patient seen and examined, no acute distress, currently in dialysis. No further seizure activity Hospitalist Physical - Physical exam Narrative exam: VITAL SIGNS: Reviewed. GENERAL: The patient appears normally developed, Vital signs as documented. HEAD: No signs of head trauma. EYES: Pupils are equal. Extraocular motions intact. EARS: Hearing grossly intact. MOUTH: Oropharynx is normal. NECK: No adenopathy, no JVD. CHEST: Chest with clear breath sounds bilaterally. No wheezes, rales, or rhonchi. CARDIAC: Regular rate and rhythm. S1 and S2, without murmurs, gallops, or rubs. VASCULAR: No Edema. Peripheral pulses normal and equal in all extremities. ABDOMEN: Soft, non tender and non distended. No rebound or guarding, and no masses palpated. Bowel Sounds normal. MUSCULOSKELETAL: Good range of motion of all major joints. Extremities without clubbing, cyanosis or edema. NEUROLOGIC EXAM: Alert and oriented x 3 No focal sensory or strength deficits. Speech normal. Follows commands. PSYCHIATRIC: Mood normal. SKIN: detial exam as documented in skin assessment - Constitutional Vitals: Temp Pulse Resp BP Pulse Ox 97.8 F 62 18 140/94 94 12/08/18 09:30 12/08/18 11:15 12/08/18 09:30 12/08/18 11:15 12/08/18 09:26 Results - Labs CBC & Chem 7: 12/08/18 03:53 12/08/18 03:53 Labs: Laboratory Last Values WBC 5.7 K/mm3 (4.5-11.0) 12/08/18 03:53 RBC 3.91 M/mm3 (3.65-5.03) 12/08/18 03:53 Hgb 11.6 gm/dl (11.8-15.2) L 12/08/18 03:53 Hct 34.2 % (35.5-45.6) L 12/08/18 03:53 MCV 87 fl (84-94) 12/08/18 03:53 MCH 30 pg (28-32) 12/08/18 03:53 MCHC 34 % (32-34) 12/08/18 03:53 RDW 16.8 % (13.2-15.2) H 12/08/18 03:53 Plt Count 156 K/mm3 (140-440) 12/08/18 03:53 Lymph % (Auto) 16.3 % (13.4-35.0) 12/08/18 03:53 [place]er % (Auto) 9.3 % (0.0-7.3) H 12/08/18 03:53 Eos % (Auto) 3.8 % (0.0-4.3) 12/08/18 03:53 Baso % (Auto) 1.3 % (0.0-1.8) 12/08/18 03:53 Lymph # 0.9 K/mm3 (1.2-5.4) L 12/08/18 03:53 [place]er # 0.5 K/mm3 (0.0-0.8) 12/08/18 03:53 Eos # 0.2 K/mm3 (0.0-0.4) 12/08/18 03:53 Baso # 0.1 K/mm3 (0.0-0.1) 12/08/18 03:53 Seg Neutrophils % 69.3 % (40.0-70.0) 12/08/18 03:53 Seg Neutrophils # 4.0 K/mm3 (1.8-7.7) 12/08/18 03:53 Sodium 136 mmol/L (137-145) L 12/08/18 03:53 Potassium 2.8 mmol/L (3.6-5.0) L* 12/08/18 03:53 Chloride 92.6 mmol/L (98-107) L 12/08/18 03:53 Carbon Dioxide 26 mmol/L (22-30) 12/08/18 03:53 20 mmol/L 12/08/18 03:53 BUN 42 mg/dL (9-20) H 12/08/18 03:53 5.8 mg/dL (0.8-1.5) H 12/08/18 03:53 Estimated GFR 13 ml/min 12/08/18 03:53 7 % 12/08/18 03:53 Glucose 137 mg/dL (75-100) H 12/08/18 03:53 4.8 % (4-6) 12/07/18 15:15 Calcium 8.5 mg/dL (8.4-10.2) 12/08/18 03:53 0.40 mg/dL (0.1-1.2) 12/08/18 03:53 AST 15 units/L (5-40) 12/08/18 03:53 ALT 8 units/L (7-56) 12/08/18 03:53 55 units/L (35-129) 12/08/18 03:53 0.048 ng/mL (0.00-0.029) H 12/07/18 15:15 6.0 g/dL (6.3-8.2) L 12/08/18 03:53 3.4 g/dL (3.9-5) L 12/08/18 03:53 1.3 % 12/08/18 03:53 Triglycerides 155 mg/dL (2-149) H 12/07/18 15:15 Cholesterol 215 mg/dL (50-199) H 12/07/18 15:15 159 mg/dL (50-130) H 12/07/18 15:15 47 mg/dL (40-59) 12/07/18 15:15 4.57 % 12/07/18 15:15 Hepatitis A IgM Ab Non-reactive (NonReactive) 12/07/18 20:15 Hep Bs Antigen Non-reactive (Negative) 12/07/18 20:15 Hep B Core IgM Ab Non-reactive (NonReactive) 12/07/18 20:15 Non-reactive (NonReactive) 12/07/18 20:15 Active Medications - Current Medications Current Medications: Generic Name Dose Route Start Last Admin Trade Name Freq PRN Reason Stop Dose Admin Acetaminophen 650 mg 12/07/18 22:48 Tylenol PO Q4H PRN Pain MILD(1-3)/Fever >100.5/RIDLEY Carvedilol 12.5 mg 12/07/18 23:00 12/08/18 00:30 Coreg PO 12.5 mg BID ZUNILDA Administration Heparin Sodium (Porcine) 5,000 unit 12/07/18 23:00 12/08/18 00:30 Heparin SUB-Q Not Given Q12HR ZUNILDA Hydralazine HCl 50 mg 12/07/18 23:00 12/08/18 06:19 Apresoline PO 50 mg Q8HR ZUNILDA Administration Hydromorphone HCl 0.5 mg 12/07/18 22:48 12/08/18 08:10 Dilaudid IV 0.5 mg Q3H PRN Administration Pain , Severe (7-10) Nicardipine HCl 50 mg/ Sodium 250 mls @ 25 mls/hr 12/07/18 19:00 12/08/18 00:30 Chloride IV 0 mg/hr TITR ZUNILDA 0 mls/hr Titration Protocol 5 MG/HR Losartan Potassium 100 mg 12/07/18 22:52 12/08/18 00:30 Cozaar PO 100 mg QDAY ZUNILDA Administration Nicotine 14 mg 12/08/18 10:00 Habitrol TD QDAY ZUNILDA Ondansetron HCl 4 mg 12/07/18 22:48 Zofran IV Q8H PRN Nausea And Vomiting Oxycodone/Acetaminophen 1 tab 12/07/18 22:48 12/08/18 03:37 Percocet 5/325 PO 1 tab Q6H PRN Administration Pain, Moderate (4-6) Sodium Chloride 10 ml 12/08/18 10:00 Sodium Chloride Flush Syringe 10 Ml IV BID ZUNILDA Sodium Chloride 10 ml 12/07/18 22:48 Sodium Chloride Flush Syringe 10 Ml IV PRN PRN LINE FLUSH Spironolactone 25 mg 12/08/18 10:00 Aldactone PO QDAY ZUNILDA
--- NOTE | 2018-12-08 13:51 | Consultation ---
History of Present Illness Consult date: 12/08/18 History of present illness: PULMONARY AND CRITICAL CARE CONSULTATION THANK YOU FOR ASKING US TO PARTICIPATE IN THE CARE OF THIS PATIENT. 38-year-old male with history of end-stage renal disease and hypertension prese nts after having a seizure. Patient states he was conscious throughout the seizure but was shaking. Patient states he has a urinary incontinence. Patient states he has no prior history of seizures. Patient denies any head trauma since that he was in the bed the entire time this episode occurred. Patient states he is unable to quantify how long this episode occurred. Patient has had no subsequent seizures. Patient last had dialysis 2 weeks ago. Patient presented to the ER on December 03 states that he was unable to feel prescription secondary to insurance issues. Patient was told to go to dialysis on the but secondary to a family emergency was unable to do this. Patient currently denies any chest pain or shortness of breath. Patient has no complaint of chest pain, shortness of breath, or cough. Patient denies any lung problems in the past. Patient has a history of smoking 2-3 cig day for 21 years. Endorses marijuana use. Counseled to stop smoking cigarettes and marijuana. Denies alcohol or drug abuse. Patient just finished dialysis at time of exam. Resting on room air. O2 saturation 98%. CXR reported no acute pulmonary problems. Past History Past Medical History: ESRD, hypertension Past Surgical History: No surgical history Social history: no significant social history Family history: no significant family history Medications and Allergies Allergies Allergy/AdvReac Type Severity Reaction Status Date / Time No Known Allergies Allergy Unverified 11/01/18 04:56 Home Medications Medication Instructions Recorded Confirmed Last Taken Type Doxazosin [Cardura] 2 mg PO BID #60 tablet 12/08/18 Unknown Rx Labetalol [Labetalol 200mg TAB] 300 mg PO BID 30 Days tablet 12/08/18 Unknown Rx Losartan [Cozaar] 100 mg PO QDAY #30 tablet 12/08/18 Unknown Rx NIFEdipine XL [Procardia Xl] 60 mg PO Q12HR #30 tablet 12/08/18 Unknown Rx Spironolactone [Aldactone] 50 mg PO QDAY 30 Days tablet 12/08/18 Unknown Rx hydrALAZINE [Apresoline TAB] 100 mg PO TID #90 tab 12/08/18 Unknown Rx Active Meds: Active Medications Acetaminophen (Tylenol) 650 mg PO Q4H PRN PRN Reason: Pain MILD(1-3)/Fever >100.5/RIDLEY Carvedilol (Coreg) 12.5 mg PO BID [facility] Last Admin: 12/08/18 00:30 Dose: 12.5 mg Documented by: Heparin Sodium (Porcine) (Heparin) 5,000 unit SUB-Q Q12HR [facility] Last Admin: 12/08/18 00:30 Dose: Not Given Documented by: Hydralazine HCl (Apresoline) 50 mg PO Q8HR [facility] Last Admin: 12/08/18 06:19 Dose: 50 mg Documented by: Hydromorphone HCl (Dilaudid) 0.5 mg IV Q3H PRN PRN Reason: Pain , Severe (7-10) Last Admin: 12/08/18 08:10 Dose: 0.5 mg Documented by: Nicardipine HCl 50 mg/ Sodium (Chloride) 250 mls @ 25 mls/hr IV TITR [facility]; Protocol Last Titration: 12/08/18 00:30 Dose: 0 mg/hr, 0 mls/hr Documented by: Losartan Potassium (Cozaar) 100 mg PO QDAY [facility] Last Admin: 12/08/18 00:30 Dose: 100 mg Documented by: Nicotine (Habitrol) 14 mg TD QDAY [facility] Ondansetron HCl (Zofran) 4 mg IV Q8H PRN PRN Reason: Nausea And Vomiting Oxycodone/Acetaminophen (Percocet 5/325) 1 tab PO Q6H PRN PRN Reason: Pain, Moderate (4-6) Last Admin: 12/08/18 03:37 Dose: 1 tab Documented by: Sodium Chloride (Sodium Chloride Flush Syringe 10 Ml) 10 ml IV BID [facility] Sodium Chloride (Sodium Chloride Flush Syringe 10 Ml) 10 ml IV PRN PRN PRN Reason: LINE FLUSH Spironolactone (Aldactone) 25 mg PO QDAY [facility] Review of Systems All systems: negative Physical Examination Vital signs: Vital Signs Temp Pulse Resp BP Pulse Ox 98.4 F 85 14 233/167 100 12/07/18 15:04 12/07/18 15:04 12/07/18 15:04 12/07/18 15:04 12/07/18 15:04 General appearance: no acute distress, alert Eyes: non-icteric ENT: oropharynx moist Neck: supple Effort: normal Ascultation: Bilateral: clear Cardiovascular: regular rate and rhythm Gastrointestinal: normoactive bowel sounds, non-distended Integumentary: normal Extremities: no cyanosis Musculoskeletal: no deformities Gait: normal gait, normal posture normal mental status, non-focal exam mood appropriate, affect normal Results - Laboratory Findings CBC and BMP: 12/08/18 03:53 12/08/18 03:53 Abnormal lab findings: Abnormal Labs 12/07/18 12/07/18 12/07/18 15:15 15:15 15:15 Hgb Hct 35.4 L RDW 16.3 H Lymph % (Auto) 11.2 L [place]linger % (Auto) 9.6 H Eos % (Auto) 4.8 H Lymph # 0.6 L Seg Neutrophils % 72.7 H Sodium Potassium 3.2 L Chloride 96.8 L BUN 44 H Creatinine 6.0 H Glucose 114 H Troponin T 0.048 H Total Protein Albumin Triglycerides 155 H Cholesterol 215 H LDL Cholesterol Direct 159 H 12/08/18 12/08/18 03:53 03:53 Hgb 11.6 L Hct 34.2 L RDW 16.8 H Lymph % (Auto) [place]linger % (Auto) 9.3 H Eos % (Auto) Lymph # 0.9 L Seg Neutrophils % Sodium 136 L Potassium 2.8 L* Chloride 92.6 L BUN 42 H Creatinine 5.8 H Glucose 137 H Troponin T Total Protein 6.0 L Albumin 3.4 L Triglycerides Cholesterol LDL Cholesterol Direct - Diagnostic Findings Chest x-ray: report reviewed, image reviewed Additional studies: CHEST 1 VIEW INDICATION / CLINICAL INFORMATION: chest pain. COMPARISON: 11/01/2018 FINDINGS: SUPPORT DEVICES: Dialysis catheter is seen on the right with the tip in the region of the midportion of the right atrium. HEART / MEDIASTINUM: Moderately enlarged but stable. LUNGS / PLEURA: No significant pulmonary or pleural abnormality. No pneumothorax. ADDITIONAL FINDINGS: No significant additional findings. IMPRESSION: 1. No significant change Assessment and Plan 38-year-old male with history of end-stage renal disease and hypertension presents after having a seizure. Patient states he was conscious throughout the seizure but was shaking. Patient states he has a urinary incontinence. Patient states he has no prior history of seizures. Patient denies any head trauma since that he was in the bed the entire time this episode occurred. Patient states he is unable to quantify how long this episode occurred. Patient has had no subsequent seizures. Patient last had dialysis 2 weeks ago. Patient presented to the ER on December 03 states that he was unable to feel prescription secondary to insurance issues. Patient was told to go to dialysis on the but secondary to a family emergency was unable to do this. Patient currently denies any chest pain or shortness of breath. Patient has no complaint of chest pain, shortness of breath, or cough. Patient denies any lung problems in the past. Patient has a history of smoking 2-3 cig day for 21 years. Endorses marijuana use. Counseled to stop smoking cigarettes and marijuana. Denies alcohol or drug abuse. Patient just finished dialysis at time of exam. Resting on room air. O2 saturation 98%. CXR reported no acute pulmonary problems. - Patient Problems (1) Chest pain Current Visit: No Status: Acute Qualifiers: Chest pain type: unspecified Qualified Code(s): R07.9 - Chest pain, unspecified Plan to address problem: Patient denies chest pain at this time. (2) Hypertensive emergency Current Visit: No Status: Acute Plan to address problem: Management as per primary care. (3) ESRD (end stage renal disease) on dialysis Current Visit: Yes Status: Acute Plan to address problem: Management as per nephrology. (4) Seizure Current Visit: Yes Status: Acute Plan to address problem: Management as per primary care and neurology. (5) Tobacco use Current Visit: Yes Status: Acute Plan to address problem: Counseled patient to stop smoking cigarettes and marijuana.
[2018-12-08] MEDS ORDERED: APRESOLINE IV PRN (14:44)
[2018-12-08] MEDS ORDERED: APRESOLINE PO SCH (15:00)
[2018-12-08 16:38] VITALS: BP 172/124
[2018-12-08] MEDS ORDERED: NORMODYNE PO SCH (22:00)
--- NOTE | 2018-12-09 08:03 | Discharge Summary ---
Providers - Providers Date of Admission: 12/07/18 22:49 Attending physician: LETI SANTOS MD 12/07/18 17:51 Consult to Physician [CONS] Stat Comment: Dr. Fonseca spoke with Dr. Dinero Consulting Provider: RAY DINERO Physician Instructions: Reason For Exam: renal failure needing dialysis 12/07/18 23:54 Consult to Physician [CONS] Routine Comment: Consulting Provider: CLEOPATRA IRIZARRY Physician Instructions: Reason For Exam: ICU ADMISSION BECAUSE OF CARDENE DRIP Primary care physician: [facility] Hospitalization Reason for admission: HTN EMERGENCY Hospital course: Patient is a 38 year old male with hx of ESRD, missed 2 weeks of dialysis due to family emergency and also has not been takin his BP med. Admitted with seizure vs pseudo-seizure with urinary incontinence and shaking although was awake during the seizure. On admission patient was given nicardipin drip due to hypertensive urgency but was later weaned off. 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 Patient despite all the advise, still left AMA. BP meds written for the patient Disposition: DC-07 LEFT AGAINST MED ADVICE Time spent for discharge: 35 MINS Core Measure Documentation - Palliative Care Palliative Care/ Comfort Measures: Not Applicable - Core Measures Any of the following diagnoses?: none Exam - Physical Exam Narrative exam: VITAL SIGNS: Reviewed. GENERAL: The patient appears normally developed, Vital signs as documented. HEAD: No signs of head trauma. EYES: Pupils are equal. Extraocular motions intact. EARS: Hearing grossly intact. MOUTH: Oropharynx is normal. NECK: No adenopathy, no JVD. CHEST: Chest with clear breath sounds bilaterally. No wheezes, rales, or rhonchi. CARDIAC: Regular rate and rhythm. S1 and S2, without murmurs, gallops, or rubs. VASCULAR: No Edema. Peripheral pulses normal and equal in all extremities. ABDOMEN: Soft, non tender and non distended. No rebound or guarding, and no masses palpated. Bowel Sounds normal. MUSCULOSKELETAL: Good range of motion of all major joints. Extremities without clubbing, cyanosis or edema. NEUROLOGIC EXAM: Alert and oriented x 3 No focal sensory or strength deficits. Speech normal. Follows commands. PSYCHIATRIC: Mood normal. SKIN: detial exam as documented in skin assessment - Constitutional Vitals: Temp Pulse Resp BP Pulse Ox 98.1 F 60 15 172/124 98 12/08/18 14:37 12/08/18 14:37 12/08/18 14:37 12/08/18 16:37 12/08/18 14:37 Plan Follow up with: LOUIE CUEVAS MD [Primary Care Provider] - 3-5 Days Prescriptions: Spironolactone [Aldactone] 50 mg PO QDAY 30 Days tablet hydrALAZINE [Apresoline TAB] 100 mg PO TID #90 tab Doxazosin [Cardura] 2 mg PO BID #60 tablet Losartan [Cozaar] 100 mg PO QDAY #30 tablet Labetalol [Labetalol 200mg TAB] 300 mg PO BID 30 Days tablet NIFEdipine XL [Procardia Xl] 60 mg PO Q12HR #30 tablet
== END 2018-12-08 17:30 | disposition left against medical advice (07) | DRG 100 ==
LOC: ED 14:22 → 3A 22:49 → CC1 23:55 → 3A 12-08 08:38
PROVIDERS: ADMIT Internal Medicine; ATTEND Internal Medicine
DX: G40.89 Other seizures (principal); N18.6 End stage renal disease; I21.A1 Myocardial infarction type 2; I16.1 Hypertensive emergency; I12.0 Hypertensive chronic kidney disease with stage 5 chronic kidney disease or end stage renal disease; I16.0 Hypertensive urgency; F17.210 Nicotine dependence, cigarettes, uncomplicated; E87.6 Hypokalemia; F12.90 Cannabis use, unspecified, uncomplicated; Z99.2 Dependence on renal dialysis; Z91.19 Patient's noncompliance with other medical treatment and regimen
CPT/HCPCS: 36415; 70450; 71045; 80048; 80053; 80061; 80074; 83036; 84484; 85025; 93005; 93010; G0378; J1170; J1644; J3480; J7030; J7050